=== PATIENT | male | born 1960 | race Caucasian/White ===

== ENCOUNTER 2016-09-29 17:28 | Inpatient (IN) | payer BC ==
[~2016-09-29] VITALS: Ht 180.3 cm; Wt 76.2 kg
[~2016-09-29 17:28] MED LIST: CARD120C4 PO; METO25TA3 PO
[2016-09-29 17:30] VITALS: PULSE 100; RESP 16; TEMP 97.7; O2SAT 100
[2016-09-29 17:45] VITALS: BP 222/115
--- NOTE | 2016-09-29 17:53 | PD ---
HPI Chief Complaint: Pain: Acute or Chronic Time Seen by Provider: 17:43 Travel History International Travel<30 days: No Contact w/Intl Traveler<30days: No Traveled to known affect area: No History of Present Illness HPI 56-year-old male presented to the emergency Department with increasing swelling, pain, and redness to the left distal lateral sole of the foot. Patient states he's had a callus in this area for months, but 2 days ago it became more swollen and tender with what appeared to be a pocket of pus underneath it. Patient denies fever, chills, or drainage from the area. Patient's blood pressure is noted be elevated in triage. He states he took his Cardizem this morning. Patient states the swelling is worse today and is having difficulty ambulating secondary to pain. Pain with walking is 9/10. Pain at rest is 4/10. Patient has a history of MRSA. PFSH Past Medical History Hx Anticoagulant Therapy: No Cardiovascular Problems: Yes (HTN) Diabetes: No Musculoskeletal: No Neurologic: No Respiratory: No Social History Alcohol Use: Yes (BEER - 6 DAILY ) Tobacco Use: No (1 PPD) Substance Use: Yes (pot) Allergies-Medications (Allergen,Severity, Reaction): Coded Allergies: *MDRO Multi-Drug Resistant Organism (Verified Adverse Reaction, Unknown, ) MRSA PCR positive 06/30/2015 Reported Meds & Prescriptions Reported Meds & Active Scripts Active Cardizem CD 24 HR (Diltiazem CD 24 HR) 120 Mg Caper 1 Cap PO DAILY Reported Metoprolol Tartrate 25 Mg Tab 25 Mg PO Q12HR Review of Systems Except as stated in HPI: all other systems reviewed are Neg General / Constitutional: No: Fever, Chills Eyes: No: Visual changes HENT: No: Headaches Cardiovascular: No: Chest Pain or Discomfort Respiratory: No: Shortness of Breath Gastrointestinal: No: Abdominal Pain Genitourinary: No: Dysuria Musculoskeletal: Positive: Pain (see history present illness) Skin: Positive Lesions, No Rash Neurologic: No: Weakness Psychiatric: No: Depression Endocrine: No: Polydipsia Hematologic/Lymphatic: No: Easy Bruising Physical Exam Narrative GENERAL: Patient appears no acute distress. SKIN: Warm and dry. Generally normal color, normal turgor. Patient has a swollen appears to be abscess developed under the long-term callus on the left lateral distal foot over the fifth MIP joint. There is surrounding erythema and induration. The area under the callus is actually fluctuant with visible pus. No active drainage is noted. HEAD: Atraumatic. Normocephalic. EYES: Pupils equal and round. No scleral icterus. No injection or drainage. ENT: No nasal bleeding or discharge. Mucous membranes pink and moist. Pharynx is clear. Airway is patent. NECK: Trachea midline. Supple and nontender. CARDIOVASCULAR: Regular rate and rhythm. RESPIRATORY: No accessory muscle use. Clear to auscultation. Breath sounds equal bilaterally. MUSCULOSKELETAL: Extremities without clubbing, cyanosis, or edema. No obvious deformities. Patient is tenderness over the left fifth MIP joint. NEUROLOGICAL: Awake and alert. No obvious cranial nerve deficits. Motor grossly within normal limits. Five out of 5 muscle strength in the arms and legs. Normal speech. PSYCHIATRIC: Appropriate mood and affect; insight and judgment normal. Data Data Last Documented VS Vital Signs Date Time Temp Pulse Resp B/P Pulse Ox O2 Delivery O2 Flow Rate FiO2 09/29/16 17:45 222/115 09/29/16 17:30 97.7 100 16 100 Orders Complete Blood Count With Diff (09/29/16 17:53) Blood Culture (09/29/16 17:53) Wound Culture And Gram Stain (09/29/16 17:53) Iv Access Insert/Monitor (09/29/16 17:53) Ketorolac Inj (Toradol Inj) (09/29/16 18:00) Cefazolin Inj (Ancef Inj) (09/29/16 18:00) Comprehensive Metabolic Panel (09/29/16 17:53) Foot, Complete (Yiw2oyi) (09/29/16 17:53) Metoprolol Succinate Er (Toprol Xl) (09/29/16 18:15) Clindamycin Inj (Cleocin Inj) (09/29/16 18:15) Lactic Acid Sepsis Protocol (09/29/16 18:31) Sodium Chlor 0.9% 1000 Ml Inj (Ns 1000 M (09/29/16 18:45) Westergren Sedimentation Rate (09/29/16 18:40) Vancomycin Inj (Vancomycin Inj) (09/29/16 18:45) Consult Podiatry (09/29/16 ) (Hub Use Only)Inp Phy Cons/Ref (09/29/16 ) Diltiazem Cd (Cardizem Cd) (09/30/16 09:00) Metoprolol Tartrate (Lopressor) (09/29/16 21:00) Admit Order (Ed Use Only) (09/29/16 19:40) Labs Laboratory Tests Test 09/29/16 09/29/16 18:00 18:40 White Blood Count 15.0 TH/MM3 Red Blood Count 5.05 MIL/MM3 Hemoglobin 15.9 GM/DL Hematocrit 48.0 % Mean Corpuscular Volume 95.1 FL Mean Corpuscular Hemoglobin 31.5 PG Mean Corpuscular Hemoglobin 33.1 % Concent Red Cell Distribution Width 12.9 % Platelet Count 221 TH/MM3 Mean Platelet Volume 7.9 FL Neutrophils (%) (Auto) 68.2 % Lymphocytes (%) (Auto) 16.9 % Monocytes (%) (Auto) 10.3 % Eosinophils (%) (Auto) 0.5 % Basophils (%) (Auto) 4.1 % Neutrophils # (Auto) 10.3 TH/MM3 Lymphocytes # (Auto) 2.5 TH/MM3 Monocytes # (Auto) 1.5 TH/MM3 Eosinophils # (Auto) 0.1 TH/MM3 Basophils # (Auto) 0.6 TH/MM3 CBC Comment DIFF FINAL Differential Comment Erythrocyte Sedimentation Rate 5 mm/hr Sodium Level 132 MEQ/L Potassium Level 4.2 MEQ/L Chloride Level 96 MEQ/L Carbon Dioxide Level 25.2 MEQ/L Anion Gap 11 MEQ/L Blood Urea Nitrogen 12 MG/DL Creatinine 1.00 MG/DL Estimat Glomerular Filtration 77 ML/MIN Rate Random Glucose 89 MG/DL Calcium Level 10.0 MG/DL Total Bilirubin 1.7 MG/DL Aspartate Amino Transf 19 U/L (AST/SGOT) Alanine Aminotransferase 20 U/L (ALT/SGPT) Alkaline Phosphatase 97 U/L Total Protein 9.5 GM/DL Albumin 4.5 GM/DL Lactic Acid Level 1.1 mmol/L [facility] Medical Decision Making Medical Screen Exam Complete: Yes Emergency Medical Condition: Yes Differential Diagnosis Left foot abscess. Left foot cellulitis. Possible osteomyelitis. History of MRSA. Narrative Course Patient is medically stable at time of exam. Patient is discussed with, and seen by . X-ray of the left foot is ordered. Labs ordered including CBC, CMP, blood cultures 2. IV access is obtained and the patient is given 30 mg Toradol IV as well as 1 g Ancef IV, and 900 mg clindamycin IV. I&D is performed of the abscess of the left foot without difficulty, and culture is sent to the lab. CBC shows leukocytosis of 15,000. CMP is unremarkable. Foot x-ray is unremarkable for bony findings, only with localized swelling. Per radiologist. Patient discussed with Dr. Santos, who recommends adding lactic acid and calling Dr. Bartlett, the weather reporter on-call. Patient discussed with Dr. Bartlett, the weather reporter who recommended switching the patient to Zosyn and vancomycin IV, and adding an ESR to his lab work. He recommends admission for the patient and follow-up with him under consult. Call placed to the hospitalist for admission. Clindamycin IV was canceled, and patient given for vancomycin 1000 mg IV. Patient had already received the IV Ancef. Patient was discussed with the hospitalist who agreed to admit the patient. Diagnosis Primary Impression: Cellulitis of left foot Additional Impression: Abscess of left foot excluding toes Admitting Information Admitting Physician Requests: Admit Condition: Stable Drew Garcia September 29, 2016 17:53
[2016-09-29] MEDS ORDERED: KETOROLAC TROMETHAMINE 30 MG/ML (IVP) VIAL IVP ONE (18:00)
[2016-09-29] MEDS ORDERED: METOPROLOL SUCCINATE 25 MG EXTENDED RELEASE TAB PO ONE (18:15)
[2016-09-29] MEDS ORDERED: CLINDAMYCIN INJ 900 MG in SODIUM CHLORIDE 0.9% INJ 100 ML IV ONE (18:15)
[2016-09-29 18:19] LABS: AUTOMATED NEUTROPHIL # 10.3 TH/MM3 (1.8-7.7); BASOPHIL # 0.6 TH/MM3 (0-0.2); BASOPHIL % 4.1 % (0.0-2.0); EOSINOPHIL # 0.1 TH/MM3 (0-0.4); EOSINOPHIL % 0.5 % (0.0-4.0); HEMO FLAGS DIFF FINAL; LYMPH % 16.9 % (9.0-44.0); LYMPHOCYTE # 2.5 TH/MM3 (1.0-4.8); MEAN CELL VOLUME 95.1 FL (80.0-100.0); MEAN CORPUSCULAR HEMOGLOBIN 31.5 PG (27.0-34.0); MEAN CORPUSCULAR HGB CONC 33.1 % (32.0-36.0); MONO % 10.3 % (0.0-8.0); NEUT % 68.2 % (16.0-70.0); PLATELET COUNT 221 TH/MM3 (150-450); RED BLOOD COUNT 5.05 MIL/MM3 (4.50-5.90); RED CELL DISTRIBUTION WIDTH 12.9 % (11.6-17.2)
--- NOTE | 2016-09-29 18:23 | RADHPO ---
EXAM DATE/TIME: 09/29/2016 18:08 [facility] COMPARISON: No previous studies available for comparison. INDICATIONS : Left foot pain, plantar surface. MEDICAL HISTORY : None. SURGICAL HISTORY : None. ENCOUNTER: Initial ACUITY: 3 days PAIN SCORE: 7/10 LOCATION: Left foot, plantar FINDINGS: Three view examination of the left foot demonstrates no destructive change, dislocation, or fracture. The tarsal bones appear intact. The interphalangeal and metatarsophalangeal joints are intact. T he calcaneus is intact. Bony mineralization is normal. There is soft tissue swelling mainly involvin g the plantar aspect of the lateral forefoot. CONCLUSION: No acute bony findings. Cliff Walsh MD on September 29, 2016 at 18:20 Board Certified Radiologist. This report was verified electronically.
[2016-09-29 18:30] LABS: CHLORIDE 96 MEQ/L (98-107); POTASSIUM 4.2 MEQ/L (3.5-5.1); SODIUM (NA) 132 MEQ/L (136-145)
[2016-09-29 18:34] LABS: ANION GAP 11 MEQ/L (5-15); BICARBONATE 25.2 MEQ/L (21.0-32.0); BLOOD UREA NITROGEN 12 MG/DL (7-18)
[2016-09-29 18:37] LABS: ALT (GPT) 20 U/L (12-78); AST (GOT) 19 U/L (15-37); GLOMERULAR FILTRATION RATE 77 ML/MIN (>89)
[2016-09-29 18:38] LABS: TOTAL BILIRUBIN ADULT 1.7 MG/DL (0.2-1.0)
[2016-09-29 18:40] LABS: ALKALINE PHOSPHATASE 97 U/L (45-117)
[2016-09-29] MEDS ORDERED: VANCOMYCIN INJ 1,000 MG in SODIUM CHLOR 0.9% 250 ML INJ 250 ML IV ONE (18:45)
[2016-09-29] MEDS ORDERED: SODIUM CHLOR 0.9% 1000 ML INJ 1,000 ML IV ONE (18:45)
[2016-09-29] MEDS ORDERED: ACETAMINOPHEN 325 MG TAB PO PRN (19:45)
[2016-09-29] MEDS ORDERED: SODIUM CHLORIDE 0.9% FLUSH 10 ML FLUSH IV FLUSH PRN (19:45)
[2016-09-29] MEDS ORDERED: NALOXONE HCL 0.4 MG/ML AMP IV PRN (19:45)
[2016-09-29] MEDS ORDERED: ONDANSETRON HCL 4 MG/2 ML VIAL IVP PRN (19:45)
[2016-09-29 19:51] VITALS: BP 201/95; PULSE 80; RESP 16; TEMP 98.4; O2SAT 98
[2016-09-29 20:00] VITALS: BP 202/114; PULSE 80; RESP 18; TEMP 98.8; O2SAT 99
[2016-09-29] MEDS ORDERED: Vancomycin Consult Pharmacy 1 EA OTHER SCH (20:00)
[2016-09-29] MEDS ORDERED: PIPERACIL-TAZO 3.375 GM PREMIX 50 ML IV SCH (21:00)
[2016-09-29] MEDS: METOPROLOL TARTRATE 25 MG TAB PO SCH (21:00)
[2016-09-29] MEDS: cloNIDine HCL 0.1 MG TAB PO PRN (23:15)
[2016-09-29] MEDS: PIPERACIL-TAZO 3.375 GM PREMIX 50 ML IV SCH (23:16)
[2016-09-29] MEDS: SODIUM CHLORIDE 0.9% FLUSH 10 ML FLUSH IV FLUSH SCH (23:17)
[2016-09-30] VITALS: BP 201/116; PULSE 85; RESP 18; TEMP 97.6; O2SAT 99
[2016-09-30] MEDS ORDERED: TEMAZEPAM 15 MG CAP PO PRN (00:45)
[2016-09-30] MEDS: oxyCODONE/ACETAMINOPHEN 5 MG/325 MG TAB PO PRN ×2 (01:09→05:37)
[2016-09-30 04:00] VITALS: BP 188/101; PULSE 65; RESP 18; TEMP 98.2; O2SAT 98
[2016-09-30] MEDS: PIPERACIL-TAZO 3.375 GM PREMIX 50 ML IV SCH ×4 (05:37→22:27)
[2016-09-30] MEDS: cloNIDine HCL 0.1 MG TAB PO PRN (05:37)
[2016-09-30 06:38] LABS: AUTOMATED NEUTROPHIL # 7.4 TH/MM3 (1.8-7.7); BASOPHIL # 0.2 TH/MM3 (0-0.2); BASOPHIL % 1.9 % (0.0-2.0); EOSINOPHIL # 0.1 TH/MM3 (0-0.4); EOSINOPHIL % 1.1 % (0.0-4.0); HEMATOCRIT 40.3 % (39.0-51.0); HEMO FLAGS DIFF FINAL; LYMPH % 18.8 % (9.0-44.0); MEAN CELL VOLUME 94.7 FL (80.0-100.0); MEAN CORPUSCULAR HGB CONC 33.8 % (32.0-36.0); MONO % 11.1 % (0.0-8.0); NEUT % 67.1 % (16.0-70.0); PLATELET COUNT 202 TH/MM3 (150-450); RED BLOOD COUNT 4.26 MIL/MM3 (4.50-5.90); RED CELL DISTRIBUTION WIDTH 12.5 % (11.6-17.2); WHITE BLOOD COUNT 10.9 TH/MM3 (4.0-11.0)
[2016-09-30 06:58] LABS: POTASSIUM 4.1 MEQ/L (3.5-5.1)
[2016-09-30 07:09] LABS: BICARBONATE 24.8 MEQ/L (21.0-32.0)
[2016-09-30 08:00] VITALS: BP 172/95; PULSE 64; RESP 20; TEMP 97.6; O2SAT 97
[2016-09-30] MEDS ORDERED: VANCOMYCIN INJ 1,000 MG in SODIUM CHLOR 0.9% 250 ML INJ 250 ML IV SCH (09:00)
--- NOTE | 2016-09-30 09:04 | MB ---
cc: VICKY GALINDO DPM DATE OF CONSULTATION 09/30/2016 REASON FOR CONSULTATION Left foot abscess. HISTORY OF PRESENT ILLNESS This is a 56-year-old male who noticed a callus over the last [id number] weeks. It became red hot swollen, and it had increased pain. He denies any puncture wound, incident or injury. The patient received a minimal incision and drainage in the ED prior to admission. The patient does have a history of a molar abscess that led to sepsis in which she was in the ICU. Currently, I am seeing the patient bedside with his . His foot hurts otherwise he is doing fine. PAST MEDICAL HISTORY 1. Hypertension 2. History of sepsis secondary to molar abscess needing IV antibiotics for six to eight weeks. SOCIAL HISTORY He drinks beer daily. He smokes one pack per day and also marijuana. ALLERGIES None listed. However, the patient has a history of MRSA 06/30/2015. OUTPATIENT MEDICATIONS 1. Cardizem 2. Metoprolol INPATIENT MEDICATIONS Reviewed, the patient is receivin. Vancomycin 2. Zosyn PHYSICAL EXAMINATION Temperature is 98.2, pulse rate 65, respiratory rate 18, blood pressure 188/101. He is sating 98% on room air. GENERAL: This is an alert and oriented male seen bedside exhibiting nonlabored respirations. He is verbal and appropriate. EXTREMITIES: The left lower extremity is examined. There is a fluctuant inflamed abscess which appears to be superficial on the distal plantar fifth metatarsal head. Upon incision and drainage, there appears to be mild necrotic tissue. No obvious odor. No probing deep. Pedal pulses are palpable. Sensation appears to be intact. There is no crepitus or instability upon range of motion of the forefoot, hindfoot or ankle. LABORATORY FINDINGS White blood cell trending 15 down to 10.9, hemoglobin/hematocrit 13 and 40, platelet count is 202. Chem-7 sodium 135, potassium 4.1, chloride 101, CO2 24.8, BUN is 10, creatinine 0.76, random glucose is 90. IMAGING FINDINGS Foot x-ray, no obvious signs of foreign body erosive process. There is noted to be increased soft tissue swelling of the plantar aspect of the fifth metatarsal head. Initial cultures ordered and pending from the ED. A repeat deeper culture was taken today after incision and drainage. ASSESSMENT/PLAN Left foot abscess, possible deeper infection due to the level of necrosis seen. After obtaining an informed verbal and written consent, a bedside incision and drainage took place yielding approximately 3 cc of purulent material. A culture was taken. This was a deeper culture. The patient was explained MRI may be beneficial to rule out any deeper process to be certain there is no deep spread. Given the patient's past history of sepsis due to molar abscess, I that think this is appropriate. The patient will continue IV antibiotics. I will advise pending the MRI and all around tomorrow checking for any signs of further worsening or improvement. DEXTER Mariano/ASHA /8:04 AM /8:48 AM
[2016-09-30] MEDS ORDERED: NALOXONE HCL 0.4 MG/ML AMP IV PRN (09:15)
[2016-09-30] MEDS ORDERED: LORazepam 1 MG TAB PO PRN (09:15)
[2016-09-30] MEDS ORDERED: LORazepam 2 MG/ML VIAL IV PUSH PRN ×4 (09:15)
[2016-09-30] MEDS ORDERED: LORazepam 2 MG TAB PO PRN (09:15)
[2016-09-30] MEDS: DOCUSATE SODIUM 100 MG CAP PO SCH ×2 (09:15→21:00)
[2016-09-30] MEDS ORDERED: ENALAPRILAT 1.25 MG/ML VIAL IV PRN (09:15)
[2016-09-30] MEDS ORDERED: ACETAMINOPHEN/HYDROcodone 325 MG/5 MG TAB PO PRN (09:15)
[2016-09-30] MEDS ORDERED: MORPHINE SULFATE 4 MG/ML INJ IV PRN (09:15)
[2016-09-30] MEDS ORDERED: BISACODYL 10 MG SUPP RECTAL PRN (09:15)
[2016-09-30] MEDS ORDERED: HALOPERIDOL LACTATE 5 MG/ML AMP IM PRN (09:15)
[2016-09-30] MEDS: NICOTINE 21 MG/24 HR PATCH T-DERMAL SCH (09:15)
[2016-09-30] MEDS ORDERED: FLUMAZENIL 0.5 MG/5 ML VIAL IV PUSH PRN (09:15)
[2016-09-30] MEDS ORDERED: REMOVE OLD PATCH T-DERMAL SCH (09:15)
[2016-09-30] MEDS: DILTIAZEM-CD 120 MG CAP ER PO SCH (10:12)
[2016-09-30] MEDS: METOPROLOL TARTRATE 25 MG TAB PO SCH ×2 (10:12→21:13)
[2016-09-30] MEDS: SODIUM CHLORIDE 0.9% FLUSH 10 ML FLUSH IV FLUSH SCH ×2 (10:14→21:14)
[2016-09-30] MEDS: ACETAMINOPHEN/HYDROcodone 325 MG/10 MG TAB PO PRN ×3 (11:39→21:29)
[2016-09-30] MEDS: VANCOMYCIN 1,000 MG/NS 250 ML IV SCH ×4 (11:39→21:15)
[2016-09-30 12:00] VITALS: BP 197/100; PULSE 65; RESP 20; TEMP 98.3; O2SAT 99
[2016-09-30] MEDS ORDERED: VANCOMYCIN INJ 1,100 MG in SODIUM CHLOR 0.9% 250 ML INJ 250 ML IV SCH (12:00)
--- NOTE | 2016-09-30 12:41 | HHI.HP ---
[facility] Service [place] [facility] Primary Care Physician Christopher Bell MD Admission Diagnosis Left Foot Abscess Diagnoses: Chief Complaint: Left foot pain and swelling Travel History International Travel<30 Days: No Contact w/Intl Traveler <30 Da: No Traveled to Known Affected Are: No History of Present Illness This is a 56-year-old male who presented to the emergency Department with increasing swelling, pain, and redness to the distal lateral sole of the left foot. Patient states he's had a callus in this area for months, but 2 days ago it became more swollen and tender worse when he is walking scale of 9 out of 10. It is a constant pain scale 4 out of 10. Patient denies fever, chills, or drainage from the area. Underwent incision and drainage in the emergency department by PA and on the floor at bedside by podiatry . Patient's blood pressure is noted be elevated states he does not check at home. He has been compliant with Cardizem and metoprolol. Patient has a history of MRSA pneumonia and sepsis Review of Systems Except as stated in HPI: all other systems reviewed are Neg Past Family Social History Past Medical History Hypertension. 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 Past Surgical History Chest tube drainage Reported Medications As previously mentioned Allergies: Coded Allergies: *MDRO Multi-Drug Resistant Organism (Verified Adverse Reaction, Unknown, ) MRSA PCR positive 06/30/2015 Family History Denies diabetes Social History Smokes a pack per day and drinks 6 beers a day Physical Exam Vital Signs Vital Signs Date Time Temp Pulse Resp B/P Pulse Ox O2 Delivery O2 Flow Rate FiO2 09/30/16 08:00 97.6 64 20 172/95 97 09/30/16 04:00 98.2 65 18 188/101 98 09/30/16 00:00 97.6 85 18 201/116 99 09/30/16 00:00 97.6 85 18 201/116 99 09/29/16 20:38 76 16 99 09/29/16 20:00 98.8 80 18 202/114 99 09/29/16 19:51 98.4 80 16 201/95 98 Room Air 09/29/16 17:45 222/115 09/29/16 17:30 97.7 100 16 100 Physical Exam GENERAL: This is a well-nourished, well-developed patient, in no apparent distress. SKIN: No rashes, ecchymoses or lesions. Cool and dry. HEAD: Atraumatic. Normocephalic. No temporal or scalp tenderness. EYES: Pupils equal round and reactive. Extraocular motions intact. No scleral icterus. No injection or drainage. ENT: Nose without bleeding, purulent drainage or septal hematoma. Throat without erythema, tonsillar hypertrophy or exudate. Uvula midline. Airway patent. NECK: Trachea midline. No JVD or lymphadenopathy. Supple, nontender, no meningeal signs. CARDIOVASCULAR: Regular rate and rhythm without murmurs, gallops, or rubs. RESPIRATORY: Clear to auscultation. Breath sounds equal bilaterally. No wheezes , rales, or rhonchi. GASTROINTESTINAL: Abdomen soft, non-tender, nondistended. No guarding. MUSCULOSKELETAL: Extremities without clubbing, cyanosis, or edema. No joint tenderness, effusion, or edema noted. No calf tenderness. Negative Homans sign bilaterally. Left foot with dry dressing NEUROLOGICAL: Awake and alert. Cranial nerves II through XII intact. Motor and sensory grossly within normal limits. Five out of 5 muscle strength in all muscle groups. Normal speech. Mild tremors noted Laboratory Laboratory Tests Test 09/29/16 09/29/16 09/30/16 18:00 18:40 06:22 White Blood Count 15.0 10.9 Red Blood Count 5.05 4.26 Hemoglobin 15.9 13.6 Hematocrit 48.0 40.3 Mean Corpuscular Volume 95.1 94.7 Mean Corpuscular Hemoglobin 31.5 32.0 Mean Corpuscular Hemoglobin 33.1 33.8 Concent Red Cell Distribution Width 12.9 12.5 Platelet Count 221 202 Mean Platelet Volume 7.9 7.8 Neutrophils (%) (Auto) 68.2 67.1 Lymphocytes (%) (Auto) 16.9 18.8 Monocytes (%) (Auto) 10.3 11.1 Eosinophils (%) (Auto) 0.5 1.1 Basophils (%) (Auto) 4.1 1.9 Neutrophils # (Auto) 10.3 7.4 Lymphocytes # (Auto) 2.5 2.0 Monocytes # (Auto) 1.5 1.2 Eosinophils # (Auto) 0.1 0.1 Basophils # (Auto) 0.6 0.2 CBC Comment DIFF FINAL DIFF FINAL Differential Comment Erythrocyte Sedimentation Rate 5 Sodium Level 132 135 Potassium Level 4.2 4.1 Chloride Level 96 101 Carbon Dioxide Level 25.2 24.8 Anion Gap 11 9 Blood Urea Nitrogen 12 10 Creatinine 1.00 0.76 Estimat Glomerular Filtration 77 106 Rate Random Glucose 89 90 Calcium Level 10.0 8.6 Total Bilirubin 1.7 Aspartate Amino Transf 19 (AST/SGOT) Alanine Aminotransferase 20 (ALT/SGPT) Alkaline Phosphatase 97 Total Protein 9.5 Albumin 4.5 Lactic Acid Level 1.1 Date/Time Procedure Status Source Growth 09/30/16 07:45 Gram Stain Received Abscess Foot Pending 09/30/16 07:45 Wound Culture Received Abscess Foot Pending 09/29/16 18:05 Aerobic Blood Culture - Preliminary Resulted Blood Peripheral NO GROWTH IN 1 DAY 09/29/16 18:05 Anaerobic Blood Culture - Preliminary Resulted Blood Peripheral NO GROWTH IN 1 DAY 09/29/16 18:00 Gram Stain - Final Resulted Wound Foot 09/29/16 18:00 Wound Culture - Preliminary Resulted S. Aureus Mrsa Result Diagram: [id number]/30/1662109/[id number] Imaging X-ray image interpreted by me with no signs of osteomyelitis Last Impressions Foot X-Ray 09/29/16 940 Signed Impressions: Service Date/Time: Thursday, September 29, 2016 18:08 - CONCLUSION: No acute bony findings. Cliff Walsh MD Assessment and Plan Problem List: (1) Abscess of left foot excluding toes ICD Code: L02.612 Status: Acute (2) Cellulitis of left foot ICD Code: L03.116 Status: Acute Assessment and Plan This is a 56-year-old male who presented to the emergency Department with increasing swelling, pain, and redness to the distal lateral sole of the left foot. X-ray negative for osteomyelitis. Underwent incision and drainage x 2 Left foot abscess. Patient history of MRSA. Continue IV vancomycin and Zosyn. Monitor cultures. Pain management with Lortab and IV morphine. Counseled regarding narcotics. Follow-up MRI Uncontrolled hypertension. Could be secondary to pain and early alcohol withdrawal. Continue home medications with as needed clonidine and IV Vasotec P Leukocytosis secondary to above Hyponatremia which is mild likely secondary to alcohol. Monitor repeat BMP and magnesium in the morning Tobacco and alcohol abuse. Counseled. Tobacco cessation. CIWA protocol. DVT prophylaxis with SCD and early ambulation Discussed Condition With Patient and nursing staff Physician Certification 2 Midnight Certification Type: Admission for Inpatient Services Order for Inpatient Services The services are ordered in accordance with Medicare regulations or non- Medicare payer requirements, as applicable. In the case of services not specified as inpatient-only, they are appropriately provided as inpatient services in accordance with the 2-midnight benchmark. Estimated LOS (days): 2 days is the estimated time the patient will need to remain in the hospital, assuming treatment plan goals are met and no additional complications. Post-Hospital Plan: Home Abando,Marshall Momin MD September 30, 2016 12:41
[2016-09-30] MEDS ORDERED: GADODIAMIDE PF 287 MG/ML 5 ML VIAL (for RAD MRI) IV ONE (14:41)
--- NOTE | 2016-09-30 15:44 | RADHPO ---
EXAM DATE/TIME: 09/30/2016 13:43 [facility] COMPARISON: No previous studies available for comparison. INDICATIONS : Osteomyelitis. Wound on lateral aspect of left foot. CONTRAST: 12 cc Omniscan (gadodiamide) IV MEDICAL HISTORY : Hypertension. SURGICAL HISTORY : Chest tube. ENCOUNTER: Subsequent ACUITY: 3 day PAIN SCORE: 2/10 LOCATION: Left foot. TECHNIQUE: Multiplanar, multisequence MRI examination was performed without contrast and after the intravenous a dministration of gadolinium. FINDINGS: BONE/CARTILAGE: Bone marrow signal is homogeneous. Articular cartilage signal is within normal limits. TENDONS: All of the visualized tendons are intact. MISCELLANEOUS: Cutaneous ulceration is seen the lateral plantar aspect of the foot with sinus tract extending into t he plantar soft tissues adjacent to the fifth metatarsal head. There is associated ill-defined soft t issue edema indicating cellulitis and or clinical setting. No organized rounded fluid collection iden tified in the soft tissues. There is an area of relative non-enhancement of the plantar soft tissues at the level of the metatarsal head and proximal phalanx measuring 3.1 x 1.7 cm indicating possible b ilaterally soft tissue. CONCLUSION: Plantar ulceration with adjacent edema indicating cellulitis in the proper clinical setting. Nonenhan cing soft tissue at the level of the fifth metatarsophalangeal joint suggesting devitalized tissue. N o evidence of abscess. No evidence of osteomyelitis. Luis Mcgrath MD on September 30, 2016 at 15:30 Board Certified Radiologist. This report was verified electronically.
[2016-09-30 16:00] VITALS: BP 142/82; PULSE 71; RESP 20; TEMP 98; O2SAT 100
[2016-09-30 20:00] VITALS: BP 120/94; PULSE 70; RESP 18; TEMP 98.9; O2SAT 92
[2016-09-30] MEDS: REMOVE OLD PATCH T-DERMAL SCH (21:00)
[2016-09-30] MEDS ORDERED: oxyCODONE/ACETAMINOPHEN 5 MG/325 MG TAB PO ONE (23:30)
[2016-10-01] VITALS: BP 161/92; PULSE 65; RESP 18; TEMP 96.5; O2SAT 96
[2016-10-01 00:36] VITALS: PULSE 64
[2016-10-01 04:00] VITALS: BP 159/92; PULSE 66; RESP 16; TEMP 98.2; O2SAT 97
[2016-10-01] MEDS: PIPERACIL-TAZO 3.375 GM PREMIX 50 ML IV SCH ×2 (05:07→10:28)
--- NOTE | 2016-10-01 08:53 | PD.POD ---
Subjective Pain score: 3 Remarks foot pain comes and goes but there is improvement Past Med/Surg/Social History Past Medical History Endocrine: DENIES HX OF: Diabetes mellitus Respiratory: DENIES HX OF: Asthma, COPD Cardiovascular: REPORTS HX OF: Atrial fibrillation, Hypertension, DENIES HX OF : Coronary artery disease, Myocardial infarction Gastrointestinal: DENIES HX OF: GERD, Liver disease, Peptic ulcer disease Past Surgical History Respiratory: REPORTS HX OF: Other chest surgery (chest tube placement) Social History Smoking Status: Current Every Day Smoker Objective Vital Signs Vital Signs Date Time Temp Pulse Resp B/P Pulse Ox O2 Delivery O2 Flow Rate FiO2 10/01/16 04:00 98.2 66 16 159/92 97 10/01/16 00:36 64 10/01/16 00:00 96.5 65 18 161/92 96 09/30/16 20:00 98.9 70 18 120/94 92 09/30/16 18:23 18 09/30/16 16:00 98.0 71 20 142/82 100 09/30/16 12:00 98.3 65 20 197/100 99 Coded Allergies: *MDRO Multi-Drug Resistant Organism (Verified Adverse Reaction, Unknown, ) MRSA PCR positive 06/30/2015 Medications and IVs Administered Medications Medications (Trade) Dose Ordered Sig/Thea Route PRN Reason Start Time Stop Time Status Last Admin Dose Admin Diltiazem HCl (Cardizem Cd) 120 mg DAILY PO 09/30/16 09:00 09/30/16 10:12 Metoprolol Tartrate (Lopressor) 25 mg Q12HR PO 09/29/16 21:00 09/30/16 21:13 Sodium Chloride (NS Flush) 2 ml BID IV FLUSH 09/29/16 21:00 09/30/16 21:14 Clonidine 0.1 mg 0.1 mg Q6H PRN PO SBP> OR = 180, DBP> OR = 100 09/29/16 20:00 09/30/16 05:37 Piperacillin Sod/ Tazobactam Sod (Zosyn 3.375 Gm Premix) 50 ml @ 100 mls/hr Q6H IV 09/29/16 23:00 10/01/16 05:07 Enalaprilat (Vasotec Inj) 1.25 mg Q6H PRN IV SBP> OR = 180, DBP> OR = 100 09/30/16 09:15 09/30/16 11:48 Acetaminophen/ Hydrocodone Bitart 1 tab 1 tab Q4H PRN PO PAIN SCALE 6 TO 10 09/30/16 09:15 09/30/16 21:29 Vancomycin HCl/ Sodium Chloride (Vancomycin Inj/ NS 250 ml Inj) 250 ml @ 250 mls/hr Q12H IV 09/30/16 10:00 09/30/16 21:15 Other Results Last 72 hours Impressions Foot MRI 09/30/16 0000 Signed Impressions: Service Date/Time: Friday, September 30, 2016 13:43 - CONCLUSION: Plantar ulceration with adjacent edema indicating cellulitis in the proper clinical setting. Nonenhancing soft tissue at the level of the fifth metatarsophalangeal joint suggesting devitalized tissue. No evidence of abscess. No evidence of osteomyelitis. Luis Mcgrath MD Foot X-Ray 09/29/16 1753 Signed Impressions: Service Date/Time: Thursday, September 29, 2016 18:08 - CONCLUSION: No acute bony findings. Cliff Walsh MD Laboratory Tests Test 09/29/16 09/30/16 18:00 06:22 White Blood Count 15.0 TH/MM3 10.9 TH/MM3 Red Blood Count 5.05 MIL/MM3 4.26 MIL/MM3 Hemoglobin 15.9 GM/DL 13.6 GM/DL Hematocrit 48.0 % 40.3 % Mean Corpuscular Volume 95.1 FL 94.7 FL Mean Corpuscular Hemoglobin 31.5 PG 32.0 PG Mean Corpuscular Hemoglobin 33.1 % 33.8 % Concent Red Cell Distribution Width 12.9 % 12.5 % Platelet Count 221 TH/MM3 202 TH/MM3 Mean Platelet Volume 7.9 FL 7.8 FL Neutrophils (%) (Auto) 68.2 % 67.1 % Lymphocytes (%) (Auto) 16.9 % 18.8 % Monocytes (%) (Auto) 10.3 % 11.1 % Eosinophils (%) (Auto) 0.5 % 1.1 % Basophils (%) (Auto) 4.1 % 1.9 % Neutrophils # (Auto) 10.3 TH/MM3 7.4 TH/MM3 Lymphocytes # (Auto) 2.5 TH/MM3 2.0 TH/MM3 Monocytes # (Auto) 1.5 TH/MM3 1.2 TH/MM3 Eosinophils # (Auto) 0.1 TH/MM3 0.1 TH/MM3 Basophils # (Auto) 0.6 TH/MM3 0.2 TH/MM3 CBC Comment DIFF FINAL DIFF FINAL Differential Comment Erythrocyte Sedimentation Rate 5 mm/hr Laboratory Tests Test 09/29/16 09/29/16 09/30/16 18:00 18:40 06:22 Sodium Level 132 MEQ/L 135 MEQ/L Potassium Level 4.2 MEQ/L 4.1 MEQ/L Chloride Level 96 MEQ/L 101 MEQ/L Carbon Dioxide Level 25.2 MEQ/L 24.8 MEQ/L Anion Gap 11 MEQ/L 9 MEQ/L Blood Urea Nitrogen 12 MG/DL 10 MG/DL Creatinine 1.00 MG/DL 0.76 MG/DL Estimat Glomerular Filtration 77 ML/MIN 106 ML/MIN Rate Random Glucose 89 MG/DL 90 MG/DL Calcium Level 10.0 MG/DL 8.6 MG/DL Total Bilirubin 1.7 MG/DL Aspartate Amino Transf 19 U/L (AST/SGOT) Alanine Aminotransferase 20 U/L (ALT/SGPT) Alkaline Phosphatase 97 U/L Total Protein 9.5 GM/DL Albumin 4.5 GM/DL Lactic Acid Level 1.1 mmol/L Microbiology Date/Time Procedure Status Source Growth 09/29/16 18:00 Aerobic Blood Culture - Preliminary Resulted Blood Peripheral NO GROWTH IN 1 DAY 09/29/16 18:00 Anaerobic Blood Culture - Preliminary Resulted Blood Peripheral NO GROWTH IN 1 DAY 09/29/16 18:00 Gram Stain - Final Resulted Wound Foot 09/29/16 18:00 Wound Culture - Preliminary Resulted S. Aureus Mrsa 09/29/16 18:05 Aerobic Blood Culture - Preliminary Resulted Blood Peripheral NO GROWTH IN 1 DAY 09/29/16 18:05 Anaerobic Blood Culture - Preliminary Resulted Blood Peripheral NO GROWTH IN 1 DAY 09/30/16 07:45 Cancelled Abscess Foot Physical Exam Remarks EXTREMITIES: The left lower extremity is examined. post I and D ulcer is present down to fascia and dermis with no bone exposed decreased redness decreased drainage. Pedal pulses are palpable. Sensation appears to be intact. There is no crepitus or instability upon range of motion of the forefoot, hindfoot or ankle. Assessment & Plan A/P Left foot abscess. SP I and D 08/31 MRI shoes no OM, +MRSA, recommend bactroban woundcare post op shoe heel WB and FU outpt no further surgery indicated. Hx of sepsis in the past, Pt would benefit from IV ABX however I will leave thi sup to medicine, ok to DC once ABX arrange, I will sign off at this point Fu 1 week in office. Willy Bartlett DPM October 01, 2016 08:53
[2016-10-01] MEDS ORDERED: MUPIROCIN 2% OINT 22 GM TUBE TOPICAL SCH (09:00)
[2016-10-01] MEDS ORDERED: THIAMINE HCL 100 MG TAB PO SCH (09:00)
[2016-10-01] MEDS: NICOTINE 21 MG/24 HR PATCH T-DERMAL SCH (09:00)
[2016-10-01] MEDS ORDERED: FOLIC ACID 1 MG TAB PO SCH (09:00)
[2016-10-01] MEDS ORDERED: MULTIVITAMINS/MINERALS THERAPEUTIC TAB PO SCH (09:00)
[2016-10-01 09:01] VITALS: BP 170/88; PULSE 69; RESP 16; TEMP 98; O2SAT 97
[2016-10-01] MEDS ORDERED: PHARMACY ORDERED LAB ONE (09:45)
[2016-10-01] MEDS ORDERED: oxyCODONE/ACETAMINOPHEN 5 MG/325 MG TAB PO PRN (10:15)
[2016-10-01] MEDS: SODIUM CHLORIDE 0.9% FLUSH 10 ML FLUSH IV FLUSH SCH (10:28)
[2016-10-01] MEDS: VANCOMYCIN 1,000 MG/NS 250 ML IV SCH ×2 (10:28)
[2016-10-01] MEDS: REMOVE OLD PATCH T-DERMAL SCH (10:29)
[2016-10-01] MEDS: DILTIAZEM-CD 120 MG CAP ER PO SCH (10:30)
[2016-10-01] MEDS: DOCUSATE SODIUM 100 MG CAP PO SCH (10:30)
[2016-10-01] MEDS: METOPROLOL TARTRATE 25 MG TAB PO SCH (10:30)
--- NOTE | 2016-10-01 11:09 | HHI.PR ---
Subjective Remarks Resting comfortably no fever or chills Left leg in gauze, discussed with podiatry Dr. Bartlett Objective Vitals Vital Signs Date Time Temp Pulse Resp B/P Pulse Ox O2 Delivery O2 Flow Rate FiO2 10/01/16 09:01 98.0 69 16 170/88 97 10/01/16 04:00 98.2 66 16 159/92 97 10/01/16 00:36 64 10/01/16 00:00 96.5 65 18 161/92 96 09/30/16 20:00 98.9 70 18 120/94 92 09/30/16 18:23 18 09/30/16 16:00 98.0 71 20 142/82 100 09/30/16 12:00 98.3 65 20 197/100 99 I/O 09/30/16 09/30/16 09/30/16 10/01/16 10/01/16 10/01/16 07:00 15:00 23:00 07:00 15:00 23:00 Intake Total 380 ml 980 ml 400 ml 450 ml Balance 380 ml 980 ml 400 ml 450 ml Intake Oral 380 ml 980 ml 400 ml IV Total 450 ml # Voids 2 8 2 # Bowel Movements 0 1 0 Result Diagram: 09/30/16 0622 09/30/16 0622 Imaging Last Impressions Foot MRI 09/30/16 0000 Signed Impressions: Service Date/Time: Friday, September 30, 2016 13:43 - CONCLUSION: Plantar ulceration with adjacent edema indicating cellulitis in the proper clinical setting. Nonenhancing soft tissue at the level of the fifth metatarsophalangeal joint suggesting devitalized tissue. No evidence of abscess. No evidence of osteomyelitis. Luis Mcgrath MD Foot X-Ray 09/29/16 1753 Signed Impressions: Service Date/Time: Thursday, September 29, 2016 18:08 - CONCLUSION: No acute bony findings. Cliff Walsh MD Objective Remarks GENERAL: This is a well-nourished, well-developed patient, in no apparent distress. SKIN: No rashes, warm and dry HEAD: Atraumatic. Normocephalic. EYES: Pupils equal round and reactive. Extraocular motions intact. No scleral icterus. ENT: Nose without bleeding, or drainage, Airway patent. NECK: Trachea midline. Supple CARDIOVASCULAR: Regular rate and rhythm without murmurs, gallops, or rubs. RESPIRATORY: Fair air entry bilaterally. No wheezes, rales, or rhonchi. GASTROINTESTINAL: Abdomen soft, non-tender, nondistended. Positive bowel sounds MUSCULOSKELETAL: Extremities without clubbing, cyanosis, or edema. Pedal pulses appreciated, left foot in gauze able to wiggle his toes NEUROLOGICAL: Awake and alert. Moves all extremity. Normal speech.no focal neurological deficit A/P Problem List: (1) Abscess of left foot excluding toes ICD Code: L02.612 Status: Acute (2) Cellulitis of left foot ICD Code: L03.116 Status: Acute Assessment and Plan This is a 56-year-old male who presented to the emergency Department with increasing swelling, pain, and redness to the distal lateral sole of the left foot. X-ray negative for osteomyelitis. Underwent incision and drainage x 2 Left foot abscess. Patient history of MRSA. Continue IV vancomycin and Zosyn. Monitor cultures. Pain management with Lortab and IV morphine. Counseled regarding narcotics. MRI of the foot did not confirm OM but cellulitis, discussed with Dr. Houston room the podiatry he recommended usp of antibiotic considering his history of relapsing MRSA OM, ID consulted Uncontrolled hypertension. Could be secondary to pain and early alcohol withdrawal. Continue home medications with as needed clonidine and IV Vasotec P , I will add low dose lisinopril and monitor Leukocytosis secondary to above Hyponatremia which is mild likely secondary to alcohol. Monitor repeat BMP and magnesium in the morning Tobacco and alcohol abuse. Counseled. Tobacco cessation. [facility] protocol. DVT prophylaxis with SCD and early ambulation Raghu Valdovinos MD October 01, 2016 11:08
[2016-10-01 12:07] VITALS: BP 182/84; PULSE 70; RESP 16; TEMP 99.7; O2SAT 96
[2016-10-01] MEDS ORDERED: CLIN1CAP6 PO (12:29)
[2016-10-01] MEDS ORDERED: FOLI1TAB4 PO (12:32)
[2016-10-01] MEDS ORDERED: VITA100T2 PO (12:32)
[2016-10-01 12:39] VITALS: RESP 18
--- NOTE | 2016-10-01 13:10 | MB ---
cc: KORIN MAURICE MD DATE OF CONSULTATION: 10/01/[address] Valdovinos. REASON FOR CONSULTATION Diabetic foot OM. HISTORY OF PRESENT ILLNESS This is a 56-year-old white male who came to the emergency department on 09/29 with complaint of pain at the lateral right foot at the base of the fifth toe. The patient noted swelling and redness as well. He has had a callus in that location for a month. He reportedly noted that there was some pus underneath the area of redness. The patient was evaluated in the emergency department. His white blood cell count was 15.0. He was felt to have an abscess of the left foot extending to the toes. The patient underwent I&D and approximately 3 ccs of purulent material was obtained and the culture came back with MRSA. The wound was debrided leaving a superficial ulcerated area at the lateral aspect of the foot at the base of the fifth toe. The patient has no complaints currently. He is afebrile. White blood cell count has come down to 10.9. Sedimentation rate is 5. The MRI obtained on 09/30 revealed no evidence of abscess and no evidence of osteomyelitis. There was nonenhancing soft tissue at the level of the fifth metatarsal joint and ulceration with adjacent edema indicating cellulitis. PAST MEDICAL HISTORY 1. Hypertension. 2. History of MRSA. 3. Pulmonary infection treated with chest tube drainage. 4. Bilateral cataract surgery. ALLERGIES NO KNOWN DRUG ALLERGIES. MEDICATIONS 1. Lisinopril. 2. Folate. 3. Thiamine. 4. Theragran. 5. Vancomycin. 6. Piperacillin/Tazobactam. 7. Colace. 8. Cardizem. 9. Restoril. 10. Lopressor. SOCIAL HISTORY The patient is . The patient smokes a pack of cigarettes a day. He uses alcohol in the form of beer daily. No illicit drugs. FAMILY HISTORY Hypertension and diabetes in the patient's father. SOCIAL HISTORY Negative on 10-point review except for mild pain in the left foot. PHYSICAL EXAMINATION GENERAL: This is a slender male who is in no acute distress. He is well-nourished. VITAL SIGNS: Include temperature 99.7, BP 182/84, respirations 16, heart rate 70. HEENT: Head is atraumatic. Extraocular movements grossly intact, pupils are reactive to light without icterus. Oropharynx no visible lesions. NECK: Supple without adenopathy. LUNGS: Clear to auscultation. HEART: Regular rate and rhythm without murmurs or rubs or gallops. ABDOMEN: Bowel sounds present, soft, no tenderness appreciated. RECTAL: Not performed. EXTREMITIES: No clubbing or cyanosis. The left foot has an ulceration at the base of the fifth toe at the lateral aspect of the foot. There is mild erythema surrounding the ulceration and slight serous drainage on the dressing. SKIN: No diffuse rash. NEURO: Nonfocal. PSYCHIATRIC: The patient is calm and cooperative. LABORATORY DATA WBC 10.9, platelet count 202, 67% neutrophils, 18% lymphocytes, hemoglobin 13.6, creatinine 0.76, BUN 10, sodium 135. IMPRESSION 1. Cellulitis of the left foot due to MRSA. 2. Left foot abscess due to MRSA. 3. Status post I&D. RECOMMENDATIONS 1. Discontinue vancomycin. 2. Discontinue piperacillin/Tazobactam. 3. Treat the patient with p.o. clindamycin p.o. for 2 weeks, 500 mg t.i.d. since the MRSA is sensitive to clindamycin and currently there is no osteomyelitis involved. The patient has follow-up appointment with podiatry upon discharge. Thank you for this consultation. Korin Maurice MD FD/KELLIE /12:19 PM /12:40 PM
[2016-10-01] MEDS ORDERED: OXYC1TAB63 PO (14:19)
[2016-10-02] MEDS ORDERED: LISINOPRIL 5 MG TAB PO SCH (09:00)
[2016-10-02] MEDS ORDERED: VANCOMYCIN TROUGH ONE (17:45)
[2016-11-04] MEDS ORDERED: LISI-515 PO (16:23)
[2016-11-04] MEDS ORDERED: AMLO5TAB2 PO (16:23)
[2016-11-24] MEDS ORDERED: METO25TA3 PO (11:51)
== END 2016-10-01 15:23 | disposition home or self-care (01) | DRG 603 ==
LOC: PHEFT 17:28 → PHEDA 19:42 → PH3A 20:40
PROVIDERS: ADMIT Hospitalist; ATTEND Hospitalist
PROC: 0H9NXZZ Drainage of Left Foot Skin, External Approach (ICD-10-PCS; principal; 2016-09-30)
DX: L03.116 Cellulitis of left lower limb (principal); E87.1 Hypo-osmolality and hyponatremia; I10 Essential (primary) hypertension; L02.612 Cutaneous abscess of left foot; I48.91 Unspecified atrial fibrillation; B95.62 Methicillin resistant Staphylococcus aureus infection as the cause of diseases classified elsewhere; F10.239 Alcohol dependence with withdrawal, unspecified; F12.90 Cannabis use, unspecified, uncomplicated; F17.210 Nicotine dependence, cigarettes, uncomplicated; Y90.9 Presence of alcohol in blood, level not specified; Z71.6 Tobacco abuse counseling; Z86.14 Personal history of Methicillin resistant Staphylococcus aureus infection
CPT/HCPCS: 73630; 73720; 80048; 80053; 83605; 85025; 85652; 86403; 87040; 87070; 87147; 87186; 87205; 96365; 96367; 96375; A9579; J0690; J1885; J2543; J3370; J7030; J7050; L3260

== ENCOUNTER 2017-06-10 21:02 | Inpatient (IN) | payer BC ==
[~2017-06-10] VITALS: Ht 180.3 cm; Wt 61.9 kg
[~2017-06-10 21:02] MED LIST changes: +AMLO5TAB2 PO; -CARD120C4 PO; -METO25TA3 PO; +METO50TA PO
[2017-06-10 21:13] VITALS: BP 160/85; PULSE 79; RESP 18; O2SAT 95
--- NOTE | 2017-06-10 22:14 | PD ---
HPI Chief Complaint: Fall Time Seen by Provider: 21:20 Travel History International Travel<30 days: No Contact w/Intl Traveler<30days: No Traveled to known affect area: No History of Present Illness HPI Patient is a 57-year-old male who is coming in tonight walking his to the door to go to work she syncopized he was standing by the table and the next he knew he was on the floor says she heard a thump turnaround found him lying on the floor helped him stand up and he started to syncopized a second time. She helped lay him down on the couch and then called 911. Patient has no past medical history of significance he does not have a cardiac history he does not have a stroke history. Patient was here 2 years ago with a pleural effusion that was apparently an ammonia the seated from an abscess in his tooth. And he also had MRSA infected foot which led him to be hospitalized about 6 months ago at [facility] patient at this time has no septic signs he is mildly hypertensive he denies chest pain he only pain he reports is his hand has an abrasion to it on the left hand. He denied any shortness of breath chest pain during the incident. Patient had been lying down but stood up walked all the way from the bedroom to the hallway down into the kitchen without any problem before he syncopized denies any injury PFSH Past Medical History Hx Anticoagulant Therapy: No Arthritis: No Asthma: No Autoimmune Disease: No Anxiety: No Depression: No Heart Rhythm Problems: No Cancer: No Cardiovascular Problems: Yes (HTN) High Cholesterol: No Chemotherapy: No Chest Pain: No Congestive Heart Failure: No COPD: No Cerebrovascular Accident: No Diabetes: No Diminished Hearing: No Endocrine: No GERD: No Genitourinary: No Hiatal Hernia: No Hypertension: Yes Immune Disorder: No Kidney Stones: No Musculoskeletal: No Neurologic: No Psychiatric: No Reproductive: No Respiratory: No Immunizations Current: Yes Migraines: No Radiation Therapy: No Renal Failure: No Seizures: No Sickle Cell Disease: No Sleep Apnea: No Thyroid Disease: No Ulcer: No Tetanus Vaccination: < 5 Years Influenza Vaccination: No Past Surgical History AICD: No Arteriovenous Shunt: No Eye Surgery: Yes (bilateral cataract surgeries) Insulin Pump: No Joint Replacement: No Pacemaker: No Thoracic Surgery: Yes (chest tube surgery at [facility]) Other Surgery: Yes (COLLAPSED LUNG R/T SEPTIC FROM DENTAL INFECTION) Social History Alcohol Use: Yes (BEER - 6 DAILY ) Tobacco Use: No (1 PPD) Substance Use: No Allergies-Medications (Allergen,Severity, Reaction): Coded Allergies: *MDRO Multi-Drug Resistant Organism (Verified Adverse Reaction, Unknown, ) MRSA PCR positive 06/30/2015 MRSA (foot)-09/29/16 Reported Meds & Prescriptions Reported Meds & Active Scripts Active Metoprolol Tartrate 50 Mg Tab 50 Mg PO BID Amlodipine (Amlodipine Besylate) 5 Mg Tab 5 Mg PO DAILY Review of Systems Except as stated in HPI: all other systems reviewed are Neg Physical Exam Narrative GENERAL: Patient is awake alert no signs of head injury he is not confused SKIN: Warm and dry. Mild abrasion over the base on the dorsum of the index finger HEAD: Atraumatic. Normocephalic. There is no hematoma or injury seen to the scalp of the head EYES: Pupils equal and round. No scleral icterus. No injection or drainage. ENT: No nasal bleeding or discharge. Mucous membranes pink and moist. NECK: Trachea midline. No JVD. No tenderness to spinous processes of the neck CARDIOVASCULAR: Regular rate and rhythm. RESPIRATORY: No accessory muscle use. Clear to auscultation. Breath sounds equal bilaterally. GASTROINTESTINAL: Abdomen soft, non-tender, nondistended. Hepatic and splenic margins not palpable. Back exam there is no tenderness to any of the spinous processes of the lumbar or thoracic MUSCULOSKELETAL: Extremities left Hand has abrasion to base of index finger without clubbing, cyanosis, or edema. No obvious deformities. NEUROLOGICAL: Awake and alert. No obvious cranial nerve deficits. Motor grossly within normal limits. Five out of 5 muscle strength in the arms and legs. Normal speech. PSYCHIATRIC: Appropriate mood and affect; insight and judgment normal. Data Data Last Documented VS Vital Signs Date Time Temp Pulse Resp B/P (MAP) Pulse Ox O2 Delivery O2 Flow Rate FiO2 06/10/17 21:18 82 18 95 Room Air 06/10/17 21:13 160/85 (110) Orders Orders Complete Blood Count With Diff (06/10/17 21:46) Comprehensive Metabolic Panel (06/10/17 21:46) Ckmb (Isoenzyme) Profile (06/10/17 21:46) Troponin I (06/10/17 21:46) Lipase (06/10/17 21:46) Magnesium (Mg) (06/10/17 21:46) Phosphorus (Po4) (06/10/17 21:46) Chest, Pa & Lat (06/10/17 21:46) Influenzae A/B Antigen (06/10/17 21:46) Group A Rapid Strep Screen (06/10/17 21:46) Electrocardiogram (06/10/17 21:17) Strep Culture (Group A) (06/10/17 21:55) CKMB (06/10/17 21:55) CKMB% (06/10/17 21:55) Calcium Gluconate Inj (Calcium Gluconate (06/10/17 23:30) D5-Ns + Kcl 40 Meq Inj (D5-Ns + Kcl 40 M (06/10/17 23:30) Potassium Chloride (Kcl) (06/10/17 23:30) Admit Order (Ed Use Only) (06/11/17 00:40) Labs Laboratory Tests Test 06/10/17 21:55 White Blood Count 6.0 TH/MM3 Red Blood Count 4.02 MIL/MM3 Hemoglobin 13.9 GM/DL Hematocrit 40.1 % Mean Corpuscular Volume 99.8 FL Mean Corpuscular Hemoglobin 34.5 PG Mean Corpuscular Hemoglobin Concent 34.6 % Red Cell Distribution Width 12.2 % Platelet Count 123 TH/MM3 Mean Platelet Volume 8.3 FL Neutrophils (%) (Auto) 73.2 % Lymphocytes (%) (Auto) 11.7 % Monocytes (%) (Auto) 14.5 % Eosinophils (%) (Auto) 0.1 % Basophils (%) (Auto) 0.5 % Neutrophils # (Auto) 4.4 TH/MM3 Lymphocytes # (Auto) 0.7 TH/MM3 Monocytes # (Auto) 0.9 TH/MM3 Eosinophils # (Auto) 0.0 TH/MM3 Basophils # (Auto) 0.0 TH/MM3 CBC Comment DIFF FINAL Differential Comment Blood Urea Nitrogen 12 MG/DL Creatinine 0.68 MG/DL Random Glucose 67 MG/DL Total Protein 4.4 GM/DL Albumin 2.2 GM/DL Calcium Level LESS THAN 5.0 MG/DL Phosphorus Level 1.4 MG/DL Magnesium Level 1.0 MG/DL Alkaline Phosphatase 31 U/L Aspartate Amino Transf (AST/SGOT) 24 U/L Alanine Aminotransferase (ALT/SGPT) 18 U/L Total Bilirubin 0.4 MG/DL Sodium Level 141 MEQ/L Potassium Level 2.3 MEQ/L Chloride Level 114 MEQ/L Carbon Dioxide Level 19.4 MEQ/L Anion Gap 8 MEQ/L Estimat Glomerular Filtration Rate 120 ML/MIN Protein Corrected Calcium 6.1 MG/DL Total Creatine Kinase 361 U/L Creatine Kinase MB 1.6 NG/ML Creatine Kinase MB % 0.4 % Troponin I 0.02 NG/ML Lipase 58 U/L [facility] Medical Decision Making Medical Screen Exam Complete: Yes Emergency Medical Condition: Yes Differential Diagnosis Differential diagnosis includes vasovagal syncope versus neurogenic syncope versus cardiac cause of syncope versus hypoglycemia versus volume depletion due to diarrhea Narrative Course cxr and labs NS fluid and pt has electrolyte abnormality Calcium 6.1 corrected and K is 2.3 . Pt has calcium and K replaced in ER IVPB and PO and admit to tele for syncope and Electrolyte abnormality Jona Hunt MD Jun 10, 2017 22:14
[2017-06-10 22:36] LABS: AUTOMATED NEUTROPHIL # 4.4 TH/MM3 (1.8-7.7); BASOPHIL % 0.5 % (0.0-2.0); EOSINOPHIL % 0.1 % (0.0-4.0); HEMATOCRIT 40.1 % (39.0-51.0); HEMOGLOBIN 13.9 GM/DL (13.0-17.0); LYMPH % 11.7 % (9.0-44.0); LYMPHOCYTE # 0.7 TH/MM3 (1.0-4.8); MEAN CELL VOLUME 99.8 FL (80.0-100.0); MEAN CORPUSCULAR HEMOGLOBIN 34.5 PG (27.0-34.0); MEAN CORPUSCULAR HGB CONC 34.6 % (32.0-36.0); MEAN PLATELET VOLUME 8.3 FL (7.0-11.0); MONO % 14.5 % (0.0-8.0); MONOCYTE # 0.9 TH/MM3 (0-0.9); NEUT % 73.2 % (16.0-70.0); PLATELET COUNT 123 TH/MM3 (150-450); RED BLOOD COUNT 4.02 MIL/MM3 (4.50-5.90); RED CELL DISTRIBUTION WIDTH 12.2 % (11.6-17.2)
--- NOTE | 2017-06-10 22:36 | RADRPT ---
EXAM DATE/TIME: 06/10/2017 22:20 [place] COMPARISON: CHEST SINGLE AP, July 11, 2015, 9:12. INDICATIONS : Syncopal episode today MEDICAL HISTORY : None. SURGICAL HISTORY : None. ENCOUNTER: Initial ACUITY: 1 day PAIN SCORE: 0/10 LOCATION: Bilateral chest FINDINGS: PA and lateral views of the chest reveal a 3.5 cm cavitary lesion involving the left apex. This is a new finding from the prior study. Remainin lungs are clear. No effusions. Heart is normal in size. A degenerative thoracic spine. CONCLUSION: 3.5 cm cavitary lesion involving the left lung apex. Differential diagnostic considerations include i nfectious etiologiy particularly with atypical organisms versus a necrotic malignancy. Alcides Olmstead Jr., MD on June 10, 2017 at 22:32 Board Certified Radiologist. This report was verified electronically.
[2017-06-10 23:07] LABS: ALBUMIN 2.2 GM/DL (3.4-5.0); ALKALINE PHOSPHATASE 31 U/L (45-117); ALT (GPT) 18 U/L (12-78); AST (GOT) 24 U/L (15-37); BICARBONATE 19.4 MEQ/L (21.0-32.0); BLOOD UREA NITROGEN 12 MG/DL (7-18); CHLORIDE 114 MEQ/L (98-107); CREATININE 0.68 MG/DL (0.60-1.30); GLOMERULAR FILTRATION RATE 120 ML/MIN (>89); GLUCOSE,RANDOM 67 MG/DL (74-106); LIPASE 58 U/L (73-393); PHOSPHORUS 1.4 MG/DL (2.5-4.9); SODIUM (NA) 141 MEQ/L (136-145); TOTAL BILIRUBIN ADULT 0.4 MG/DL (0.2-1.0); TOTAL PROTEIN 4.4 GM/DL (6.4-8.2); TROPONIN I 0.02 NG/ML (0.02-0.05)
[2017-06-10 23:08] LABS: CALCIUM-PROTEIN CORRECTED 6.1 MG/DL (8.5-10.1)
[2017-06-10 23:09] LABS: CALCIUM LESS THAN 5.0 MG/DL (8.5-10.1)
[2017-06-10] MEDS ORDERED: CALCIUM GLUCONATE INJ 1 GM in DEXTROSE 5% IN WATER 100ML INJ 100 ML IV ONE ×2 (23:30)
[2017-06-10] MEDS ORDERED: POTASSIUM CHLORIDE 20 MEQ CONTROLLED RELEASE TAB PO SCH (23:30)
[2017-06-10] MEDS: D5-NS + KCL 40 MEQ INJ 1,000 ML IV SCH (23:46)
[2017-06-11] VITALS (10 sets, daily range): BP systolic 119–175; BP diastolic 65–95; PULSE 77–93; RESP 18–22; TEMP 98.5–100.6; O2SAT 89–100
--- NOTE | 2017-06-11 00:59 | HHI.HP ---
[facility] Service Family Medicine Primary Care Physician Christopher Bell MD Admission Diagnosis hypokaLEMIA Diagnoses: International Travel<30 Days: No Contact w/Intl Traveler<30days: No Known Affected Area: No History of Present Illness Patient is a 57-year-old male with a past medical history of hypertension that presents to the [place] ED with a chief complaint of 2 episodes of syncope that happened around 8 PM on Thursday06/10/17. Patient states that on Thursday night, he develops symptoms of the flu such as muscle aches, tiredness, fatigue headache, cough, and diarrhea such that he went to bed that night and did not get up until 4 PM the next day. He only ate a small amount of chicken notable soup and threw up once nonbloody phlegm-like material. The cough has been nonproductive and was constant all day Thursday. He states that his was also ill on Thursday morning, one day before he came and his youngest daughter experienced vomiting on Thursday nights but is doing well now. The patient's works at the [place] [employer] and every night he walks had to her car before she heads out. Last night, as he was walking from the living room to the kitchen to see his off, he blacked out and fell to his knees and then to the floor. The episode lasted only a few seconds. His heard him fall and flushed to helping stand up. At this time she notices that his eyes rolled back in his head and he almost fell a second time but she was able to steady him and redirect him to the couch. He did not eat his head on the ground during this 2 episodes. (Nydia Rivera MD R2) Review of Systems Constitutional: COMPLAINS OF: Fatigue, Fever, Chills, Night Sweats (Thursday night), DENIES: Weight loss, Change in appetite (decreased in the last 2 days) Eyes: DENIES: Blurred vision, Eye pain, Vision loss Ears, nose, mouth, throat: DENIES: Nasal discharge (not int he last couple of days, but runs at work), Sinus Pain Respiratory: COMPLAINS OF: Cough (dry cough), DENIES: Sputum production, Shortness of breath Cardiovascular: COMPLAINS OF: Syncope, DENIES: Chest pain, Dyspnea on Exertion Gastrointestinal: COMPLAINS OF: Diarrhea (once, watery, no blood/mucus), Nausea , Vomiting (once - phlegm), DENIES: Abdominal pain, Black stools Genitourinary: DENIES: Urinary frequency, Dysuria Musculoskeletal: COMPLAINS OF: Muscle aches (ribs hurt from coughing) Integumentary: DENIES: Pruritus, Rash Neurologic: DENIES: Headache, Localized weakness, Poor Balance Psychiatric: DENIES: Confusion, Depression (Nydia Rivera MD R2) Past Family Social History Past Medical History Hypertension Past Surgical History Chest tube placement for pleural effusion Reported Medications Reported Meds & Active Scripts Active Metoprolol Tartrate 50 Mg Tab 50 Mg PO BID Amlodipine (Amlodipine Besylate) 5 Mg Tab 5 Mg PO DAILY (Nydia Rivera MD R2) Allergies: Coded Allergies: *MDRO Multi-Drug Resistant Organism (Verified Adverse Reaction, Unknown, ) MRSA PCR positive 06/30/2015 MRSA (foot)-09/29/16 Family History Dad and sister - HTN No DM No cancer Maternal grandfather had an RI probably in his 70-80's Social History Lives with in [place] at [employer] Smoking - 1/2 -1ppd for 40 years Alcohol - 4-6 beers per day, never had alcohol withdrawal Drugs - denies (Nydia Rivera MD R2) Physical Exam Vital Signs Vital Signs Date Time Temp Pulse Resp B/P (MAP) Pulse Ox O2 Delivery O2 Flow Rate FiO2 06/10/17 21:18 82 18 95 Room Air 06/10/17 21:13 79 18 160/85 (110) 95 Physical Exam GENERAL: This is a well-nourished, well-developed patient, in no apparent distress. Patient expressed lightheadedness in the sitting position but not supine SKIN: No rashes or ecchymoses. Dry, nodular skin of bilateral lower extremities. No sacral ulcers. 3 cm skin tear below knee, 1 cm abrasion on left knee, small 0.3 cm abrasion on his left hand HEAD: Atraumatic. Normocephalic. No temporal or scalp tenderness. EYES: Pupils equal round and reactive. Extraocular motions intact. No scleral icterus. No injection or drainage. ENT: Nose without bleeding, purulent drainage or septal hematoma. Nontender sinuses. Dry mucous membranes. Throat without erythema, tonsillar hypertrophy or exudate. Uvula midline. Airway patent. NECK: Trachea midline. No JVD. 3 cm mobile lymph node versus cyst located in the middle of the posterior neck. Supple, nontender, no meningeal signs. CARDIOVASCULAR: Regular rate and rhythm without murmurs, gallops, or rubs. RESPIRATORY: Clear to auscultation but dull in the left upper lobe. No wheezes, rales, or rhonchi. GASTROINTESTINAL: Abdomen soft, mildly tender to palpation in the right upper quadrant, nondistended. No guarding. MUSCULOSKELETAL: Extremities without clubbing, cyanosis, or edema. No joint tenderness, effusion, or edema noted. No calf tenderness. Negative Homans sign bilaterally. NEUROLOGICAL: Awake and alert. Cranial nerves II through XII intact. Motor and sensory grossly within normal limits. Five out of 5 muscle strength in all muscle groups. Normal speech. Laboratory Laboratory Tests Test 06/10/17 21:55 White Blood Count 6.0 Red Blood Count 4.02 Hemoglobin 13.9 Hematocrit 40.1 Mean Corpuscular Volume 99.8 Mean Corpuscular Hemoglobin 34.5 Mean Corpuscular Hemoglobin Concent 34.6 Red Cell Distribution Width 12.2 Platelet Count 123 Mean Platelet Volume 8.3 Neutrophils (%) (Auto) 73.2 Lymphocytes (%) (Auto) 11.7 Monocytes (%) (Auto) 14.5 Eosinophils (%) (Auto) 0.1 Basophils (%) (Auto) 0.5 Neutrophils # (Auto) 4.4 Lymphocytes # (Auto) 0.7 Monocytes # (Auto) 0.9 Eosinophils # (Auto) 0.0 Basophils # (Auto) 0.0 CBC Comment DIFF FINAL Differential Comment Blood Urea Nitrogen 12 Creatinine 0.68 Random Glucose 67 Total Protein 4.4 Albumin 2.2 Calcium Level LESS THAN 5.0 Phosphorus Level 1.4 Magnesium Level 1.0 Alkaline Phosphatase 31 Aspartate Amino Transf (AST/SGOT) 24 Alanine Aminotransferase (ALT/SGPT) 18 Total Bilirubin 0.4 Sodium Level 141 Potassium Level 2.3 Chloride Level 114 Carbon Dioxide Level 19.4 Anion Gap 8 Estimat Glomerular Filtration Rate 120 Protein Corrected Calcium 6.1 Total Creatine Kinase 361 Creatine Kinase MB 1.6 Creatine Kinase MB % 0.4 Troponin I 0.02 Lipase 58 Date/Time Source Procedure Growth Status 06/10/17 21:55 Throat Group A Streptococcus Screen Pending Received (Nydia Rivera MD R2) Result Diagram: 06/10/17215406/10/172154 Imaging Last Impressions Chest X-Ray 06/10/172145 Signed Impressions: Service Date/Time: Saturday, June 10, 2017 22:20 - CONCLUSION: 3.5 cm cavitary lesion involving the left lung apex. Differential diagnostic considerations include infectious etiologiy particularly with atypical organisms versus a necrotic malignancy. Alcides Olmstead Jr., MD Course In the ED, a chest x-ray was performed that shows a cavitary mass in the left upper lobe that is concerning for either an infectious process particularly with atypical organisms versus neoplasm. He was found to be hypokalemic, hypocalcemic, and hyperchloremic. He received 1 g of calcium gluconate and was started on D5 half-normal saline with potassium. (Nydia Rivera MD R2) Caprini VTE Risk Assessment Caprini VTE Risk Assessment: Mod/High Risk (score >= 2) Caprini Risk Assessment Model Point Value = 1 Point Value = 2 Point Value = 3 Point Value = 5 Age 41-60 Minor surgery BMI > 25 kg/m2 Swollen legs Varicose veins or History of unexplained or recurrent spontaneous Oral contraceptives or hormone replacement Sepsis (< 1 month) Serious lung disease, including pneumonia (< 1 month) Abnormal pulmonary function Acute myocardial infarction Congestive heart failure (< 1 month) History of inflammatory bowel disease Medical patient at bed rest Age 61-74 Arthroscopic surgery Major open surgery (> 45 min) Laparoscopic surgery (> 45 min) Malignancy Confined to bed (> 72 hours) Immobilizing plaster cast Central venous access Age >= 75 History of VTE Family history of VTE Factor V Leiden Prothrombin [id number] Lupus anticoagulant Anticardiolipin antibodies Elevated serum homocysteine Heparin-induced thrombocytopenia Other congenital or acquired thrombophilia Stroke (< 1 month) Elective arthroplasty Hip, pelvis, or leg fracture Acute spinal cord injury (< 1 month) Prophylaxis Regimen Total Risk Factor Score Risk Level Prophylaxis Regimen 0-1 Low Early ambulation 2 Moderate Order ONE of the following: *Sequential Compression Device (SCD) *Heparin 5000 units SQ BID 3-4 Higher Order ONE of the following medications: *Heparin 5000 units SQ TID *Enoxaparin/Lovenox 40 mg SQ daily (WT < 150 kg, CrCl > 30 mL/min) *Enoxaparin/Lovenox 30 mg SQ daily (WT < 150 kg, CrCl > 10-29 mL/min) *Enoxaparin/Lovenox 30 mg SQ BID (WT < 150 kg, CrCl > 30 mL/min) AND/OR *Sequential Compression Device (SCD) 5 or more Highest Order ONE of the following medications: *Heparin 5000 units SQ TID (Preferred with Epidurals) *Enoxaparin/Lovenox 40 mg SQ daily (WT < 150 kg, CrCl > 30 mL/min) *Enoxaparin/Lovenox 30 mg SQ daily (WT < 150 kg, CrCl > 10-29 mL/min) *Enoxaparin/Lovenox 30 mg SQ BID (WT < 150 kg, CrCl > 30 mL/min) AND *Sequential Compression Device (SCD) (Nydia Rivera MD R2) Assessment and Plan Assessment and Plan 57 year old male presents after a syncopal episode and multiple electrolytes derangements that is most likely a result of dehydration from a recent viral illness. Differential diagnoses for syncope includes dehydration, TIA/stroke, arrhythmia, and seizure. In addition, chest x-ray shows a cavitary lung mass that is suspicious for infection versus neoplasm. He will be admitted for investigation of the syncope, management of dehydration/electrolyte deficiencies and further exploration of the lung mass. Code Status Full code. Love is his healthcare surrogate. Discussed Condition With Will discuss with supervising attending (Nydia Rivera MD R2) Attending Attestation Patient seen and examined. Case reviewed and discussed with the resident team. Agree with plan of care as discussed with me and documented in the resident note. he will have a biopsy tomorrow. will make NPO after midnight. will add coags in the am per request of radiology. agree that he had a viral illness as his and daughter had similar sxs. (Antionette Jennings MD) Problem List: (1) Syncope ICD Codes: R55 - Syncope and collapse Plan: -Patient did not meet sirs criteria on admission, afebrile, WBC 6.0 -Sinus rhythm on EKG, moderate ST depression of unknown significance -Troponin 0.02, will trend with EKGs 2 -BNP pending -Syncope workup initiated -2-D echo pending, previous echo in Jun 2015 showed EF of 60-65% -EEG pending -Orthostatic vital signs pending -Carotid ultrasound pending - last carotid us March 2017 showed bilateral atherosclerotic plaquing, mild on the right and moderately severe on the left. Calcification in the mid and distal common carotid artery on the left extending up into the internal -TSH pending (2) Abnormal finding on lung imaging ICD Codes: R91.8 - Other nonspecific abnormal finding of lung field Plan: -3.5 cm cavitary lesion involving the left lung apex. Differential diagnosis includes infectious etiology particular with atypical organisms versus a necrotic malignancy -Will order CT chest with IV contrast to better characterize the lesion -Consider infectious diseases consult versus pulmonary versus oncology -Will check Legionella, pneumococcal, and histoplasma antigen -Sputum Gram stain and culture, sputum AFB gram stain and culture Past P ulmonary History -Notably, the patient was admitted to [facility] in June 2015 for treatment of pneumonia, loculated right hydropneumothorax with empyema and septic shock. The empyema was large enough to require a chest tube placement. During that time, he was noted to have atrial fibrillation with a rapid ventricular rate but he subsequently converted to normal sinus rhythm. He was also noted to be markedly hypertensive while hospitalized. A dental abscess was discovered at the time of this hospitalization which was thought to be the source of his initial infection and ultimate sepsis. An anaerobic culture grew Prevotella and he was also found to be strep pneumo urine antigen positive. Infectious disease recommended outpatient bronchoscopy to rule out endobronchial malignancy. Patient is a chronic smoker of at least 40 pack years. (3) Hypocalcemia ICD Codes: E83.51 - Hypocalcemia Plan: -Protein corrected calcium 6.1 -Suspect secondary to dehydration -Received 1 g calcium carbonate in the ED -Will repeat BMP and replete as needed (4) Hypokalemia ICD Codes: E87.6 - Hypokalemia Plan: -Potassium 2.3 with elevated chloride of 114 -Suspect metabolic derangement secondary to dehydration from vomiting and diarrhea -Administered 80 mEq oral potassium chloride -Currently on D5 half-normal saline with potassium (5) Hypertension ICD Codes: I10 - Essential (primary) hypertension Status: Acute Plan: -Continue amlodipine 5 mg by mouth daily -Continue metoprolol 50 mg by mouth daily -Clonidine 0.1 mg by mouth PRN SBP >/= 170, DBP >/= 100 (6) Skin tear of left lower leg without complication ICD Codes: S81.812A - Laceration without foreign body, left lower leg, initial encounter Plan: -Superficial, nonbleeding -Wound care nurse consult -Dressing changes (7) Chronic alcohol use ICD Codes: Z72.89 - Other problems related to lifestyle Plan: -CIWA protocol (8) Smoking ICD Codes: F17.200 - Nicotine dependence, unspecified, uncomplicated Plan: -Long-term smoker -Holding nicotine patch due to concern for cardiac ischemia -Once clear, can start nicotine 7 mg patch to change daily (9) FEN/DVT PPX/GI PPX/Nursing Orders Plan: Fluids: D51/2NS +20K @ 150 mls/hr IV Electrolytes: Will monitor and replace as needed Nutrition: Heart-healthy diet DVT Prophylaxis: Lovenox 40mg subcutaneous daily re GI Prophylaxis: Famotidine 20 mg by mouth daily Constipation prophylaxis: Pericolace 1 tab PO BID PRN Medications Tylenol 650 mg by mouth every 4 hours when necessary pain 1-10 or temperature greater than 100.4F Zofran 4 mg IV push every 6 hours when necessary nausea vomiting -Vitals Q4h -Monitor I's and O's -Fall precautions -Neurochecks -Seizure precautions -lunchroom monitor with telemetry with continuous vital signs -Activity OOB with assistance -PT to assist with ambulation -Case management consult to assist with discharge disposition Disposition: Pending syncope workup, resolution of symptoms (Nydia Rivera MD R2) Physician Certification 2 Midnight Certification Type: Admission for Inpatient Services Order for Inpatient Services The services are ordered in accordance with Medicare regulations or non- Medicare payer requirements, as applicable. In the case of services not specified as inpatient-only, they are appropriately provided as inpatient services in accordance with the 2-midnight benchmark. Estimated LOS (days): 3 days is the estimated time the patient will need to remain in the hospital, assuming treatment plan goals are met and no additional complications. Post-Hospital Plan: Home (Nydia Rivera MD R2) Nydia Rivera MD R2 Jun 11, 2017 00:59 Antionette Jennings MD Jun 11, 2017 14:48
[2017-06-11] MEDS ORDERED: NALOXONE HCL 0.4 MG/ML AMP IV PUSH PRN (02:00)
[2017-06-11] MEDS ORDERED: ONDANSETRON HCL 4 MG/2 ML VIAL IVP PRN (02:00)
[2017-06-11] MEDS ORDERED: MAGNESIUM HYDROXIDE SUSP 30 ML CUP PO PRN (02:00)
[2017-06-11] MEDS ORDERED: FLUMAZENIL 0.5 MG/5 ML VIAL IV PUSH PRN (02:00)
[2017-06-11] MEDS ORDERED: LORazepam 1 MG TAB PO PRN (02:00)
[2017-06-11] MEDS ORDERED: cloNIDine HCL 0.1 MG TAB PO PRN (02:00)
[2017-06-11] MEDS ORDERED: SODIUM CHLOR 0.9% 1000 ML INJ 1,000 ML IV SCH (02:00)
[2017-06-11] MEDS ORDERED: ACETAMINOPHEN 325 MG TAB PO PRN (02:00)
[2017-06-11] MEDS ORDERED: LACTULOSE SYRUP 20 GM/30 ML CUP PO PRN (02:00)
[2017-06-11] MEDS ORDERED: BISACODYL 10 MG SUPP RECTAL PRN (02:00)
[2017-06-11] MEDS ORDERED: SODIUM CHLORIDE 0.9% FLUSH 10 ML FLUSH IV FLUSH PRN (02:00)
[2017-06-11] MEDS ORDERED: LORazepam 2 MG/ML VIAL IV PUSH PRN ×4 (02:00)
[2017-06-11] MEDS ORDERED: SENNOSIDES 8.6 MG TAB PO PRN (02:00)
[2017-06-11] MEDS ORDERED: LORazepam 2 MG TAB PO PRN (02:00)
[2017-06-11] MEDS ORDERED: POTASSIUM PHOSPHATE MONOBASIC 500 MG TAB PO ONE (02:30)
[2017-06-11] MEDS ORDERED: MAGNESIUM SULFATE 1 GM PREMIX 100 ML IV ONE (02:30)
[2017-06-11] MEDS ORDERED: POTASSIUM CHLORIDE 10 MEQ CONTROLLED RELEASE TAB PO ONE (03:00)
[2017-06-11] MEDS ORDERED: ENOXAPARIN SODIUM 40 MG/0.4 ML SYRINGE SQ SCH (04:00)
[2017-06-11] MEDS ORDERED: IOHEXOL 350 MG/ML 10 ML VIAL (for RAD DIAG) IVCONTRAST ONE (04:04)
--- NOTE | 2017-06-11 04:32 | RADRPT ---
EXAM DATE/TIME: 06/11/2017 03:53 [facility] COMPARISON: CHEST PA & LAT, June 10, 2017, 22:20. CT THORAX W CONTRAST, July 05, 2015, 12:51. INDICATIONS : Shortness of breath. IV CONTRAST: 75 cc Omnipaque 350 (iohexol) IV RADIATION DOSE: 4.56 CTDIvol (mGy) MEDICAL HISTORY : None SURGICAL HISTORY : None. ENCOUNTER: Initial ACUITY: 1 day PAIN SCALE: 0/10 LOCATION: Bilateral chest TECHNIQUE: Volumetric scanning of the chest was performed. Using automated exposure control and adjustment of t he mA and/or kV according to patient size, radiation dose was kept as low as reasonably achievable to obtain optimal diagnostic quality images. DICOM format image data is available electronically for review and comparison. Follow-up recommendations for detected pulmonary nodules are based at a minimum on nodule size and pa tient risk factors according to Fleischner Society Guidelines. FINDINGS: LUNGS: There is irregular 3.5 cm mass at the left upper lung. Immediately posterior and inferior to this, th ere is a 4.2 cm irregular cavitary mass. These 2 processes are contiguous. These are new when compare d to the prior CT examination. The lungs are otherwise clear. PLEURA: There is no pleural thickening or pleural effusion. MEDIASTINUM: There are small lymph nodes in the mediastinum. Clearly enlarged adenopathy is not identified. Rivera ry artery calcifications are present. AXILLAE: Within normal limits. No lymphadenopathy. SKELETAL: Within normal limits for patient age. MISCELLANEOUS: The visualized upper abdominal organs demonstrate no acute abnormality. There is a 5.2 cm cyst at the superior right kidney. CONCLUSION: 3.5 cm soft tissue mass and an adjacent contiguous 4.2 cm irregular cavitary mass. This is thought to one process. This represents inflammatory/infectious change versus neoplasm. This is amenable to per cutaneous biopsy. Cliff Hobbs MD on June 11, 2017 at 4:25 Board Certified Radiologist. This report was verified electronically.
[2017-06-11 04:51] LABS: ALBUMIN 3.7 GM/DL (3.4-5.0); ALKALINE PHOSPHATASE 49 U/L (45-117); ALT (GPT) 34 U/L (12-78); AST (GOT) 37 U/L (15-37); BICARBONATE 25.7 MEQ/L (21.0-32.0); BLOOD UREA NITROGEN 15 MG/DL (7-18); CALCIUM 8.4 MG/DL (8.5-10.1); CHLORIDE 97 MEQ/L (98-107); CREATININE 1.08 MG/DL (0.60-1.30); GLOMERULAR FILTRATION RATE 70 ML/MIN (>89); GLUCOSE,RANDOM 102 MG/DL (74-106); SODIUM (NA) 128 MEQ/L (136-145); TOTAL BILIRUBIN ADULT 0.6 MG/DL (0.2-1.0); TOTAL PROTEIN 7.2 GM/DL (6.4-8.2); TROPONIN I 0.02 NG/ML (0.02-0.05)
[2017-06-11 05:06] LABS: BILIRUBIN, URINE NEG (NEG); BLOOD, URINE NEG (NEG); GLUCOSE,URINE TRACE mg/dL (NEG); KETONE, URINE NEG (NEG); NITRITE,URINE NEG (NEG); URINE COLOR LIGHT-YELLOW (YELLW/STRAW); URINE LEUKOCYTE ESTERASE NEG (NEG)
[2017-06-11 05:10] LABS: HEMATOCRIT 37.7 % (39.0-51.0); HEMOGLOBIN 13.2 GM/DL (13.0-17.0); MEAN CELL VOLUME 99.6 FL (80.0-100.0); MEAN CORPUSCULAR HGB CONC 35.1 % (32.0-36.0); MEAN PLATELET VOLUME 8.4 FL (7.0-11.0); PLATELET COUNT 116 TH/MM3 (150-450); RED BLOOD COUNT 3.79 MIL/MM3 (4.50-5.90); RED CELL DISTRIBUTION WIDTH 12.1 % (11.6-17.2); WHITE BLOOD COUNT 5.7 TH/MM3 (4.0-11.0)
[2017-06-11 06:58] LABS: BANDS 12 % (0-6); LYMPHOCYTES 5 % (9-44); MONOCYTES 7 % (0-8); POLYS (SEG NEUTROPHILS) 76 % (16-70)
[2017-06-11] MEDS ORDERED: ENALAPRILAT 1.25 MG/ML VIAL IV PUSH PRN (07:00)
[2017-06-11] MEDS: D5-NS + KCL 40 MEQ INJ 1,000 ML IV SCH ×2 (07:30→15:33)
[2017-06-11] MEDS: FOLIC ACID 1 MG TAB PO SCH (08:57)
[2017-06-11] MEDS: amLODIPine BESYLATE 5 MG TAB PO SCH (08:57)
[2017-06-11] MEDS: FAMOTIDINE 20 MG TAB PO SCH ×2 (08:57→21:32)
[2017-06-11] MEDS: METOPROLOL TARTRATE 50 MG TAB PO SCH ×2 (08:57→21:32)
[2017-06-11] MEDS: THIAMINE HCL 100 MG TAB PO SCH (08:57)
[2017-06-11] MEDS: MULTIVITAMINS/MINERALS THERAPEUTIC TAB PO SCH (08:58)
[2017-06-11] MEDS: SODIUM CHLORIDE 0.9% FLUSH 10 ML FLUSH IV FLUSH SCH ×2 (09:00→21:00)
[2017-06-11] MEDS: DOCUSATE SODIUM 50 MG/SENNA 8.6 MG TAB PO SCH ×2 (09:00→21:00)
[2017-06-11 11:58] LABS: TROPONIN I 0.03 NG/ML (0.02-0.05)
--- NOTE | 2017-06-11 16:36 | ECHRPT ---
Indication: syncope CONCLUSIONS Normal left ventricular size. Wall thickness is normal. The left ventricular systolic function is normal with an estimated ejection fraction in the range of 60-65%. Atrial septal aneurysm is present (benign finding). BP: 162 / 91 HR: 93 Rhythm: MEASUREMENTS (Male / Female) Normal Values Technical Quality: 2D ECHO LV Diastolic Diameter PLAX 4.2 cm 4.2 - 5.9 / 3.9 - 5.3 cm LV Systolic Diameter PLAX 3.3 cm IVS Diastolic Thickness 1.6 cm 0.6 - 1.0 / 0.6 - 0.9 cm LVPW Diastolic Thickness 0.8 cm 0.6 - 1.0 / 0.6 - 0.9 cm LV Relative Wall Thickness 0.6 DOPPLER Mitral E Point Velocity 63.7 cm/s Mitral A Point Velocity 86.4 cm/s Mitral E to A Ratio 0.7 FINDINGS LEFT VENTRICLE Normal left ventricular size. Wall thickness is normal. The left ventricular systolic function is normal with an estimated ejection fraction in the range of 60-65%. RIGHT VENTRICLE Normal right ventricular size and systolic function. LEFT ATRIUM The left atrial size is normal. RIGHT ATRIUM The right atrial size is normal. ATRIAL SEPTUM Atrial septal aneurysm is present (benign finding). AORTA The aortic root and proximal ascending aorta are normal in size on limited imaging. MITRAL VALVE Structurally normal mitral valve. No mitral valve stenosis or regurgitation. AORTIC VALVE Trileaflet aortic valve. No aortic valve stenosis or regurgitation. TRICUSPID VALVE Structurally normal tricuspid valve. No tricuspid valve stenosis or regurgitation. PULMONARY VALVE The pulmonary valve is not well visualized. VESSELS The inferior vena cava is normal in size. PERICARDIUM No pericardial effusion. Arie Angel MD (Electronically Signed) Final Date:11 June 2017 16:35
--- NOTE | 2017-06-11 17:15 | PD.WCN.NOT ---
Wound Consult Additional Information: Patient not seen, per ANA FLORES, patient has dry skin tears to legs that have dry dressings covering them. Per ANA FLORES wound care consult is not necessary for L arredondo and L knee. Please change dry dressings as needed and Vocera wound care nurse for wound deterioration. Sherrell [facility]elongo [facility] Jun 11, 2017 17:15
[2017-06-11 18:08] LABS: PROTHROMBIN TIME - PATIENT 10.5 SEC (9.8-11.6)
--- NOTE | 2017-06-11 21:29 | EKG ---
Date Performed: 06/11/2017 Time Performed: 10:39:15 PTAGE: 57 years EKG: Sinus rhythm POSSIBLE LEFT ATRIAL ENLARGEMENT MINIMAL ST DEPRESSION BORDERLINE ECG PREVIOUS TRACING : 06/11/2017 03.24 Since previous tracing, no significant change noted DOCTOR: Sid Schmidt Interpretating Date/Time 06/11/2017 21:28:57
[2017-06-11] MEDS: metroNIDAZOLE 500 MG TAB PO SCH (21:32)
--- NOTE | 2017-06-11 22:03 | EKG ---
Date Performed: 06/11/2017 Time Performed: 03:24:04 PTAGE: 57 years EKG: Sinus rhythm MINIMAL ST DEPRESSION BORDERLINE ECG PREVIOUS TRACING : 06/10/2017 21.17 Since previous tracing, no significant change noted DOCTOR: Sid Schmidt Interpretating Date/Time 06/11/2017 22:01:28
--- NOTE | 2017-06-11 22:17 | EKG ---
Date Performed: 06/10/2017 Time Performed: 21:17:27 PTAGE: 57 years EKG: Sinus rhythm MODERATE ST DEPRESSION ABNORMAL ECG PREVIOUS TRACING : 07/03/2015 00.47 Compared to previous tracing afib is no longer present DOCTOR: Sid Schmidt Interpretating Date/Time 06/11/2017 22:16:45
[2017-06-11 22:47] LABS: BICARBONATE 21.5 MEQ/L (21.0-32.0); CALCIUM 8.8 MG/DL (8.5-10.1); CREATININE 0.93 MG/DL (0.60-1.30)
[2017-06-12] VITALS (7 sets, daily range): BP systolic 136–158; BP diastolic 80–93; PULSE 66–84; RESP 16–20; TEMP 98.5–99.2; O2SAT 94–97
[2017-06-12] MEDS: D5-NS + KCL 40 MEQ INJ 1,000 ML IV SCH ×2 (02:13→11:33)
[2017-06-12] MEDS: metroNIDAZOLE 500 MG TAB PO SCH ×3 (05:20→20:58)
[2017-06-12 07:12] LABS: BICARBONATE 20.9 MEQ/L (21.0-32.0); CALCIUM 8.7 MG/DL (8.5-10.1); CREATININE 0.88 MG/DL (0.60-1.30)
[2017-06-12 07:21] LABS: PROTHROMBIN TIME - PATIENT 10.6 SEC (9.8-11.6)
[2017-06-12] MEDS: DOCUSATE SODIUM 50 MG/SENNA 8.6 MG TAB PO SCH ×2 (07:41→20:57)
--- NOTE | 2017-06-12 08:41 | HHI.HP ---
[facility] Service Family Medicine Primary Care Physician Christopher Bell MD Admission Diagnosis hyp[place]LEMIA Diagnoses: (1) Syncope (2) Abnormal finding on lung imaging (3) Hypocalcemia (4) Hypokalemia (5) Hypertension (6) Skin tear of left lower leg without complication (7) Chronic alcohol use (8) Smoking (9) FEN/DVT PPX/GI PPX/Nursing Orders International Travel<30 Days: No Contact w/Intl Traveler<30days: No Known Affected Area: No History of Present Illness Mr Schmidt is a 57-year-old male with a past medical history of hypertension who presented to the [place] ED with a chief complaint of 2 episodes of presyncope that happened around 8 PM on Thursday06/10/17. Patient stated that on Thursday night, he developed symptoms of the flu such as muscle aches, tiredness, fatigue headache, cough, and diarrhea such that he went to bed that night and did not get up until 4 PM the next day. He only ate a small amount of chicken noodle soup and threw up once nonbloody phlegm-like material. The cough has been nonproductive and was constant all day Thursday. He states that his was also ill on Thursday morning, one day before he came and his youngest daughter experienced vomiting on Thursday night but is doing well now. The patient's works at the [employer] and every night he walks her to her car before she heads out. As he was walking from the living room to the kitchen to see his off, he "blacked out" and fell to his knees and then to the floor. The episode lasted only a few seconds. His heard him fall and rushed to help him stand up. At this time she notices that his eyes rolled back in his head and he almost fell a second time but she was able to steady him and redirect him to the couch. He did not hit his head on the ground during this 2 episodes. On further questioning, he did not have true syncope. Here in the hospital he feels much better now that his electrolytes are repleted as well as being hydrated. He still has diarrhea which is C diff. However, he is eating well and his initial orthostasis is gone. He is scheduled for a lung biopsy today of his complex and partially cavitary mass but very much wants to go home after that. Review of Systems Other Constitutional: COMPLAINS OF: Fatigue, Fever, Chills, Night Sweats (Thursday night), DENIES: Weight loss, Change in appetite (decreased in the last 2 days) Eyes: DENIES: Blurred vision, Eye pain, Vision loss Ears, nose, mouth, throat: DENIES: Nasal discharge (not int he last couple of days, but runs at work), Sinus Pain Respiratory: COMPLAINS OF: Cough (dry cough), DENIES: Sputum production, Shortness of breath Cardiovascular: COMPLAINS OF: Syncope, DENIES: Chest pain, Dyspnea on Exertion Gastrointestinal: COMPLAINS OF: Diarrhea (once, watery, no blood/mucus), Nausea , Vomiting (once - phlegm), DENIES: Abdominal pain, Black stools Genitourinary: DENIES: Urinary frequency, Dysuria Musculoskeletal: COMPLAINS OF: Muscle aches (ribs hurt from coughing) Integumentary: DENIES: Pruritus, Rash Neurologic: DENIES: Headache, Localized weakness, Poor Balance Psychiatric: DENIES: Confusion, Depression Past Family Social History Past Medical History Hypertension Past Surgical History Chest tube placement for pleural effusion Allergies: Coded Allergies: *MDRO Multi-Drug Resistant Organism (Verified Adverse Reaction, Unknown, ) MRSA PCR positive 06/30/2015 MRSA (foot)-09/29/16 Family History Dad and sister - HTN No DM No cancer Maternal grandfather had an OR probably in his 70-80's Social History Lives with in [place] Social Works at [employer] Smoking - 1/2 -1ppd for 40 years Alcohol - 4-6 beers per day, never had alcohol withdrawal Drugs - denies Physical Exam Vital Signs Vital Signs Date Time Temp Pulse Resp B/P (MAP) Pulse Ox O2 Delivery O2 Flow Rate FiO2 06/12/17 08:00 98.6 79 18 136/83 (100) 95 06/12/17 04:04 99.2 80 16 146/93 (110) 06/12/17 00:32 98.5 82 16 138/82 (100) 94 06/11/17 21:34 96 21 06/11/17 20:32 99.3 86 20 144/83 (103) 95 06/11/17 18:22 06/11/17 16:04 99.3 77 21 175/94 (121) 97 06/11/17 14:37 06/11/17 12:53 81 20 142/65 (90) 97 06/11/17 12:53 89 20 119/69 (86) 95 06/11/17 12:43 100.6 82 18 175/95 (121) 96 06/11/17 10:31 Physical Exam GENERAL: This is a well-nourished, well-developed patient, in no apparent distress. SKIN: No rashes or ecchymoses. Dry, nodular skin of bilateral lower extremities. No sacral ulcers. 3 cm skin tear below knee, 1 cm abrasion on left knee, small 0.3 cm abrasion on his left hand HEAD: Atraumatic. Normocephalic. EYES: Pupils equal round and reactive. Extraocular motions intact. No scleral icterus. No injection or drainage. ENT: Nose without bleeding, purulent drainage or septal hematoma. Nontender sinuses. Airway patent. NECK: Trachea midline. No JVD. 3 cm mobile lymph node versus cyst located in the middle of the posterior neck. Supple, nontender, no meningeal signs. CARDIOVASCULAR: Regular rate and rhythm without murmurs, gallops, or rubs. RESPIRATORY: Clear to auscultation but dull in the left upper lobe. No wheezes, rales, or rhonchi. GASTROINTESTINAL: Abdomen soft, mildly tender to palpation in the right upper quadrant, nondistended. No guarding. MUSCULOSKELETAL: Extremities without clubbing, cyanosis, or edema. No joint tenderness, effusion, or edema noted. No calf tenderness. Negative Homans sign bilaterally. NEUROLOGICAL: Awake and alert. Cranial nerves II through XII intact. Motor and sensory grossly within normal limits. Five out of 5 muscle strength in all muscle groups. Normal speech. Laboratory Laboratory Tests Test 06/11/17 11:10 06/11/17 14:30 06/11/17 17:32 06/11/17 18:50 Total Creatine Kinase 577 Creatine Kinase MB 1.3 Creatine Kinase MB % 0.2 Troponin I 0.03 Stool C. difficile Toxin (PCR) POSITIVE Stl C. difficile Toxin Epiderm 027 PRESUMPTIVE NEGATIVE Prothrombin Time 10.5 Prothromb Time International Ratio 1.0 Activated Partial Thromboplast Time 32.2 M. tuberculosis Complex DNA (PCR) NOT DETECTED Test 06/11/17 21:45 06/12/17 04:55 06/12/17 07:00 Blood Urea Nitrogen 8 6 Creatinine 0.93 0.88 Random Glucose 101 98 Calcium Level 8.8 8.7 Sodium Level 131 131 Potassium Level 4.1 4.3 Chloride Level 101 102 Carbon Dioxide Level 21.5 20.9 Anion Gap 9 8 Estimat Glomerular Filtration Rate 84 89 Prothrombin Time 10.6 Prothromb Time International Ratio 1.0 Activated Partial Thromboplast Time 32.5 Date/Time Source Procedure Growth Status 06/11/17 03:39 Blood Peripheral Aerobic Blood Culture - Preliminary Gram Positive Cocci Resulted 06/11/17 03:39 Blood Peripheral Anaerobic Blood Culture Pending Resulted 06/11/17 09:00 Sputum Expectorated Sputum Acid Fast Stain Pending Received 06/11/17 09:00 Sputum Expectorated Sputum Mycobacterial Culture Pending Received 06/11/17 04:45 Urine Clean Catch Legionella Antigen - Final PRESUMPTIVE NEGATIVE FOR LEGIONELLA P... Complete 06/11/17 04:45 Urine Clean Catch Streptococcus pneumoniae Antigen (M - Final PRESUMPTIVE NEGATIVE FOR STREPTOCOCCU... Complete Result Diagram: 06/11/17 0415 06/12/17 0455 Imaging Last Impressions Chest X-Ray 06/10/172145 Signed Impressions: Service Date/Time: Saturday, June 10, 2017 22:20 - CONCLUSION: 3.5 cm cavitary lesion involving the left lung apex. Differential diagnostic considerations include infectious etiologiy particularly with atypical organisms versus a necrotic malignancy. MD Anthony Soto Jr. VTE Risk Assessment Caprini VTE Risk Assessment: Mod/High Risk (score >= 2) Caprini Risk Assessment Model Point Value = 1 Point Value = 2 Point Value = 3 Point Value = 5 Age 41-60 Minor surgery BMI > 25 kg/m2 Swollen legs Varicose veins or History of unexplained or recurrent spontaneous Oral contraceptives or hormone replacement Sepsis (< 1 month) Serious lung disease, including pneumonia (< 1 month) Abnormal pulmonary function Acute myocardial infarction Congestive heart failure (< 1 month) History of inflammatory bowel disease Medical patient at bed rest Age 61-74 Arthroscopic surgery Major open surgery (> 45 min) Laparoscopic surgery (> 45 min) Malignancy Confined to bed (> 72 hours) Immobilizing plaster cast Central venous access Age >= 75 History of VTE Family history of VTE Factor V Leiden Prothrombin [id number] Lupus anticoagulant Anticardiolipin antibodies Elevated serum homocysteine Heparin-induced thrombocytopenia Other congenital or acquired thrombophilia Stroke (< 1 month) Elective arthroplasty Hip, pelvis, or leg fracture Acute spinal cord injury (< 1 month) Prophylaxis Regimen Total Risk Factor Score Risk Level Prophylaxis Regimen 0-1 Low Early ambulation 2 Moderate Order ONE of the following: *Sequential Compression Device (SCD) *Heparin 5000 units SQ BID 3-4 Higher Order ONE of the following medications: *Heparin 5000 units SQ TID *Enoxaparin/Lovenox 40 mg SQ daily (WT < 150 kg, CrCl > 30 mL/min) *Enoxaparin/Lovenox 30 mg SQ daily (WT < 150 kg, CrCl > 10-29 mL/min) *Enoxaparin/Lovenox 30 mg SQ BID (WT < 150 kg, CrCl > 30 mL/min) AND/OR *Sequential Compression Device (SCD) 5 or more Highest Order ONE of the following medications: *Heparin 5000 units SQ TID (Preferred with Epidurals) *Enoxaparin/Lovenox 40 mg SQ daily (WT < 150 kg, CrCl > 30 mL/min) *Enoxaparin/Lovenox 30 mg SQ daily (WT < 150 kg, CrCl > 10-29 mL/min) *Enoxaparin/Lovenox 30 mg SQ BID (WT < 150 kg, CrCl > 30 mL/min) AND *Sequential Compression Device (SCD) Assessment and Plan Assessment and Plan 57 year old male presents after a presyncopal episode and multiple electrolytes derangements that is most likely a result of dehydration from a recent viral illness. Differential diagnoses for syncope includes dehydration, TIA/stroke, arrhythmia, and seizure. In addition, chest x-ray shows a cavitary lung mass that is suspicious for infection versus neoplasm. He was admitted for investigation of the syncope, management of dehydration/electrolyte deficiencies and further exploration of the lung mass. Problem List: (1) Syncope ICD Codes: R55 - Syncope and collapse Plan: -Patient did not meet sirs criteria on admission, afebrile, WBC 6.0 -Sinus rhythm on EKG, moderate ST depression of unknown significance -Troponin 0.02, will trend with EKGs 2 -BNP pending -Syncope workup initiated -2-D echo pending, previous echo in Jun 2015 showed EF of 60-65% -EEG pending -Orthostatic vital signs pending -Carotid ultrasound pending - last carotid us March 2017 showed bilateral atherosclerotic plaquing, mild on the right and moderately severe on the left. Calcification in the mid and distal common carotid artery on the left extending up into the internal -TSH pending he was orthostatic and ill from his viral illness which caused his sxs at home. He is back to normal now and feels much better and is able to walk well without any lightheadedness (2) Abnormal finding on lung imaging ICD Codes: R91.8 - Other nonspecific abnormal finding of lung field Plan: -3.5 cm cavitary lesion involving the left lung apex. Differential diagnosis includes infectious etiology particular with atypical organisms versus a necrotic malignancy -Will order CT chest with IV contrast to better characterize the lesion -Consider infectious diseases consult versus pulmonary versus oncology -Will check Legionella, pneumococcal, and histoplasma antigen -Sputum Gram stain and culture, sputum AFB gram stain and culture going for biopsy today. emphasized repeatedly that he needs to follow up with his primary Dr for the biopsy results Past Pulmonary History -Notably, the patient was admitted to [facility] in June 2015 for treatment of pneumonia, loculated right hydropneumothorax with empyema and septic shock. The empyema was large enough to require a chest tube placement. During that time, he was noted to have atrial fibrillation with a rapid ventricular rate but he subsequently converted to normal sinus rhythm. He was also noted to be markedly hypertensive while hospitalized. A dental abscess was discovered at the time of this hospitalization which was thought to be the source of his initial infection and ultimate sepsis. An anaerobic culture grew Prevotella and he was also found to be strep pneumo urine antigen positive. Infectious disease recommended outpatient bronchoscopy to rule out endobronchial malignancy. Patient is a chronic smoker of at least 40 pack years. (3) Hypocalcemia ICD Codes: E83.51 - Hypocalcemia Plan: -Protein corrected calcium 6.1 -Suspect secondary to dehydration -Received 1 g calcium carbonate in the ED -Will repeat BMP and replete as needed (4) Hypokalemia ICD Codes: E87.6 - Hypokalemia Plan: -Potassium 2.3 with elevated chloride of 114 -Suspect metabolic derangement secondary to dehydration from vomiting and diarrhea -Administered 80 mEq oral potassium chloride -Currently on D5 half-normal saline with potassium (5) Hypertension ICD Codes: I10 - Essential (primary) hypertension Status: Acute Plan: -Continue amlodipine 5 mg by mouth daily -Continue metoprolol 50 mg by mouth daily -Clonidine 0.1 mg by mouth PRN SBP >/= 170, DBP >/= 100 (6) Skin tear of left lower leg without complication ICD Codes: S81.812A - Laceration without foreign body, left lower leg, initial encounter Plan: -Superficial, nonbleeding -Wound care nurse consult -Dressing changes (7) Chronic alcohol use ICD Codes: Z72.89 - Other problems related to lifestyle Status: Acute Plan: -CIWA protocol (8) C. difficile diarrhea ICD Codes: A04.72 - Enterocolitis due to Clostridium difficile, not specified as recurrent Status: Acute Plan: unfortunately, he is positive for C diff. he is on flagyl. spoke to him about C diff and answered his questions. he is agreeable to take the flagyl at home to finish out his course (9) FEN/DVT PPX/GI PPX/Nursing Orders Plan: Fluids: D51/2NS +20K @ 150 mls/hr IV Electrolytes: Will monitor and replace as needed Nutrition: Heart-healthy diet DVT Prophylaxis: Lovenox 40mg subcutaneous daily re GI Prophylaxis: Famotidine 20 mg by mouth daily Constipation prophylaxis: Pericolace 1 tab PO BID PRN Medications Tylenol 650 mg by mouth every 4 hours when necessary pain 1-10 or temperature greater than 100.4F Zofran 4 mg IV push every 6 hours when necessary nausea vomiting -Vitals Q4h -Monitor I's and O's -Fall precautions -Neurochecks -Seizure precautions -property assessment monitor with telemetry with continuous vital signs -Activity OOB with assistance -PT to assist with ambulation -Case management consult to assist with discharge disposition Disposition: Pending syncope workup, resolution of symptoms Problem Qualifiers (1) Hypertension: Qualified Codes: I10 - Essential (primary) hypertension Antionette Jennings MD Jun 12, 2017 08:40
[2017-06-12] MEDS: SODIUM CHLORIDE 0.9% FLUSH 10 ML FLUSH IV FLUSH SCH ×2 (09:00→20:59)
[2017-06-12] MEDS: FAMOTIDINE 20 MG TAB PO SCH ×2 (09:30→20:59)
[2017-06-12] MEDS: FOLIC ACID 1 MG TAB PO SCH (09:30)
[2017-06-12] MEDS: METOPROLOL TARTRATE 50 MG TAB PO SCH ×2 (09:30→20:58)
[2017-06-12] MEDS: THIAMINE HCL 100 MG TAB PO SCH (09:30)
[2017-06-12] MEDS: MULTIVITAMINS/MINERALS THERAPEUTIC TAB PO SCH (09:30)
[2017-06-12] MEDS: amLODIPine BESYLATE 5 MG TAB PO SCH (09:30)
[2017-06-12] MEDS: LACTOBACILLUS ACIDOPHILUS TAB PO SCH ×2 (09:30→20:58)
[2017-06-12] MEDS ORDERED: METR-1 PO (11:57)
--- NOTE | 2017-06-12 11:59 | HHI.DCPOC ---
Discharge Care Plan Diagnosis: (1) Lung mass (2) C. difficile diarrhea (3) Chronic alcohol use Goals to Promote Your Health * To prevent worsening of your condition and complications * To maintain your health at the optimal level Directions to Meet Your Goals Take your medications as prescribed Follow your dietary instruction Follow activity as directed Keep your appointments as scheduled Take your immunizations and boosters as scheduled If your symptoms worsen call your PCP, if no PCP go to Urgent Care Center or Emergency Room Smoking is Dangerous to Your Health. Avoid second hand smoke Call the 24-hour hour crisis hotline for domestic abuse at Moraima Palencia MD, R3 Jun 12, 2017 11:59
[2017-06-12] MEDS ORDERED: VANCOMYCIN INJ 900 MG in SODIUM CHLOR 0.9% 250 ML INJ 250 ML IV SCH (14:45)
[2017-06-12] MEDS ORDERED: Vancomycin Consult Pharmacy 1 EA OTHER SCH (14:45)
[2017-06-12] MEDS ORDERED: LIDOCAINE HCL 1% 20 ML VIAL ONE (16:46)
[2017-06-12] MEDS ORDERED: MIDAZOLAM HCL 2 MG/2 ML VIAL ONE (16:59)
--- NOTE | 2017-06-12 18:02 | PD.RAD ---
Post CT Procedure Prog Note Pre Procedure Diagnosis: (1) Mass of left lung Post Procedure Diagnosis: (1) Mass of left lung Procedure Date: Jun 12, 2017 Supervising Radiologist: Cliff Ortiz Estimated blood loss: minimal Anesthesia: Conscious Sedation Plan of Activity Patient to Unit: PACU Patient Condition: Good See PACS Report for procedural detail/treatment Biopsy Imaging Guidance: CT Side: Left Biopsy Procedure: Lung Site: left upper lobe apex mass Specimen: Core Biopsy Additional Detail: 7 20G cores taken Plan to PACU for monitoring then return to regular floor bed in 4 hours if chest xrays are negative for pneumothorax and VS stable. Cliff Ortiz MD Jun 12, 2017 18:02
--- NOTE | 2017-06-12 19:18 | RADRPT ---
EXAM DATE/TIME: 06/12/2017 18:56 [facility] COMPARISON: CT THORAX W CONTRAST, June 11, 2017, 3:53. INDICATIONS : Lung biopsy on left lung, post op. MEDICAL HISTORY : None. SURGICAL HISTORY : None. ENCOUNTER: Subsequent ACUITY: 3 days PAIN SCORE: 4/10 LOCATION: Bilateral chest FINDINGS: 2 portable frontal views of the chest showed no pneumothorax following left lung biopsy. The lungs ar e hyper aerated. Cavitary lesion again seen within the left apex. Heart is normal in size. CONCLUSION: No pneumothorax following biopsy. Alcides Olmstead Jr., MD on June 12, 2017 at 19:13 Board Certified Radiologist. This report was verified electronically.
--- NOTE | 2017-06-12 22:01 | RADRPT ---
EXAM DATE/TIME: 06/12/2017 21:15 [facility] COMPARISON: CHEST EXPIRATION ONLY, June 12, 2017, 18:56. INDICATIONS : Evaluate for left pneumothorax. Cough. MEDICAL HISTORY : Hypertension. SURGICAL HISTORY : None. ENCOUNTER: Subsequent ACUITY: 3 days PAIN SCORE: 0/10 LOCATION: Left chest FINDINGS: Again seen is a cavitary lesion involving the left apex. This is unchanged. No pneumothorax following lung biopsy. No effusions. Heart is normal in size. CONCLUSION: No pneumothorax. Alcides Olmstead Jr., MD on June 12, 2017 at 21:58 Board Certified Radiologist. This report was verified electronically.
[2017-06-13] VITALS: BP 132/75; PULSE 65; PULSE 70; RESP 18; TEMP 98.7; O2SAT 95
[2017-06-13 04:00] VITALS: BP 131/87; PULSE 68; PULSE 74; RESP 18; TEMP 98.9; O2SAT 97
[2017-06-13] MEDS: metroNIDAZOLE 500 MG TAB PO SCH ×2 (05:01→13:34)
[2017-06-13 08:00] VITALS: BP 133/79; PULSE 73; RESP 18; TEMP 99; O2SAT 94
[2017-06-13] MEDS: DOCUSATE SODIUM 50 MG/SENNA 8.6 MG TAB PO SCH ×2 (09:00→09:59)
[2017-06-13] MEDS: SODIUM CHLORIDE 0.9% FLUSH 10 ML FLUSH IV FLUSH SCH (09:00)
[2017-06-13] MEDS: FOLIC ACID 1 MG TAB PO SCH (09:58)
[2017-06-13] MEDS: amLODIPine BESYLATE 5 MG TAB PO SCH (09:58)
[2017-06-13] MEDS: LACTOBACILLUS ACIDOPHILUS TAB PO SCH (09:59)
[2017-06-13] MEDS: THIAMINE HCL 100 MG TAB PO SCH (09:59)
[2017-06-13] MEDS: FAMOTIDINE 20 MG TAB PO SCH (09:59)
[2017-06-13] MEDS: MULTIVITAMINS/MINERALS THERAPEUTIC TAB PO SCH (09:59)
[2017-06-13] MEDS: METOPROLOL TARTRATE 50 MG TAB PO SCH (09:59)
[2017-06-13] MEDS ORDERED: SPAC5MIS (10:13)
[2017-06-13] MEDS ORDERED: ALBUAER3 INH (10:13)
--- NOTE | 2017-06-13 10:14 | HHI.FPPN ---
Subjective Remarks Patient seen and examined this morning. No acute events overnight per report. Patient mildly hypertensive yesterday afternoon, but currently all vitals within normal limits. Patient states his biopsy well last night and is ready to be discharged home today. Medical team discussed delayed discharge secondary to positive blood cultures with patient and via cell phone. Patient's blood cultures returned as coagulase-negative staphylococcal species therefore blood cultures are likely contaminant. Patient states that his nonproductive cough has continued, but denies any production, congestion, shortness of breath, chest pain, or new onset fevers. Patient states he continues with his diarrhea, but it has decreased since his admission. He understands that he will continue with Flagyl antibiotics for his C. difficile upon discharge. Otherwise he has no complaints and denies any new fevers, chills, shortness of breath, chest pain , NV, abdominal pain, or calf tenderness. (Srikanth Armas MD R2) Objective Vitals Vital Signs Date Time Temp Pulse Resp B/P (MAP) Pulse Ox O2 Delivery O2 Flow Rate FiO2 06/13/17 08:00 99.0 73 18 133/79 (97) 94 06/13/17 04:00 68 06/13/17 04:00 98.9 74 18 131/87 (102) 97 06/13/17 00:00 98.7 70 18 132/75 (94) 95 06/13/17 00:00 65 06/12/17 20:00 98.7 72 18 158/90 (112) 97 06/12/17 20:00 72 16 146/87 (106) 98 Room Air 06/12/17 20:00 84 06/12/17 19:45 71 16 160/86 (110) 97 Room Air 06/12/17 19:30 70 16 154/82 (106) 96 Room Air 06/12/17 19:15 73 16 169/85 (113) 97 Room Air 06/12/17 19:00 78 16 118/65 (82) 97 Room Air 06/12/17 18:45 82 16 156/80 (105) 98 Room Air 06/12/17 18:30 69 16 148/79 (102) 96 Room Air 06/12/17 18:12 98.2 73 16 179/92 (121) 97 Room Air 06/12/17 16:06 98.6 66 20 144/86 (105) 96 06/12/17 15:18 06/12/17 12:00 98.9 78 20 136/80 (98) 95 06/12/17 10:50 I/O 06/12/17 06/12/17 06/12/17 06/13/17 06/13/17 06/13/17 07:00 15:00 23:00 07:00 15:00 23:00 Intake Total 365 ml 480 ml Output Total 450 ml 275 ml 350 ml 200 ml Balance -450 ml 90 ml -350 ml 280 ml Intake Oral 240 ml 480 ml IV Total 125 ml Output Urine Total 450 ml 275 ml 350 ml 200 ml # Voids 4 1 # Bowel Movements 2 5 1 (Srikanth Armas MD R2) Result Diagram: 06/11/17 0415 06/12/17 0455 Objective Remarks GENERAL: Well-nourished, well-developed male lying in bed in no acute distress. SKIN: Warm and dry. No rash. HEENT: Atraumatic, normocephalic with extraocular motions intact. No rhinorrhea. No visible lymphadenopathy or jugulovenous distension appreciated. CARDIOVASCULAR: Regular rate and rhythm without obvious murmurs, gallops, or rubs. 2+ pulses in all four extremities. RESPIRATORY: Decreased aeration of the left upper lobe, but otherwise is clear to auscultation bilaterally with no crackles, wheezes, or rhonchi. No increased work of breathing. GASTROINTESTINAL: Abdomen soft, non-tender, nondistended with positive bowel sounds. No masses appreciated. MUSCULOSKELETAL: No cyanosis or edema. No calf tenderness. NEURO/PSYCH: Afocal. Awake, alert, and oriented x3. Normal speech and judgement. (Srikanth Armas MD R2) A/P Assessment and Plan 57 year old male presents after a presyncopal episode and multiple electrolytes derangements that is most likely a result of dehydration from a recent viral illness. Differential diagnoses for syncope includes dehydration, TIA/stroke, arrhythmia, and seizure. In addition, chest x-ray shows a cavitary lung mass that is suspicious for infection versus neoplasm. He was admitted for investigation of the syncope, management of dehydration/electrolyte deficiencies and further exploration of the lung mass. Discharge Planning Today. DW: Dr. Jennings (Srikanth Armas MD R2) Attending Attestation Patient seen and examined. Case reviewed and discussed with the resident team. Agree with plan of care as discussed with me and documented in the resident note. he wants to go home [place]. he has had no fevers or signs of infection and his bacteria looks like a contaminant as the more aggressive bacteria have been ruled out (Antionette Jennings MD) Problem List: (1) C. difficile diarrhea ICD Codes: A04.72 - Enterocolitis due to Clostridium difficile, not specified as recurrent Status: Acute Plan: Patient C. difficile positive diarrhea, improved since admission -Patient to complete 14 days of Flagyl 500 mg every 8 hours (2) Abnormal finding on lung imaging ICD Codes: R91.8 - Other nonspecific abnormal finding of lung field Status: Acute Plan: -3.5 cm cavitary lesion involving the left lung apex. Differential diagnosis includes infectious etiology particular with atypical organisms versus a necrotic malignancy -CT chest with IV contrast: 3.5 cm soft tissue mass and adjacent continuous 4.2 cm irregular cavitary mass. Thought to be one process. This represents inflammatory/infectious changes versus neoplasm. This is amenable to percutaneous biopsy. -Legionella, pneumococcal, and histoplasma antigen: Negative -Sputum Gram stain and culture, sputum AFB gram stain and culture: Pending -Blood cultures 06/11: Coagulations-negative staph (likely contaminant) -Repeat blood cultures 06/12: Negative to date -Pulmonary lung biopsy completed without complications -Patient to follow-up with PCP for biopsy and culture results Past Pulmonary History -Notably, the patient was admitted to [facility] in June 2015 for treatment of pneumonia, loculated right hydropneumothorax with empyema and septic shock. The empyema was large enough to require a chest tube placement. During that time, he was noted to have atrial fibrillation with a rapid ventricular rate but he subsequently converted to normal sinus rhythm. He was also noted to be markedly hypertensive while hospitalized. A dental abscess was discovered at the time of this hospitalization which was thought to be the source of his initial infection and ultimate sepsis. An anaerobic culture grew Prevotella and he was also found to be strep pneumo urine antigen positive. Infectious disease recommended outpatient bronchoscopy to rule out endobronchial malignancy. Patient is a chronic smoker of at least 40 pack years. (3) Syncope ICD Codes: R55 - Syncope and collapse Status: Resolved Plan: -Patient did not meet sirs criteria on admission, afebrile, WBC 6.0 -Sinus rhythm on EKG, moderate ST depression of unknown significance -Troponin negative 3 -BNP: 53 -2-D echo: Normal left ventricular size with EF in the range of 60-65%. Normal wall thickness. Atrial septal aneurysm, benign finding. -Orthostatic vital signs: Positive on admission, resolved with resuscitation -TSH: 1.47 (4) Hypocalcemia ICD Codes: E83.51 - Hypocalcemia Status: Resolved Plan: -Protein corrected calcium 6.1 -Suspect secondary to dehydration -Received 1 g calcium carbonate in the ED -Resolved 06/12 (5) Hypokalemia ICD Codes: E87.6 - Hypokalemia Status: Resolved Plan: -Potassium 2.3 with elevated chloride of 114 -Suspect metabolic derangement secondary to dehydration from vomiting and diarrhea -Administered 80 mEq oral potassium chloride -Resolved 06/11 (6) Hypertension ICD Codes: I10 - Essential (primary) hypertension Status: Chronic Plan: -Continue amlodipine 5 mg by mouth daily -Continue metoprolol 50 mg by mouth daily -Clonidine 0.1 mg by mouth PRN SBP >/= 170, DBP >/= 100 (7) Skin tear of left lower leg without complication ICD Codes: S81.812A - Laceration without foreign body, left lower leg, initial encounter Status: Acute Plan: -Superficial, nonbleeding -Wound care nurse consult -Dressing changes (8) Chronic alcohol use ICD Codes: Z72.89 - Other problems related to lifestyle Status: Acute Plan: -CIWA protocol (9) FEN/DVT PPX/GI PPX/Nursing Orders Plan: Fluids: Tolerating oral fluids Electrolytes: Will monitor and replace as needed Nutrition: Heart-healthy diet DVT Prophylaxis: Lovenox 40mg subcutaneous daily re GI Prophylaxis: Famotidine 20 mg by mouth daily Constipation prophylaxis: Pericolace 1 tab PO BID PRN Medications Tylenol 650 mg by mouth every 4 hours when necessary pain 1-10 or temperature greater than 100.4F Zofran 4 mg IV push every 6 hours when necessary nausea vomiting -Vitals Q4h -Monitor I's and O's -Fall precautions -Neurochecks -Seizure precautions -manager support with telemetry with continuous vital signs -Activity OOB with assistance -PT: Home with no PT recommended -Case management consult to assist with discharge disposition (Srikanth Armas MD R2) Problem Qualifiers (1) Hypertension: Qualified Codes: I10 - Essential (primary) hypertension Srikanth Armas MD R2 Jun 13, 2017 10:14 Antionette Jennings MD Jun 15, 2017 09:26
--- NOTE | 2017-06-13 11:31 | RADRPT ---
EXAM DATE/TIME: 06/12/2017 17:29 [facility] COMPARISON: CHEST EXPIRATION ONLY, June 12, 2017, 21:15. INDICATIONS : Left lung mass. SEDATION TIME: 15 minutes BIOPSY SITE: Left lung MEDICATION(S): 1.) 1.5 mg midazolam (Versed) IV 2.) 75 mcg fentanyl (Sublimaze) IV DEVICE(S): 1.) 18 gauge Berg blunt needle 15cm 2.) 20 gauge Temno core biopsy needle 20cm MEDICAL HISTORY : None. SURGICAL HISTORY : None. ENCOUNTER: Initial ACUITY: 1 day PAIN SCORE: 0/10 LOCATION: Left chest A total of seven core specimen(s) were obtained and sent to the laboratory for pathologic evaluation. PROCEDURE: 1. CT guided lung biopsy. 2. Conscious sedation with continuous EKG and oximetry monitoring. Prior to the procedure informed consent was obtained. The patient's prior chest CTs were reviewed. Us ing automated exposure control and adjustment of the mA and/or kV according to patient size, radiatio n dose was kept as low as reasonably achievable to obtain optimal diagnostic quality images. DICOM f ormat image data is available electronically for review and comparison. The site was prepped in a sterile fashion. Full sterile technique was used, including cap, mask, yarelis rile gloves and gown and a large sterile sheet. Hand hygiene and 2% chlorhexidine and/or betadine/al cohol prep was utilized per protocol for cutaneous antisepsis. The skin and subcutaneous tissues wer e infiltrated with local anesthetic solution. With CT guidance the left upper lobe apex mass was localized. Biopsy was performed using the prescrib ed needle as above. Adequate hemostasis was obtained with compression at the puncture site. Follow-up CT scan reveals no pneumothorax or acute findings. Conscious sedation was performed with the prescribed dosages and duration as above in the presence of an independent trained radiology nurse to assist in the monitoring of the patient. EKG and oximetry remained stable throughout the procedure. The patient tolerated the procedure well and there were no complications. The patient was sent to Radiology Outpatient Unit in stable condition. CONCLUSION: Uncomplicated CT guided biopsy of the left upper lobe apex mass. Cliff Ortiz MD on June 13, 2017 at 11:29 Board Certified Radiologist. This report was verified electronically.
--- NOTE | 2017-06-15 07:08 | HHI.DS ---
Discharge Summary Admission Date Jun 11, 2017 at 00:42 Discharge Date: Jun 13, 2017 Admitting Diagnosis hypokaLEMIA (1) C. difficile diarrhea Plan: Patient C. difficile positive diarrhea, improved since admission -Patient to complete 14 days of Flagyl 500 mg every 8 hours ICD Codes: A04.72 - Enterocolitis due to Clostridium difficile, not specified as recurrent Status: Acute (2) Abnormal finding on lung imaging Plan: -3.5 cm cavitary lesion involving the left lung apex. Differential diagnosis includes infectious etiology particular with atypical organisms versus a necrotic malignancy -CT chest with IV contrast: 3.5 cm soft tissue mass and adjacent continuous 4.2 cm irregular cavitary mass. Thought to be one process. This represents inflammatory/infectious changes versus neoplasm. This is amenable to percutaneous biopsy. -Legionella, pneumococcal, and histoplasma antigen: Negative -Sputum Gram stain and culture, sputum AFB gram stain and culture: Pending -Blood cultures 06/11: Coagulations-negative staph (likely contaminant) -Repeat blood cultures 06/12: Negative to date -Pulmonary lung biopsy completed without complications -Patient to follow-up with PCP for biopsy and culture results Past Pulmonary History -Notably, the patient was admitted to [facility] in June 2015 for treatment of pneumonia, loculated right hydropneumothorax with empyema and septic shock. The empyema was large enough to require a chest tube placement. During that time, he was noted to have atrial fibrillation with a rapid ventricular rate but he subsequently converted to normal sinus rhythm. He was also noted to be markedly hypertensive while hospitalized. A dental abscess was discovered at the time of this hospitalization which was thought to be the source of his initial infection and ultimate sepsis. An anaerobic culture grew Prevotella and he was also found to be strep pneumo urine antigen positive. Infectious disease recommended outpatient bronchoscopy to rule out endobronchial malignancy. Patient is a chronic smoker of at least 40 pack years. ICD Codes: R91.8 - Other nonspecific abnormal finding of lung field Status: Acute (3) Syncope Plan: -Patient did not meet sirs criteria on admission, afebrile, WBC 6.0 -Sinus rhythm on EKG, moderate ST depression of unknown significance -Troponin negative 3 -BNP: 53 -2-D echo: Normal left ventricular size with EF in the range of 60-65%. Normal wall thickness. Atrial septal aneurysm, benign finding. -Orthostatic vital signs: Positive on admission, resolved with resuscitation -TSH: 1.47 ICD Codes: R55 - Syncope and collapse Status: Resolved (4) Hypocalcemia Plan: -Protein corrected calcium 6.1 -Suspect secondary to dehydration -Received 1 g calcium carbonate in the ED -Resolved 06/12 ICD Codes: E83.51 - Hypocalcemia Status: Resolved (5) Hypokalemia Plan: -Potassium 2.3 with elevated chloride of 114 -Suspect metabolic derangement secondary to dehydration from vomiting and diarrhea -Administered 80 mEq oral potassium chloride -Resolved 06/11 ICD Codes: E87.6 - Hypokalemia Status: Resolved (6) Hypertension Plan: -Continue amlodipine 5 mg by mouth daily -Continue metoprolol 50 mg by mouth daily -Clonidine 0.1 mg by mouth PRN SBP >/= 170, DBP >/= 100 ICD Codes: I10 - Essential (primary) hypertension Status: Chronic (7) Skin tear of left lower leg without complication Plan: -Superficial, nonbleeding -Wound care nurse consult -Dressing changes ICD Codes: S81.812A - Laceration without foreign body, left lower leg, initial encounter Status: Acute (8) Chronic alcohol use Plan: -CIWA protocol ICD Codes: Z72.89 - Other problems related to lifestyle Status: Acute (9) FEN/DVT PPX/GI PPX/Nursing Orders Plan: Fluids: Tolerating oral fluids Electrolytes: Will monitor and replace as needed Nutrition: Heart-healthy diet DVT Prophylaxis: Lovenox 40mg subcutaneous daily re GI Prophylaxis: Famotidine 20 mg by mouth daily Constipation prophylaxis: Pericolace 1 tab PO BID PRN Medications Tylenol 650 mg by mouth every 4 hours when necessary pain 1-10 or temperature greater than 100.4F Zofran 4 mg IV push every 6 hours when necessary nausea vomiting -Vitals Q4h -Monitor I's and O's -Fall precautions -Neurochecks -Seizure precautions -geochemical laboratory technician with telemetry with continuous vital signs -Activity OOB with assistance -PT: Home with no PT recommended -Case management consult to assist with discharge disposition Procedures Long biopsy via CT Brief History Mr Schmidt is a 57-year-old male with a past medical history of hypertension who presented to the [facility] ED with a chief complaint of 2 episodes of presyncope that happened around 8 PM on Thursday06/10/17. Patient stated that on Thursday night, he developed symptoms of the flu such as muscle aches, tiredness, fatigue headache, cough, and diarrhea such that he went to bed that night and did not get up until 4 PM the next day. He only ate a small amount of chicken noodle soup and threw up once nonbloody phlegm-like material. The cough has been nonproductive and was constant all day Thursday. He states that his was also ill on Thursday morning, one day before he came and his youngest daughter experienced vomiting on Thursday night but is doing well now. The patient's works at the [employer] and every night he walks her to her car before she heads out. As he was walking from the living room to the kitchen to see his off, he "blacked out" and fell to his knees and then to the floor. The episode lasted only a few seconds. His heard him fall and rushed to help him stand up. At this time she notices that his eyes rolled back in his head and he almost fell a second time but she was able to steady him and redirect him to the couch. He did not hit his head on the ground during this 2 episodes. On further questioning, he did not have true syncope. Here in the hospital he feels much better now that his electrolytes are repleted as well as being hydrated. He still has diarrhea which is C diff. However, he is eating well and his initial orthostasis is gone. He is scheduled for a lung biopsy today of his complex and partially cavitary mass but very much wants to go home after that. CBC/BMP: 06/11/17 0415 06/12/17 0455 Imaging Last Impressions Chest X-Ray 06/12/17 2100 Signed Impressions: Service Date/Time: Monday, June 12, 2017 21:15 - CONCLUSION: No pneumothorax. Alcides Olmstead Jr., MD Lung Biopsy CT 06/12/17 0000 Signed Impressions: Service Date/Time: Monday, June 12, 2017 17:29 - CONCLUSION: Uncomplicated CT guided biopsy of the left upper lobe apex mass. Cliff Ortiz MD Chest CT 06/11/17 0000 Signed Impressions: Service Date/Time: May 03:53 - CONCLUSION: 3.5 cm soft tissue mass and an adjacent contiguous 4.2 cm irregular cavitary mass. This is thought to one process. This represents inflammatory/infectious change versus neoplasm. This is amenable to percutaneous biopsy. Cliff Hobbs MD PE at Discharge GENERAL: Well-nourished, well-developed male lying in bed in no acute distress. SKIN: Warm and dry. No rash. HEENT: Atraumatic, normocephalic with extraocular motions intact. No rhinorrhea. No visible lymphadenopathy or jugulovenous distension appreciated. CARDIOVASCULAR: Regular rate and rhythm without obvious murmurs, gallops, or rubs. 2+ pulses in all four extremities. RESPIRATORY: Decreased aeration of the left upper lobe, but otherwise is clear to auscultation bilaterally with no crackles, wheezes, or rhonchi. No increased work of breathing. GASTROINTESTINAL: Abdomen soft, non-tender, nondistended with positive bowel sounds. No masses appreciated. MUSCULOSKELETAL: No cyanosis or edema. No calf tenderness. NEURO/PSYCH: Afocal. Awake, alert, and oriented x3. Normal speech and judgement. Hospital Course Patient is a 37-year-old female who presented due to presyncopal episode and was found to have multiple electrolyte disturbances of likely due to dehydration from diarrheal illness. Patient was found to have C. difficile and treated with metronidazole. Hypokalemia and calcium were replaced with appropriate response. Chest CT was performed which showed 3.5 cm soft tissue mass in an adjacent continuous 4.2 cm irregular cavitary lesion which was biopsied by interventional radiology. Patient tolerated the procedure well. Discharge was initially delayed due to possibly positive blood cultures but was found to be contaminant and repeat blood cultures were negative. Patient was then discharged in stable condition and understood that he must follow up with his PCP for results of his biopsy. Pt Condition on Discharge: Stable Discharge Disposition: Discharge Home Discharge Instructions DIET: Follow Instructions for: As Tolerated, No Restrictions Activities you can perform: Regular-No Restrictions Follow up Referrals: PCP Follow-up - 1 Week with Vick Ortega MD New Medications: Albuterol 8.5 GM Inh (Proair Hfa 8.5 GM Inh) 90 Mcg/Act Aer 2 PUFF INH Q4-6H PRN for SHORTNESS OF BREATH, #1 INHALER 1 Refill 108 mcg/actuation Flexichamber Spacer/Aerosol-Holding Chamber (Flexichamber Spacer/Aerosol- Holding Chamber) 1 Mis Mis EA .ROUTE DIRECTED for Breathing Treatment, #1 0 Refills Provide an insurance covered spacer to be used with Proair inhaler. Metronidazole (Flagyl) 500 Mg Tab 500 MG PO Q8HR, #36 TAB Take for 12 days Continued Medications: Amlodipine (Amlodipine) 5 Mg Tab 5 MG PO DAILY for Blood Pressure Management, #90 TAB 3 Refills Metoprolol Tartrate (Metoprolol Tartrate) 50 Mg Tab 50 MG PO BID, #180 TAB 3 Refills Moraima Palencia MD, R3 Jun 15, 2017 07:08
== END 2017-06-13 13:25 | disposition home or self-care (01) | DRG 372 ==
LOC: NEPC 21:02 → NEDA 06-11 00:42 → N03B 06-11 04:06
PROVIDERS: ADMIT Family Medicine; ATTEND Family Medicine
PROC: 0BBG3ZX Excision of Left Upper Lung Lobe, Percutaneous Approach, Diagnostic (ICD-10-PCS; principal; 2017-06-12)
DX: A04.72 Enterocolitis due to Clostridium difficile, not specified as recurrent (principal); I25.3 Aneurysm of heart; E83.51 Hypocalcemia; I48.91 Unspecified atrial fibrillation; E87.8 Other disorders of electrolyte and fluid balance, not elsewhere classified; S81.812A Laceration without foreign body, left lower leg, initial encounter; R55 Syncope and collapse; I10 Essential (primary) hypertension; E86.0 Dehydration; E87.6 Hypokalemia; F17.210 Nicotine dependence, cigarettes, uncomplicated; R91.8 Other nonspecific abnormal finding of lung field; W18.39XA Other fall on same level, initial encounter; Z86.14 Personal history of Methicillin resistant Staphylococcus aureus infection
CPT/HCPCS: 32405; 71045; 71046; 71260; 77012; 80048; 80053; 80307; 81001; 82550; 82552; 83690; 83735; 83880; 84100; 84443; 84484; 85007; 85025; 85027; 85610; 85730; 86403; 87015; 87040; 87070; 87077; 87081; 87102; 87116; 87176; 87186; 87205; 87206; 87449; 87493; 87556; 87798; 87804; 87880; 88305; 93005; 93306; 94667; 94668; 96365; J0610; J1650; J2250; J3010; J3475; J3480; Q9967

== ENCOUNTER 2017-06-27 18:22 | Inpatient (IN) | payer BC ==
[~2017-06-27] VITALS: Ht 180.3 cm; Wt 61.1 kg
[~2017-06-27 18:22] MED LIST changes: +ALBUAER3 INH; +LIDOCAINE HCL 1% PF 5 ML SYRINGE OTHER ONE; +METR-1 PO; +PHENYLEPH/NS 1000 MCG/10 ML SYR IV ONE; +PROPOFOL 200 MG/20 ML AMP IV ONE; +ROCURONIUM INJ 50 MG/5 ML SYRINGE IV PUSH ONE; +SPAC5MIS; +SUCCINYLCHOLINE CHLORIDE 200 MG/10 ML VIAL IV ONE
[2017-06-27 18:23] VITALS: O2SAT 98
[2017-06-27] MEDS ORDERED: SODIUM CHLOR 0.9% 1000 ML INJ 1,000 ML IV ONE (18:26)
[2017-06-27 18:36] VITALS: BP 158/84; PULSE 80; RESP 18; O2SAT 98
[2017-06-27 18:38] LABS: AUTOMATED NEUTROPHIL # 5.1 TH/MM3 (1.8-7.7); BASOPHIL # 0.3 TH/MM3 (0-0.2); BASOPHIL % 2.8 % (0.0-2.0); EOSINOPHIL # 0.2 TH/MM3 (0-0.4); EOSINOPHIL % 1.9 % (0.0-4.0); HEMATOCRIT 37.6 % (39.0-51.0); HEMOGLOBIN 12.6 GM/DL (13.0-17.0); LYMPH % 24.4 % (9.0-44.0); LYMPHOCYTE # 2.2 TH/MM3 (1.0-4.8); MEAN CELL VOLUME 97.7 FL (80.0-100.0); MEAN CORPUSCULAR HEMOGLOBIN 32.7 PG (27.0-34.0); MEAN CORPUSCULAR HGB CONC 33.5 % (32.0-36.0); MEAN PLATELET VOLUME 7.6 FL (7.0-11.0); MONOCYTE # 1.3 TH/MM3 (0-0.9); NEUT % 56.9 % (16.0-70.0); PLATELET COUNT 303 TH/MM3 (150-450); RED BLOOD COUNT 3.85 MIL/MM3 (4.50-5.90); RED CELL DISTRIBUTION WIDTH 11.7 % (11.6-17.2); WHITE BLOOD COUNT 9.1 TH/MM3 (4.0-11.0)
[2017-06-27 18:45] VITALS: BP 158/84; PULSE 84; RESP 18; O2SAT 98
[2017-06-27] MEDS ORDERED: SODIUM CHLORIDE 0.9% 50 ML BAG IVF ONE (18:45)
[2017-06-27] MEDS ORDERED: ALTEPLASE BOLUS 9 MG/9 ML SYR IV ONE (18:45)
[2017-06-27] MEDS ORDERED: ALTEPLASE DRIP IV ONE (18:45)
[2017-06-27] MEDS ORDERED: MISCELLANEOUS NURSING INFORMATION XX PRN (18:45)
[2017-06-27 18:46] LABS: CHLORIDE 101 MEQ/L (98-107); SODIUM (NA) 131 MEQ/L (136-145)
--- NOTE | 2017-06-27 18:46 | RADRPT ---
EXAM DATE/TIME: 06/27/2017 18:30 [facility] COMPARISON: No previous studies available for comparison. INDICATIONS : Stroke alert. Left side weakness. RADIATION DOSE: 62.32 CTDIvol (mGy) This report was called by myself to Dr. Roy at 18: 44 hours. MEDICAL HISTORY : Non-responsive. SURGICAL HISTORY : Non-responsive. ENCOUNTER: Initial ACUITY: 1 day PAIN SCALE: Non-responsive LOCATION: cranial TECHNIQUE: Multiple contiguous axial images were obtained of the head. Using automated exposure control and adj ustment of the mA and/or kV according to patient size, radiation dose was kept as low as reasonably a chievable to obtain optimal diagnostic quality images. DICOM format image data is available electro nically for review and comparison. FINDINGS: There is no evidence for intracranial hemorrhage, mass effect, mass lesions, edema, or extra-axial fl uid collections. The visualized bony structures appear intact. The ventricles are normal size for t he patient's age. There are no signs of acute infarction for technique, however there is no dense MC A which extends from M1 to M2 branch. CONCLUSION: Dense MCA on the right side characteristic of acute thrombus. Yesi Velarde MD on June 27, 2017 at 18:42 Board Certified Radiologist. This report was verified electronically.
[2017-06-27 18:48] LABS: CALCIUM 8.6 MG/DL (8.5-10.1)
[2017-06-27 18:49] LABS: BICARBONATE 24.2 MEQ/L (21.0-32.0); BLOOD UREA NITROGEN 12 MG/DL (7-18); GLUCOSE,RANDOM 89 MG/DL (74-106)
[2017-06-27 18:52] LABS: CREATININE 0.93 MG/DL (0.60-1.30); GLOMERULAR FILTRATION RATE 84 ML/MIN (>89)
[2017-06-27] MEDS ORDERED: IOHEXOL 350 MG/ML 10 ML VIAL (for RAD DIAG) IVCONTRAST ONE (18:52)
[2017-06-27 18:56] VITALS: BP 171/89; PULSE 77; RESP 18; O2SAT 100
--- NOTE | 2017-06-27 18:56 | RADRPT ---
EXAM DATE/TIME: 06/27/2017 18:30 [facility] COMPARISON: CT BRAIN W/O CONTRAST, June 27, 2017, 18:30. INDICATIONS : Stroke alert, left side weakness. IV CONTRAST: 80 cc Omnipaque 350 (iohexol) IV ; Cumulative dose for multiple exams. RADIATION DOSE: 57.81 CTDIvol (mGy) MEDICAL HISTORY : Non-responsive. SURGICAL HISTORY : Non-responsive. ENCOUNTER: Initial ACUITY: 1 day PAIN SCALE: Non-responsive LOCATION: cranial TECHNIQUE: Volumetric scanning was performed using a multi-row detector CT scanner. The data was post processed with a variety of visualization algorithms including full volume maximum intensity projection, multi -planar sliding thin slab reformation, curved planar reformation, and surface rendering techniques. Using automated exposure control and adjustment of the mA and/or kV according to patient size, radiat ion dose was kept as low as reasonably achievable to obtain optimal diagnostic quality images. DICO M format image data is available electronically for review and comparison. FINDINGS: The left vertebral artery does not have any flow within it either hypoplastic or completely occluded. There is also high-grade stenosis at the origin of the right vertebral artery with extensive atheros clerotic calcifications. There appears to be very little flow proximally approximately 2 cm past the takeoff of the vertebral artery demonstrates flow in the mid portion and supplies the basilar artery. The posterior circulation appears intact. There is extensive thrombus in the right ICA which extends from bifurcation all the way up into the c arotid siphon on with minimal flow at the level of the carotid siphon on surrounding thrombus. The th rombus extends into right middle cerebral artery and involves theM1 and into branches. There is ather osclerotic disease involving the left carotid siphon, however the left MCA and bilateral GINNA appear i ntact and posterior circulation is intact. CONCLUSION: 1. Extensive thrombus extending from the right ICA bifurcation all the way up into the carotid siphon on with significant thrombus within right middle cerebral artery branches. 2. Left vertebral artery is occluded. 3. High-grade stenosis involving the right vertebral artery past the takeoff may have thrombus within it at the site, however there is flow within it in midportion which carries into basilar artery and supplies the posterior circulation. Yesi Velarde MD on June 27, 2017 at 18:49 Board Certified Radiologist. This report was verified electronically.
[2017-06-27 18:57] LABS: TROPONIN I LESS THAN 0.02 NG/ML (0.02-0.05)
--- NOTE | 2017-06-27 18:57 | PD ---
HPI Chief Complaint: Stroke Alert Time Seen by Provider: 18:26 Travel History International Travel<30 days: No Contact w/Intl Traveler<30days: No Traveled to known affect area: No History of Present Illness HPI The patient is a 57-year-old male who presents to the emergency department via EMS as a stroke alert. According to EMS the patient was last seen normal at 5:00, his when out when she returned home she noticed that the patient was unable to use the left side of his body. The patient was last seen normal at 5 PM per EMS report. Upon arrival the patient has obvious left- sided neglect, right sided gaze, but denies any headache. He denies taking any anticoagulants or oral anticoagulant medications including Pradaxa, Eliquis, Xarelto, and Coumadin. The patient denies any symptoms upon arrival, however, has obvious right sided gaze and left-sided neglect. PFSH Past Medical History Hx Anticoagulant Therapy: No Arthritis: No Asthma: No Autoimmune Disease: No Anxiety: No Depression: No Heart Rhythm Problems: No Cancer: No Cardiovascular Problems: Yes (HTN) High Cholesterol: No Chemotherapy: No Chest Pain: No Congestive Heart Failure: No COPD: No Cerebrovascular Accident: No Diabetes: No Diminished Hearing: No Endocrine: No GERD: No Genitourinary: No Hiatal Hernia: No Hypertension: Yes Immune Disorder: No Kidney Stones: No Musculoskeletal: No Neurologic: No Psychiatric: No Reproductive: No Respiratory: No Immunizations Current: Yes Migraines: No Radiation Therapy: No Renal Failure: No Seizures: No Sickle Cell Disease: No Sleep Apnea: No Thyroid Disease: No Ulcer: No Past Surgical History AICD: No Arteriovenous Shunt: No Eye Surgery: Yes (bilateral cataract surgeries) Insulin Pump: No Joint Replacement: No Pacemaker: No Thoracic Surgery: Yes (chest tube surgery at [facility]) Other Surgery: Yes (COLLAPSED LUNG R/T SEPTIC FROM DENTAL INFECTION) Social History Alcohol Use: Yes (BEER - 6 DAILY ) Tobacco Use: No (1 PPD) Substance Use: No Allergies-Medications (Allergen,Severity, Reaction): Coded Allergies: *MDRO Multi-Drug Resistant Organism (Verified Adverse Reaction, Unknown, ) MRSA PCR positive 06/30/2015 MRSA (foot)-09/29/16 Reported Meds & Prescriptions Reported Meds & Active Scripts Active Flexichamber Spacer/Aerosol-Holding Chamber 1 Mis Mis Ea .ROUTE DIRECTED Provide an insurance covered spacer to be used with Proair inhaler. Proair Hfa 8.5 GM Inh (Albuterol Sulfate) 90 Mcg/Act Aer 2 Puff INH Q4-6H PRN 108 mcg/actuation Flagyl (Metronidazole) 500 Mg Tab 500 Mg PO Q8HR Take for 12 days Metoprolol Tartrate 50 Mg Tab 50 Mg PO BID Amlodipine (Amlodipine Besylate) 5 Mg Tab 5 Mg PO DAILY Review of Systems Except as stated in HPI: all other systems reviewed are Neg Neurologic: Positive: Focal Abnormalities, Paresthesia, Sensory Disturbance, No : Headache, Change in Mentation, Slurred Speech Physical Exam Narrative GENERAL: Awake, alert, pleasant 77-year-old male appears his stated age and is in no acute respiratory distress. Obvious left sided neglect and right gaze. SKIN: Focused skin assessment warm/dry. HEAD: Atraumatic. Normocephalic. EYES: Pupils equal and round. Pupils are 3 mm bilateral and reactive. Does not appear to be of the CT of the left visual yeh. Neglect on the left. ENT: No nasal bleeding or discharge. Mucous membranes pink and moist. NECK: Trachea midline. No JVD. CARDIOVASCULAR: Regular rate and rhythm. No murmur appreciated. RESPIRATORY: No accessory muscle use. Clear to auscultation. Breath sounds equal bilaterally. GASTROINTESTINAL: Abdomen soft, non-tender, nondistended. Hepatic and splenic margins not palpable. MUSCULOSKELETAL: No obvious deformities. No clubbing. No cyanosis. No edema. NEUROLOGICAL: Awake and alert. Left facial droop. Tongue deviates to the left. Pupils equal round and reactive to light, but he has a right sided gaze and left visual field defects. Unable to move left arm, no resistance against gravity. Does not withdraw the left arm the pain. Unable to lift the left leg , does withdraw the left leg to pinching. Decreased sensation to soft touch in the left leg, left arm, and left face. Left-sided neglect. Unable to do finger to nose or heel to arredondo on the left. Oriented to person, place, and year. PSYCHIATRIC: Appropriate mood and affect; insight and judgment normal. Data Data Orders Orders Cath For Specimen (06/27/17 18:26) Neuro Checks Q2HX12,Q4H (06/27/17 18:26) Nursing Bedside Swallow Assess .ONCE (06/27/17 18:26) Activity Bed Rest (06/27/17 18:26) Diet Npo (06/27/17 Dinner) Prothrombin Time / Inr (Pt) (06/27/17 18:) Act Partial Throm Time (Ptt) (06/27/17 18:26) Complete Blood Count With Diff (06/27/17 18:26) Basic Metabolic Panel (Bmp) (06/27/17 18:26) Fibrinogen (06/27/17 18:) Creatine Kinase (Cpk) (06/27/17 18:26) Troponin I (06/27/17 18:26) Ua Includes Microscopic (06/27/17 18:) Drug Screen, Random Urine (06/27/17 18:) Type And Screen (06/27/17 18:) Ct Brain W/O Iv Contrast(Rout) (06/27/17 ) Cta Brain W Iv Contrast W 3d (06/27/17 18:26) Cta Neck W Iv Contrast W 3d (06/27/17 18:26) Electrocardiogram (06/27/17 ) Consult Neurology (06/27/17 18:26) Sodium Chlor 0.9% 1000 Ml Inj (Ns 1000 M (06/27/17 18:26) Blood Glucose (06/27/17 18:) Ecg Monitoring (06/27/17 18:) Iv Access Insert/Monitor (06/27/17 18:26) NPO (06/27/17 18:26) Oximetry (06/27/17 18:26) Resp Oxygen Nc Stroke (06/27/17 ) Nih Stroke Scale - Nihss .ONCE (06/27/17 18:37) Urinary Catheter Insert/Apply (06/27/17 18:37) Anticoagulant Alert (06/27/17 18:37) ^ Post Infusion Restrictions (06/27/17 18:37) ^ Medication Alert (06/27/17 18:37) Vital Signs (Adult) .As directed (06/27/17 18:37) Notify Dr: Blood Pressure (06/27/17 18:37) ^ Medication Alert (06/27/17 18:37) Alteplase Bolus (Activase Bolus) (06/27/17 18:45) Alteplase Drip (Activase Drip) (06/27/17 18:45) Sodium Chloride 0.9% Inj (Ns Inj) (06/27/17 18:45) Misc Nursing Information (06/27/17 18:45) Resp Oxygen Nc Stroke (06/27/17 ) Ct Brain W/O Iv Contrast(Rout) (06/28/17 ) ^ Call Pharmacy (06/27/17 18:37) (Hub Use Only)Inp Phy Cons/Ref (06/27/17 ) Iohexol 350 Inj (Omnipaque 350 Inj) (06/27/17 18:52) Admit Order (Ed Use Only) (06/27/17 18:57) Labs Laboratory Tests Test 06/27/17 18:20 White Blood Count 9.1 TH/MM3 Red Blood Count 3.85 MIL/MM3 Hemoglobin 12.6 GM/DL Hematocrit 37.6 % Mean Corpuscular Volume 97.7 FL Mean Corpuscular Hemoglobin 32.7 PG Mean Corpuscular Hemoglobin Concent 33.5 % Red Cell Distribution Width 11.7 % Platelet Count 303 TH/MM3 Mean Platelet Volume 7.6 FL Neutrophils (%) (Auto) 56.9 % Lymphocytes (%) (Auto) 24.4 % Monocytes (%) (Auto) 14.0 % Eosinophils (%) (Auto) 1.9 % Basophils (%) (Auto) 2.8 % Neutrophils # (Auto) 5.1 TH/MM3 Lymphocytes # (Auto) 2.2 TH/MM3 Monocytes # (Auto) 1.3 TH/MM3 Eosinophils # (Auto) 0.2 TH/MM3 Basophils # (Auto) 0.3 TH/MM3 CBC Comment DIFF FINAL Differential Comment Prothrombin Time 11.5 SEC Prothromb Time International Ratio 1.1 RATIO Activated Partial Thromboplast Time 22.9 SEC Blood Urea Nitrogen 12 MG/DL Creatinine 0.93 MG/DL Random Glucose 89 MG/DL Calcium Level 8.6 MG/DL Sodium Level 131 MEQ/L Potassium Level 3.5 MEQ/L Chloride Level 101 MEQ/L Carbon Dioxide Level 24.2 MEQ/L Anion Gap 6 MEQ/L Estimat Glomerular Filtration Rate 84 ML/MIN Total Creatine Kinase 201 U/L Troponin I LESS THAN 0.02 NG/ML MDM Medical Screen Exam Complete: Yes Emergency Medical Condition: Yes Medical Record Reviewed: Yes EKG Prior to Arrival: No Differential Diagnosis Differential diagnosis includes CVA, intracranial hemorrhage, complicated migraine, seizure, subdural hemorrhage, subarachnoid hemorrhage, hypertensive urgency, hypertensive emergency. Narrative Course IV was established, labs are drawn and sent, and the patient was placed on cardiac telemetry monitoring and continuous pulse oximetry monitoring. Stroke scale was immediately performed at 6:27 PM, was elevated at 20. The patient was weight on the bed and went straight to CT which reveals no hemorrhage but a large left MCA sign. CTA of the neck and brain was performed. I obtained consent from the patient at bedside with nursing staff, ER criminal records technician, and plumbing technician present. I discussed the risk and benefits of bleeding versus benefit from TPA, patient was agreeable to TPA administration and received the TPA bolus while on the CT table. I immediately placed a call to the interventional radiologist and discussed the patient with the interventional radiologist to states to take the patient straight to the interventional radiology lab at [facility]. The initial EMS crew did stay in the emergency department per my request for possible transfer and were willing to transfer the patient emergently to [facility]. The patient received a TPA bolus at [facility], the TPA drip was started, the patient went emergently to [facility] and will go straight to the interventional radiology suite. A call was placed to the on-call fire fighters dispatcher for admission, Dr. Le. Critical Care Narrative Aggregate critical care time was 45 minutes. Time to perform other separately billable procedures was not included in the critical care time. My time did not include minutes spent treating any other patients simultaneously or on activities that did not directly contribute to the patient's treatment. The services I provided to this patient were to treat and/or prevent clinically significant deterioration that could result in: CVA, intracranial hemorrhage, herniation, chronic focal deficit, paralysis. I provided critical care services requiring my management, as noted below: Chart data review, documentation time, medication orders and management, vital sign assessments/reviewing monitor data, ordering and reviewing lab tests, ordering and interpreting/reviewing x-rays and diagnostic studies, care of the patient and discussion of the patient with the admitting physicians. Stroke Alert NIHSS NIH Stroke Scale Result: 20 NIHSS Time Completed: 18:27 Procedures Interpretation(s) Last Impressions Head CTA 06/27/17 1106 Signed Impressions: Service Date/Time: Tuesday, June 27, 2017 18:30 - CONCLUSION: 1. Extensive thrombus extending from the right ICA bifurcation all the way up into the carotid siphon on with significant thrombus within right middle cerebral artery branches. 2. Left vertebral artery is occluded. 3. High-grade stenosis involving the right vertebral artery past the takeoff may have thrombus within it at the site, however there is flow within it in midportion which carries into basilar artery and supplies the posterior circulation. Yesi Velarde MD Head CT 06/27/17 0000 Signed Impressions: Service Date/Time: Tuesday, June 27, 2017 18:30 - CONCLUSION: Dense MCA on the right side characteristic of acute thrombus. Yesi Velarde MD Laboratory Tests Test 06/27/17 18:20 White Blood Count 9.1 TH/MM3 Red Blood Count 3.85 MIL/MM3 Hemoglobin 12.6 GM/DL Hematocrit 37.6 % Mean Corpuscular Volume 97.7 FL Mean Corpuscular Hemoglobin 32.7 PG Mean Corpuscular Hemoglobin Concent 33.5 % Red Cell Distribution Width 11.7 % Platelet Count 303 TH/MM3 Mean Platelet Volume 7.6 FL Neutrophils (%) (Auto) 56.9 % Lymphocytes (%) (Auto) 24.4 % Monocytes (%) (Auto) 14.0 % Eosinophils (%) (Auto) 1.9 % Basophils (%) (Auto) 2.8 % Neutrophils # (Auto) 5.1 TH/MM3 Lymphocytes # (Auto) 2.2 TH/MM3 Monocytes # (Auto) 1.3 TH/MM3 Eosinophils # (Auto) 0.2 TH/MM3 Basophils # (Auto) 0.3 TH/MM3 CBC Comment DIFF FINAL Differential Comment Prothrombin Time 11.5 SEC Prothromb Time International Ratio 1.1 RATIO Activated Partial Thromboplast Time 22.9 SEC Blood Urea Nitrogen 12 MG/DL Creatinine 0.93 MG/DL Random Glucose 89 MG/DL Calcium Level 8.6 MG/DL Sodium Level 131 MEQ/L Potassium Level 3.5 MEQ/L Chloride Level 101 MEQ/L Carbon Dioxide Level 24.2 MEQ/L Anion Gap 6 MEQ/L Estimat Glomerular Filtration Rate 84 ML/MIN Total Creatine Kinase 201 U/L Troponin I LESS THAN 0.02 NG/ML Physician Communication Physician Communication A call was placed to the on-call fire fighters dispatcher for admission. I discussed the patient with Dr. Le who agrees with admission. Diagnosis Diagnosis: Primary Impression: CVA (cerebral vascular accident) Qualified Codes: I63.511 - Cerebral infarction due to unspecified occlusion or stenosis of right middle cerebral artery Admitting Physician Requests: Admit Condition: Serious Blaze Pendleton MD Jun 27, 2017 18:57
[2017-06-27 19:06] LABS: INTERNATIONAL NORMALIZED RATIO 1.1 RATIO; PROTHROMBIN TIME - PATIENT 11.5 SEC (9.8-11.6)
[2017-06-27 19:09] VITALS: BP 170/84; PULSE 68; RESP 16; O2SAT 98
--- NOTE | 2017-06-27 19:11 | RADRPT ---
EXAM DATE/TIME: 06/27/2017 18:30 [facility] COMPARISON: No previous studies available for comparison. INDICATIONS : Stroke alert, left side weakness. IV CONTRAST: 80 cc Omnipaque 350 (iohexol) IV ; Cumulative dose for multiple exams. RADIATION DOSE: 57.61 CTDIvol (mGy) ; Combined studies MEDICAL HISTORY : Non-responsive. SURGICAL HISTORY : Non-responsive. ENCOUNTER: Initial ACUITY: 1 day PAIN SCALE: Non-responsive LOCATION: neck Elevated flow velocities and ICA/CCA ratios have been found to correlate with increased degrees of vessel stenosis, calculated as percentage of diameter relative to a normal segment of distal ICA/CCA. TECHNIQUE: Volumetric scanning was performed using a multirow detector CT scanner. The data was post processed with a variety of visualization algorithms including full-volume maximum intensity projection, multip lanar sliding thin-slab reformation, curved-planar reformation, and surface-rendering techniques. Us ing automated exposure control and adjustment of the mA and/or kV according to patient size, radiatio n dose was kept as low as reasonably achievable to obtain optimal diagnostic quality images. DICOM f ormat image data is available electronically for review and comparison. FINDINGS: There is atherosclerotic disease at the origin of major vessels from the arch, however no signif icant stenosis is seen. The right ICA is completely occluded with thrombus within it which extends fr om bifurcation all the way up to carotid siphon. There is high-grade stenosis of the origin of the ri ght vertebral artery and there is either thrombus within it are occluded approximately 2-3 cm mass ab ove. There is flow within the right vertebral artery in a portion which carries up to the basilar art deann and supplies this vessel and posterior circulation. The left vertebral artery is completely occlu ded. There is extensive atherosclerotic disease involving the origin of the left ICA approximate 50% stenosis. CONCLUSION: 1. There is thrombus within the right ICA which extends from carotid bifurcation all the way up to ca rotid siphon. 2. Occluded left vertebral artery. 3. High-grade stenosis with possible thrombus within the proximal portion of the right vertebral andrew ry which reconstitutes in the middle portion and carries to basilar artery supplying the posterior ci rculation. 4. Almost 50% stenosis origin left ICA. Yesi Velarde MD on June 27, 2017 at 19:05 Board Certified Radiologist. This report was verified electronically.
--- NOTE | 2017-06-27 19:22 | PD.CONS ---
History of Present Illness Service Neurology Consult Requested By er Reason for Consult stroke alert Primary Care Physician Vick Ortega MD History of Present Illness 57-year-old male brought in as a stroke alert by evac for acute left sided weakness. onset at 5pm. ct brain shows a dense rt mca sign. iv tpa d/w pt by er md and rn and pt agreed to tx. no previous hx of stroke. not on any blood thinner. glucose 89. pt receiving iv tpa when i saw him. no may, no cp. plans underway for emergent transfer to [facility]. [place] [facility] Review of Systems as above Past Family Social History Past Medical History Hypertension Past Surgical History Chest tube placement for pleural effusion Allergies: Coded Allergies: *MDRO Multi-Drug Resistant Organism (Verified Adverse Reaction, Unknown, ) MRSA PCR positive 06/30/2015 MRSA (foot)-09/29/16 Family History Dad and sister - HTN Social History Lives with in [place] quit tob 3 weeks ago Drugs - denies Review of Systems All other ROS: ROS reviewed as documented in chart Past Family Social History Allergies: Coded Allergies: *MDRO Multi-Drug Resistant Organism (Verified Adverse Reaction, Unknown, ) MRSA PCR positive 06/30/2015 MRSA (foot)-09/29/16 Active Ordered Medications Current Medications Medications (Trade) Dose Ordered Sig/Thea Route Start Time Stop Time Status Last Admin Sodium Chloride 1,000 ml @ 70 mls/hr [id number] ONCE IV 06/27/17 18:26 06/28/17 08:43 Alteplase, Recombinant 49 mg/ Syringe / Bag 49 ml @ 49 mls/hr ONCE ONCE IV 06/27/17 18:45 06/27/17 19:44 Miscellaneous Information No Heparin, Warfarin, Aspir... UNSCH PRN XX 06/27/17 18:45 06/28/17 18:44 Exam General: Alert and Oriented, No acute distress Exam Comments alert, ox 3, follows, minimal dysarthria, rt gaze preference, left facial weakness, left hemineglect with left HH, left hemiparesis 0-1/5 with increased tone, left hemisensory, nihss 17 Review/Management Diagnosis/Plan: (1) Acute ischemic right MCA stroke ICD Codes: I63.511 - Cerebral infarction due to unspecified occlusion or stenosis of right middle cerebral artery Status: Acute Plan: large rt mca stroke 2/2 rt ica/mca clot risk factor: tob use, htn recs pt recieving iv [place]pa [place] [facility] [place] [place] currently for possible embolectomy isc admission after post-tpa order set bp <180/100 echo lipid panel scd's no blood thinners (2) HTN (hypertension) ICD Codes: I10 - Essential (primary) hypertension Status: Chronic (3) Tobacco abuse ICD Codes: Z72.0 - Tobacco use Status: Chronic Problem Qualifiers (1) HTN (hypertension): Qualified Codes: I10 - Essential (primary) hypertension Ha Carpenter MD Jun 27, 2017 19:22
[2017-06-27] MEDS ORDERED: VERAPAMIL HCL 5 MG/2 ML VIAL ONE (19:34)
[2017-06-27 20:44] LABS: CHOLESTEROL 104 MG/DL (120-200)
[2017-06-27 21:10] LABS: CHOLESTEROL/ HDL RATIO 2.65 RATIO; HDL CHOLESTEROL 39.2 MG/DL (40.0-60.0); LDL CHOLESTEROL 48 MG/DL (0-99); TRIGLYCERIDES 83 MG/DL (42-150)
[2017-06-27] MEDS ORDERED: oxyCODONE/ACETAMINOPHEN 5 MG/325 MG TAB PO PRN (21:30)
[2017-06-27] MEDS ORDERED: ACETAMINOPHEN 325 MG TAB PO PRN (21:30)
--- NOTE | 2017-06-27 21:31 | PD.RAD ---
Post Procedure Progress Note Pre Procedure Diagnosis: (1) CVA (cerebral vascular accident) Post Procedure Diagnosis: (1) CVA (cerebral vascular accident) Procedure Date: Jun 27, 2017 Supervising Radiologist: Vish Jarrett Proceduralist/Assist: RT Carlita(R) Anesthesia: General Plan of Activity Patient to Unit: Critical Care Patient Condition: Critical See PACS Report for procedural detail/treatment Vascular-Arterial Procedure Procedure 1 Procedure Site: Cerebral Procedure(s): Embolectomy Access Access Site(s): Right Femoral Artery Closure Site(s): Right vascular closure device Findings: occlusion of m1 segment successfully extracted tici 3 flow Vish Jarrett MD Jun 27, 2017 21:31
[2017-06-27] MEDS ORDERED: IODIXANOL 320 MG/ML 50 ML VIAL (for RAD SPEC) I-ARTERIAL ONE (21:40)
[2017-06-27 22:15] VITALS: BP 173/87; PULSE 81; RESP 23; TEMP 96.6; O2SAT 100
--- NOTE | 2017-06-27 22:43 | PD.CONS ---
[facility] Service Critical Care Medicine Consult Requested By Primary Care Physician Vick Ortega MD Past Family Social History Allergies: Coded Allergies: *MDRO Multi-Drug Resistant Organism (Verified Adverse Reaction, Unknown, ) MRSA PCR positive 06/30/2015 MRSA (foot)-09/29/16 Past Medical History HTN C diff +06/11/17. He has been on treatment with Flagyl Past Surgical History CT guided biopsy left upper lobe lung mass 06/12/17 He states he had a chest tube 2 years ago for right pleural effusion Family History He states his father is living at age 86 and has no known medical problems His mother is 86 years old and has Alzheimer's His he has had an uncle that has had a stroke Social History Smoked a pack of cigarettes/day for 40 years, quit 3 weeks ago. Drinks 6 pack of beer daily, quit 3 weeks ago Denies illicit drug use Physical Exam Vital Signs Vital Signs Date Time Temp Pulse Resp B/P (MAP) Pulse Ox O2 Delivery O2 Flow Rate FiO2 06/27/17 19:09 68 16 170/84 (112) 98 06/27/17 18:56 77 18 171/89 (116) 100 06/27/17 18:45 84 18 158/84 (108) 98 06/27/17 18:36 80 18 158/84 (108) 98 06/27/17 18:25 84 18 98 06/27/17 18:23 98 Physical Exam GENERAL: Well-nourished, well-developed patient who is laying flat in ISC bed. SKIN: Warm and dry well perfused HEAD: Atraumatic. Normocephalic. EYES: Pupils equal and round 3 mm and reactive to 2 mm bilaterally. No scleral icterus. No injection or drainage. ENT: No nasal bleeding or discharge. Mucous membranes pink and moist. NECK: Trachea midline. No JVD. CARDIOVASCULAR: Regular rate and rhythm, sinus rhythm on the monitor. No murmurs rubs or gallops appreciated RESPIRATORY: Breathing comfortable and 2 L nasal cannula with no accessory muscle use. He has slight bilateral expiratory wheezes. Breath sounds are equal bilaterally. GASTROINTESTINAL: Abdomen soft, non-tender, nondistended. Bowel sounds are present. MUSCULOSKELETAL: Extremities without clubbing, cyanosis, or edema. No obvious deformities. NEUROLOGICAL: Awake and alert. Oriented to self. Not oriented to location or year. He was able to provide medical history. Right gaze preference, no gaze to left with EOMI. L facial droop. Tongue deviates to left. Strength 5/5 throughout right, following commands. L hemiparesis with 1/5 biceps/triceps. Wiggles left toes to command. Withdraws 2/5 ankle dorsiflexion and knee flexion to deep noxious stimuli. Decreased sensation soft touch L arm and leg. No abnormal Babinski bilaterally. Speech is fluent with very minimal dysarthria. Laboratory Laboratory Tests Test 06/27/17 18:20 White Blood Count 9.1 Red Blood Count 3.85 Hemoglobin 12.6 Hematocrit 37.6 Mean Corpuscular Volume 97.7 Mean Corpuscular Hemoglobin 32.7 Mean Corpuscular Hemoglobin Concent 33.5 Red Cell Distribution Width 11.7 Platelet Count 303 Mean Platelet Volume 7.6 Neutrophils (%) (Auto) 56.9 Lymphocytes (%) (Auto) 24.4 Monocytes (%) (Auto) 14.0 Eosinophils (%) (Auto) 1.9 Basophils (%) (Auto) 2.8 Neutrophils # (Auto) 5.1 Lymphocytes # (Auto) 2.2 Monocytes # (Auto) 1.3 Eosinophils # (Auto) 0.2 Basophils # (Auto) 0.3 CBC Comment DIFF FINAL Differential Comment Erythrocyte Sedimentation Rate 39 Prothrombin Time 11.5 Prothromb Time International Ratio 1.1 Activated Partial Thromboplast Time 22.9 Fibrinogen 367 Blood Urea Nitrogen 12 Creatinine 0.93 Random Glucose 89 Calcium Level 8.6 Sodium Level 131 Potassium Level 3.5 Chloride Level 101 Carbon Dioxide Level 24.2 Anion Gap 6 Estimat Glomerular Filtration Rate 84 Total Creatine Kinase 201 Troponin I LESS THAN 0.02 Triglycerides Level 83 Cholesterol Level 104 LDL Cholesterol 48 HDL Cholesterol 39.2 Cholesterol/HDL Ratio 2.65 Vitamin B12 Level 883 Thyroid Stimulating Hormone 3rd Gen 1.860 Result Diagram: 06/27/170 06/27/171819 Assessment and Plan Assessment and Plan NEURO: RESP: CV: GI: FEN/RENAL: ID: [email or web address]: ENDO: PROPH: ACCESS: Meera Le MD Jun 27, 2017 22:43
[2017-06-27] MEDS ORDERED: LACTULOSE SYRUP 20 GM/30 ML CUP PO PRN (23:00)
[2017-06-27] MEDS ORDERED: SODIUM CHLORIDE 0.9% FLUSH 10 ML FLUSH IV FLUSH PRN (23:00)
[2017-06-27] MEDS ORDERED: MAGNESIUM HYDROXIDE SUSP 30 ML CUP PO PRN (23:00)
[2017-06-27] MEDS ORDERED: ONDANSETRON HCL 4 MG/2 ML VIAL IV PUSH PRN (23:00)
[2017-06-27] MEDS ORDERED: SENNOSIDES 8.6 MG TAB PO PRN (23:00)
[2017-06-27] MEDS ORDERED: LABETALOL HCL 100 MG/20 ML VIAL IV PUSH PRN (23:00)
[2017-06-27] MEDS ORDERED: RESP: ALBUTEROL 2.5 MG/3 ML NEB (PRN) INH (23:00)
[2017-06-27] MEDS ORDERED: MISCELLANEOUS NURSING INFORMATION XX SCH (23:00)
[2017-06-27] MEDS ORDERED: BISACODYL 10 MG SUPP RECTAL PRN (23:00)
[2017-06-27] MEDS ORDERED: CHLORHEXIDINE GLUCONATE 2 % 1 PACK (2 CLOTHS) TOP PRN (23:00)
[2017-06-27] MEDS ORDERED: niCARdipine INJ 25 MG in SODIUM CHLOR 0.9% 250 ML INJ 240 ML IV PRN (23:00)
[2017-06-27] MEDS: SODIUM CHLOR 0.9% 1000 ML INJ 1,000 ML IV SCH (23:58)
[2017-06-28] VITALS (12 sets, daily range): BP systolic 145–164; BP diastolic 72–90; PULSE 70–94; RESP 18–30; TEMP 97.1–100.1; O2SAT 99–100
[2017-06-28] MEDS: metroNIDAZOLE 500 MG INJ 100 ML IV SCH ×4 (00:01→22:10)
[2017-06-28] MEDS: RESP: ALBUTEROL 2.5 MG/IPRATROPIUM 0.5 MG NEB (SCH) INH ×4 (03:23→22:09)
[2017-06-28] MEDS: CHLORHEXIDINE GLUCONATE 2 % 1 PACK (2 CLOTHS) TOP SCH ×2 (04:00→20:25)
[2017-06-28] MEDS: FAMOTIDINE 20 MG TAB PO SCH ×2 (08:08→20:25)
[2017-06-28] MEDS: DOCUSATE SODIUM 50 MG/SENNA 8.6 MG TAB PO SCH ×2 (08:08→20:25)
[2017-06-28] MEDS: SODIUM CHLORIDE 0.9% FLUSH 10 ML FLUSH IV FLUSH SCH ×2 (08:08→21:00)
--- NOTE | 2017-06-28 08:15 | HHI.HP ---
[facility] Service Critical Care Medicine Primary Care Physician Vick Ortega MD Admission Diagnosis stroke alert, large right sided MCA infarct Diagnosis: (1) Acute ischemic stroke (2) C. difficile diarrhea (3) HTN (hypertension) (4) Tobacco abuse Travel History International Travel<30 Days: No Contact w/Intl Traveler <30 Da: No Traveled to Known Affected Are: No History of Present Illness 57-year-old male who presented to [facility] emergency department as a stroke alert. He states that he developed left hemiparesis. He was last seen normal at 5 PM. He had right sided gaze preference. He was not on antiplatelet or anticoagulant therapy. CT brain showed hyperdense right MCA extending to M1 and M2 branch. CT angiogram demonstrated right ICA thrombus extending to the carotid bifurcation. There is high-grade stenosis of the right vertebral. 50% stenosis of left ICA. He was given systemic TPA and was transferred from [facility] to [facility] [place] in [facility] where he was taken to invasive radiology and underwent successful extraction of M1 thrombus by Dr. Jarrett. Review of Systems Eyes: COMPLAINS OF: Vision loss Respiratory: DENIES: Cough Cardiovascular: DENIES: Chest pain, Syncope Gastrointestinal: DENIES: Abdominal pain Neurologic: COMPLAINS OF: Localized weakness, DENIES: Headache Psychiatric: COMPLAINS OF: Confusion Past Family Social History Allergies: Coded Allergies: lisinopril (Verified Adverse Reaction, Severe, cough, 07/03/17) *MDRO Multi-Drug Resistant Organism (Verified Adverse Reaction, Unknown, ) MRSA PCR positive 06/30/2015 MRSA (foot)-09/29/16 Past Medical History HTN C diff +06/11/17. He has been on treatment with Flagyl Past Surgical History CT guided biopsy left upper lobe lung mass 06/12/17 VATS with chest tube [address] Spencer for R empyema Reported Medications Flagyl 500 mg by mouth every 8 hours. He has states he has been taking for 12 days. Albuterol 2 puffs inhaled every 6 hours as needed Metoprolol 50 g by mouth twice a day Norvasc 5 mill grams by mouth daily Family History He states his father is living at age 86 and has no known medical problems His mother is 86 years old and has Alzheimer's His he has had an uncle that has had a stroke Social History Smoked a pack of cigarettes/day for 40 years, quit 3 weeks ago. Drinks 6 pack of beer daily, quit 3 weeks Reportedly no illicit drug use Physical Exam Vital Signs Vital Signs Date Time Temp Pulse Resp B/P (MAP) Pulse Ox O2 Delivery O2 Flow Rate FiO2 06/28/17 04:00 99.2 88 22 145/72 (96) 99 06/28/17 03:23 100 Nasal Cannula 2.00 06/28/17 00:00 97.1 70 18 159/78 (105) 100 06/27/17 22:15 100 Nasal Cannula 2.00 06/27/17 22:15 81 06/27/17 22:15 96.6 81 23 173/87 (115) 100 06/27/17 19:09 68 16 170/84 (112) 98 06/27/17 18:56 77 18 171/89 (116) 100 06/27/17 18:45 84 18 158/84 (108) 98 06/27/17 18:36 80 18 158/84 (108) 98 06/27/17 18:25 84 18 98 06/27/17 18:23 98 Physical Exam GENERAL: Well-nourished, well-developed patient who is laying flat in ISC bed. SKIN: Warm and dry well perfused HEAD: Atraumatic. Normocephalic. EYES: Pupils equal and round 3 mm and reactive to 2 mm bilaterally. No scleral icterus. No injection or drainage. ENT: No nasal bleeding or discharge. Mucous membranes pink and moist. NECK: Trachea midline. No JVD. CARDIOVASCULAR: Regular rate and rhythm, sinus rhythm on the monitor. No murmurs rubs or gallops appreciated RESPIRATORY: Breathing comfortable and 2 L nasal cannula with no accessory muscle use. He has slight bilateral expiratory wheezes. Breath sounds are equal bilaterally. GASTROINTESTINAL: Abdomen soft, non-tender, nondistended. Bowel sounds are present. MUSCULOSKELETAL: Extremities without clubbing, cyanosis, or edema. No obvious deformities. NEUROLOGICAL: Awake and alert. Oriented to self. Not oriented to location or year. He was able to provide medical history. Right gaze preference, no gaze to left with EOMI. L facial droop. Tongue deviates to left. Strength 5/5 throughout right, following commands. L hemiparesis with 1/5 biceps/triceps. Wiggles left toes to command. Withdraws 2/5 ankle dorsiflexion and knee flexion to deep noxious stimuli. Decreased sensation soft touch L arm and leg. No abnormal Babinski bilaterally. Speech is fluent with very minimal dysarthria. Laboratory Laboratory Tests Test 06/27/17 18:20 06/27/17 22:22 White Blood Count 9.1 Red Blood Count 3.85 Hemoglobin 12.6 Hematocrit 37.6 Mean Corpuscular Volume 97.7 Mean Corpuscular Hemoglobin 32.7 Mean Corpuscular Hemoglobin Concent 33.5 Red Cell Distribution Width 11.7 Platelet Count 303 Mean Platelet Volume 7.6 Neutrophils (%) (Auto) 56.9 Lymphocytes (%) (Auto) 24.4 Monocytes (%) (Auto) 14.0 Eosinophils (%) (Auto) 1.9 Basophils (%) (Auto) 2.8 Neutrophils # (Auto) 5.1 Lymphocytes # (Auto) 2.2 Monocytes # (Auto) 1.3 Eosinophils # (Auto) 0.2 Basophils # (Auto) 0.3 CBC Comment DIFF FINAL Differential Comment Erythrocyte Sedimentation Rate 39 Prothrombin Time 11.5 Prothromb Time International Ratio 1.1 Activated Partial Thromboplast Time 22.9 Fibrinogen 367 Blood Urea Nitrogen 12 Creatinine 0.93 Random Glucose 89 Calcium Level 8.6 Sodium Level 131 Potassium Level 3.5 Chloride Level 101 Carbon Dioxide Level 24.2 Anion Gap 6 Estimat Glomerular Filtration Rate 84 Total Creatine Kinase 201 Troponin I LESS THAN 0.02 Triglycerides Level 83 Cholesterol Level 104 LDL Cholesterol 48 HDL Cholesterol 39.2 Cholesterol/HDL Ratio 2.65 Vitamin B12 Level 883 Thyroid Stimulating Hormone 3rd Gen 1.860 Nasal Screen MRSA (PCR) MRSA NOT DETECTED Result Diagram: 06/27/17181906/27/171819 Caprini VTE Risk Assessment Caprini VTE Risk Assessment: Mod/High Risk (score >= 2) VTE Pharm Contraindication: received TPA Caprini Risk Assessment Model Point Value = 1 Point Value = 2 Point Value = 3 Point Value = 5 Age 41-60 Minor surgery BMI > 25 kg/m2 Swollen legs Varicose veins or History of unexplained or recurrent spontaneous Oral contraceptives or hormone replacement Sepsis (< 1 month) Serious lung disease, including pneumonia (< 1 month) Abnormal pulmonary function Acute myocardial infarction Congestive heart failure (< 1 month) History of inflammatory bowel disease Medical patient at bed rest Age 61-74 Arthroscopic surgery Major open surgery (> 45 min) Laparoscopic surgery (> 45 min) Malignancy Confined to bed (> 72 hours) Immobilizing plaster cast Central venous access Age >= 75 History of VTE Family history of VTE Factor V Leiden Prothrombin [id number] Lupus anticoagulant Anticardiolipin antibodies Elevated serum homocysteine Heparin-induced thrombocytopenia Other congenital or acquired thrombophilia Stroke (< 1 month) Elective arthroplasty Hip, pelvis, or leg fracture Acute spinal cord injury (< 1 month) Prophylaxis Regimen Total Risk Factor Score Risk Level Prophylaxis Regimen 0-1 Low Early ambulation 2 Moderate Order ONE of the following: *Sequential Compression Device (SCD) *Heparin 5000 units SQ BID 3-4 Higher Order ONE of the following medications: *Heparin 5000 units SQ TID *Enoxaparin/Lovenox 40 mg SQ daily (WT < 150 kg, CrCl > 30 mL/min) *Enoxaparin/Lovenox 30 mg SQ daily (WT < 150 kg, CrCl > 10-29 mL/min) *Enoxaparin/Lovenox 30 mg SQ BID (WT < 150 kg, CrCl > 30 mL/min) AND/OR *Sequential Compression Device (SCD) 5 or more Highest Order ONE of the following medications: *Heparin 5000 units SQ TID (Preferred with Epidurals) *Enoxaparin/Lovenox 40 mg SQ daily (WT < 150 kg, CrCl > 30 mL/min) *Enoxaparin/Lovenox 30 mg SQ daily (WT < 150 kg, CrCl > 10-29 mL/min) *Enoxaparin/Lovenox 30 mg SQ BID (WT < 150 kg, CrCl > 30 mL/min) AND *Sequential Compression Device (SCD) Assessment and Plan Problem List: (1) Acute ischemic right MCA stroke ICD Code: I63.511 - Cerebral infarction due to unspecified occlusion or stenosis of right middle cerebral artery Status: Acute (2) HTN (hypertension) ICD Code: I10 - Essential (primary) hypertension Status: Chronic (3) C. difficile diarrhea ICD Code: A04.72 - Enterocolitis due to Clostridium difficile, not specified as recurrent Status: Resolved (4) Hypertension ICD Code: I10 - Essential (primary) hypertension Status: Chronic (5) Carotid artery disease ICD Code: I77.9 - Disorder of arteries and arterioles, unspecified Status: Acute (6) Chronic hyponatremia ICD Code: E87.1 - Hypo-osmolality and hyponatremia Status: Chronic (7) Tobacco abuse, in remission ICD Code: F17.201 - Nicotine dependence, unspecified, in remission Status: Chronic (8) Chronic alcohol use ICD Code: Z72.89 - Other problems related to lifestyle Status: Resolved (9) Received intravenous tissue plasminogen activator (t-PA) in emergency department ICD Code: Z92.82 - Status post administration of tPA (rtPA) in a different facility within the last 24 hours prior to admission to current facility Status: Acute (10) Mass of left lung ICD Code: R91.8 - Other nonspecific abnormal finding of lung field Status: Chronic Assessment and Plan NEURO: Acute ischemic stroke, R MCA with extensive R ICA thrombus Prior chronic EtOH abuse s/p systemic TPA s/p successful M1 clot extraction by Dr. Jarrett. Monitor neuro checks every hour in ISC Maintain blood pressure less than 180/100 No antiplatelet or anticoagulant therapy for 24 hours Follow-up 2-D echo, lipids, TSH, urine drug screen Ofirmev as needed for temperature greater than 100.4 PT/ST consults Thiamine 100 mg IV daily x5 days. Neurology following, Dr. 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 Plan for re- biopsy at a later point. Prior history of VATS for right empyema Prior Tobacco abuse Nasal cannula. He is protecting his airway. Discussed with patient and his and will intubate if needed for airway protection. DuoNeb every 6 hours CV: Monitor hemodynamics. Hydralazine/labetalol/nicardipine as needed for blood pressure greater than 180/100 Monitor right groin access site. Distal perfusion is intact. GI: C. difficile diarrhea C. difficile +06/11/17. Patient states diarrhea has improved. He states he has completed 12 days of Flagyl 500 mg by mouth every 8 hours. We'll continue Flagyl 500 mg IV every 8 hours. Stop date 06/29/17. Can solares to by mouth if he is able to swallow Speech therapy to evaluate dysphagia and dysarthria FEN/RENAL: Chronic asymptomatic hyponatremia Condom catheter is in place. Monitor intake and output. Monitor electrolytes. Replace as indicated per ICU replacement protocol. ID: C. difficile treatment as per above. Afebrile, no leukocytosis. HEME: Monitor CBC ENDO: Euglycemic. TSH normal. Follow-up [facility] [place] A1c. PROPH: SCDs for DVT prophylaxis. Famotidine for stress ulcer prophylaxis. ACCESS: Peripheral IV Full code Patient and updated at bedside. Discussed with Dr. Pendleton. Discussed with bedside RN Level III H&P Problem Qualifiers (1) HTN (hypertension): Qualified Codes: I10 - Essential (primary) hypertension (2) Carotid artery disease: Qualified Codes: I77.9 - Disorder of arteries and arterioles, unspecified Meera Le MD Jun 28, 2017 08:15
[2017-06-28] MEDS: THIAMINE INJ 100 MG in SODIUM CHLORIDE 0.9% INJ 100 ML IV SCH (09:26)
[2017-06-28] MEDS: FAMOTIDINE 20 MG/2 ML VIAL IV PUSH SCH ×2 (09:26→21:08)
--- NOTE | 2017-06-28 11:46 | RADRPT ---
EXAM DATE/TIME: 06/28/2017 11:07 [facility] COMPARISON: CT BRAIN W/O CONTRAST, June 27, 2017, 18:30. INDICATIONS : Stroke alert. s/p thrombectomy. MEDICAL HISTORY : Hypertension. SURGICAL HISTORY : None. ENCOUNTER: Initial ACUITY: 1 day PAIN SCORE: 0/10 LOCATION: cranial TECHNIQUE: Multiplanar, multisequence MRI of the brain was performed without contrast. FINDINGS: CEREBRUM: Large area of highest abnormality and associated risk restricted diffusion throughout the right tempo ral, parietal and frontal lobes as well as the right nasal ganglia consistent with large middle cereb ral artery distribution infarct. Mild mass effect without midline shift. The ventricles are normal fo r age. No evidence of midline shift, mass lesion or hemorrhage. No extraaxial fluid collections are seen. The pituitary gland and suprasellar cistern are normal in configuration. WHITE MATTER: No significant signal abnormalities are seen in the white matter. POSTERIOR FOSSA: The cerebellum and brainstem are intact. The 4th ventricle is midline. The cerebellopontine angle is unremarkable. The cerebellar tonsils are normal in position. DIFFUSION IMAGING: Large area of right-sided restricted diffusion seen. Consistent with acute infarction. EXTRACRANIAL: The visualized portions of the orbits and paranasal sinuses are unremarkable. CONCLUSION: 1. Large right middle cerebral artery distribution infarct. Mild mass effect without midline shift. 2. No hemorrhage seen. Davian Alfonso MD on June 28, 2017 at 11:42 Board Certified Radiologist. This report was verified electronically.
--- NOTE | 2017-06-28 11:50 | RADRPT ---
EXAM DATE/TIME: 06/28/2017 11:07 [facility] COMPARISON: No previous studies available for comparison. INDICATIONS : Stroke alert. s/p thrombectomy. MEDICAL HISTORY : Hypertension. SURGICAL HISTORY : None. ENCOUNTER: Initial ACUITY: 1 day PAIN SCORE: 0/10 LOCATION: cranial Please note a normal MRA of the brain does not entirely exclude the possibility of a small aneurysm, nor the possibility of distal intracranial vessel disease. TECHNIQUE: 3D time of flight MRA was performed. Source images, multiplanar STS MIP, and 3D volume MIP reconstru ctions were reviewed. FINDINGS: There is excellent visualization of the major intracranial arteries out to the second-order branch ve ssels. There is no evidence for aneurysm, vessel truncation or stenosis, and no evidence for vascula r malformation. There is complete occlusion of the right internal carotid artery. Dominant right vert ebral artery. Persistent circulation the right posterior cerebral artery. Anterior communicatin g artery not seen. Left sided posterior communicating artery. CONCLUSION: 1. Complete occlusion of the right internal carotid artery. 2. Right middle cerebral artery is patent. Davian Alfonso MD on June 28, 2017 at 11:44 Board Certified Radiologist. This report was verified electronically.
[2017-06-28] MEDS: SODIUM CHLOR 0.9% 1000 ML INJ 1,000 ML IV SCH (12:21)
--- NOTE | 2017-06-28 13:23 | EKG ---
Date Performed: 06/27/2017 Time Performed: 19:28:18 PTAGE: 57 years EKG: Minor nonspecific ST wave change Since previous tracing, no significant change noted NORMAL ECG PREVIOUS TRACING : 06/11/2017 10.39.15 DOCTOR: Parker Taylor Interpretating Date/Time 06/28/2017 13:22:01
--- NOTE | 2017-06-28 14:15 | HHI.PR ---
Review/Management Diagnosis/Plan: (1) Acute ischemic right MCA stroke ICD Codes: I63.511 - Cerebral infarction due to unspecified occlusion or stenosis of right middle cerebral artery Status: Acute Plan: large rt mca stroke 2/2 rt ica/mca clot risk factor: tob use, htn mri brain- large rt mca stroke mra brain- rt ica occluded recs f/u ct brain (2) HTN (hypertension) ICD Codes: I10 - Essential (primary) hypertension Status: Chronic (3) Tobacco abuse ICD Codes: Z72.0 - Tobacco use Status: Chronic Subjective Subjective Comments No acute events reported No headache No chest pain No dyspnea Active Medications Current Medications Medications (Trade) Dose Ordered Sig/Thea Route Start Time Stop Time Status Last Admin Miscellaneous Information No Heparin, Warfarin, Aspir... UNSCH PRN XX 06/27/17 18:45 06/28/17 18:44 (Tylenol) 650 mg Q4H PRN PO 06/27/17 21:30 (Percocet 5-325 Mg) 1 tab Q4H PRN PO 06/27/17 21:30 (Trandate Inj) 10 mg Q4H PRN IV PUSH 06/27/17 23:00 (Apresoline Inj) 10 mg Q4H PRN IV PUSH 06/27/17 23:00 Nicardipine HCl 25 mg/Sodium Chloride 250 ml @ 50 mls/hr TITRATE PRN IV 06/27/17 23:00 Acetaminophen 65 ml @ 400 mls/hr Q6H PRN IV 06/27/17 23:00 Metronidazole 100 ml @ 100 mls/hr Q8H IV 06/27/17 23:00 06/29/17 21:00 06/28/17 14:02 Sodium Chloride 1,000 ml @ 70 mls/hr [id number] IV 06/27/17 22:58 06/27/17 23:58 (NS Flush) 2 ml UNSCH PRN IV FLUSH 06/27/17 23:00 (NS Flush) 2 ml BID IV FLUSH 06/28/17 09:00 (Pepcid Inj) 20 mg Q12HR IV PUSH 06/28/17 09:00 06/28/17 09:26 (Pepcid) 20 mg Q12HR PO 06/28/17 09:00 (Zofran Inj) 4 mg Q6H PRN IV PUSH 06/27/17 23:00 (Duoneb Neb) 1 ampule Q6HR NEB INH 06/28/17 04:00 06/28/17 08:54 (Albuterol Neb) 2.5 mg Q2HR NEB PRN INH 06/27/17 23:00 Miscellaneous Information 1 [id number] XX 06/27/17 23:00 (Chlorhexidine 2% Cloth) 3 pack Taper DAILY@04 TOP 06/28/17 04:00 06/24/18 03:59 (Chlorhexidine 2% Cloth) 3 pack UNSCH PRN TOP 06/27/17 23:00 (Janie-Colace) 1 tab BID PO 06/28/17 09:00 (Milk Of Magnesia Liq) 30 ml Q12H PRN PO 06/27/17 23:00 (Senokot) 17.2 mg Q12H PRN PO 06/27/17 23:00 (Dulcolax Supp) 10 mg DAILY PRN RECTAL 06/27/17 23:00 (Lactulose Liq) 30 ml DAILY PRN PO 06/27/17 23:00 Thiamine HCl 100 mg/Sodium Chloride 101 ml @ 101 mls/hr DAILY IV 06/28/17 09:00 07/02/17 09:59 06/28/17 09:26 Allergies Allergies Coded Allergies *MDRO Multi-Drug Resistant Organism (Verified Adverse Reaction, Unknown, ) Review of Systems All other ROS: ROS reviewed as documented in chart Exam I&O / VS Vital Signs Date Time Temp Pulse Resp B/P (MAP) Pulse Ox O2 Delivery O2 Flow Rate FiO2 06/28/17 12:00 99.3 84 20 164/83 (110) 100 06/28/17 08:55 99 Nasal Cannula 2.00 06/28/17 08:00 99.4 82 22 145/81 (102) 100 06/28/17 07:00 100 Nasal Cannula 2.00 06/28/17 07:00 82 06/28/17 04:00 99.2 88 22 145/72 (96) 99 06/28/17 03:23 100 Nasal Cannula 2.00 06/28/17 00:00 97.1 70 18 159/78 (105) 100 06/27/17 22:15 100 Nasal Cannula 2.00 06/27/17 22:15 81 06/27/17 22:15 96.6 81 23 173/87 (115) 100 06/27/17 19:09 68 16 170/84 (112) 98 06/27/17 18:56 77 18 171/89 (116) 100 06/27/17 18:45 84 18 158/84 (108) 98 06/27/17 18:36 80 18 158/84 (108) 98 06/27/17 18:25 84 18 98 06/27/17 18:23 98 General: Alert and Oriented, No acute distress Exam Comments alert, ox 3, follows, minimal dysarthria, rt gaze preference, left facial weakness, left hemineglect with left HH, left hemiparesis 0-1/5 with increased tone, left hemisensory, nihss 17 Objective Micro and Labs Laboratory Tests Test 06/27/17 18:20 06/27/17 22:22 White Blood Count 9.1 Red Blood Count 3.85 Hemoglobin 12.6 Hematocrit 37.6 Mean Corpuscular Volume 97.7 Mean Corpuscular Hemoglobin 32.7 Mean Corpuscular Hemoglobin Concent 33.5 Red Cell Distribution Width 11.7 Platelet Count 303 Mean Platelet Volume 7.6 Neutrophils (%) (Auto) 56.9 Lymphocytes (%) (Auto) 24.4 Monocytes (%) (Auto) 14.0 Eosinophils (%) (Auto) 1.9 Basophils (%) (Auto) 2.8 Neutrophils # (Auto) 5.1 Lymphocytes # (Auto) 2.2 Monocytes # (Auto) 1.3 Eosinophils # (Auto) 0.2 Basophils # (Auto) 0.3 CBC Comment DIFF FINAL Differential Comment Erythrocyte Sedimentation Rate 39 Prothrombin Time 11.5 Prothromb Time International Ratio 1.1 Activated Partial Thromboplast Time 22.9 Fibrinogen 367 Blood Urea Nitrogen 12 Creatinine 0.93 Random Glucose 89 Calcium Level 8.6 Sodium Level 131 Potassium Level 3.5 Chloride Level 101 Carbon Dioxide Level 24.2 Anion Gap 6 Estimat Glomerular Filtration Rate 84 Total Creatine Kinase 201 Troponin I LESS THAN 0.02 Triglycerides Level 83 Cholesterol Level 104 LDL Cholesterol 48 HDL Cholesterol 39.2 Cholesterol/HDL Ratio 2.65 Vitamin B12 Level 883 Thyroid Stimulating Hormone 3rd Gen 1.860 Nasal Screen MRSA (PCR) MRSA NOT DETECTED Problem Qualifiers (1) HTN (hypertension): Qualified Codes: I10 - Essential (primary) hypertension Ha Carpenter MD Jun 28, 2017 14:15
--- NOTE | 2017-06-28 14:55 | HHI.PR ---
Review/Management Diagnosis/Plan: (1) Acute ischemic right MCA stroke ICD Codes: I63.511 - Cerebral infarction due to unspecified occlusion or stenosis of right middle cerebral artery Status: Acute Plan: s/p iv tpa large rt mca stroke 2/2 rt ica/mca clot risk factor: tob use, htn mri brain- large rt mca stroke mra brain- rt ica occluded recs some improvement in motor exam at high risk for rt hemispheric swelling with size of stroke and young age. observe in icu f/u ct brain today f/u echo scd d/w pt/daughter/ above d/w rn appreciate CCM team (2) HTN (hypertension) ICD Codes: I10 - Essential (primary) hypertension Status: Chronic (3) Tobacco abuse ICD Codes: Z72.0 - Tobacco use Status: Chronic Subjective Subjective Comments No acute events reported No headache No chest pain No dyspnea Active Medications Current Medications Medications (Trade) Dose Ordered Sig/Thea Route Start Time Stop Time Status Last Admin Miscellaneous Information No Heparin, Warfarin, Aspir... UNSCH PRN XX 06/27/17 18:45 06/28/17 18:44 (Tylenol) 650 mg Q4H PRN PO 06/27/17 21:30 (Percocet 5-325 Mg) 1 tab Q4H PRN PO 06/27/17 21:30 (Trandate Inj) 10 mg Q4H PRN IV PUSH 06/27/17 23:00 (Apresoline Inj) 10 mg Q4H PRN IV PUSH 06/27/17 23:00 Nicardipine HCl 25 mg/Sodium Chloride 250 ml @ 50 mls/hr TITRATE PRN IV 06/27/17 23:00 Acetaminophen 65 ml @ 400 mls/hr Q6H PRN IV 06/27/17 23:00 Metronidazole 100 ml @ 100 mls/hr Q8H IV 06/27/17 23:00 06/29/17 21:00 06/28/17 14:02 Sodium Chloride 1,000 ml @ 70 mls/hr [id number] IV 06/27/17 22:58 06/27/17 23:58 (NS Flush) 2 ml UNSCH PRN IV FLUSH 06/27/17 23:00 (NS Flush) 2 ml BID IV FLUSH 06/28/17 09:00 (Pepcid Inj) 20 mg Q12HR IV PUSH 06/28/17 09:00 06/28/17 09:26 (Pepcid) 20 mg Q12HR PO 06/28/17 09:00 (Zofran Inj) 4 mg Q6H PRN IV PUSH 06/27/17 23:00 (Duoneb Neb) 1 ampule Q6HR NEB INH 06/28/17 04:00 06/28/17 08:54 (Albuterol Neb) 2.5 mg Q2HR NEB PRN INH 06/27/17 23:00 Miscellaneous Information 1 Q361D XX 06/27/17 23:00 (Chlorhexidine 2% Cloth) 3 pack Taper DAILY@04 TOP 06/28/17 04:00 06/24/18 03:59 (Chlorhexidine 2% Cloth) 3 pack UNSCH PRN TOP 06/27/17 23:00 (Janie-Colace) 1 tab BID PO 06/28/17 09:00 (Milk Of Magnesia Liq) 30 ml Q12H PRN PO 06/27/17 23:00 (Senokot) 17.2 mg Q12H PRN PO 06/27/17 23:00 (Dulcolax Supp) 10 mg DAILY PRN RECTAL 06/27/17 23:00 (Lactulose Liq) 30 ml DAILY PRN PO 06/27/17 23:00 Thiamine HCl 100 mg/Sodium Chloride 101 ml @ 101 mls/hr DAILY IV 06/28/17 09:00 07/02/17 09:59 06/28/17 09:26 Allergies Allergies Coded Allergies *MDRO Multi-Drug Resistant Organism (Verified Adverse Reaction, Unknown, ) Review of Systems All other ROS: ROS reviewed as documented in chart Exam I&O / VS Vital Signs Date Time Temp Pulse Resp B/P (MAP) Pulse Ox O2 Delivery O2 Flow Rate FiO2 06/28/17 12:00 99.3 84 20 164/83 (110) 100 06/28/17 08:55 99 Nasal Cannula 2.00 06/28/17 08:00 99.4 82 22 145/81 (102) 100 06/28/17 07:00 100 Nasal Cannula 2.00 06/28/17 07:00 82 06/28/17 04:00 99.2 88 22 145/72 (96) 99 06/28/17 03:23 100 Nasal Cannula 2.00 06/28/17 00:00 97.1 70 18 159/78 (105) 100 06/27/17 22:15 100 Nasal Cannula 2.00 06/27/17 22:15 81 06/27/17 22:15 96.6 81 23 173/87 (115) 100 06/27/17 19:09 68 16 170/84 (112) 98 06/27/17 18:56 77 18 171/89 (116) 100 06/27/17 18:45 84 18 158/84 (108) 98 06/27/17 18:36 80 18 158/84 (108) 98 06/27/17 18:25 84 18 98 06/27/17 18:23 98 General: Alert and Oriented, No acute distress Exam Comments alert, ox 3, follows, minimal dysarthria, rt gaze preference, left facial weakness, left hemineglect with left HH, left hemiparesis arm mild distal movement and shoulder shrug, leg 2-3/5, left hemisensory Objective Micro and Labs Laboratory Tests Test 06/27/17 18:20 06/27/17 22:22 White Blood Count 9.1 Red Blood Count 3.85 Hemoglobin 12.6 Hematocrit 37.6 Mean Corpuscular Volume 97.7 Mean Corpuscular Hemoglobin 32.7 Mean Corpuscular Hemoglobin Concent 33.5 Red Cell Distribution Width 11.7 Platelet Count 303 Mean Platelet Volume 7.6 Neutrophils (%) (Auto) 56.9 Lymphocytes (%) (Auto) 24.4 Monocytes (%) (Auto) 14.0 Eosinophils (%) (Auto) 1.9 Basophils (%) (Auto) 2.8 Neutrophils # (Auto) 5.1 Lymphocytes # (Auto) 2.2 Monocytes # (Auto) 1.3 Eosinophils # (Auto) 0.2 Basophils # (Auto) 0.3 CBC Comment DIFF FINAL Differential Comment Erythrocyte Sedimentation Rate 39 Prothrombin Time 11.5 Prothromb Time International Ratio 1.1 Activated Partial Thromboplast Time 22.9 Fibrinogen 367 Blood Urea Nitrogen 12 Creatinine 0.93 Random Glucose 89 Calcium Level 8.6 Sodium Level 131 Potassium Level 3.5 Chloride Level 101 Carbon Dioxide Level 24.2 Anion Gap 6 Estimat Glomerular Filtration Rate 84 Total Creatine Kinase 201 Troponin I LESS THAN 0.02 Triglycerides Level 83 Cholesterol Level 104 LDL Cholesterol 48 HDL Cholesterol 39.2 Cholesterol/HDL Ratio 2.65 Vitamin B12 Level 883 Thyroid Stimulating Hormone 3rd Gen 1.860 Nasal Screen MRSA (PCR) MRSA NOT DETECTED Problem Qualifiers (1) HTN (hypertension): Qualified Codes: I10 - Essential (primary) hypertension Ha Carpenter MD Jun 28, 2017 14:55
--- NOTE | 2017-06-28 20:27 | RADRPT ---
EXAM DATE/TIME: 06/28/2017 20:10 [facility] COMPARISON: CT BRAIN W/O CONTRAST, June 27, 2017, 18:30. MRI BRAIN W/O CONTRAST, June 28, 2017, 11:07. INDICATIONS : Follow up stroke; post thrombectomy. RADIATION DOSE: 69.15 CTDIvol (mGy) MEDICAL HISTORY : Non-responsive. SURGICAL HISTORY : Non-responsive. ENCOUNTER: Subsequent ACUITY: 1 day PAIN SCALE: Non-responsive LOCATION: cranial TECHNIQUE: Multiple contiguous axial images were obtained of the head. Using automated exposure control and adj ustment of the mA and/or kV according to patient size, radiation dose was kept as low as reasonably a chievable to obtain optimal diagnostic quality images. DICOM format image data is available electro nically for review and comparison. FINDINGS: There is evolving acute stroke in right MCA territory with slight area of hemorrhage in right me sial temporal lobe not present on the prior CT examination almost 7 mm in size. There is no mass effe ct. CONCLUSION: Evolving right MCA stroke with slight hemorrhage right mesial temporal lobe not present previously wi thout any significant mass effect. Yesi Velarde MD on June 28, 2017 at 20:22 Board Certified Radiologist. This report was verified electronically.
[2017-06-28] MEDS: ACETAMINOPHEN 1000 MG/100 ML 65 ML IV PRN (22:11)
[2017-06-29] VITALS (11 sets, daily range): BP systolic 135–169; BP diastolic 70–89; PULSE 82–89; RESP 20–24; TEMP 98.3–100.5; O2SAT 97–100
[2017-06-29] MEDS: RESP: ALBUTEROL 2.5 MG/IPRATROPIUM 0.5 MG NEB (SCH) INH ×3 (03:27→21:23)
[2017-06-29] MEDS: SODIUM CHLOR 0.9% 1000 ML INJ 1,000 ML IV SCH ×2 (03:34→16:51)
[2017-06-29] MEDS: metroNIDAZOLE 500 MG INJ 100 ML IV SCH ×2 (06:05→15:00)
[2017-06-29] MEDS: FAMOTIDINE 20 MG TAB PO SCH ×2 (08:24→20:45)
[2017-06-29] MEDS: THIAMINE INJ 100 MG in SODIUM CHLORIDE 0.9% INJ 100 ML IV SCH (08:24)
[2017-06-29] MEDS: SODIUM CHLORIDE 0.9% FLUSH 10 ML FLUSH IV FLUSH SCH ×2 (08:24→20:45)
[2017-06-29] MEDS: DOCUSATE SODIUM 50 MG/SENNA 8.6 MG TAB PO SCH ×2 (08:24→20:45)
[2017-06-29] MEDS: FAMOTIDINE 20 MG/2 ML VIAL IV PUSH SCH (08:24)
--- NOTE | 2017-06-29 08:57 | HHI.PR ---
Review/Management Diagnosis/Plan: (1) Acute ischemic right MCA stroke ICD Codes: I63.511 - Cerebral infarction due to unspecified occlusion or stenosis of right middle cerebral artery Status: Acute Plan: s/p iv tpa large rt mca stroke 2/2 rt ica/mca clot risk factor: tob use, htn mri brain- large rt mca stroke mra brain- rt ica occluded 06/28 ct brain- mild rt temporal/insular ich transformation recs neuro stable no blood thinners keep euvolemic echo -pending bp <160/100 light p.t. therapy continue in isc, at higher risk for swelling with shift; will get nsx on board will have nsx on board appreciate CCM team (2) HTN (hypertension) ICD Codes: I10 - Essential (primary) hypertension Status: Chronic (3) Tobacco abuse ICD Codes: Z72.0 - Tobacco use Status: Chronic Subjective Subjective Comments No acute events reported No headache No chest pain No dyspnea Active Medications Current Medications Medications (Trade) Dose Ordered Sig/Thea Route Start Time Stop Time Status Last Admin (Tylenol) 650 mg Q4H PRN PO 06/27/17 21:30 (Percocet 5-325 Mg) 1 tab Q4H PRN PO 06/27/17 21:30 (Trandate Inj) 10 mg Q4H PRN IV PUSH 06/27/17 23:00 (Apresoline Inj) 10 mg Q4H PRN IV PUSH 06/27/17 23:00 Nicardipine HCl 25 mg/Sodium Chloride 250 ml @ 50 mls/hr TITRATE PRN IV 06/27/17 23:00 Acetaminophen 65 ml @ 400 mls/hr Q6H PRN IV 06/27/17 23:00 06/28/17 22:11 Metronidazole 100 ml @ 100 mls/hr Q8H IV 06/27/17 23:00 06/29/17 21:00 06/29/17 06:05 Sodium Chloride 1,000 ml @ 70 mls/hr [id number] IV 06/27/17 22:58 06/29/17 03:34 (NS Flush) 2 ml UNSCH PRN IV FLUSH 06/27/17 23:00 (NS Flush) 2 ml BID IV FLUSH 06/28/17 09:00 06/29/17 08:24 (Pepcid Inj) 20 mg Q12HR IV PUSH 06/28/17 09:00 06/29/17 08:24 (Pepcid) 20 mg Q12HR PO 06/28/17 09:00 (Zofran Inj) 4 mg Q6H PRN IV PUSH 06/27/17 23:00 (Duoneb Neb) 1 ampule Q6HR NEB INH 06/28/17 04:00 06/29/17 03:27 (Albuterol Neb) 2.5 mg Q2HR NEB PRN INH 06/27/17 23:00 Miscellaneous Information 1 Q361D XX 06/27/17 23:00 (Chlorhexidine 2% Cloth) 3 pack Taper DAILY@04 TOP 06/28/17 04:00 06/24/18 03:59 (Chlorhexidine 2% Cloth) 3 pack UNSCH PRN TOP 06/27/17 23:00 (Janie-Colace) 1 tab BID PO 06/28/17 09:00 (Milk Of Magnesia Liq) 30 ml Q12H PRN PO 06/27/17 23:00 (Senokot) 17.2 mg Q12H PRN PO 06/27/17 23:00 (Dulcolax Supp) 10 mg DAILY PRN RECTAL 06/27/17 23:00 (Lactulose Liq) 30 ml DAILY PRN PO 06/27/17 23:00 Thiamine HCl 100 mg/Sodium Chloride 101 ml @ 101 mls/hr DAILY IV 06/28/17 09:00 07/02/17 09:59 06/29/17 08:24 Allergies Allergies Coded Allergies *MDRO Multi-Drug Resistant Organism (Verified Adverse Reaction, Unknown, ) Review of Systems All other ROS: ROS reviewed as documented in chart Exam I&O / VS Vital Signs Date Time Temp Pulse Resp B/P (MAP) Pulse Ox O2 Delivery O2 Flow Rate FiO2 06/29/17 07:00 89 06/29/17 07:00 100 Room Air 06/29/17 04:00 98.3 86 20 165/86 (112) 100 06/29/17 00:00 99.1 86 23 157/86 (109) 98 06/28/17 23:00 94 06/28/17 22:09 99 21 06/28/17 20:00 100.1 72 30 160/90 (113) 100 06/28/17 19:00 100 Room Air 06/28/17 16:00 99.3 78 23 153/77 (102) 100 06/28/17 15:00 88 06/28/17 12:00 99.3 84 20 164/83 (110) 100 06/28/17 08:55 99 Nasal Cannula 2.00 General: Alert and Oriented, No acute distress Exam Comments alert, ox 3, follows, minimal dysarthria, rt gaze preference, left facial weakness, left hemineglect with left HH, left hemiparesis arm mild distal movement and shoulder shrug, leg 2-3/5, left hemisensory Problem Qualifiers (1) HTN (hypertension): Qualified Codes: I10 - Essential (primary) hypertension Ha Carpenter MD Jun 29, 2017 08:57
--- NOTE | 2017-06-29 09:59 | RADRPT ---
EXAM DATE/TIME: 06/27/2017 19:50 [facility] COMPARISON: CT BRAIN W/O CONTRAST, June 28, 2017, 20:10. 89 INDICATIONS : Patient s arrived as a stroke alert.Left sided weakness. MEDICAL HISTORY : 1. HTN 2. pleural effusion 3. sepsis from dental infection SURGICAL HISTORY : 1. chest tube 2. cataract surgery ENCOUNTER: Initial ACUITY: 1 day PAIN SCORE: 0/10 FLUORO TIME: 16.2 minutes IMAGE SERIES: 16 ACCESS SITE: Right Femoral artery CONTRAST: 75 cc Visipaque (iodixanol) DEVICE(S): 1.) Right common femoral artery 6 fr Angio-Seal 2.) Right midddle cerebral artery 6 -40 SOLITAIRE 3.) Right middle cerebral artery GWEN 68 TIMELINE: Interventional team called: 650 pm Interventional team arrived: 715 pm Interventional team ready: 750 pm Patient arrival: 753 pm Groin puncture: 814 pm Recanalization: 911 pm Anesthesia and pain control was provided by the Anesthesia department. PROCEDURE : 1. Ultrasound-guided puncture of the access site. 2. Angiography of the access site prior to closure device. 3. Conscious sedation with continuous EKG and Oximetry monitoring. 4. Percutaneous closure of the access site. 5. Angiography of the right common carotid artery 6. Angiography of the right internal carotid artery 7. embolectomy of the right middle cerebral artery The risks, benefits and alternatives to the procedure were explained and verbal and written consent w as obtained. The site was prepped in sterile fashion. Full sterile technique was used, including ca p, mask, sterile gloves and gown and a large sterile sheet. Hand hygiene and 2% chlorhexidine and/or betadine/alcohol prep was utilized per protocol for cutaneous antisepsis. Sterile gel and sterile p robe cover were utilized for ultrasound guidance. The skin and subcutaneous tissues were infiltrated with local anesthetic solution. With ultrasound and fluoroscopic guidance the selected artery was punctured and a vascular sheath was placed. Angiography of the common femoral artery was performed for evaluation prior to percutaneous closure device placement. A LENNOX 2 catheter was placed in the right common carotid artery demonstrating greater than 90% stenosis at the origin of the right internal carotid artery. A guide catheter was passed through the area of stenosis into the distal cervical internal carotid artery. Repeat angiography demonstrates occlusion of the M1 segment of the right middle cerebral artery. 3 microcatheter a 4 mm x 6 mm solitaire stent was placed and the after 5 minute appointment the catheter was extracted and the suction. This demons trates partial recanalization of the vessel. Repeat suction embolectomy was performed with a microcat heter. Followup angiography determination of procedure demonstrates complete muslim of flow with TICI 3 flow. Examination the bifurcation demonstrates persistent high grade stenosis greater than 70% . Hemostasis was obtained with the prescribed medicated closure device. Conscious sedation was perform ed with the prescribed dosages and duration as above in the presence of an independent trained radiol ogy nurse to assist in the monitoring of the patient. EKG and oximetry remained stable throughout th e procedure. CONCLUSION: Uncomplicated embolectomy of the right middle cerebral artery. High-grade stenosis of the carotid bif urcation greater than 70%. Vish Jarrett MD on June 29, 2017 at 9:28 Board Certified Radiologist. This report was verified electronically.
--- NOTE | 2017-06-29 10:25 | HHI.CCPN ---
Subjective Remarks/Hospital Course 57-year-old male who presented to [facility] emergency department as a stroke alert. He states that he developed left hemiparesis. He was last seen normal at 5 PM. He had right sided gaze preference. He was not on antiplatelet or anticoagulant therapy. CT brain showed hyperdense right MCA extending to M1 and M2 branch. CT angiogram demonstrated right ICA thrombus extending to the carotid bifurcation. There is high-grade stenosis of the right vertebral. 50% stenosis of left ICA. He was given systemic TPA and was transferred from [facility] to [facility] in [facility] where he was taken to invasive radiology and underwent successful extraction of M1 thrombus by Dr. Jarrett. 06/29: Persistent L hemiparesis. 06/28 ct brain showed mild right temporal ICH. Neurosurgery consulted. Follow-up CT of the head in a.m, Check stat PT/INR, fibrinogen. Target BP <160/100 Objective Vital Signs Date Time Temp Pulse Resp B/P (MAP) Pulse Ox O2 Delivery O2 Flow Rate FiO2 06/29/17 09:31 100 21 06/29/17 08:00 98.6 82 21 169/84 (112) 06/29/17 07:00 Room Air 06/28/17 08:55 2.00 Intake and Output 06/29/17 06/29/17 06/30/17 08:00 16:00 00:00 Output Total 650 ml Balance -650 ml Result Diagram: 06/27/170 06/27/17 182 Objective Remarks GENERAL: Well-nourished, well-developed patient who is laying flat in ISC bed. SKIN: Warm and dry well perfused HEAD: Atraumatic. Normocephalic. EYES: Pupils equal and round 3 mm and reactive to 2 mm bilaterally. No scleral icterus. ENT: No nasal bleeding or discharge. Mucous membranes pink and moist. NECK: Trachea midline. No JVD. CARDIOVASCULAR: Regular rate and rhythm, sinus rhythm on the monitor. No murmurs rubs or gallops appreciated RESPIRATORY: Breathing comfortable and 2 L nasal cannula with no accessory muscle use. Breath sounds are equal bilaterally. GASTROINTESTINAL: Abdomen soft, non-tender, nondistended. Bowel sounds are present. MUSCULOSKELETAL: Extremities without clubbing, cyanosis, or edema. No obvious deformities. NEUROLOGICAL: Awake and alert. L facial droop. Tongue deviates to left. Strength 5/5 throughout right, following commands. L hemiparesis with 1/5 biceps /triceps. Wiggles left toes to command. Withdraws 2/5 ankle dorsiflexion and knee flexion to deep noxious stimuli. Decreased sensation soft touch L arm and leg. No abnormal Babinski bilaterally. Speech is fluent with very minimal dysarthria. A/P Problem List: (1) Acute ischemic right MCA stroke ICD Code: I63.511 - Cerebral infarction due to unspecified occlusion or stenosis of right middle cerebral artery Status: Acute (2) HTN (hypertension) ICD Code: I10 - Essential (primary) hypertension Status: Chronic (3) Tobacco abuse ICD Code: Z72.0 - Tobacco use Status: Chronic (4) C. difficile diarrhea ICD Code: A04.72 - Enterocolitis due to Clostridium difficile, not specified as recurrent Status: Acute (5) Hypertension ICD Code: I10 - Essential (primary) hypertension Status: Chronic (6) Carotid artery disease ICD Code: I77.9 - Disorder of arteries and arterioles, unspecified (7) Chronic hyponatremia ICD Code: E87.1 - Hypo-osmolality and hyponatremia Assessment and Plan NEURO: Acute ischemic stroke, R MCA with extensive R ICA thrombus Mild hemorrhagic conversion of right temporal lobe Prior chronic EtOH abuse s/p systemic TPA s/p successful M1 clot extraction by Dr. Jarrett. MRA neck shows complete right internal carotid occlusion Neurosurgery consulted for hemorrhagic conversion of right temporal lobe Monitor neuro checks every hour in ISC Maintain blood pressure less than 160/100 No antiplatelet or anticoagulant therapy due mild ICH Follow-up 2-D echo, lipids, TSH, urine drug screen Ofirmev as needed for temperature greater than 100.4 PT/OT/ST consults Thiamine 100 mg IV daily x5 days. Neurology following, Dr. 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 Plan for re- biopsy at a later point. Prior history of VATS for right empyema Prior Tobacco abuse Nasal cannula. He is protecting his airway. Discussed with patient and his and will intubate if needed for airway protection. DuoNeb every 6 hours CV: Monitor hemodynamics. Hydralazine/labetalol/nicardipine as needed for blood pressure greater than 160/100 Monitor right groin access site. Distal perfusion is intact. GI: C. difficile diarrhea C. difficile +06/11/17. Patient states diarrhea has improved. He states he has completed 12 days of Flagyl 500 mg by mouth every 8 hours. We'll continue Flagyl 500 mg IV every 8 hours. Stop date 06/29/17. Can change to by mouth if he is able to swallow Speech therapy to evaluate dysphagia and dysarthria FEN/RENAL: Chronic asymptomatic hyponatremia Condom catheter is in place. Monitor intake and output. Monitor electrolytes. Replace as indicated per ICU replacement protocol. Start 2% saline to correct hyponatremia ID: C. difficile treatment as per above. Afebrile, no leukocytosis. HEME: Monitor CBC ENDO: Euglycemic. TSH normal. Hb A1c pending PROPH: SCDs for DVT prophylaxis. Famotidine for stress ulcer prophylaxis. ACCESS: Peripheral IV Full code Patient and updated at bedside. Discussed with Dr. Carpenter. Discussed with bedside RN CCT 32. Change in condition with new right temporal intraparenchymal hemorrhage. Even though small is at risk of expansion of hemorrhage and swelling. Check coags and fibrinogen level stat check CBC stat. Started on 2% saline to target sodium close to 145. Repeat CT head in a.m. await neurosurgery recommendations Problem Qualifiers (1) HTN (hypertension): Qualified Codes: I10 - Essential (primary) hypertension Portia Coronado MD Jun 29, 2017 10:25
[2017-06-29] MEDS ORDERED: niCARdipine INJ 25 MG in SODIUM CHLOR 0.9% 250 ML INJ 240 ML IV PRN (11:00)
[2017-06-29 11:14] LABS: AUTOMATED NEUTROPHIL # 5.4 TH/MM3 (1.8-7.7); BASOPHIL # 0.1 TH/MM3 (0-0.2); BASOPHIL % 0.8 % (0.0-2.0); EOSINOPHIL # 0.1 TH/MM3 (0-0.4); EOSINOPHIL % 0.9 % (0.0-4.0); HEMATOCRIT 34.8 % (39.0-51.0); HEMOGLOBIN 12.2 GM/DL (13.0-17.0); LYMPH % 16.5 % (9.0-44.0); LYMPHOCYTE # 1.3 TH/MM3 (1.0-4.8); MEAN CORPUSCULAR HEMOGLOBIN 34.1 PG (27.0-34.0); MEAN CORPUSCULAR HGB CONC 35.2 % (32.0-36.0); MEAN PLATELET VOLUME 7.4 FL (7.0-11.0); MONOCYTE # 1.1 TH/MM3 (0-0.9); NEUT % 67.8 % (16.0-70.0); PLATELET COUNT 263 TH/MM3 (150-450); RED BLOOD COUNT 3.59 MIL/MM3 (4.50-5.90); RED CELL DISTRIBUTION WIDTH 12.3 % (11.6-17.2)
[2017-06-29 11:25] LABS: ALBUMIN 3.2 GM/DL (3.4-5.0); AST (GOT) 21 U/L (15-37); BICARBONATE 25.2 MEQ/L (21.0-32.0); BLOOD UREA NITROGEN 6 MG/DL (7-18); CALCIUM 8.3 MG/DL (8.5-10.1); CHLORIDE 102 MEQ/L (98-107); CREATININE 0.71 MG/DL (0.60-1.30); GLOMERULAR FILTRATION RATE 114 ML/MIN (>89); GLUCOSE,RANDOM 101 MG/DL (74-106); SODIUM (NA) 135 MEQ/L (136-145)
[2017-06-29 11:26] LABS: INTERNATIONAL NORMALIZED RATIO 1.1 RATIO; PROTHROMBIN TIME - PATIENT 11.2 SEC (9.8-11.6)
[2017-06-29 11:28] LABS: ALKALINE PHOSPHATASE 41 U/L (45-117); ALT (GPT) 23 U/L (12-78); TOTAL BILIRUBIN ADULT 0.9 MG/DL (0.2-1.0); TOTAL PROTEIN 7.2 GM/DL (6.4-8.2)
[2017-06-29] MEDS: SODIUM CHLORIDE 23.4% INJ 188 MEQ in SODIUM CHLOR 0.9% 1000 ML INJ 1,000 ML IV SCH (12:00)
--- NOTE | 2017-06-29 17:07 | ECHRPT ---
Indication: CVA/TIA CONCLUSIONS Normal left ventricular size. Wall thickness is normal. The left ventricular systolic function is grossly normal on limited imaging. The left atrial size is lafy-to-tovvnroueo dilated. No atrial level shunt is demonstrated by color flow Doppler interrogation. Trace mitral valve regurgitation. Aortic valve sclerosis is present. No aortic valve regurgitation. BP: 165 / 86 HR: 86 Rhythm: Sinus MEASUREMENTS (Male / Female) Normal Values Technical Quality:Fair 2D ECHO LV Diastolic Diameter PLAX 3.6 cm 4.2 - 5.9 / 3.9 - 5.3 cm LV Systolic Diameter PLAX 2.7 cm IVS Diastolic Thickness 0.9 cm 0.6 - 1.0 / 0.6 - 0.9 cm LVPW Diastolic Thickness 0.9 cm 0.6 - 1.0 / 0.6 - 0.9 cm LV Relative Wall Thickness 0.5 LVOT Diameter 2.1 cm Aortic Root Diameter 2.7 cm M-MODE AV Cusp Separation MM 1.7 cm DOPPLER AV Peak Velocity 136.0 cm/s AV Peak Gradient 7.4 mmHg AV Mean Gradient 3.0 mmHg AV Velocity Time Integral 21.8 cm LVOT Peak Velocity 98.5 cm/s LVOT Peak Gradient 3.9 mmHg LVOT Velocity Time Integral 20.5 cm AV Area Cont Eq vti 3.3 cm AV Area Cont Eq pk 2.5 cm Mitral E Point Velocity 81.4 cm/s Mitral A Point Velocity 99.7 cm/s Mitral E to A Ratio 0.8 LV E' Lateral Velocity 9.5 cm/s Mitral E to LV E' Lateral Ratio 8.6 LV E' Septal Velocity 9.4 cm/s Mitral E to LV E' Septal Ratio 8.7 FINDINGS LEFT VENTRICLE Normal left ventricular size. Wall thickness is normal. The left ventricular systolic function is grossly normal on limited imaging. RIGHT VENTRICLE Normal right ventricular size and systolic function. LEFT ATRIUM The left atrial size is cuaa-xw-qkcenyiebt dilated. RIGHT ATRIUM The right atrial size is normal. ATRIAL SEPTUM No atrial level shunt is demonstrated by color flow Doppler interrogation. AORTA The aortic root and proximal ascending aorta are normal in size on limited imaging. MITRAL VALVE Trace mitral valve regurgitation. AORTIC VALVE Aortic valve sclerosis is present. No aortic valve regurgitation. TRICUSPID VALVE Structurally normal tricuspid valve. No tricuspid valve stenosis or regurgitation. PULMONARY VALVE No pulmonary valve regurgitation or stenosis. VESSELS The inferior vena cava is normal in size. PERICARDIUM No pericardial effusion. David Minor MD, FACC (Electronically Signed) Final Date:29 June 2017 17:07
--- NOTE | 2017-06-29 18:12 | PD.CONS ---
History of Present Illness Service Neurosurgery Consult Requested By Neurology Reason for Consult Right MCA CVA with hemorrhagic component Primary Care Physician Vick Ortega MD Diagnoses: History of Present Illness This 57-year-old male presented to the emergency room on 06/27/17 as a stroke alert with acute left hemiparesis. TPA administered. Admitted to the intensive surgical care unit. Has history of hypertension. Review of Systems Constitutional: DENIES: Fatigue, Fever Eyes: DENIES: Blurred vision, Diplopia Respiratory: DENIES: Shortness of breath Cardiovascular: DENIES: Chest pain, Palpitations Gastrointestinal: DENIES: Abdominal pain, Nausea, Vomiting Genitourinary: DENIES: Urinary incontinence Musculoskeletal: DENIES: Joint Swelling, Back pain, Neck pain Neurologic: COMPLAINS OF: Localized weakness, DENIES: Headache Psychiatric: DENIES: Confusion Past Family Social History Allergies: Coded Allergies: *MDRO Multi-Drug Resistant Organism (Verified Adverse Reaction, Unknown, ) MRSA PCR positive 06/30/2015 MRSA (foot)-09/29/16 Past Medical History Hypertension C. difficile Past Surgical History Left upper lobe mass CT-guided biopsy May 2017 Reported Medications Reported Meds & Active Scripts Active Flexichamber Spacer/Aerosol-Holding Chamber 1 Mis Mis Ea .ROUTE DIRECTED Provide an insurance covered spacer to be used with Proair inhaler. Proair Hfa 8.5 GM Inh (Albuterol Sulfate) 90 Mcg/Act Aer 2 Puff INH Q4-6H PRN 108 mcg/actuation Flagyl (Metronidazole) 500 Mg Tab 500 Mg PO Q8HR Take for 12 days Metoprolol Tartrate 50 Mg Tab 50 Mg PO BID Amlodipine (Amlodipine Besylate) 5 Mg Tab 5 Mg PO DAILY Family History CVA in his father Alzheimer's in his mother. Social History Drinks a 6 pack beer daily Has smoked cigarettes for 40 years. Physical Exam Vital Signs Vital Signs Date Time Temp Pulse Resp B/P (MAP) Pulse Ox O2 Delivery O2 Flow Rate FiO2 06/29/17 15:00 83 06/29/17 14:00 84 06/29/17 12:00 99.4 88 22 150/70 (96) 100 06/29/17 09:31 100 21 06/29/17 08:00 98.6 82 21 169/84 (112) 100 06/29/17 07:00 89 06/29/17 07:00 100 Room Air 06/29/17 04:00 98.3 86 20 165/86 (112) 100 06/29/17 00:00 99.1 86 23 157/86 (109) 98 06/28/17 23:00 94 06/28/17 22:09 99 21 06/28/17 20:00 100.1 72 30 160/90 (113) 100 06/28/17 19:00 100 Room Air Physical Exam GENERAL: This is a well-nourished, well-developed patient, no apparent distress. SKIN: No abrasions, contusion, rash noted. Skin warm and dry. HEAD: Atraumatic. Normocephalic. No temporal or scalp tenderness. EYES: Sclerae are clear and nonicteric ENT: No facial edema or ecchymosis. No periorbital edema. No CSF otorrhea or rhinorrhea. No palpable facial fracture or deformity. NECK: Trachea midline. No cervical spine tenderness. CARDIOVASCULAR: Regular rate and rhythm RESPIRATORY: Clear and regular, nonlabored GASTROINTESTINAL: Abdomen soft, non-tender, nondistended. No hepato-splenomegaly , or palpable masses. No guarding. MUSCULOSKELETAL: Extremities without cyanosis, or edema. No joint tenderness, or edema noted. No calf tenderness. Dorsalis pedis pulses 2+ bilateral NEUROLOGICAL: Awake and alert Oriented X 3 Mild dysarthria Response with a few words to questions. Follow simple commands well Answers questions appropriately Judgment and insight somewhat difficult to assess due to relatively short responses to questions and limited conversation. Recent and remote memory are intact No evidence of anxiety or depression Pupils are equal and reactive to accommodation. Visual yeh to confrontation , palate, sternocleidomastoid testing, hearing to finger rub testing, and bilateral shoulder shrug are all intact. May have a very mild right gaze preference. Left facial paresis. Tongue protrudes moderately to the left. Sensation is intact to light touch in all extremities Strength is diminished to mostly to-3/5 major flexion and extension groups left upper and lower extremity Tri's absent bilaterally No ankle clonus Plantar responses absent bilateral Fine motor movements intact upper extremities Laboratory Laboratory Tests Test 06/29/17 10:50 06/29/17 16:50 White Blood Count 8.0 Red Blood Count 3.59 Hemoglobin 12.2 Hematocrit 34.8 Mean Corpuscular Volume 97.0 Mean Corpuscular Hemoglobin 34.1 Mean Corpuscular Hemoglobin Concent 35.2 Red Cell Distribution Width 12.3 Platelet Count 263 Mean Platelet Volume 7.4 Neutrophils (%) (Auto) 67.8 Lymphocytes (%) (Auto) 16.5 Monocytes (%) (Auto) 14.0 Eosinophils (%) (Auto) 0.9 Basophils (%) (Auto) 0.8 Neutrophils # (Auto) 5.4 Lymphocytes # (Auto) 1.3 Monocytes # (Auto) 1.1 Eosinophils # (Auto) 0.1 Basophils # (Auto) 0.1 CBC Comment DIFF FINAL Differential Comment Prothrombin Time 11.2 Prothromb Time International Ratio 1.1 Fibrinogen 361 Blood Urea Nitrogen 6 Creatinine 0.71 Random Glucose 101 Total Protein 7.2 Albumin 3.2 Calcium Level 8.3 Alkaline Phosphatase 41 Aspartate Amino Transf (AST/SGOT) 21 Alanine Aminotransferase (ALT/SGPT) 23 Total Bilirubin 0.9 Sodium Level 135 Potassium Level 3.2 Chloride Level 102 Carbon Dioxide Level 25.2 Anion Gap 8 Estimat Glomerular Filtration Rate 114 Result Diagram: 06/29/17 1050 06/29/17 1050 Imaging 07/08/17 CT scan had an MRI brain images are reviewed by the undersigned. This study reveals a moderate to large right MCA distribution acute infarct with small amount of hemorrhage at the right temporal lobe with mild midline shift. The cisterns are not effaced. Head Magnetic Resonance Angiography 06/28/17 0000 Signed Impressions: Service Date/Time: Wednesday, June 28, 2017 11:07 - CONCLUSION: 1. Complete occlusion of the right internal carotid artery. 2. Right middle cerebral artery is patent. Davian Alfonso MD Head CT 06/28/17 0000 Signed Impressions: Service Date/Time: Wednesday, June 28, 2017 20:10 - CONCLUSION: Evolving right MCA stroke with slight hemorrhage right mesial temporal lobe not present previously without any significant mass effect. Yesi Velarde MD Brain MRI 06/28/17 0000 Signed Impressions: Service Date/Time: Wednesday, June 28, 2017 11:07 - CONCLUSION: 1. Large right middle cerebral artery distribution infarct. Mild mass effect without midline shift. 2. No hemorrhage seen. Davian Alfonso MD Cerebral Arteriogram 06/27/17 [id number] Signed Impressions: Service Date/Time: Tuesday, June 27, 2017 19:50 - CONCLUSION: Uncomplicated embolectomy of the right middle cerebral artery. High-grade stenosis of the carotid bifurcation greater than 70%%. Vish Jarrett MD Neck CTA [id number] Signed Impressions: Service Date/Time: Tuesday, June 27, 2017 18:30 - CONCLUSION: 1. There is thrombus within the right ICA which extends from carotid bifurcation all the way up to carotid siphon. 2. Occluded left vertebral artery. 3. High-grade stenosis with possible thrombus within the proximal portion of the right vertebral artery which reconstitutes in the middle portion and carries to basilar artery supplying the posterior circulation. 4. Almost 50%% stenosis origin left ICA. Yesi Velarde MD Head CTA [id number] Signed Impressions: Service Date/Time: Tuesday, June 27, 2017 18:30 - CONCLUSION: 1. Extensive thrombus extending from the right ICA bifurcation all the way up into the carotid siphon on with significant thrombus within right middle cerebral artery branches. 2. Left vertebral artery is occluded. 3. High-grade stenosis involving the right vertebral artery past the takeoff may have thrombus within it at the site, however there is flow within it in midportion which carries into basilar artery and supplies the posterior circulation. Yesi Velarde MD Assessment and Plan Assessment and Plan Impression: 1. Right MCA distribution CVA with relatively mild right temporal lobe hemorrhagic component without significant mass effect. Status post TPA and M1 clot extraction. 2. Hypertension 3. 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 Recent history of lung lesion-status post biopsy-nondiagnostic Recommendations: Findings were discussed with the patient's family at bedside and also over the telephone. All questions answered. Left hemiparesis seems to be improving this evening compared to previously documented neurologic exam. Continue close intensive surgical care neurologic checks and observation. Hold antiplatelet and anticoagulation at this time. Non-chemical DVT prophylaxis May mobilize out of bed as tolerated with physical therapy. Follow-up CT scan head, monitor intracranial hemorrhage Maintain blood pressure 120-160 range. Maintain sodium 145-155 range. On 2% hypertonic saline IV. Tino De La Torre MD Jun 29, 2017 18:12
[2017-06-29] MEDS: ACETAMINOPHEN 1000 MG/100 ML 65 ML IV PRN (20:45)
[2017-06-29 22:32] LABS: HEMOGLOBIN A1C 5.7 % (4.3-6.0)
[2017-06-30] VITALS (11 sets, daily range): BP systolic 133–161; BP diastolic 64–89; PULSE 72–89; RESP 14–25; TEMP 98.1–99.3; O2SAT 98–100
[2017-06-30] MEDS: CHLORHEXIDINE GLUCONATE 2 % 1 PACK (2 CLOTHS) TOP SCH (04:00)
[2017-06-30] MEDS: RESP: ALBUTEROL 2.5 MG/IPRATROPIUM 0.5 MG NEB (SCH) INH ×4 (04:00→21:55)
--- NOTE | 2017-06-30 04:38 | RADRPT ---
EXAM DATE/TIME: 06/30/2017 04:21 [facility] COMPARISON: MRI BRAIN W/O CONTRAST, June 28, 2017, 11:07. CT BRAIN W/O CONTRAST, June 28, 2017, 20:10. INDICATIONS : Follow up hemorrhage. RADIATION DOSE: 35.71 CTDIvol (mGy) MEDICAL HISTORY : Cardiovascular disease. Hypertension. SURGICAL HISTORY : None. ENCOUNTER: Subsequent ACUITY: 2 days PAIN SCALE: 0/10 LOCATION: cranial TECHNIQUE: Multiple contiguous axial images were obtained of the head. Using automated exposure control and adj ustment of the mA and/or kV according to patient size, radiation dose was kept as low as reasonably a chievable to obtain optimal diagnostic quality images. DICOM format image data is available electro nically for review and comparison. FINDINGS: There is heterogeneous low density in the right frontal lobe and right basal ganglia representing a c ytotoxic edema from the recent ischemic event. There is mild local mass effect but there is no signif icant midline shift or downward herniation. No acute blood products are present. Ventricles are chance l in size. No mass is seen. CONCLUSION: Cytotoxic edema in the right frontal lobe and right basal ganglia related to the recent ischemic even t. There is mild local mass effect but no herniation is present. No acute blood products are visualiz ed. Cliff Ortiz MD on June 30, 2017 at 4:34 Board Certified Radiologist. This report was verified electronically.
[2017-06-30 05:33] LABS: AUTOMATED NEUTROPHIL # 4.5 TH/MM3 (1.8-7.7); BASOPHIL # 0.1 TH/MM3 (0-0.2); BASOPHIL % 0.9 % (0.0-2.0); EOSINOPHIL # 0.1 TH/MM3 (0-0.4); EOSINOPHIL % 1.4 % (0.0-4.0); HEMOGLOBIN 11.3 GM/DL (13.0-17.0); LYMPH % 18.7 % (9.0-44.0); LYMPHOCYTE # 1.3 TH/MM3 (1.0-4.8); MEAN CELL VOLUME 97.6 FL (80.0-100.0); MEAN CORPUSCULAR HEMOGLOBIN 34.5 PG (27.0-34.0); MEAN CORPUSCULAR HGB CONC 35.4 % (32.0-36.0); MEAN PLATELET VOLUME 7.5 FL (7.0-11.0); MONO % 16.7 % (0.0-8.0); MONOCYTE # 1.2 TH/MM3 (0-0.9); NEUT % 62.3 % (16.0-70.0); PLATELET COUNT 230 TH/MM3 (150-450); RED BLOOD COUNT 3.28 MIL/MM3 (4.50-5.90); RED CELL DISTRIBUTION WIDTH 12.2 % (11.6-17.2); WHITE BLOOD COUNT 7.2 TH/MM3 (4.0-11.0)
[2017-06-30] MEDS: SODIUM CHLOR 0.9% 1000 ML INJ 1,000 ML IV SCH (07:57)
--- NOTE | 2017-06-30 08:07 | HHI.PR ---
Review/Management Diagnosis/Plan: (1) Acute ischemic right MCA stroke ICD Codes: I63.511 - Cerebral infarction due to unspecified occlusion or stenosis of right middle cerebral artery Status: Acute Plan: s/p iv tpa, IR rt mca embolectomy large rt mca stroke 2/2 rt ica/mca clot risk factor: tob use, htn mri brain- large rt mca stroke mra brain- rt ica occluded; rt mca recanalized 2/4 ct brain- mild rt temporal/insular ich transformation recs neuro stable continue in isc, at higher risk for swelling with shift appreciate nsx appreciate CCM team (2) HTN (hypertension) ICD Codes: I10 - Essential (primary) hypertension Status: Chronic (3) Tobacco abuse ICD Codes: Z72.0 - Tobacco use Status: Chronic Subjective Subjective Comments No acute events reported No headache No chest pain No dyspnea Active Medications Current Medications Medications (Trade) Dose Ordered Sig/Thea Route Start Time Stop Time Status Last Admin (Tylenol) 650 mg Q4H PRN PO 06/27/17 21:30 (Percocet 5-325 Mg) 1 tab Q4H PRN PO 06/27/17 21:30 (Apresoline Inj) 10 mg Q4H PRN IV PUSH 06/27/17 23:00 Acetaminophen 65 ml @ 400 mls/hr Q6H PRN IV 06/27/17 23:00 06/29/17 20:45 Sodium Chloride 1,000 ml @ 70 mls/hr [id number] IV 06/27/17 22:58 06/29/17 03:34 (NS Flush) 2 ml UNSCH PRN IV FLUSH 06/27/17 23:00 (NS Flush) 2 ml BID IV FLUSH 06/28/17 09:00 06/29/17 20:45 (Pepcid) 20 mg Q12HR PO 06/28/17 09:00 06/29/17 20:45 (Zofran Inj) 4 mg Q6H PRN IV PUSH 06/27/17 23:00 (Duoneb Neb) 1 ampule Q6HR NEB INH 06/28/17 04:00 06/30/17 04:00 (Albuterol Neb) 2.5 mg Q2HR NEB PRN INH 06/27/17 23:00 Miscellaneous Information 1 [id number] XX 06/27/17 23:00 (Chlorhexidine 2% Cloth) 3 pack Taper DAILY@04 TOP 06/28/17 04:00 06/24/18 03:59 (Chlorhexidine 2% Cloth) 3 pack UNSCH PRN TOP 06/27/17 23:00 (Janie-Colace) 1 tab BID PO 06/28/17 09:00 06/29/17 20:45 (Milk Of Magnesia Liq) 30 ml Q12H PRN PO 06/27/17 23:00 (Senokot) 17.2 mg Q12H PRN PO 06/27/17 23:00 (Dulcolax Supp) 10 mg DAILY PRN RECTAL 06/27/17 23:00 (Lactulose Liq) 30 ml DAILY PRN PO 06/27/17 23:00 Thiamine HCl 100 mg/Sodium Chloride 101 ml @ 101 mls/hr DAILY IV 06/28/17 09:00 07/02/17 09:59 06/29/17 08:24 Nicardipine HCl 25 mg/Sodium Chloride 250 ml @ 50 mls/hr TITRATE PRN IV 06/29/17 11:00 (Trandate Inj) 20 mg Q4H PRN IV PUSH 06/29/17 11:00 Sodium Chloride 188 meq/Sodium Chloride 1,047 ml @ 30 mls/hr Q24H IV 06/29/17 12:00 06/29/17 12:00 Allergies Allergies Coded Allergies *MDRO Multi-Drug Resistant Organism (Verified Adverse Reaction, Unknown, ) Review of Systems All other ROS: ROS reviewed as documented in chart Exam I&O / VS Vital Signs Date Time Temp Pulse Resp B/P (MAP) Pulse Ox O2 Delivery O2 Flow Rate FiO2 06/30/17 07:00 79 06/30/17 07:00 Room Air 06/30/17 04:00 98.3 73 25 154/89 (110) 100 06/30/17 00:00 99.3 80 18 133/64 (87) 98 06/29/17 23:00 97 06/29/17 20:00 100.3 87 23 163/82 (109) 98 06/29/17 19:30 Room Air 06/29/17 16:00 100.5 82 24 135/89 (104) 100 06/29/17 15:00 83 06/29/17 14:00 84 06/29/17 12:00 99.4 88 22 150/70 (96) 100 06/29/17 09:31 100 21 General: Alert and Oriented, No acute distress Exam Comments alert, ox 3, follows, minimal dysarthria, rt gaze preference, left facial weakness, left hemineglect with left HH, left hemiparesis arm mild distal movement and shoulder shrug, leg 2-3/5, left hemisensory Objective Micro and Labs Laboratory Tests Test 06/29/17 10:50 06/29/17 16:50 06/30/17 00:50 06/30/17 03:47 White Blood Count 8.0 7.2 Red Blood Count 3.59 3.28 Hemoglobin 12.2 11.3 Hematocrit 34.8 32.0 Mean Corpuscular Volume 97.0 97.6 Mean Corpuscular Hemoglobin 34.1 34.5 Mean Corpuscular Hemoglobin Concent 35.2 35.4 Red Cell Distribution Width 12.3 12.2 Platelet Count 263 230 Mean Platelet Volume 7.4 7.5 Neutrophils (%) (Auto) 67.8 62.3 Lymphocytes (%) (Auto) 16.5 18.7 Monocytes (%) (Auto) 14.0 16.7 Eosinophils (%) (Auto) 0.9 1.4 Basophils (%) (Auto) 0.8 0.9 Neutrophils # (Auto) 5.4 4.5 Lymphocytes # (Auto) 1.3 1.3 Monocytes # (Auto) 1.1 1.2 Eosinophils # (Auto) 0.1 0.1 Basophils # (Auto) 0.1 0.1 CBC Comment DIFF FINAL DIFF FINAL Differential Comment Prothrombin Time 11.2 Prothromb Time International Ratio 1.1 Fibrinogen 361 Blood Urea Nitrogen 6 Creatinine 0.71 Random Glucose 101 Total Protein 7.2 Albumin 3.2 Calcium Level 8.3 Alkaline Phosphatase 41 Aspartate Amino Transf (AST/SGOT) 21 Alanine Aminotransferase (ALT/SGPT) 23 Total Bilirubin 0.9 Sodium Level 135 133 135 Potassium Level 3.2 Chloride Level 102 Carbon Dioxide Level 25.2 Anion Gap 8 Estimat Glomerular Filtration Rate 114 Problem Qualifiers (1) HTN (hypertension): Qualified Codes: I10 - Essential (primary) hypertension Ha Carpenter MD Jun 30, 2017 08:07
[2017-06-30] MEDS: SODIUM CHLORIDE 0.9% FLUSH 10 ML FLUSH IV FLUSH SCH ×2 (08:35→21:13)
[2017-06-30] MEDS: FAMOTIDINE 20 MG TAB PO SCH ×2 (08:35→21:13)
[2017-06-30] MEDS: DOCUSATE SODIUM 50 MG/SENNA 8.6 MG TAB PO SCH ×2 (08:35→21:13)
[2017-06-30] MEDS: THIAMINE INJ 100 MG in SODIUM CHLORIDE 0.9% INJ 100 ML IV SCH (08:35)
--- NOTE | 2017-06-30 09:01 | HHI.NSPN ---
(Simon Baird) History Chief Complaint: Left-side weakness (Simon Baird) Interval History 06/29: This 57-year-old male presented to the emergency room on 06/27/17 as a stroke alert with acute left hemiparesis. TPA administered. Admitted to the intensive surgical care unit. Has history of hypertension. 06/30: When seen this morning the patient is awake and alert. His is visiting with him. He states he still continues to have the weakness to the left side. He denies any headache, dizziness, confusion, difficulty with finding or understanding words. He had a repeat CT brain this morning which demonstrated resolution of the right temporal lobe haemorrhage. The patient's physical exam is weaker on the left than when seen last night. (Simon Baird) Exam Results 06/28/17 06/28/17 06/29/17 06/29/17 06/30/17 06/30/17 06:00 18:00 06:00 18:00 06:00 18:00 Intake Total 2898 ml 800 ml 400 ml Output Total 525 ml 1800 ml 650 ml 1000 ml 800 ml Balance -525 ml 1098 ml -650 ml -200 ml -400 ml Intake Oral 800 ml 400 ml IV Total 2898 ml Output Urine Total 525 ml 1800 ml 650 ml 1000 ml 800 ml # Voids 1 # Bowel Movements 0 0 0 0 0 Vital Signs Date Time Temp Pulse Resp B/P (MAP) Pulse Ox O2 Delivery O2 Flow Rate FiO2 06/30/17 07:00 79 06/30/17 07:00 Room Air 06/30/17 04:00 98.3 73 25 154/89 (110) 100 06/30/17 00:00 99.3 80 18 133/64 (87) 98 06/29/17 23:00 97 06/29/17 20:00 100.3 87 23 163/82 (109) 98 06/29/17 19:30 Room Air 06/29/17 16:00 100.5 82 24 135/89 (104) 100 06/29/17 15:00 83 06/29/17 14:00 84 06/29/17 12:00 99.4 88 22 150/70 (96) 100 06/29/17 09:31 100 21 06/29/17 08:00 98.6 82 21 169/84 (112) 100 06/29/17 07:00 89 06/29/17 07:00 100 Room Air 06/29/17 04:00 98.3 86 20 165/86 (112) 100 06/29/17 00:00 99.1 86 23 157/86 (109) 98 06/28/17 23:00 94 06/28/17 22:09 99 21 06/28/17 20:00 100.1 72 30 160/90 (113) 100 06/28/17 19:00 100 Room Air 06/28/17 16:00 99.3 78 23 153/77 (102) 100 06/28/17 15:00 88 06/28/17 12:00 99.3 84 20 164/83 (110) 100 06/28/17 08:55 99 Nasal Cannula 2.00 06/28/17 08:00 99.4 82 22 145/81 (102) 100 06/28/17 07:00 100 Nasal Cannula 2.00 06/28/17 07:00 82 06/28/17 04:00 99.2 88 22 145/72 (96) 99 06/28/17 03:23 100 Nasal Cannula 2.00 06/28/17 00:00 97.1 70 18 159/78 (105) 100 06/27/17 22:15 100 Nasal Cannula 2.00 06/27/17 22:15 81 06/27/17 22:15 96.6 81 23 173/87 (115) 100 06/27/17 19:09 68 16 170/84 (112) 98 06/27/17 18:56 77 18 171/89 (116) 100 06/27/17 18:45 84 18 158/84 (108) 98 06/27/17 18:36 80 18 158/84 (108) 98 06/27/17 18:25 84 18 98 06/27/17 18:23 98 (Simon Baird) Physical Examination GENERAL: Awake & alert in bed visiting with , affect flat, no apparent distress. HEENT: Normocephalic, atraumatic. Left side facial numbness & droop. Pupils appear equal & reactive but patient keeps closing as examined. MMM & pink, tongue w/deviation to left side. MUSCULOSKELETAL: Extremities NTTP. No evident deformity or clubbing. NEUROLOGICAL: AAOx3. Speech clear & appropriate, mild dysarthria, responds w/2 or 3 words to questions. Follows commands w/o difficulty. Spontaneous eye opening. Pupils appear equal & reactive but patient keeps closing as examined. Left-side facial paresis. Tongue protrudes to the left. Sensation decreased to left side extremities but is intact to light touch to the right side extremities. Strength to the major flexion & extension muscle groups is 3 to 4/5 to RUE; 4 to 4+/5 to RLE; 0 to 1/5 to LUE; and 3/5 to LLE. (Simon Baird) Lab, Micro, Other Results Recent Impressions Head CT 06/30/17 0600 Signed Impressions: Service Date/Time: Friday, June 30, 2017 04:21 - CONCLUSION: Cytotoxic edema in the right frontal lobe and right basal ganglia related to the recent ischemic event. There is mild local mass effect but no herniation is present. No acute blood products are visualized. Cliff Ortiz MD Head Magnetic Resonance Angiography 06/28/17 0000 Signed Impressions: Service Date/Time: Wednesday, June 28, 2017 11:07 - CONCLUSION: 1. Complete occlusion of the right internal carotid artery. 2. Right middle cerebral artery is patent. Davian Alfonso MD Head CT 06/28/17 0000 Signed Impressions: Service Date/Time: Wednesday, June 28, 2017 20:10 - CONCLUSION: Evolving right MCA stroke with slight hemorrhage right mesial temporal lobe not present previously without any significant mass effect. Yesi Velarde MD Brain MRI 06/28/17 0000 Signed Impressions: Service Date/Time: Wednesday, June 28, 2017 11:07 - CONCLUSION: 1. Large right middle cerebral artery distribution infarct. Mild mass effect without midline shift. 2. No hemorrhage seen. Davian Alfonso MD Cerebral Arteriogram [id number] Signed Impressions: Service Date/Time: Tuesday, June 27, 2017 19:50 - CONCLUSION: Uncomplicated embolectomy of the right middle cerebral artery. High-grade stenosis of the carotid bifurcation greater than 70%%. Vish Jarrett MD Neck CTA [id number] Signed Impressions: Service Date/Time: Tuesday, June 27, 2017 18:30 - CONCLUSION: 1. There is thrombus within the right ICA which extends from carotid bifurcation all the way up to carotid siphon. 2. Occluded left vertebral artery. 3. High-grade stenosis with possible thrombus within the proximal portion of the right vertebral artery which reconstitutes in the middle portion and carries to basilar artery supplying the posterior circulation. 4. Almost 50%% stenosis origin left ICA. Yesi Velarde MD Head CTA [id number] Signed Impressions: Service Date/Time: Tuesday, June 27, 2017 18:30 - CONCLUSION: 1. Extensive thrombus extending from the right ICA bifurcation all the way up into the carotid siphon on with significant thrombus within right middle cerebral artery branches. 2. Left vertebral artery is occluded. 3. High-grade stenosis involving the right vertebral artery past the takeoff may have thrombus within it at the site, however there is flow within it in midportion which carries into basilar artery and supplies the posterior circulation. Yesi Velarde MD Laboratory Tests Test 06/27/17 18:20 06/27/17 22:22 06/29/17 10:50 06/29/17 16:50 White Blood Count 9.1 TH/MM3 8.0 TH/MM3 Red Blood Count 3.85 MIL/MM3 3.59 MIL/MM3 Hemoglobin 12.6 GM/DL 12.2 GM/DL Hematocrit 37.6 % 34.8 % Mean Corpuscular Volume 97.7 FL 97.0 FL Mean Corpuscular Hemoglobin 32.7 PG 34.1 PG Mean Corpuscular Hemoglobin Concent 33.5 % 35.2 % Red Cell Distribution Width 11.7 % 12.3 % Platelet Count 303 TH/MM3 263 TH/MM3 Mean Platelet Volume 7.6 FL 7.4 FL Neutrophils (%) (Auto) 56.9 % 67.8 % Lymphocytes (%) (Auto) 24.4 % 16.5 % Monocytes (%) (Auto) 14.0 % 14.0 % Eosinophils (%) (Auto) 1.9 % 0.9 % Basophils (%) (Auto) 2.8 % 0.8 % Neutrophils # (Auto) 5.1 TH/MM3 5.4 TH/MM3 Lymphocytes # (Auto) 2.2 TH/MM3 1.3 TH/MM3 Monocytes # (Auto) 1.3 TH/MM3 1.1 TH/MM3 Eosinophils # (Auto) 0.2 TH/MM3 0.1 TH/MM3 Basophils # (Auto) 0.3 TH/MM3 0.1 TH/MM3 CBC Comment DIFF FINAL DIFF FINAL Differential Comment Erythrocyte Sedimentation Rate 39 mm/hr Prothrombin Time 11.5 SEC 11.2 SEC Prothromb Time International Ratio 1.1 RATIO 1.1 RATIO Activated Partial Thromboplast Time 22.9 SEC Fibrinogen 367 mg/dL 361 mg/dL Blood Urea Nitrogen 12 MG/DL 6 MG/DL Creatinine 0.93 MG/DL 0.71 MG/DL Random Glucose 89 MG/DL 101 MG/DL Calcium Level 8.6 MG/DL 8.3 MG/DL Sodium Level 131 MEQ/L 135 MEQ/L 133 MEQ/L Potassium Level 3.5 MEQ/L 3.2 MEQ/L Chloride Level 101 MEQ/L 102 MEQ/L Carbon Dioxide Level 24.2 MEQ/L 25.2 MEQ/L Anion Gap 6 MEQ/L 8 MEQ/L Estimat Glomerular Filtration Rate 84 ML/MIN 114 ML/MIN Hemoglobin A1c 5.7 % Total Creatine Kinase 201 U/L Troponin I LESS THAN 0.02 NG/ML Triglycerides Level 83 MG/DL Cholesterol Level 104 MG/DL LDL Cholesterol 48 MG/DL HDL Cholesterol 39.2 MG/DL Cholesterol/HDL Ratio 2.65 RATIO Vitamin B12 Level 883 PG/ML Thyroid Stimulating Hormone 3rd Gen 1.860 uIU/ML Nasal Screen MRSA (PCR) MRSA NOT DETECTED Total Protein 7.2 GM/DL Albumin 3.2 GM/DL Alkaline Phosphatase 41 U/L Aspartate Amino Transf (AST/SGOT) 21 U/L Alanine Aminotransferase (ALT/SGPT) 23 U/L Total Bilirubin 0.9 MG/DL Test 06/30/17 00:50 06/30/17 03:47 Sodium Level 135 MEQ/L White Blood Count 7.2 TH/MM3 Red Blood Count 3.28 MIL/MM3 Hemoglobin 11.3 GM/DL Hematocrit 32.0 % Mean Corpuscular Volume 97.6 FL Mean Corpuscular Hemoglobin 34.5 PG Mean Corpuscular Hemoglobin Concent 35.4 % Red Cell Distribution Width 12.2 % Platelet Count 230 TH/MM3 Mean Platelet Volume 7.5 FL Neutrophils (%) (Auto) 62.3 % Lymphocytes (%) (Auto) 18.7 % Monocytes (%) (Auto) 16.7 % Eosinophils (%) (Auto) 1.4 % Basophils (%) (Auto) 0.9 % Neutrophils # (Auto) 4.5 TH/MM3 Lymphocytes # (Auto) 1.3 TH/MM3 Monocytes # (Auto) 1.2 TH/MM3 Eosinophils # (Auto) 0.1 TH/MM3 Basophils # (Auto) 0.1 TH/MM3 CBC Comment DIFF FINAL Differential Comment (Simon Baird) Medical Decision Making Impression and Plan Impression: 1. Right MCA distribution CVA with relatively mild right temporal lobe hemorrhagic component without significant mass effect. Status post TPA and M1 clot extraction. 2. Hypertension 3. 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 Recent history of lung lesion-status post biopsy-nondiagnostic Left hemiparesis to UE worse than when seen yesterday. CT brain this morning demonstrates resolution of right temporal haemorrhage. Reviewed labs for this morning. Interval drop in haemoglobin. Sodium continues to be 135. Plan: Primary management per [employer]. Neuro check. Stat CT brain for any worsening in neuro status. Neurology following. Maintain SBP w/i 120 to 160 mm Hg. Continue 2% hypertonic saline IVF and maintain sodium w/i 145 to 155. Hold all anticoagulation & antiplatelet medications. Mechanical DVT prophylaxis. Mobilise patient w/assistance. PT eval & tx. (Simon Baird) Attending Statement The exam, history, and the medical decision-making described in the above note were completed with the assistance of the mid-level provider. I reviewed and agree with the findings presented. I attest that I had a [id number] encounter with the patient on the same day, and personally performed and documented my assessment and findings in the medical record. On my examination today the patient remains awake and relatively alert. Mild to moderate dysarthria Says a few words and responds to questions Counts fingers lateral quadrants both eyes. Motor strength mostly 4/5 right upper and lower extremity, 0-1/5 left upper extremity, 2-3/[address] scan head to 618 images reviewed. No evidence of residual right parenchymal hemorrhage. Remains with minimal mass effect. Discussed with patient and his family in the room this morning Continue ISC neurochecks Possible increase in left upper extremity paresis versus last evening. Defer to neurology regarding need for additional vascular imaging at this point. (Tino De La Torre MD) Simon Baird Jun 30, 2017 09:01 Tino De La Torre MD Jun 30, 2017 16:05
--- NOTE | 2017-06-30 10:23 | HHI.CCPN ---
Subjective Remarks/Hospital Course 57-year-old male who presented to [facility] emergency department as a stroke alert. He states that he developed left hemiparesis. He was last seen normal at 5 PM. He had right sided gaze preference. He was not on antiplatelet or anticoagulant therapy. CT brain showed hyperdense right MCA extending to M1 and M2 branch. CT angiogram demonstrated right ICA thrombus extending to the carotid bifurcation. There is high-grade stenosis of the right vertebral. 50% stenosis of left ICA. He was given systemic TPA and was transferred from [facility] to [facility] in [facility] where he was taken to invasive radiology and underwent successful extraction of M1 thrombus by Dr. Jarrett. 06/29: Persistent L hemiparesis. 06/28 ct brain showed mild right temporal ICH. Neurosurgery consulted. Follow-up CT of the head in a.m, Check stat PT/INR, fibrinogen. Target BP <160/100 06/30: CT of the head today shows resolution of the hemorrhage but cytotoxic edema the right frontal lobe with local mass effect. Currently on 2% saline at 30 mL per hour sodium remains at 135, I have increased 2% to 60 mL per hour Objective Vital Signs Date Time Temp Pulse Resp B/P (MAP) Pulse Ox O2 Delivery O2 Flow Rate FiO2 06/30/17 08:00 98.3 72 20 137/70 (92) 100 06/30/17 07:00 Room Air 06/29/17 09:31 21 06/28/17 08:55 2.00 Intake and Output 06/30/17 06/30/17 07/01/17 08:00 16:00 00:00 Intake Total 400 ml Output Total 800 ml Balance -400 ml Result Diagram: 06/30/17 0347 06/30/17 0907 Objective Remarks GENERAL: Well-nourished, well-developed patient who is lying in ISC bed. SKIN: Warm and dry well perfused HEAD: Atraumatic. Normocephalic. EYES: Pupils equal and round 3 mm and reactive to 2 mm bilaterally. No scleral icterus. ENT: No nasal bleeding or discharge. Mucous membranes pink and moist. NECK: Trachea midline. No JVD. CARDIOVASCULAR: Regular rate and rhythm, sinus rhythm on the monitor. No murmurs rubs or gallops appreciated RESPIRATORY: Breathing comfortable and 2 L nasal cannula with no accessory muscle use. Breath sounds are equal bilaterally. GASTROINTESTINAL: Abdomen soft, non-tender, nondistended. Bowel sounds are present. MUSCULOSKELETAL: Extremities without clubbing, cyanosis, or edema. No obvious deformities. NEUROLOGICAL: Awake and alert. L facial droop. Tongue deviates to left. Strength 5/5 throughout right, following commands. L hemiparesis with 1/5 biceps /triceps. Wiggles left toes to command. Withdraws 2/5 ankle dorsiflexion and knee flexion to deep noxious stimuli. Decreased sensation soft touch L arm and leg. No abnormal Babinski bilaterally. Speech is fluent with very minimal dysarthria. A/P Problem List: (1) Acute ischemic right MCA stroke ICD Code: I63.511 - Cerebral infarction due to unspecified occlusion or stenosis of right middle cerebral artery Status: Acute (2) HTN (hypertension) ICD Code: I10 - Essential (primary) hypertension Status: Chronic (3) Tobacco abuse ICD Code: Z72.0 - Tobacco use Status: Chronic (4) C. difficile diarrhea ICD Code: A04.72 - Enterocolitis due to Clostridium difficile, not specified as recurrent Status: Acute (5) Hypertension ICD Code: I10 - Essential (primary) hypertension Status: Chronic (6) Carotid artery disease ICD Code: I77.9 - Disorder of arteries and arterioles, unspecified (7) Chronic hyponatremia ICD Code: E87.1 - Hypo-osmolality and hyponatremia Assessment and Plan NEURO: Acute ischemic stroke, R MCA with extensive R ICA thrombus R frontal BG cytotoxic edema, with mild mass effect Mild hemorrhagic conversion of right temporal lobe Prior chronic EtOH abuse s/p systemic TPA, s/p successful M1 clot extraction by Dr. Jarrett. MRA neck shows complete right internal carotid occlusion Neurosurgery consulted for hemorrhagic conversion of right temporal lobe CT 06/30 showed resolution of hemorrhage, R frontal BG cytotoxic edema, with mild mass effect Monitor neuro checks every hour in [facility] Maintain blood pressure less than 160/100 No antiplatelet or anticoagulant therapy due mild ICH 2-D echo 06/29: Normal left ventricular size. Normal LV systolic function. LA mild -to-moderately dilated. No PFO Normal lipids, TSH Ofirmev as needed for temperature greater than 100.4 PT/OT/ST consults Thiamine 100 mg IV daily x5 days. Neurology following, Dr. 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 Plan for re- biopsy at a later point. Prior history of VATS for right empyema Prior Tobacco abuse Nasal cannula. DuoNeb every 6 hours CVS Monitor hemodynamics. Hydralazine/labetalol/nicardipine as needed for blood pressure greater than 160/100 Monitor right groin access site. Distal perfusion is intact. GI: C. difficile diarrhea C. difficile +06/11/17. Patient states diarrhea has improved. He states he has completed 12 days of Flagyl 500 mg by mouth every 8 hours. Continue Flagyl 500 mg IV every 8 hours. Stop date 06/29/17. Speech therapy to evaluate dysphagia and dysarthria FEN/RENAL: Chronic asymptomatic hyponatremia Condom catheter is in place. Monitor intake and output. Monitor electrolytes. Replace as indicated per ICU replacement protocol. 2% saline to correct hyponatremia, due to frontal lobe edema and ICH ID: C. difficile treatment as per above. Afebrile, no leukocytosis. HEME: Monitor CBC ENDO: Euglycemic. TSH normal. Hb A1c 5.7 PROPH: SCDs for DVT prophylaxis. Famotidine for stress ulcer prophylaxis. No chemical DVT prophylaxis due to ICH ACCESS: Peripheral IV Full code Patient and updated at bedside. Discussed with Dr. Carpenter. Discussed with bedside RN CCT 30. Remains critically, intraparenchymal hemorrhage since resolved but patient has rather significant right frontal and basal ganglia swelling, with local pressure effect. Continue 2% saline to target sodium close to 145, increase rate to 60 ml per hour. Neurosurgery Dr. De La Torre Problem Qualifiers (1) HTN (hypertension): Qualified Codes: I10 - Essential (primary) hypertension Portia Coronado MD Jun 30, 2017 10:23
[2017-06-30] MEDS: SODIUM CHLORIDE 23.4% INJ 188 MEQ in SODIUM CHLOR 0.9% 1000 ML INJ 1,000 ML IV SCH (11:13)
[2017-06-30 16:06] LABS: ALBUMIN 2.7 GM/DL (3.4-5.0); ALT (GPT) 18 U/L (12-78); AST (GOT) 20 U/L (15-37); BICARBONATE 23.3 MEQ/L (21.0-32.0); BLOOD UREA NITROGEN 6 MG/DL (7-18); CALCIUM 8.1 MG/DL (8.5-10.1); CHLORIDE 103 MEQ/L (98-107); CREATININE 0.73 MG/DL (0.60-1.30); GLOMERULAR FILTRATION RATE 111 ML/MIN (>89); GLUCOSE,RANDOM 118 MG/DL (74-106); SODIUM (NA) 135 MEQ/L (136-145)
[2017-06-30 16:08] LABS: ALKALINE PHOSPHATASE 39 U/L (45-117); TOTAL BILIRUBIN ADULT 0.5 MG/DL (0.2-1.0); TOTAL PROTEIN 6.6 GM/DL (6.4-8.2)
[2017-06-30] MEDS: hydrALAZINE HCL 20 MG/ML VIAL IV PUSH PRN (21:13)
[2017-06-30] MEDS: LABETALOL HCL 100 MG/20 ML VIAL IV PUSH PRN (23:05)
[2017-07-01] VITALS (11 sets, daily range): BP systolic 141–172; BP diastolic 58–92; PULSE 72–95; RESP 16–25; TEMP 98.2–99.7; O2SAT 96–100
[2017-07-01] MEDS: CHLORHEXIDINE GLUCONATE 2 % 1 PACK (2 CLOTHS) TOP SCH (04:00)
[2017-07-01] MEDS: RESP: ALBUTEROL 2.5 MG/IPRATROPIUM 0.5 MG NEB (SCH) INH (04:00)
[2017-07-01] MEDS: SODIUM CHLORIDE 23.4% INJ 188 MEQ in SODIUM CHLOR 0.9% 1000 ML INJ 1,000 ML IV SCH ×2 (05:08→17:23)
--- NOTE | 2017-07-01 06:02 | RADRPT ---
EXAM DATE/TIME: 07/01/2017 04:51 [place] COMPARISON: CT THORAX W CONTRAST, June 11, 2017, 3:53. CHEST SINGLE AP, July 11, 2015, 9:12. INDICATIONS : Shortness of breath. MEDICAL HISTORY : Cardiovascular disease. Hypertension SURGICAL HISTORY : None. ENCOUNTER: Subsequent ACUITY: 3 days PAIN SCORE: 0/10 LOCATION: Bilateral chest FINDINGS: Portable AP view of the chest demonstrates a normal-sized cardiac silhouette. Abnormal airspace opaci ty is present at the left lung apex. A subtle opacity is present in the right midlung zone and left l ower lung zone. No pneumothorax or pleural effusion is identified. The bones and soft tissues demonst rate no acute finding. CONCLUSION: Persistent left apical airspace opacity/mass. There is mild airspace opacity in the right midlung zon e and left lower lung zone. Cliff Ortiz MD on July 01, 2017 at 5:57 Board Certified Radiologist. This report was verified electronically.
[2017-07-01 08:04] LABS: BASOPHIL # 0.1 TH/MM3 (0-0.2); BASOPHIL % 0.8 % (0.0-2.0); EOSINOPHIL # 0.1 TH/MM3 (0-0.4); EOSINOPHIL % 1.1 % (0.0-4.0); HEMATOCRIT 32.1 % (39.0-51.0); HEMOGLOBIN 11.3 GM/DL (13.0-17.0); LYMPH % 20.9 % (9.0-44.0); LYMPHOCYTE # 1.4 TH/MM3 (1.0-4.8); MEAN CELL VOLUME 97.3 FL (80.0-100.0); MEAN CORPUSCULAR HEMOGLOBIN 34.4 PG (27.0-34.0); MEAN CORPUSCULAR HGB CONC 35.3 % (32.0-36.0); MEAN PLATELET VOLUME 7.5 FL (7.0-11.0); MONO % 16.9 % (0.0-8.0); MONOCYTE # 1.1 TH/MM3 (0-0.9); NEUT % 60.3 % (16.0-70.0); PLATELET COUNT 211 TH/MM3 (150-450); WHITE BLOOD COUNT 6.6 TH/MM3 (4.0-11.0)
[2017-07-01] MEDS: SODIUM CHLORIDE 0.9% FLUSH 10 ML FLUSH IV FLUSH SCH ×2 (09:00→20:49)
--- NOTE | 2017-07-01 09:02 | HHI.PR ---
Review/Management Diagnosis/Plan: (1) Acute ischemic right MCA stroke ICD Codes: I63.511 - Cerebral infarction due to unspecified occlusion or stenosis of right middle cerebral artery Status: Acute Plan: s/p iv tpa, IR rt mca embolectomy day 4 large rt mca stroke 2/2 rt ica/mca clot risk factor: tob use, htn mri brain- large rt mca stroke mra brain- rt ica occluded; rt mca recanalized / ct brain- mild rt temporal/insular ich transformation /6 ct brain stable recs neuro stable. day 4 ok for therapy d/w spouse continue in isc, at higher risk for swelling with shift appreciate nsx appreciate CCM team (2) HTN (hypertension) ICD Codes: I10 - Essential (primary) hypertension Status: Chronic (3) Tobacco abuse ICD Codes: Z72.0 - Tobacco use Status: Chronic Subjective Subjective Comments No acute events reported noted to be alittle confused last night mild headache No chest pain No dyspnea Active Medications Current Medications Medications (Trade) Dose Ordered Sig/Thea Route Start Time Stop Time Status Last Admin (Tylenol) 650 mg Q4H PRN PO 06/27/17 21:30 (Percocet 5-325 Mg) 1 tab Q4H PRN PO 06/27/17 21:30 (Apresoline Inj) 10 mg Q4H PRN IV PUSH 06/27/17 23:00 06/30/17 21:13 Acetaminophen 65 ml @ 400 mls/hr Q6H PRN IV 06/27/17 23:00 06/29/17 20:45 (NS Flush) 2 ml UNSCH PRN IV FLUSH 06/27/17 23:00 (NS Flush) 2 ml BID IV FLUSH 06/28/17 09:00 06/30/17 21:13 (Pepcid) 20 mg Q12HR PO 06/28/17 09:00 06/30/17 21:13 (Zofran Inj) 4 mg Q6H PRN IV PUSH 06/27/17 23:00 (Albuterol Neb) 2.5 mg Q2HR NEB PRN INH 06/27/17 23:00 Miscellaneous Information 1 [id number] XX 06/27/17 23:00 (Chlorhexidine 2% Cloth) 3 pack Taper DAILY@04 TOP 06/28/17 04:00 06/24/18 03:59 (Chlorhexidine 2% Cloth) 3 pack UNSCH PRN TOP 06/27/17 23:00 (Janie-Colace) 1 tab BID PO 06/28/17 09:00 06/30/17 21:13 (Milk Of Magnesia Liq) 30 ml Q12H PRN PO 06/27/17 23:00 (Senokot) 17.2 mg Q12H PRN PO 06/27/17 23:00 (Dulcolax Supp) 10 mg DAILY PRN RECTAL 06/27/17 23:00 (Lactulose Liq) 30 ml DAILY PRN PO 06/27/17 23:00 Thiamine HCl 100 mg/Sodium Chloride 101 ml @ 101 mls/hr DAILY IV 06/28/17 09:00 07/02/17 09:59 06/30/17 08:35 Nicardipine HCl 25 mg/Sodium Chloride 250 ml @ 50 mls/hr TITRATE PRN IV 06/29/17 11:00 (Trandate Inj) 20 mg Q4H PRN IV PUSH 06/29/17 11:00 06/30/17 23:05 Sodium Chloride 188 meq/Sodium Chloride 1,047 ml @ 60 mls/hr [id number] IV 06/29/17 12:00 07/01/17 05:08 (Duoneb Neb) 1 ampule Q6HR NEB INH 07/01/17 10:00 UNV Allergies Allergies Coded Allergies *MDRO Multi-Drug Resistant Organism (Verified Adverse Reaction, Unknown, ) Review of Systems All other ROS: ROS reviewed as documented in chart Exam I&O / VS Vital Signs Date Time Temp Pulse Resp B/P (MAP) Pulse Ox O2 Delivery O2 Flow Rate FiO2 07/01/17 06:00 79 07/01/17 04:00 79 07/01/17 04:00 98.8 79 21 142/70 (94) 98 07/01/17 02:08 97 07/01/17 02:00 95 07/01/17 00:00 98.2 92 18 141/58 (85) 98 07/01/17 00:00 92 06/30/17 22:00 81 06/30/17 21:55 99 21 06/30/17 20:00 89 06/30/17 20:00 98.1 85 22 148/82 (104) 98 06/30/17 19:00 100 Room Air 06/30/17 16:00 98.2 77 14 161/81 (107) 100 06/30/17 15:00 78 06/30/17 12:00 99.2 83 14 158/77 (104) 100 06/30/17 11:45 99 21 General: Alert and Oriented, No acute distress Exam Comments alert, ox 2-3, follows, recognizes , minimal dysarthria, rt gaze preference , left facial weakness, left hemineglect with left HH, left hemiparesis arm mild distal movement and shoulder shrug 1/5 with increased tone, leg 2-3/5, left hemisensory Objective Micro and Labs Laboratory Tests Test 06/30/17 09:07 06/30/17 14:53 06/30/17 22:52 07/01/17 07:47 Sodium Level 135 135 135 135 Blood Urea Nitrogen 6 Creatinine 0.73 Random Glucose 118 Total Protein 6.6 Albumin 2.7 Calcium Level 8.1 Alkaline Phosphatase 39 Aspartate Amino Transf (AST/SGOT) 20 Alanine Aminotransferase (ALT/SGPT) 18 Total Bilirubin 0.5 Potassium Level 3.2 Chloride Level 103 Carbon Dioxide Level 23.3 Anion Gap 9 Estimat Glomerular Filtration Rate 111 White Blood Count 6.6 Red Blood Count 3.30 Hemoglobin 11.3 Hematocrit 32.1 Mean Corpuscular Volume 97.3 Mean Corpuscular Hemoglobin 34.4 Mean Corpuscular Hemoglobin Concent 35.3 Red Cell Distribution Width 12.0 Platelet Count 211 Mean Platelet Volume 7.5 Neutrophils (%) (Auto) 60.3 Lymphocytes (%) (Auto) 20.9 Monocytes (%) (Auto) 16.9 Eosinophils (%) (Auto) 1.1 Basophils (%) (Auto) 0.8 Neutrophils # (Auto) 4.0 Lymphocytes # (Auto) 1.4 Monocytes # (Auto) 1.1 Eosinophils # (Auto) 0.1 Basophils # (Auto) 0.1 CBC Comment DIFF FINAL Differential Comment Problem Qualifiers (1) HTN (hypertension): Qualified Codes: I10 - Essential (primary) hypertension Ha Carpenter MD Jul 01, 2017 09:02
--- NOTE | 2017-07-01 09:19 | HHI.NSPN ---
(Simon aBird) History Chief Complaint: Left arm weakness and numbness (Simon Baird) Interval History 06/29: This 57-year-old male presented to the emergency room on 06/27/17 as a stroke alert with acute left hemiparesis. TPA administered. Admitted to the intensive surgical care unit. Has history of hypertension. 06/30: When seen this morning the patient is awake and alert. His is visiting with him. He states he still continues to have the weakness to the left side. He denies any headache, dizziness, confusion, difficulty with finding or understanding words. He had a repeat CT brain this morning which demonstrated resolution of the right temporal lobe haemorrhage. The patient's physical exam is weaker on the left than when seen last night. 07/01: The patient was asleep when seen but awoke to voice. He denies any headache at present but his said that he had a "brain freeze" headache last night. He does say that the left upper extremity remains weak and numb. A repeat CT brain demonstrated right frontal and right basal ganglia edema with mild local mass effect. There were no acute blood products noted. The patient's neuro exam was consistent with yesterday's except for decreased verbal responses. His did comment that the patient was more confused yesterday evening and now his gaze is up and to the right. (Simon Baird) Exam Results 06/29/17 06/29/17 06/30/17 06/30/17 07/01/17 07/01/17 06:00 18:00 06:00 18:00 06:00 18:00 Intake Total 800 ml 400 ml 964 ml 1650 ml Output Total 650 ml 1000 ml 800 ml 1550 ml 3000 ml Balance -650 ml -200 ml -400 ml -586 ml -1350 ml Intake Oral 800 ml 400 ml 650 ml IV Total 964 ml 1000 ml Output Urine Total 650 ml 1000 ml 800 ml 1550 ml 3000 ml # Bowel Movements 0 0 0 0 0 Vital Signs Date Time Temp Pulse Resp B/P (MAP) Pulse Ox O2 Delivery O2 Flow Rate FiO2 2/7/18 06:00 79 07/01/17 04:00 79 07/01/17 04:00 98.8 79 21 142/70 (94) 98 07/01/17 02:08 97 07/01/17 02:00 95 07/01/17 00:00 98.2 92 18 141/58 (85) 98 07/01/17 00:00 92 06/30/17 22:00 81 06/30/17 21:55 99 21 06/30/17 20:00 89 06/30/17 20:00 98.1 85 22 148/82 (104) 98 06/30/17 19:00 100 Room Air 06/30/17 16:00 98.2 77 14 161/81 (107) 100 06/30/17 15:00 78 06/30/17 12:00 99.2 83 14 158/77 (104) 100 06/30/17 11:45 99 21 06/30/17 08:00 98.3 72 20 137/70 (92) 100 06/30/17 07:00 79 06/30/17 07:00 Room Air 06/30/17 04:00 98.3 73 25 154/89 (110) 100 06/30/17 00:00 99.3 80 18 133/64 (87) 98 06/29/17 23:00 97 06/29/17 20:00 100.3 87 23 163/82 (109) 98 06/29/17 19:30 Room Air 06/29/17 16:00 100.5 82 24 135/89 (104) 100 06/29/17 15:00 83 06/29/17 14:00 84 06/29/17 12:00 99.4 88 22 150/70 (96) 100 06/29/17 09:31 100 21 06/29/17 08:00 98.6 82 21 169/84 (112) 100 06/29/17 07:00 89 06/29/17 07:00 100 Room Air 06/29/17 04:00 98.3 86 20 165/86 (112) 100 06/29/17 00:00 99.1 86 23 157/86 (109) 98 06/28/17 23:00 94 06/28/17 22:09 99 21 06/28/17 20:00 100.1 72 30 160/90 (113) 100 06/28/17 19:00 100 Room Air 06/28/17 16:00 99.3 78 23 153/77 (102) 100 06/28/17 15:00 88 06/28/17 12:00 99.3 84 20 164/83 (110) 100 06/28/17 08:55 99 Nasal Cannula 2.00 (Simon Baird) Physical Examination GENERAL: Asleep in bed, awakens to voice, affect flat, no apparent distress. HEENT: Normocephalic, atraumatic. Left side facial numbness & droop. PERRL, EOM appear intact. MMM & pink, tongue w/deviation to left side. MUSCULOSKELETAL: Extremities NTTP. No evident deformity or clubbing. NEUROLOGICAL: Asleep but awakens to voice. Speech clear, mild dysarthria, responds w/2 or 3 words but responding less than yesterday. Follows most commands but not correct consistently, requiring redemonstration. Eye opening to voice. PERRL, EOM appear intact. Does have right gaze preference. Left-side facial paresis. Tongue protrudes to the left. Sensation decreased to left side extremities but is intact to light touch to the right side extremities. Strength to the major flexion & extension muscle groups is 3 to 4/5 to RUE; 4 to 4+/5 to RLE; 0 to 1/5 to LUE; and 2 to 3/5 to LLE. (Simon Baird) Lab, Micro, Other Results Recent Impressions Chest X-Ray 07/01/17 0600 Signed Impressions: Service Date/Time: Saturday, July 01, 2017 04:51 - CONCLUSION: Persistent left apical airspace opacity/mass. There is mild airspace opacity in the right midlung zone and left lower lung zone. Cliff Ortiz MD Head CT 06/30/17 0600 Signed Impressions: Service Date/Time: Friday, June 30, 2017 04:21 - CONCLUSION: Cytotoxic edema in the right frontal lobe and right basal ganglia related to the recent ischemic event. There is mild local mass effect but no herniation is present. No acute blood products are visualized. Cliff Otriz MD Laboratory Tests Test 06/29/17 10:50 06/29/17 16:50 06/30/17 00:50 06/30/17 03:47 White Blood Count 8.0 TH/MM3 7.2 TH/MM3 Red Blood Count 3.59 MIL/MM3 3.28 MIL/MM3 Hemoglobin 12.2 GM/DL 11.3 GM/DL Hematocrit 34.8 % 32.0 % Mean Corpuscular Volume 97.0 FL 97.6 FL Mean Corpuscular Hemoglobin 34.1 PG 34.5 PG Mean Corpuscular Hemoglobin Concent 35.2 % 35.4 % Red Cell Distribution Width 12.3 % 12.2 % Platelet Count 263 TH/MM3 230 TH/MM3 Mean Platelet Volume 7.4 FL 7.5 FL Neutrophils (%) (Auto) 67.8 % 62.3 % Lymphocytes (%) (Auto) 16.5 % 18.7 % Monocytes (%) (Auto) 14.0 % 16.7 % Eosinophils (%) (Auto) 0.9 % 1.4 % Basophils (%) (Auto) 0.8 % 0.9 % Neutrophils # (Auto) 5.4 TH/MM3 4.5 TH/MM3 Lymphocytes # (Auto) 1.3 TH/MM3 1.3 TH/MM3 Monocytes # (Auto) 1.1 TH/MM3 1.2 TH/MM3 Eosinophils # (Auto) 0.1 TH/MM3 0.1 TH/MM3 Basophils # (Auto) 0.1 TH/MM3 0.1 TH/MM3 CBC Comment DIFF FINAL DIFF FINAL Differential Comment Prothrombin Time 11.2 SEC Prothromb Time International Ratio 1.1 RATIO Fibrinogen 361 mg/dL Blood Urea Nitrogen 6 MG/DL Creatinine 0.71 MG/DL Random Glucose 101 MG/DL Total Protein 7.2 GM/DL Albumin 3.2 GM/DL Calcium Level 8.3 MG/DL Alkaline Phosphatase 41 U/L Aspartate Amino Transf (AST/SGOT) 21 U/L Alanine Aminotransferase (ALT/SGPT) 23 U/L Total Bilirubin 0.9 MG/DL Sodium Level 135 MEQ/L 133 MEQ/L 135 MEQ/L Potassium Level 3.2 MEQ/L Chloride Level 102 MEQ/L Carbon Dioxide Level 25.2 MEQ/L Anion Gap 8 MEQ/L Estimat Glomerular Filtration Rate 114 ML/MIN Test 06/30/17 09:07 06/30/17 14:53 06/30/17 22:52 07/01/17 07:47 Sodium Level 135 MEQ/L 135 MEQ/L 135 MEQ/L 135 MEQ/L Blood Urea Nitrogen 6 MG/DL Creatinine 0.73 MG/DL Random Glucose 118 MG/DL Total Protein 6.6 GM/DL Albumin 2.7 GM/DL Calcium Level 8.1 MG/DL Alkaline Phosphatase 39 U/L Aspartate Amino Transf (AST/SGOT) 20 U/L Alanine Aminotransferase (ALT/SGPT) 18 U/L Total Bilirubin 0.5 MG/DL Potassium Level 3.2 MEQ/L Chloride Level 103 MEQ/L Carbon Dioxide Level 23.3 MEQ/L Anion Gap 9 MEQ/L Estimat Glomerular Filtration Rate 111 ML/MIN White Blood Count 6.6 TH/MM3 Red Blood Count 3.30 MIL/MM3 Hemoglobin 11.3 GM/DL Hematocrit 32.1 % Mean Corpuscular Volume 97.3 FL Mean Corpuscular Hemoglobin 34.4 PG Mean Corpuscular Hemoglobin Concent 35.3 % Red Cell Distribution Width 12.0 % Platelet Count 211 TH/MM3 Mean Platelet Volume 7.5 FL Neutrophils (%) (Auto) 60.3 % Lymphocytes (%) (Auto) 20.9 % Monocytes (%) (Auto) 16.9 % Eosinophils (%) (Auto) 1.1 % Basophils (%) (Auto) 0.8 % Neutrophils # (Auto) 4.0 TH/MM3 Lymphocytes # (Auto) 1.4 TH/MM3 Monocytes # (Auto) 1.1 TH/MM3 Eosinophils # (Auto) 0.1 TH/MM3 Basophils # (Auto) 0.1 TH/MM3 CBC Comment DIFF FINAL Differential Comment (Simon Baird) Medical Decision Making Impression and Plan Impression: 1. Right MCA distribution CVA with relatively mild right temporal lobe hemorrhagic component without significant mass effect. Status post TPA and M1 clot extraction. 2. Hypertension 3. 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 Recent history of lung lesion-status post biopsy-nondiagnostic Neuro function remains consistent with yesterday's. CT brain demonstrated right frontal and right basal ganglia edema with mild local mass effect. There were no acute blood products noted. Reviewed labs for this morning. Haemoglobin stable. Sodium remains at 135. SBP w/i range except for one occurrence of 161 mm Hg yesterday afternoon. Plan: Primary management per [employer]. Neuro check. Stat CT brain for any worsening in neuro status. Neurology following. Maintain SBP w/i 120 to 160 mm Hg. Continue 2% hypertonic saline IVF and maintain sodium w/i 145 to 155. Hold all anticoagulation & antiplatelet medications. Mechanical DVT prophylaxis. Bedrest. CT & CTA brain now. (Simon Baird) Attending Statement The exam, history, and the medical decision-making described in the above note were completed with the assistance of the mid-level provider. I reviewed and agree with the findings presented. I attest that I had a [id number] encounter with the patient on the same day, and personally performed and documented my assessment and findings in the medical record. On examination of the patient on 07/01/2017 in the morning there seemed to be some persistent decreased strength in the left upper and lower extremity compared to a previous examination on the evening of 06/30/2017. This was discussed with prison guard supervisor. Patient not on any antiplatelet agents after tPA due to possible right frontal hemorrhagic conversion. However follow-up CT did not reveal any definite hemorrhage. Plan made to proceed with a follow-up CT of the head as well as CT angiogram to make certain that there is no hemorrhage prior to starting antiplatelet agents as well as make certain that there is not any recurrent thrombus formation creating progressive left hemiparesis. (Tino De La Torre MD) Simon Baird Jul 01, 2017 09:19 Tino De La Torre MD Jul 02, 2017 13:41
[2017-07-01] MEDS: FAMOTIDINE 20 MG TAB PO SCH ×2 (09:38→20:48)
[2017-07-01] MEDS: DOCUSATE SODIUM 50 MG/SENNA 8.6 MG TAB PO SCH ×2 (09:38→20:48)
[2017-07-01] MEDS: THIAMINE INJ 100 MG in SODIUM CHLORIDE 0.9% INJ 100 ML IV SCH (09:39)
--- NOTE | 2017-07-01 09:57 | HHI.CCPN ---
Subjective Remarks/Hospital Course 57-year-old male who presented to [facility] emergency department as a stroke alert. He states that he developed left hemiparesis. He was last seen normal at 5 PM. He had right sided gaze preference. He was not on antiplatelet or anticoagulant therapy. CT brain showed hyperdense right MCA extending to M1 and M2 branch. CT angiogram demonstrated right ICA thrombus extending to the carotid bifurcation. There is high-grade stenosis of the right vertebral. 50% stenosis of left ICA. He was given systemic TPA and was transferred from [facility] to [facility] in [facility] where he was taken to invasive radiology and underwent successful extraction of M1 thrombus by Dr. Jarrett. 06/29: Persistent L hemiparesis. 06/28 ct brain showed mild right temporal ICH. Neurosurgery consulted. Follow-up CT of the head in a.m, Check stat PT/INR, fibrinogen. Target BP <160/100 06/30: CT of the head today shows resolution of the hemorrhage but cytotoxic edema the right frontal lobe with local mass effect. Currently on 2% saline at 30 mL per hour sodium remains at 135, I have increased 2% to 60 mL per hour 07/01: Neuro exam remains unchanged, CT/CTA ordered by Dr. De La Torre. If no bleed need to start antiplatelet therapy, Na remain at 135, will increase 2% saline to 90 ml per hour, and add NaCL tablos 1GM q8. If not improving will attempt single dose tolvaptan Objective Vital Signs Date Time Temp Pulse Resp B/P (MAP) Pulse Ox O2 Delivery O2 Flow Rate FiO2 07/01/17 06:00 79 07/01/17 04:00 98.8 21 142/70 (94) 98 06/30/17 21:55 21 06/30/17 19:00 Room Air 06/28/17 08:55 2.00 Intake and Output 07/01/17 07/01/17 07/02/17 08:00 16:00 00:00 Intake Total 1650 ml Output Total 3000 ml Balance -1350 ml Result Diagram: 07/01/17 0747 07/01/17 0747 Objective Remarks GENERAL: Well-nourished, well-developed patient who is lying in ISC bed. SKIN: Warm and dry well perfused HEAD: Atraumatic. Normocephalic. EYES: Pupils equal and round 3 mm and reactive to 2 mm bilaterally. No scleral icterus. ENT: No nasal bleeding or discharge. Mucous membranes pink and moist. NECK: Trachea midline. No JVD. CARDIOVASCULAR: Regular rate and rhythm, sinus rhythm on the monitor. No murmurs rubs or gallops appreciated RESPIRATORY: Breathing comfortable and 2 L nasal cannula with no accessory muscle use. Breath sounds are equal bilaterally. GASTROINTESTINAL: Abdomen soft, non-tender, nondistended. Bowel sounds are present. MUSCULOSKELETAL: Extremities without clubbing, cyanosis, or edema. No obvious deformities. NEUROLOGICAL: Awake and alert. L facial droop. Strength 5/5 throughout right, following commands. L hemiparesis with 1/5 biceps/triceps. Wiggles left toes to command. 3/5 ankle dorsiflexion and knee flexion. Speech is fluent with very minimal dysarthria. A/P Problem List: (1) Acute ischemic right MCA stroke ICD Code: I63.511 - Cerebral infarction due to unspecified occlusion or stenosis of right middle cerebral artery Status: Acute (2) HTN (hypertension) ICD Code: I10 - Essential (primary) hypertension Status: Chronic (3) Tobacco abuse ICD Code: Z72.0 - Tobacco use Status: Chronic (4) C. difficile diarrhea ICD Code: A04.72 - Enterocolitis due to Clostridium difficile, not specified as recurrent Status: Acute (5) Hypertension ICD Code: I10 - Essential (primary) hypertension Status: Chronic (6) Carotid artery disease ICD Code: I77.9 - Disorder of arteries and arterioles, unspecified (7) Chronic hyponatremia ICD Code: E87.1 - Hypo-osmolality and hyponatremia Assessment and Plan NEURO: Acute ischemic stroke, R MCA with extensive R ICA thrombus R frontal BG cytotoxic edema, with mild mass effect Mild hemorrhagic conversion of right temporal lobe Alcohol dependence (Quit 1 month prior to admission) s/p systemic TPA, s/p successful M1 clot extraction by Dr. Jarrett. MRA neck shows complete right internal carotid occlusion Neurosurgery consulted for hemorrhagic conversion of right temporal lobe CT 06/30 showed resolution of hemorrhage, R frontal BG cytotoxic edema, with mild mass effect Repeat CT/CTA today per Dr. De La Torre Monitor neuro checks every hour in ISC Maintain blood pressure less than 160/100 On no antiplatelet or anticoagulant therapy due mild ICH, If CT negative for bleed today, start at least baby ASA, will d/w Dr. Carpenter 2-D echo 06/29: Normal left ventricular size. Normal LV systolic function. LA mild -to-moderately dilated. No PFO Normal lipids, TSH Ofirmev as needed for temperature greater than 100.4 PT/OT/ST Thiamine 100 mg IV daily x5 days. 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 Plan for re- biopsy at a later point. Prior history of VATS for right empyema Prior Tobacco abuse Nasal cannula. DuoNeb every 6 hours CVS Monitor hemodynamics. Hydralazine/labetalol/nicardipine as needed for blood pressure greater than 160/100 Monitor right groin access site. Distal perfusion is intact. GI: C. difficile diarrhea C. difficile +06/11/17. Patient states diarrhea has improved. He states he has completed 12 days of Flagyl 500 mg by mouth every 8 hours. Completed Flagyl 06/29/17. Recheck if recurrence of diarrhea Speech therapy to evaluate dysphagia and dysarthria FEN/RENAL: Chronic hyponatremia Condom catheter is in place. Monitor intake and output. Monitor electrolytes. Replace as indicated per ICU replacement protocol. 2% saline to correct hyponatremia, due to frontal lobe edema and ICH Increase to 2% saline to 90 ml per hour Tolvaptan 7.5 mg x1 dose ID: C. difficile treatment as per above. Afebrile, no leukocytosis. HEME: Monitor CBC ENDO: Euglycemic. TSH normal. Hb A1c 5.7 PROPH: SCDs for DVT prophylaxis. Famotidine for stress ulcer prophylaxis. No chemical DVT prophylaxis due to ICH ACCESS: Peripheral IV Full code Patient and updated at bedside. Discussed with Dr. De La Torre. Discussed with bedside RN CCT [id number]. Remains critically, intraparenchymal hemorrhage since resolved but patient has rather significant right frontal and basal ganglia swelling, with local pressure effect. Increase 2% saline to target sodium close to 145, increase rate to 90 ml per hour. Single dose of tolvaptan 7.5 mg 1 Problem Qualifiers (1) HTN (hypertension): Qualified Codes: I10 - Essential (primary) hypertension Portia Coronado MD Jul 01, 2017 09:57
[2017-07-01] MEDS ORDERED: RESP: ALBUTEROL 2.5 MG/IPRATROPIUM 0.5 MG NEB (SCH) INH (10:00)
[2017-07-01] MEDS ORDERED: TOLVAPTAN 15 MG TAB PO ONE (11:15)
--- NOTE | 2017-07-01 12:27 | RADRPT ---
EXAM DATE/TIME: 07/01/2017 12:11 [facility] COMPARISON: CT BRAIN W/O CONTRAST, June 30, 2017, 4:21. INDICATIONS : Intracerebral hemorrhage,change in mental status RADIATION DOSE: 39.83 CTDIvol (mGy) MEDICAL HISTORY : Cardiovascular disease. Hypertension. SURGICAL HISTORY : None. ENCOUNTER: Initial ACUITY: 3 days PAIN SCALE: 0/10 LOCATION: cranial TECHNIQUE: Multiple contiguous axial images were obtained of the head. Using automated exposure control and adj ustment of the mA and/or kV according to patient size, radiation dose was kept as low as reasonably a chievable to obtain optimal diagnostic quality images. DICOM format image data is available electro nically for review and comparison. FINDINGS: Evolving right MCA territory stroke involving head of the caudate and deep thalamus localized edema. There is some effacement of the right lateral ventricle. There is no hemorrhage. Left hemisphere is unremarkable. Posterior fossa appears normal. CONCLUSION: Evolving MCA infarct on the right. Minimal mass effect without hemorrhage or signifi cant progression. Norberto Camarena MD FACR on July 01, 2017 at 12:23 Board Certified Radiologist. This report was verified electronically.
[2017-07-01] MEDS ORDERED: IOHEXOL 350 MG/ML 10 ML VIAL (for RAD DIAG) IVCONTRAST ONE (12:29)
--- NOTE | 2017-07-01 12:57 | RADRPT ---
EXAM DATE/TIME: 07/01/2017 12:14 [facility] COMPARISON: CT BRAIN W/O CONTRAST, July 01, 2017, 12:11. THROMBECTOMY INTRACRANIAL, RIGHT, June 27, 2017 , 19:50. CTA BRAIN W 3D RECON, June 27, 2017, 18:30. INDICATIONS : Intracerebral hemorrhage; evaluate for thrombosis. IV CONTRAST: 72 cc Omnipaque 350 (iohexol) IV ; Cumulative dose for multiple exams. RADIATION DOSE: 27.93 CTDIvol (mGy) ; Combined studies MEDICAL HISTORY : Stroke. Hypertension. Cardiovascular disease SURGICAL HISTORY : None. ENCOUNTER: Initial ACUITY: 1 day PAIN SCALE: 0/10 LOCATION: cranial TECHNIQUE: Volumetric scanning was performed using a multi-row detector CT scanner. The data was post processed with a variety of visualization algorithms including full volume maximum intensity projection, multi -planar sliding thin slab reformation, curved planar reformation, and surface rendering techniques. Using automated exposure control and adjustment of the mA and/or kV according to patient size, radiat ion dose was kept as low as reasonably achievable to obtain optimal diagnostic quality images. DICO M format image data is available electronically for review and comparison. FINDINGS: There is excellent visualization of the major intracranial arteries out to the second-order branch ve ssels\ Following thrombectomy there is excellent flow in the right hemisphere involving posterior division b een an anterior division of the middle cerebral artery. There is no major branch vessel occlusion. There is no vasospasm. The anterior several arteries are patent. CONCLUSION: Congregation of flow on the right. There is better flow in the posterior division and anterior divisi on of the right middle cerebral artery. CT scan showing evolving infarct right middle cervical artery territory, anterior division. Norberto Camarena MD FACR on July 01, 2017 at 12:51 Board Certified Radiologist. This report was verified electronically.
[2017-07-01] MEDS: SODIUM CHLORIDE 1 GRAM TAB PO SCH ×3 (13:23→22:00)
[2017-07-01] MEDS: ASPIRIN 81 MG CHEW TAB CHEW SCH (14:15)
--- NOTE | 2017-07-01 14:41 | RADRPT ---
EXAM DATE/TIME: 07/01/2017 12:14 [facility] COMPARISON: CTA CAROTID ARTERIES W 3D RECON, June 27, 2017, 18:30. INDICATIONS : Intracerebral hemorrhage; evaluate for thrombosis. IV CONTRAST: 72 cc Omnipaque 350 (iohexol) IV ; Cumulative dose for multiple exams. RADIATION DOSE: 27.93 CTDIvol (mGy) ; Combined studies MEDICAL HISTORY : Stroke. Cardiovascular disease Hypertension. SURGICAL HISTORY : None. ENCOUNTER: Initial ACUITY: 1 day PAIN SCALE: 0/10 LOCATION: neck Elevated flow velocities and ICA/CCA ratios have been found to correlate with increased degrees of vessel stenosis, calculated as percentage of diameter relative to a normal segment of distal ICA/CCA. TECHNIQUE: Volumetric scanning was performed using a multirow detector CT scanner. The data was post processed with a variety of visualization algorithms including full-volume maximum intensity projection, multip lanar sliding thin-slab reformation, curved-planar reformation, and surface-rendering techniques. Us ing automated exposure control and adjustment of the mA and/or kV according to patient size, radiatio n dose was kept as low as reasonably achievable to obtain optimal diagnostic quality images. DICOM f ormat image data is available electronically for review and comparison. FINDINGS: No abnormality is identified within the lung apices. There is normal origin of vessels from the arch without evidence of proximal stenosis. There is occlusion of the right vertebral artery at its origin with extensive calcific plaque along the course of this vessel with reconstitution at the C6 level. There is focal high-grade stenosis at the C3 level greater than 70%. Dense calcification is present i nvolving the distal right vertebral artery. A markedly hypoplastic left vertebral artery is occluded at its origin with reconstitution at the C2 level. Examination of the right common carotid artery demonstrates demonstrates occlusion of the internal ca rotid artery directly at its origin. The external carotid artery is patent. There is reconstitution o f the cavernous carotid artery at the level of the anterior genu. Examination of the left common carotid artery demonstrates the vessel to be widely patent. There is 5 0-60% stenosis at the origin of the left internal carotid artery with calcific plaque present. There is also calcific plaque involving the distal cervical internal carotid artery at the level of the sku ll base with 60-70% narrowing. Percent stenosis is calculated using the diameter of the stenotic region over the diameter of the nor mal distal internal carotid artery. CONCLUSION: 1. Complete occlusion of the right internal carotid artery 2. 50-60% stenosis involving the origin of the left internal carotid artery with 60-70% stenosis just below the skull base. 3. Occlusion of both vertebral arteries at its origin with reconstitution of a dominant right verte bral artery as above Vish Jarrett MD on July 01, 2017 at 14:28 Board Certified Radiologist. This report was verified electronically.
[2017-07-01 16:42] LABS: ALBUMIN 2.8 GM/DL (3.4-5.0); AST (GOT) 27 U/L (15-37); BICARBONATE 26.9 MEQ/L (21.0-32.0); BLOOD UREA NITROGEN 6 MG/DL (7-18); CALCIUM 8.6 MG/DL (8.5-10.1); CHLORIDE 106 MEQ/L (98-107); CREATININE 0.73 MG/DL (0.60-1.30); GLOMERULAR FILTRATION RATE 111 ML/MIN (>89); GLUCOSE,RANDOM 99 MG/DL (74-106); SODIUM (NA) 137 MEQ/L (136-145)
[2017-07-01 16:43] LABS: ALT (GPT) 18 U/L (12-78)
[2017-07-01 16:46] LABS: ALKALINE PHOSPHATASE 40 U/L (45-117); TOTAL BILIRUBIN ADULT 0.4 MG/DL (0.2-1.0); TOTAL PROTEIN 6.8 GM/DL (6.4-8.2)
[2017-07-01] MEDS: hydrALAZINE HCL 20 MG/ML VIAL IV PUSH PRN (17:22)
[2017-07-01] MEDS ORDERED: POTASSIUM PHOSPHATE MONOBASIC 500 MG TAB PO PRN (18:15)
[2017-07-01] MEDS ORDERED: POTASSIUM PHOSPHATE INJ 30 MMOL in SODIUM CHLOR 0.9% 250 ML INJ 250 ML IV PRN (18:15)
[2017-07-01] MEDS ORDERED: POTASSIUM CHLORIDE 25 MEQ EFFERVESCENT TAB PO PRN (18:15)
[2017-07-01] MEDS ORDERED: POTASSIUM CHLOR 20 MEQ PREMIX 100 ML IV PRN ×2 (18:15)
[2017-07-01] MEDS ORDERED: MAGNESIUM OXIDE 400 MG TAB PO PRN (18:15)
[2017-07-01] MEDS ORDERED: SODIUM PHOSPHATE INJ 30 MMOL in SODIUM CHLOR 0.9% 250 ML INJ 240 ML IV PRN (18:15)
[2017-07-01] MEDS ORDERED: MAGNESIUM SULFATE INJ 2 GM in SODIUM CHLORIDE 0.9% INJ 96 ML IV PRN (18:15)
[2017-07-01] MEDS ORDERED: POTASSIUM PHOSPHATE MONOBASIC 500 MG TAB PO/TUBE PRN (18:15)
[2017-07-01] MEDS ORDERED: MAGNESIUM SULFATE INJ 4 GM in SODIUM CHLORIDE 0.9% INJ 92 ML IV PRN (18:15)
[2017-07-01] MEDS ORDERED: POTASSIUM CHLOR 40 MEQ PREMIX 100 ML IV PRN ×2 (18:15)
[2017-07-01] MEDS: METOPROLOL TARTRATE 25 MG TAB PO SCH (20:49)
[2017-07-01] MEDS: LABETALOL HCL 100 MG/20 ML VIAL IV PUSH PRN (21:14)
[2017-07-01 23:40] LABS: ALBUMIN 2.8 GM/DL (3.4-5.0); AST (GOT) 25 U/L (15-37); BICARBONATE 24.8 MEQ/L (21.0-32.0); BLOOD UREA NITROGEN 5 MG/DL (7-18); CALCIUM 8.6 MG/DL (8.5-10.1); CHLORIDE 109 MEQ/L (98-107); GLOMERULAR FILTRATION RATE 116 ML/MIN (>89); GLUCOSE,RANDOM 112 MG/DL (74-106); MAGNESIUM 1.9 MG/DL (1.5-2.5); SODIUM (NA) 140 MEQ/L (136-145)
[2017-07-01 23:41] LABS: ALT (GPT) 18 U/L (12-78); PHOSPHORUS 2.4 MG/DL (2.5-4.9)
[2017-07-01 23:43] LABS: ALKALINE PHOSPHATASE 40 U/L (45-117); TOTAL BILIRUBIN ADULT 0.4 MG/DL (0.2-1.0); TOTAL PROTEIN 6.8 GM/DL (6.4-8.2)
[2017-07-02] VITALS (11 sets, daily range): BP systolic 136–175; BP diastolic 74–90; PULSE 68–97; RESP 16–24; TEMP 98.7–101.5; O2SAT 95–100
[2017-07-02] MEDS: CHLORHEXIDINE GLUCONATE 2 % 1 PACK (2 CLOTHS) TOP SCH ×2 (04:00→23:28)
[2017-07-02] MEDS: SODIUM CHLORIDE 1 GRAM TAB PO SCH ×3 (06:00→22:54)
--- NOTE | 2017-07-02 08:13 | HHI.PR ---
Review/Management Diagnosis/Plan: (1) Acute ischemic right MCA stroke ICD Codes: I63.511 - Cerebral infarction due to unspecified occlusion or stenosis of right middle cerebral artery Status: Acute Plan: s/p iv tpa, IR rt mca embolectomy day 5 large rt mca stroke 2/2 rt ica/mca clot risk factor: tob use, htn mri brain- large rt mca stroke mra brain- rt ica occluded; rt mca recanalized 06/28 ct brain- mild rt temporal/insular ich transformation 06/30 ct brain stable 07/01 ct brain stable no ICH recs aspirin started spouse continues to ask about surgery for rt ica that is occluded. we d/w that surgery is not an option with 100% occluded vessel. in addition to new large stroke. will ask vascular surgery to see pt and discuss full therapy d/w spouse continue in isc, at higher risk for swelling with shift appreciate CCM team (2) HTN (hypertension) ICD Codes: I10 - Essential (primary) hypertension Status: Chronic (3) Tobacco abuse ICD Codes: Z72.0 - Tobacco use Status: Chronic Subjective Subjective Comments No acute events reported No headache No chest pain No dyspnea Active Medications Current Medications Medications (Trade) Dose Ordered Sig/Thea Route Start Time Stop Time Status Last Admin (Tylenol) 650 mg Q4H PRN PO 06/27/17 21:30 (Percocet 5-325 Mg) 1 tab Q4H PRN PO 06/27/17 21:30 (Apresoline Inj) 10 mg Q4H PRN IV PUSH 06/27/17 23:00 07/01/17 17:22 Acetaminophen 65 ml @ 400 mls/hr Q6H PRN IV 06/27/17 23:00 06/29/17 20:45 (NS Flush) 2 ml UNSCH PRN IV FLUSH 06/27/17 23:00 (NS Flush) 2 ml BID IV FLUSH 06/28/17 09:00 07/01/17 20:49 (Pepcid) 20 mg Q12HR PO 06/28/17 09:00 07/01/17 20:48 (Zofran Inj) 4 mg Q6H PRN IV PUSH 06/27/17 23:00 (Albuterol Neb) 2.5 mg Q2HR NEB PRN INH 06/27/17 23:00 Miscellaneous Information 1 Q361D XX 06/27/17 23:00 (Chlorhexidine 2% Cloth) 3 pack Taper DAILY@04 TOP 06/28/17 04:00 06/24/18 03:59 (Chlorhexidine 2% Cloth) 3 pack UNSCH PRN TOP 06/27/17 23:00 (Janie-Colace) 1 tab BID PO 06/28/17 09:00 07/01/17 20:48 (Milk Of Magnesia Liq) 30 ml Q12H PRN PO 06/27/17 23:00 (Senokot) 17.2 mg Q12H PRN PO 06/27/17 23:00 (Dulcolax Supp) 10 mg DAILY PRN RECTAL 06/27/17 23:00 (Lactulose Liq) 30 ml DAILY PRN PO 06/27/17 23:00 Thiamine HCl 100 mg/Sodium Chloride 101 ml @ 101 mls/hr DAILY IV 06/28/17 09:00 07/02/17 09:59 07/01/17 09:39 Nicardipine HCl 25 mg/Sodium Chloride 250 ml @ 50 mls/hr TITRATE PRN IV 06/29/17 11:00 (Trandate Inj) 20 mg Q4H PRN IV PUSH 06/29/17 11:00 07/01/17 21:14 Sodium Chloride 188 meq/Sodium Chloride 1,047 ml @ 90 mls/hr [id number] IV 06/29/17 12:00 07/01/17 17:23 (Sodium Chloride) 1 gm Q8HR PO 07/01/17 11:15 07/02/17 06:00 (Aspirin Chew) 81 mg DAILY CHEW 07/01/17 14:15 07/01/17 14:15 (Lopressor) 25 mg Q12H PO 07/01/17 21:00 07/01/17 20:49 Potassium Chloride 100 ml @ 50 mls/hr Q2H PRN IV 07/01/17 18:15 Potassium Chloride 100 ml @ 50 mls/hr Q2H PRN IV 07/01/17 18:15 (K-Lyte Cl Eff) 50 meq UNSCH PRN PO 07/01/17 18:15 07/01/17 18:14 Potassium Chloride 100 ml @ 25 mls/hr UNSCH PRN IV 07/01/17 18:15 Potassium Chloride 100 ml @ 50 mls/hr Q2H PRN IV 07/01/17 18:15 Magnesium Sulfate 4 gm/Sodium Chloride 100 ml @ 50 mls/hr UNSCH PRN IV 07/01/17 18:15 (Mag-Ox) 800 mg UNSCH PRN PO 07/01/17 18:15 Magnesium Sulfate 2 gm/Sodium Chloride 100 ml @ 50 mls/hr UNSCH PRN IV 07/01/17 18:15 (K-Phos) 2,000 mg Q4H PRN PO 07/01/17 18:15 Sodium Phosphate 30 mmol/Sodium Chloride 250 ml @ 42 mls/hr UNSCH PRN IV 07/01/17 18:15 (K-Phos) 2,000 mg UNSCH PRN PO/TUBE 07/01/17 18:15 Potassium Phosphate 30 mmol/ Sodium Chloride 260 ml @ 42 mls/hr UNSCH PRN IV 07/01/17 18:15 Allergies Allergies Coded Allergies *MDRO Multi-Drug Resistant Organism (Verified Adverse Reaction, Unknown, ) Review of Systems All other ROS: ROS reviewed as documented in chart Exam I&O / VS Vital Signs Date Time Temp Pulse Resp B/P (MAP) Pulse Ox O2 Delivery O2 Flow Rate FiO2 07/02/17 06:00 89 07/02/17 04:00 80 07/02/17 04:00 99.0 79 19 136/77 (96) 99 07/02/17 02:00 71 07/02/17 00:22 95 07/02/17 00:00 76 07/02/17 00:00 98.7 76 20 160/90 (113) 99 07/01/17 22:00 82 07/01/17 20:00 89 07/01/17 20:00 99.1 89 18 172/65 (100) 98 07/01/17 19:00 100 Room Air 07/01/17 16:00 99.7 82 16 150/92 (111) 96 07/01/17 12:00 99.1 85 22 161/88 (112) 98 07/01/17 09:54 100 21 General: Alert and Oriented, No acute distress Exam Comments alert, ox 3, follows, recognizes , minimal dysarthria, less gaze preference , left facial weakness, left HH, left hemiparesis with extensor type posturing ue/le, leg 2-3/5, left hemisensory nihss 15 Objective Micro and Labs Laboratory Tests Test 07/01/17 16:04 07/01/17 22:59 Blood Urea Nitrogen 6 5 Creatinine 0.73 0.70 Random Glucose 99 112 Total Protein 6.8 6.8 Albumin 2.8 2.8 Calcium Level 8.6 8.6 Alkaline Phosphatase 40 40 Aspartate Amino Transf (AST/SGOT) 27 25 Alanine Aminotransferase (ALT/SGPT) 18 18 Total Bilirubin 0.4 0.4 Sodium Level 137 140 Potassium Level 3.3 3.5 Chloride Level 106 109 Carbon Dioxide Level 26.9 24.8 Anion Gap 4 6 Estimat Glomerular Filtration Rate 111 116 Phosphorus Level 2.4 Magnesium Level 1.9 Problem Qualifiers (1) HTN (hypertension): Qualified Codes: I10 - Essential (primary) hypertension Ha Carpenter MD Jul 02, 2017 08:13
[2017-07-02] MEDS: SODIUM CHLORIDE 23.4% INJ 188 MEQ in SODIUM CHLOR 0.9% 1000 ML INJ 1,000 ML IV SCH ×3 (08:38→21:19)
[2017-07-02] MEDS: THIAMINE INJ 100 MG in SODIUM CHLORIDE 0.9% INJ 100 ML IV SCH (08:38)
[2017-07-02] MEDS: ASPIRIN 81 MG CHEW TAB CHEW SCH (08:39)
[2017-07-02] MEDS: FAMOTIDINE 20 MG TAB PO SCH ×2 (08:39→20:31)
[2017-07-02] MEDS: DOCUSATE SODIUM 50 MG/SENNA 8.6 MG TAB PO SCH ×3 (08:39→20:32)
[2017-07-02] MEDS: SODIUM CHLORIDE 0.9% FLUSH 10 ML FLUSH IV FLUSH SCH ×2 (08:39→19:54)
[2017-07-02] MEDS: METOPROLOL TARTRATE 25 MG TAB PO SCH (08:39)
--- NOTE | 2017-07-02 13:55 | HHI.NSPN ---
History Chief Complaint: Left arm weakness and numbness Interval History No complaint of headache, nausea. No diplopia or blurred vision Persistent left hemiparesis. Complaints of left knee pain. Exam Results Vital Signs Date Time Temp Pulse Resp B/P (MAP) Pulse Ox O2 Delivery O2 Flow Rate FiO2 07/02/17 08:15 99 21 07/02/17 08:00 99.7 68 18 156/84 (108) 07/02/17 07:00 Room Air 06/28/17 08:55 2.00 Intake and Output 07/02/17 07/02/17 07/03/17 08:00 16:00 00:00 Intake Total 360 ml Output Total 3100 ml Balance -2740 ml Physical Examination GENERAL: Awake and relatively alert, and bed HEENT: Sclerae are clear and nonicteric. MUSCULOSKELETAL: Extremities NTTP. No evident deformity or clubbing. NEUROLOGICAL: Awake and relatively alert Speech clear, mild dysarthria, speech is somewhat slow Follows most simple commands Eye opening to voice. PERRL, EOM appear intact. Does have right gaze preference. Left-side facial paresis. Tongue protrudes to the left. Sensation decreased to left side extremities but is intact to light touch to the right side extremities. Strength to the major flexion & extension muscle groups is 3 to 4/5 to RUE; 4 to 4+/5 to RLE; 0 to 1/5 to LUE; and 2 to 3/5 to LLE. Lab, Micro, Other Results 07/01/[address] scan of the head images have been reviewed by the undersigned. Agree with findings as noted below: Chest X-Ray 07/01/17 0600 Signed Impressions: Service Date/Time: Saturday, July 01, 2017 04:51 - CONCLUSION: Persistent left apical airspace opacity/mass. There is mild airspace opacity in the right midlung zone and left lower lung zone. Cliff Ortiz MD Neck CTA 07/01/17 0000 Signed Impressions: Service Date/Time: Saturday, July 01, 2017 12:14 - CONCLUSION: 1. Complete occlusion of the right internal carotid artery 2. 50-60%% stenosis involving the origin of the left internal carotid artery with 60-70%% stenosis just below the skull base. 3. Occlusion of both vertebral arteries at its origin with reconstitution of a dominant right vertebral artery as above Vish Jarrett MD Head CTA 07/01/17 0000 Signed Impressions: Service Date/Time: Saturday, July 01, 2017 12:14 - CONCLUSION: Buddhist of flow on the right. There is better flow in the posterior division and anterior division of the right middle cerebral artery. CT scan showing evolving infarct right middle cervical artery territory, anterior division. Norberto Camarena MD FACR Head CT 07/01/17 0000 Signed Impressions: Service Date/Time: Saturday, July 01, 2017 12:11 - CONCLUSION: Evolving MCA infarct on the right. Minimal mass effect without hemorrhage or significant progression. Norberto Camarena MD FACR Medical Decision Making Impression and Plan Impression: 1. Stable neurologic examination versus 07/01/2017. Follow-up CT angiogram 2017 without evidence of recurrent right internal carotid artery thrombus. No evidence of hemorrhagic conversion of the right MCA CVA. Plan: Findings were discussed with the patient and his Discussed with commercial shrimping captain on the afternoon of 07/01/2017 May begin antiplatelet agents. Continue to monitor sodium He may mobilize out of bed Discussed with physical therapist Tino De La Torre MD Jul 02, 2017 13:55
--- NOTE | 2017-07-02 17:08 | PD.CAR.PN ---
CVT Progress Note Subjective/Hospital Course: 07/02/2017 Patient seen and full consult dictated Agree fully with current management and neurologic evaluation and care. Based on the occlusion patient does not have a surgically correctable lesion on the right side and have discussed this with in detail Thanks Kyler Objective: Vital Signs Date Time Temp Pulse Resp B/P (MAP) Pulse Ox O2 Delivery O2 Flow Rate FiO2 07/02/17 12:00 99.7 97 16 138/77 (97) 100 07/02/17 08:15 99 21 07/02/17 08:00 99.7 68 18 156/84 (108) 99 07/02/17 07:00 100 Room Air 07/02/17 06:00 89 07/02/17 04:00 80 07/02/17 04:00 99.0 79 19 136/77 (96) 99 07/02/17 02:00 71 07/02/17 00:22 95 07/02/17 00:00 76 07/02/17 00:00 98.7 76 20 160/90 (113) 99 07/01/17 22:00 82 07/01/17 20:00 89 07/01/17 20:00 99.1 89 18 172/65 (100) 98 07/01/17 19:00 100 Room Air Labs: Laboratory Tests Test 07/02/17 07:51 Sodium Level 138 MEQ/L (136-145) Potassium Level 3.7 MEQ/L (3.5-5.1) Result Diagram: 07/01/17 0747 07/02/17 0751 Ruchi Spencer MD Jul 02, 2017 17:08
--- NOTE | 2017-07-02 17:13 | HHI.CCPN ---
Subjective Remarks/Hospital Course 57-year-old male who presented to [facility] emergency department as a stroke alert. He states that he developed left hemiparesis. He was last seen normal at 5 PM. He had right sided gaze preference. He was not on antiplatelet or anticoagulant therapy. CT brain showed hyperdense right MCA extending to M1 and M2 branch. CT angiogram demonstrated right ICA thrombus extending to the carotid bifurcation. There is high-grade stenosis of the right vertebral. 50% stenosis of left ICA. He was given systemic TPA and was transferred from [facility] to [facility] where he was taken to invasive radiology and underwent successful extraction of M1 thrombus by Dr. Jarrett. 06/29: Persistent L hemiparesis. 06/28 ct brain showed mild right temporal ICH. Neurosurgery consulted. Follow-up CT of the head in a.m, Check stat PT/INR, fibrinogen. Target BP <160/100 06/30: CT of the head today shows resolution of the hemorrhage but cytotoxic edema the right frontal lobe with local mass effect. Currently on 2% saline at 30 mL per hour sodium remains at 135, I have increased 2% to 60 mL per hour 07/01: Neuro exam remains unchanged, CT/CTA ordered by Dr. De La Torre. If no bleed need to start antiplatelet therapy, Na remain at 135, will increase 2% saline to 90 ml per hour, and add NaCL tablos 1GM q8. If not improving will attempt single dose tolvaptan Subjective 07/02: Neurologically stabilized. Continues to have left facial droop, dysarthria , left gaze preference. Left upper and lower extremity weakness/sensory deficit. Currently tolerating diet. Blood pressure needs better control. Objective Vital Signs Date Time Temp Pulse Resp B/P (MAP) Pulse Ox O2 Delivery O2 Flow Rate FiO2 07/02/17 12:00 99.7 97 16 138/77 (97) 100 07/02/17 08:15 21 07/02/17 07:00 Room Air 06/28/17 08:55 2.00 Intake and Output 07/02/17 07/02/17 07/03/17 08:00 16:00 00:00 Intake Total 360 ml Output Total 3100 ml Balance -2740 ml Result Diagram: 07/01/17 5421 07/02/17 0751 Imaging Last Impressions Chest X-Ray 07/01/17 0600 Signed Impressions: Service Date/Time: Saturday, July 01, 2017 04:51 - CONCLUSION: Persistent left apical airspace opacity/mass. There is mild airspace opacity in the right midlung zone and left lower lung zone. Cliff Ortiz MD Neck CTA 07/01/17 0000 Signed Impressions: Service Date/Time: Saturday, July 01, 2017 12:14 - CONCLUSION: 1. Complete occlusion of the right internal carotid artery 2. 50-60%% stenosis involving the origin of the left internal carotid artery with 60-70%% stenosis just below the skull base. 3. Occlusion of both vertebral arteries at its origin with reconstitution of a dominant right vertebral artery as above Vish Jarrett MD Head CTA 07/01/17 0000 Signed Impressions: Service Date/Time: Saturday, July 01, 2017 12:14 - CONCLUSION: Church of flow on the right. There is better flow in the posterior division and anterior division of the right middle cerebral artery. CT scan showing evolving infarct right middle cervical artery territory, anterior division. Norberto Camarena MD FACR Head CT 07/01/17 0000 Signed Impressions: Service Date/Time: Saturday, July 01, 2017 12:11 - CONCLUSION: Evolving MCA infarct on the right. Minimal mass effect without hemorrhage or significant progression. Norberto Camarena MD FACR Head Magnetic Resonance Angiography 06/28/17 0000 Signed Impressions: Service Date/Time: Wednesday, June 28, 2017 11:07 - CONCLUSION: 1. Complete occlusion of the right internal carotid artery. 2. Right middle cerebral artery is patent. Davian Alfonso MD Brain MRI 06/28/17 0000 Signed Impressions: Service Date/Time: Wednesday, June 28, 2017 11:07 - CONCLUSION: 1. Large right middle cerebral artery distribution infarct. Mild mass effect without midline shift. 2. No hemorrhage seen. Davian Alfonso MD Cerebral Arteriogram 06/27/172138 Signed Impressions: Service Date/Time: Tuesday, June 27, 2017 19:50 - CONCLUSION: Uncomplicated embolectomy of the right middle cerebral artery. High-grade stenosis of the carotid bifurcation greater than 70%%. Vish Jarrett MD Objective Remarks GENERAL: 57-year-old male currently sitting in chair on room air SKIN: Warm and dry well perfused HEAD: Atraumatic. Normocephalic. EYES: Pupils equal and round 3 mm and reactive to 2 mm bilaterally. No scleral icterus. ENT: No nasal bleeding or discharge. Mucous membranes pink and moist. NECK: Trachea midline. No JVD. CARDIOVASCULAR: RRR. S1, S2 no S4. No murmur RESPIRATORY: Clear to auscultation bilaterally without wheezes rales rhonchi GASTROINTESTINAL: Abdomen soft, non-tender, nondistended. Bowel sounds are present. MUSCULOSKELETAL: Extremities without clubbing, cyanosis, or edema. No obvious deformities. NEUROLOGICAL: Awake and alert. L facial droop. Left gaze preference. Strength 5/5 throughout right, following commands. L hemiparesis with 2-3/5 biceps/ triceps. Wiggles left toes to command. 3/5 ankle dorsiflexion and knee flexion. Speech is fluent with very minimal dysarthria. Decreased sensation left upper lower extremity A/P Assessment and Plan NEURO/PSYCH: Acute ischemic stroke, R MCA with extensive R ICA thrombus R frontal BG cytotoxic edema, with mild mass effect Mild hemorrhagic conversion of right temporal lobe Alcohol dependence (Quit 1 month prior to admission) Bilateral carotid artery stenosis right greater than left s/p systemic TPA, s/p successful M1 clot extraction by Dr. Jarrett. On 06/27 MRA neck shows complete right internal carotid occlusion Neurosurgery consulted for hemorrhagic conversion of right temporal lobe CT 06/30 showed resolution of hemorrhage, R frontal BG cytotoxic edema, with mild mass effect Repeat CT/CTA t 07/01 revealed evolving right MCA CVA. Right ICA stenosis. Left ICA 50-70% percent. Monitor neuro checks every hour in [facility] Maintain blood pressure less than 160/100 Aspirin 81 mg p.o. daily okayed with neurology 2-D echo 06/29: Normal left ventricular size. Normal LV systolic function. LA mild -to-moderately dilated. No PFO Normal lipids, TSH Acetaminophen 650 mg's p.o. every 6 hours as needed for temperature greater than 100. Hydrocodone/acetaminophen 5/325 1 tablet every 4 hours as needed pain 1 through 5 Morphine sulfate 2 mg IV every 2 hours as needed pain 6 or 10 PT/OT/ST Thiamine 100 mg IV daily x5 days currently 100 mg p.o. 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 Plan for re- biopsy at a later point. Prior history of VATS for right empyema Prior Tobacco abuse Currently on room air Albuterol/ipratropium aerosols every 6 hours with albuterol aerosols every 2 hours. Dyspnea On pro-air inhaler at home [facility] Hypertension Resume metoprolol 50 mg twice daily and amlodipine 5 mg p.o. daily for hypertension As needed labetalol for systolic blood pressure greater than 160 Started on atorvastatin 10 mg p.o. daily GI: C. difficile diarrhea Chopped meat diet Famotidine 20 mg twice daily for GI prophylaxis docusate senna/1 tablet twice daily for bowel regimen C. difficile +06/11/17. Patient states diarrhea has improved. He states he has completed 12 days of Flagyl 500 mg by mouth every 8 hours. Completed Flagyl 06/29/17. Speech therapy to evaluate dysphagia and dysarthria FEN/RENAL: Chronic hyponatremia Condom catheter is in place. Monitor intake and output. Monitor electrolytes. Replace as indicated per ICU replacement protocol. 2% saline to correct hyponatremia, due to frontal lobe edema and ICH Increase to 2% saline to 90 ml per hour Tolvaptan 15 mg x1 dose ID: C. difficile treatment as per above. Afebrile, no leukocytosis. HEME: Normocytic anemia Monitor CBC ENDO: Euglycemic. TSH normal. Hb A1c 5.7 PROPH: SCDs for DVT prophylaxis. Famotidine for stress ulcer prophylaxis. No chemical DVT prophylaxis due to ICH ACCESS: Peripheral IV Full code Level 2 follow-up Alfredito Caballero MD Jul 02, 2017 17:13
[2017-07-02] MEDS ORDERED: MORPHINE SULFATE 2 MG/ML INJ IV PRN (19:00)
[2017-07-02] MEDS ORDERED: TOLVAPTAN 15 MG TAB PO ONE (20:00)
[2017-07-02] MEDS: ACETAMINOPHEN 325 MG TAB PO PRN (20:01)
[2017-07-02] MEDS: ATORVASTATIN 10 MG TAB PO SCH (20:02)
[2017-07-02] MEDS ORDERED: METOPROLOL TARTRATE 50 MG TAB PO SCH (21:00)
[2017-07-02] MEDS: RESP: ALBUTEROL 2.5 MG/IPRATROPIUM 0.5 MG NEB (SCH) INH (22:00)
[2017-07-02 23:11] LABS: ALBUMIN 2.5 GM/DL (3.4-5.0); ALT (GPT) 18 U/L (12-78); AST (GOT) 26 U/L (15-37); BICARBONATE 24.8 MEQ/L (21.0-32.0); BLOOD UREA NITROGEN 8 MG/DL (7-18); CHLORIDE 109 MEQ/L (98-107); CREATININE 0.66 MG/DL (0.60-1.30); GLOMERULAR FILTRATION RATE 124 ML/MIN (>89); GLUCOSE,RANDOM 102 MG/DL (74-106); MAGNESIUM 1.8 MG/DL (1.5-2.5); PHOSPHORUS 3.4 MG/DL (2.5-4.9); SODIUM (NA) 140 MEQ/L (136-145)
[2017-07-02 23:13] LABS: ALKALINE PHOSPHATASE 41 U/L (45-117); TOTAL BILIRUBIN ADULT 0.3 MG/DL (0.2-1.0); TOTAL PROTEIN 6.5 GM/DL (6.4-8.2)
[2017-07-03] VITALS (14 sets, daily range): BP systolic 134–174; BP diastolic 71–88; PULSE 70–88; RESP 18–24; TEMP 97.9–100.6; O2SAT 93–99
[2017-07-03] MEDS: LABETALOL HCL 100 MG/20 ML VIAL IV PUSH PRN (01:39)
[2017-07-03] MEDS: RESP: ALBUTEROL 2.5 MG/IPRATROPIUM 0.5 MG NEB (SCH) INH ×4 (03:26→19:54)
[2017-07-03 04:51] LABS: AUTOMATED NEUTROPHIL # 3.8 TH/MM3 (1.8-7.7); BASOPHIL # 0.1 TH/MM3 (0-0.2); BASOPHIL % 0.9 % (0.0-2.0); EOSINOPHIL # 0.2 TH/MM3 (0-0.4); EOSINOPHIL % 2.2 % (0.0-4.0); HEMATOCRIT 32.2 % (39.0-51.0); HEMOGLOBIN 11.3 GM/DL (13.0-17.0); LYMPH % 26.5 % (9.0-44.0); LYMPHOCYTE # 1.9 TH/MM3 (1.0-4.8); MEAN CELL VOLUME 97.7 FL (80.0-100.0); MEAN CORPUSCULAR HEMOGLOBIN 34.2 PG (27.0-34.0); MEAN PLATELET VOLUME 7.6 FL (7.0-11.0); MONOCYTE # 1.1 TH/MM3 (0-0.9); NEUT % 54.4 % (16.0-70.0); PLATELET COUNT 223 TH/MM3 (150-450); RED BLOOD COUNT 3.29 MIL/MM3 (4.50-5.90); RED CELL DISTRIBUTION WIDTH 12.3 % (11.6-17.2)
[2017-07-03] MEDS: SODIUM CHLORIDE 1 GRAM TAB PO SCH ×3 (06:32→21:55)
--- NOTE | 2017-07-03 06:36 | HHI.PR ---
Review/Management Diagnosis/Plan: (1) Acute ischemic right MCA stroke ICD Codes: I63.511 - Cerebral infarction due to unspecified occlusion or stenosis of right middle cerebral artery Status: Acute Plan: s/p iv tpa, IR rt mca embolectomy day 7 large rt mca stroke 2/2 rt ica/mca clot risk factor: tob use, htn mri brain- large rt mca stroke mra brain- rt ica occluded; rt mca recanalized 06/28 ct brain- mild rt temporal/insular ich transformation 06/30 ct brain stable 07/01 ct brain stable no ICH recs neuro stable consider transfer to 5th floor tele if cleared by [facility] rehab/[facility]ero placement early next week appreciate CCM team (2) HTN (hypertension) ICD Codes: I10 - Essential (primary) hypertension Status: Chronic (3) Tobacco abuse ICD Codes: Z72.0 - Tobacco use Status: Chronic Subjective Subjective Comments No acute events reported No headache No chest pain No dyspnea Active Medications Current Medications Medications (Trade) Dose Ordered Sig/Thea Route Start Time Stop Time Status Last Admin (NS Flush) 2 ml UNSCH PRN IV FLUSH 06/27/17 23:00 (NS Flush) 2 ml BID IV FLUSH 06/28/17 09:00 07/02/17 08:39 (Pepcid) 20 mg Q12HR PO 06/28/17 09:00 07/02/17 20:31 (Zofran Inj) 4 mg Q6H PRN IV PUSH 06/27/17 23:00 (Albuterol Neb) 2.5 mg Q2HR NEB PRN INH 06/27/17 23:00 Miscellaneous Information 1 Q361D XX 06/27/17 23:00 (Chlorhexidine 2% Cloth) Taper DAILY@04 TOP 06/28/17 04:00 06/24/18 03:59 (Chlorhexidine 2% Cloth) 3 pack UNSCH PRN TOP 06/27/17 23:00 (Janie-Colace) 1 tab BID PO 06/28/17 09:00 07/02/17 20:01 (Milk Of Magnesia Liq) 30 ml Q12H PRN PO 06/27/17 23:00 (Senokot) 17.2 mg Q12H PRN PO 06/27/17 23:00 (Dulcolax Supp) 10 mg DAILY PRN RECTAL 06/27/17 23:00 (Lactulose Liq) 30 ml DAILY PRN PO 06/27/17 23:00 Nicardipine HCl 25 mg/Sodium Chloride 250 ml @ 50 mls/hr TITRATE PRN IV 06/29/17 11:00 (Trandate Inj) 20 mg Q4H PRN IV PUSH 06/29/17 11:00 07/03/17 01:39 Sodium Chloride 188 meq/Sodium Chloride 1,047 ml @ 90 mls/hr [id number] IV 06/29/17 12:00 07/02/17 21:19 (Sodium Chloride) 1 gm Q8HR PO 07/01/17 11:15 07/02/17 22:54 (Aspirin Chew) 81 mg DAILY CHEW 07/01/17 14:15 07/02/17 08:39 Potassium Chloride 100 ml @ 50 mls/hr Q2H PRN IV 07/01/17 18:15 Potassium Chloride 100 ml @ 50 mls/hr Q2H PRN IV 07/01/17 18:15 (K-Lyte Cl Eff) 50 meq UNSCH PRN PO 07/01/17 18:15 07/01/17 18:14 Potassium Chloride 100 ml @ 25 mls/hr UNSCH PRN IV 07/01/17 18:15 Potassium Chloride 100 ml @ 50 mls/hr Q2H PRN IV 07/01/17 18:15 Magnesium Sulfate 4 gm/Sodium Chloride 100 ml @ 50 mls/hr UNSCH PRN IV 07/01/17 18:15 (Mag-Ox) 800 mg UNSCH PRN PO 07/01/17 18:15 Magnesium Sulfate 2 gm/Sodium Chloride 100 ml @ 50 mls/hr UNSCH PRN IV 07/01/17 18:15 (K-Phos) 2,000 mg Q4H PRN PO 07/01/17 18:15 Sodium Phosphate 30 mmol/Sodium Chloride 250 ml @ 42 mls/hr UNSCH PRN IV 07/01/17 18:15 (K-Phos) 2,000 mg UNSCH PRN PO/TUBE 07/01/17 18:15 Potassium Phosphate 30 mmol/ Sodium Chloride 260 ml @ 42 mls/hr UNSCH PRN IV 07/01/17 18:15 (Norvasc) 5 mg DAILY PO 07/03/17 09:00 (Lopressor) 50 mg BID PO 07/02/17 21:00 07/02/17 20:02 (Vitamin B1) 100 mg DAILY PO 07/03/17 09:00 (Tylenol) 650 mg Q6H PRN PO 07/02/17 17:00 07/02/17 20:01 (Tracy 5-325 Mg) 1 tab Q4H PRN PO 07/02/17 17:00 (Morphine Inj) 2 mg Q2H PRN IV 07/02/17 19:00 (Duoneb Neb) 1 ampule Q6HR NEB INH 07/02/17 22:00 (Janie-Colace) 1 tab BID PO 07/02/17 21:00 07/02/17 20:32 (Lipitor) 10 mg HS PO 07/02/17 21:00 07/02/17 20:02 Allergies Allergies Coded Allergies *MDRO Multi-Drug Resistant Organism (Verified Adverse Reaction, Unknown, ) Review of Systems All other ROS: ROS reviewed as documented in chart Exam I&O / VS Vital Signs Date Time Temp Pulse Resp B/P (MAP) Pulse Ox O2 Delivery O2 Flow Rate FiO2 07/03/17 04:00 99.0 72 20 174/86 (115) 99 07/03/17 04:00 82 07/03/17 02:00 70 07/03/17 00:00 70 07/03/17 00:00 97.9 72 20 161/80 (107) 97 07/02/17 20:00 101.5 86 20 175/90 (118) 99 07/02/17 19:53 98 21 07/02/17 19:00 98 Room Air 07/02/17 16:00 100.4 80 24 152/74 (100) 100 07/02/17 12:00 99.7 97 16 138/77 (97) 100 07/02/17 08:15 99 21 07/02/17 08:00 99.7 68 18 156/84 (108) 99 07/02/17 07:00 100 Room Air General: Alert and Oriented, No acute distress Exam Comments alert, ox 3, follows, recognizes , minimal dysarthria, less gaze preference , left facial weakness, left HH, left hemiparesis with spasticity type ue/le, leg 2-3/5, left hemisensory nihss 15 Objective Micro and Labs Laboratory Tests Test 07/02/17 07:51 07/02/17 22:24 07/03/17 04:07 Sodium Level 138 140 Potassium Level 3.7 3.7 Blood Urea Nitrogen 8 Creatinine 0.66 Random Glucose 102 Total Protein 6.5 Albumin 2.5 Calcium Level 8.0 Phosphorus Level 3.4 Magnesium Level 1.8 Alkaline Phosphatase 41 Aspartate Amino Transf (AST/SGOT) 26 Alanine Aminotransferase (ALT/SGPT) 18 Total Bilirubin 0.3 Chloride Level 109 Carbon Dioxide Level 24.8 Anion Gap 6 Estimat Glomerular Filtration Rate 124 White Blood Count 7.0 Red Blood Count 3.29 Hemoglobin 11.3 Hematocrit 32.2 Mean Corpuscular Volume 97.7 Mean Corpuscular Hemoglobin 34.2 Mean Corpuscular Hemoglobin Concent 35.0 Red Cell Distribution Width 12.3 Platelet Count 223 Mean Platelet Volume 7.6 Neutrophils (%) (Auto) 54.4 Lymphocytes (%) (Auto) 26.5 Monocytes (%) (Auto) 16.0 Eosinophils (%) (Auto) 2.2 Basophils (%) (Auto) 0.9 Neutrophils # (Auto) 3.8 Lymphocytes # (Auto) 1.9 Monocytes # (Auto) 1.1 Eosinophils # (Auto) 0.2 Basophils # (Auto) 0.1 CBC Comment DIFF FINAL Differential Comment Problem Qualifiers (1) HTN (hypertension): Qualified Codes: I10 - Essential (primary) hypertension Ha Carpenter MD Jul 03, 2017 06:36
[2017-07-03] MEDS ORDERED: POTASSIUM CHLORIDE 20 MEQ PWD PACKET PO ONE (06:45)
[2017-07-03] MEDS: MAGNESIUM SULFATE 1 GM PREMIX 100 ML IV SCH ×2 (07:36→07:45)
[2017-07-03] MEDS: ASPIRIN 81 MG CHEW TAB CHEW SCH (07:51)
[2017-07-03] MEDS: CARVEDILOL 12.5 MG TAB PO SCH ×2 (07:51→20:44)
[2017-07-03] MEDS: THIAMINE HCL 100 MG TAB PO SCH (07:51)
[2017-07-03] MEDS: DOCUSATE SODIUM 50 MG/SENNA 8.6 MG TAB PO SCH ×2 (07:52→20:44)
[2017-07-03] MEDS: FAMOTIDINE 20 MG TAB PO SCH ×2 (07:52→20:43)
[2017-07-03] MEDS: SODIUM CHLORIDE 0.9% FLUSH 10 ML FLUSH IV FLUSH SCH ×2 (07:52→20:43)
[2017-07-03] MEDS: LISINOPRIL 5 MG TAB PO SCH ×2 (07:52→07:58)
--- NOTE | 2017-07-03 08:18 | MB ---
cc: RUCHI OLIVARES MD DATE OF CONSULTATION 07/02/[address] Olivares, vascular surgery REASON FOR CONSULTATION Right hemispheric stroke, right carotid artery stenosis. HISTORY OF PRESENT DISEASE This 57-year-old man female presents through the emergency room with acute left-sided weakness and the workup reveals right middle cerebral artery perfusion area ischemia. The patient was given TPA and then underwent angiographic removal of a clot from the right common and internal carotid arteries. That was on 27 of June. Postop, the patient was monitored. He remains with ischemic right hemispheric stroke and CTA of the neck yesterday reveals total occlusion of the right internal carotid artery at its origin and the above-noted stroke. Question arises about the surgical possibilities which his would like to explore. PAST MEDICAL HISTORY Hypertension PAST SURGICAL HISTORY Surgical history is that of right empyema of the chest for which the patient required mini thoracotomy and with thoracoscopy, evacuation of empyema about two years ago. At time, he grew MRSA. SOCIAL HISTORY He does not drink. He used to smoke. PHYSICAL EXAM This is a 57-year-old male. HEAD, EYES, EARS, NOSE, AND THROAT: Normocephalic, no trauma to the head. Pupils equally reactive. Extraocular muscles intact. The patient has slight left facial weakness and dense left hemiparesis consistent with a right-sided middle cerebral artery area stroke. The patient is able to speak. Pupils are equally reactive. Extraocular muscles intact. NECK: Actually bilateral carotid pulses and I did note the right carotid artery was occluded, would not tell from the neck exam. CHEST: Bilateral breath sounds. The patient has moderate degree of COPD and he has some atrophy of the chest wall musculature. HEART: Regular rhythm. ABDOMEN: Soft. Active bowel sounds. No rebound or guarding or masses. EXTREMITIES: The patient has good proximal and distal pulses. No signs of acute vascular deficit. BACK: Normal. NEUROLOGIC: Exam again reveals dense left hemiplegia with minimal movement in the left leg and some spasms. IMPRESSION/RECOMMENDATIONS I reviewed laboratory diagnostic procedure, this gentleman had a successful removal of a clot from the right internal carotid artery, however, this has occluded since because it is occluded higher up. There is nothing we can do about an occluded right carotid artery. On the left side, the patient has about 60% narrowing of the internal carotid artery at the origin and then another narrowing at the base of the skull. That one probably in the future might be accessible with a stent, however in the face of right-sided occlusion, I would definitely not go there at this point. Unfortunately, there is nothing surgically we can do about a right carotid artery. I have discussed this with his . Critical care 38 minutes. Ruchi VALLES /4:57 PM /8:03 AM
--- NOTE | 2017-07-03 08:52 | HHI.NSPN ---
(Simon Baird) History Chief Complaint: Left arm weakness (Simon Baird) Interval History 06/29: This 57-year-old male presented to the emergency room on 06/27/17 as a stroke alert with acute left hemiparesis. TPA administered. Admitted to the intensive surgical care unit. Has history of hypertension. 06/30: When seen this morning the patient is awake and alert. His is visiting with him. He states he still continues to have the weakness to the left side. He denies any headache, dizziness, confusion, difficulty with finding or understanding words. He had a repeat CT brain this morning which demonstrated resolution of the right temporal lobe haemorrhage. The patient's physical exam is weaker on the left than when seen last night. 07/01: The patient was asleep when seen but awoke to voice. He denies any headache at present but his said that he had a "brain freeze" headache last night. He does say that the left upper extremity remains weak and numb. A repeat CT brain demonstrated right frontal and right basal ganglia edema with mild local mass effect. There were no acute blood products noted. The patient's neuro exam was consistent with yesterday's except for decreased verbal responses. His did comment that the patient was more confused yesterday evening and now his gaze is up and to the right. 07/02: No complaint of headache, nausea. No diplopia or blurred vision. Persistent left hemiparesis. Complaints of left knee pain. 07/03: This morning the patient is awake and alert sitting up in bed watching TV with his . He says he is doing okay. He does say he hurts all over, that he feels tight. His does say his left knee has been bothering him the past couple days since working with Physical Therapy. He denied any headache, dizziness, or blurry or double vision. He denied any numbness or tingling to the extremities. He continues to have weakness to both upper extremities and the left lower extremity, and to a lesser extent the right lower. His muscle strength is without any significant change. (Simon Baird) Exam Results 07/01/17 07/01/17 07/02/17 07/02/17 07/03/17 07/03/17 06:00 18:00 06:00 18:00 06:00 18:00 Intake Total 1650 ml 1520 ml 360 ml 600 ml 240 ml Output Total 3000 ml 2100 ml 3100 ml 1700 ml Balance -1350 ml -580 ml -2740 ml 600 ml -1460 ml Intake Oral 650 ml 420 ml 360 ml 600 ml 240 ml IV Total 1000 ml 1100 ml Output Urine Total 3000 ml 2100 ml 3100 ml 1700 ml # Bowel Movements 0 1 0 0 Vital Signs Date Time Temp Pulse Resp B/P (MAP) Pulse Ox O2 Delivery O2 Flow Rate FiO2 07/03/17 06:00 75 07/03/17 04:00 99.0 72 20 174/86 (115) 99 07/03/17 04:00 82 07/03/17 02:00 70 07/03/17 00:00 70 07/03/17 00:00 97.9 72 20 161/80 (107) 97 07/02/17 20:00 101.5 86 20 175/90 (118) 99 07/02/17 19:53 98 21 07/02/17 19:00 98 Room Air 07/02/17 16:00 100.4 80 24 152/74 (100) 100 07/02/17 12:00 99.7 97 16 138/77 (97) 100 07/02/17 08:15 99 21 07/02/17 08:00 99.7 68 18 156/84 (108) 99 07/02/17 07:00 100 Room Air 07/02/17 06:00 89 07/02/17 04:00 80 07/02/17 04:00 99.0 79 19 136/77 (96) 99 07/02/17 02:00 71 07/02/17 00:22 95 07/02/17 00:00 76 07/02/17 00:00 98.7 76 20 160/90 (113) 99 07/01/17 22:00 82 07/01/17 20:00 89 07/01/17 20:00 99.1 89 18 172/65 (100) 98 07/01/17 19:00 100 Room Air 07/01/17 16:00 99.7 82 16 150/92 (111) 96 07/01/17 12:00 99.1 85 22 161/88 (112) 98 07/01/17 09:54 100 21 07/01/17 08:00 99.6 72 25 163/80 (107) 98 07/01/17 07:00 98 Room Air 07/01/17 06:00 79 07/01/17 04:00 79 07/01/17 04:00 98.8 79 21 142/70 (94) 98 07/01/17 02:08 97 07/01/17 02:00 95 07/01/17 00:00 98.2 92 18 141/58 (85) 98 07/01/17 00:00 92 06/30/17 22:00 81 06/30/17 21:55 99 21 06/30/17 20:00 89 06/30/17 20:00 98.1 85 22 148/82 (104) 98 06/30/17 19:00 100 Room Air 06/30/17 16:00 98.2 77 14 161/81 (107) 100 06/30/17 15:00 78 06/30/17 12:00 99.2 83 14 158/77 (104) 100 06/30/17 11:45 99 21 (Simon Baird) Physical Examination GENERAL: Awake and alert in bed watching TV. Interacts. Affect flat. No evident distress. HEENT: Normocephalic, atraumatic, left-sided facial droop. PERRLA 3mm brisk, EOMI. MMM & pink, tongue protrudes to slightly to left. MUSCULOSKELETAL: Extremities NTTP. No evident deformity or clubbing. NEUROLOGICAL: Awake and alert. Speech clear and somewhat slow, mild dysarthria. Follows most simple commands. Spontaneous eye opening. PERRLA 3 mm brisk, EOMI. Does have right gaze preference. Left-side facial paresis. Tongue protrudes to the left. Sensation intact to light touch to all extremities per patient. Strength to the major flexion & extension muscle groups is 3 to 4/5 to RUE; 4 to 4+/5 to RLE; 0 to 1/5 to LUE; and 2 to 3/5 to LLE. (Simon Baird) Lab, Micro, Other Results Recent Impressions Chest X-Ray 07/01/17 0600 Signed Impressions: Service Date/Time: Saturday, July 01, 2017 04:51 - CONCLUSION: Persistent left apical airspace opacity/mass. There is mild airspace opacity in the right midlung zone and left lower lung zone. Cliff Ortiz MD Neck CTA 07/01/17 0000 Signed Impressions: Service Date/Time: Saturday, July 01, 2017 12:14 - CONCLUSION: 1. Complete occlusion of the right internal carotid artery 2. 50-60%% stenosis involving the origin of the left internal carotid artery with 60-70%% stenosis just below the skull base. 3. Occlusion of both vertebral arteries at its origin with reconstitution of a dominant right vertebral artery as above Vish Jarrett MD Head CTA 07/01/17 0000 Signed Impressions: Service Date/Time: Saturday, July 01, 2017 12:14 - CONCLUSION: Mormonism of flow on the right. There is better flow in the posterior division and anterior division of the right middle cerebral artery. CT scan showing evolving infarct right middle cervical artery territory, anterior division. Norberto Camarena MD FACR Head CT 07/01/17 0000 Signed Impressions: Service Date/Time: Saturday, July 01, 2017 12:11 - CONCLUSION: Evolving MCA infarct on the right. Minimal mass effect without hemorrhage or significant progression. Norberto Camarena MD FACR Laboratory Tests Test 06/30/17 09:07 06/30/17 14:53 06/30/17 22:52 07/01/17 07:47 Sodium Level 135 MEQ/L 135 MEQ/L 135 MEQ/L 135 MEQ/L Blood Urea Nitrogen 6 MG/DL Creatinine 0.73 MG/DL Random Glucose 118 MG/DL Total Protein 6.6 GM/DL Albumin 2.7 GM/DL Calcium Level 8.1 MG/DL Alkaline Phosphatase 39 U/L Aspartate Amino Transf (AST/SGOT) 20 U/L Alanine Aminotransferase (ALT/SGPT) 18 U/L Total Bilirubin 0.5 MG/DL Potassium Level 3.2 MEQ/L Chloride Level 103 MEQ/L Carbon Dioxide Level 23.3 MEQ/L Anion Gap 9 MEQ/L Estimat Glomerular Filtration Rate 111 ML/MIN White Blood Count 6.6 TH/MM3 Red Blood Count 3.30 MIL/MM3 Hemoglobin 11.3 GM/DL Hematocrit 32.1 % Mean Corpuscular Volume 97.3 FL Mean Corpuscular Hemoglobin 34.4 PG Mean Corpuscular Hemoglobin Concent 35.3 % Red Cell Distribution Width 12.0 % Platelet Count 211 TH/MM3 Mean Platelet Volume 7.5 FL Neutrophils (%) (Auto) 60.3 % Lymphocytes (%) (Auto) 20.9 % Monocytes (%) (Auto) 16.9 % Eosinophils (%) (Auto) 1.1 % Basophils (%) (Auto) 0.8 % Neutrophils # (Auto) 4.0 TH/MM3 Lymphocytes # (Auto) 1.4 TH/MM3 Monocytes # (Auto) 1.1 TH/MM3 Eosinophils # (Auto) 0.1 TH/MM3 Basophils # (Auto) 0.1 TH/MM3 CBC Comment DIFF FINAL Differential Comment Test 07/01/17 16:04 07/01/17 22:59 07/02/17 07:51 07/02/17 22:24 Blood Urea Nitrogen 6 MG/DL 5 MG/DL 8 MG/DL Creatinine 0.73 MG/DL 0.70 MG/DL 0.66 MG/DL Random Glucose 99 MG/DL 112 MG/DL 102 MG/DL Total Protein 6.8 GM/DL 6.8 GM/DL 6.5 GM/DL Albumin 2.8 GM/DL 2.8 GM/DL 2.5 GM/DL Calcium Level 8.6 MG/DL 8.6 MG/DL 8.0 MG/DL Alkaline Phosphatase 40 U/L 40 U/L 41 U/L Aspartate Amino Transf (AST/SGOT) 27 U/L 25 U/L 26 U/L Alanine Aminotransferase (ALT/SGPT) 18 U/L 18 U/L 18 U/L Total Bilirubin 0.4 MG/DL 0.4 MG/DL 0.3 MG/DL Sodium Level 137 MEQ/L 140 MEQ/L 138 MEQ/L 140 MEQ/L Potassium Level 3.3 MEQ/L 3.5 MEQ/L 3.7 MEQ/L 3.7 MEQ/L Chloride Level 106 MEQ/L 109 MEQ/L 109 MEQ/L Carbon Dioxide Level 26.9 MEQ/L 24.8 MEQ/L 24.8 MEQ/L Anion Gap 4 MEQ/L 6 MEQ/L 6 MEQ/L Estimat Glomerular Filtration Rate 111 ML/MIN 116 ML/MIN 124 ML/MIN Phosphorus Level 2.4 MG/DL 3.4 MG/DL Magnesium Level 1.9 MG/DL 1.8 MG/DL Test 07/03/17 04:07 White Blood Count 7.0 TH/MM3 Red Blood Count 3.29 MIL/MM3 Hemoglobin 11.3 GM/DL Hematocrit 32.2 % Mean Corpuscular Volume 97.7 FL Mean Corpuscular Hemoglobin 34.2 PG Mean Corpuscular Hemoglobin Concent 35.0 % Red Cell Distribution Width 12.3 % Platelet Count 223 TH/MM3 Mean Platelet Volume 7.6 FL Neutrophils (%) (Auto) 54.4 % Lymphocytes (%) (Auto) 26.5 % Monocytes (%) (Auto) 16.0 % Eosinophils (%) (Auto) 2.2 % Basophils (%) (Auto) 0.9 % Neutrophils # (Auto) 3.8 TH/MM3 Lymphocytes # (Auto) 1.9 TH/MM3 Monocytes # (Auto) 1.1 TH/MM3 Eosinophils # (Auto) 0.2 TH/MM3 Basophils # (Auto) 0.1 TH/MM3 CBC Comment DIFF FINAL Differential Comment (Simon Baird) Medical Decision Making Impression and Plan Impression: 1. Right MCA distribution CVA with relatively mild right temporal lobe hemorrhagic component without significant mass effect. Status post TPA and M1 clot extraction. 2. Hypertension 3. 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 Recent history of lung lesion-status post biopsy-nondiagnostic Patient w/intermittent hypertension. He remains neurologically stable w/o any significant change in his examination. He does say sensation is normal although that is suspect. CT brain demonstrated evolving right MCA infarct with minimal mass effect w/o haemorrhage or significant progression. CTA brain demonstrated congregational of flow on the right as well as the evolving right MCA infarct. Reviewed labs for this morning. Haemoglobin stable. Physical & Occupational Therapy recommends inpatient rehab for further therapy. Plan: Primary management per District [employer]. Neuro check. Stat CT brain for any worsening in neuro status. Neurology following. Maintain SBP w/i 120 to 160 mm Hg. Continue 2% hypertonic saline IVF and maintain sodium w/i 145 to 155. Okay for antiplatelet agents. Mechanical DVT prophylaxis. Mobilise patient w/assistance. Physical & Occupational Therapy. Patient is able to be transferred to telemetry floor from Neurosurgery's perspective. (Simon Baird) Attending Statement The exam, history, and the medical decision-making described in the above note were completed with the assistance of the mid-level provider. I reviewed and agree with the findings presented. I attest that I had a [id number] encounter with the patient on the same day, and personally performed and documented my assessment and findings in the medical record. On my examination 07/03/2017 the patient remains awake and relatively alert Persistent mild dysarthria Persistent left hemiparesis, not unchanged from examination of 07/01/2017 and 2017. Labs reviewed Maintain sodium within normal limits No neurosurgical intervention anticipated. (Tino De La Torre MD) Simon Baird Jul 03, 2017 08:52 Tino De La Torre MD Jul 03, 2017 18:56
[2017-07-03] MEDS ORDERED: amLODIPine BESYLATE 5 MG TAB PO SCH (09:00)
--- NOTE | 2017-07-03 10:47 | HHI.CCPN ---
Subjective Remarks/Hospital Course 57-year-old male who presented to [facility] emergency department as a stroke alert. He states that he developed left hemiparesis. He was last seen normal at 5 PM. He had right sided gaze preference. He was not on antiplatelet or anticoagulant therapy. CT brain showed hyperdense right MCA extending to M1 and M2 branch. CT angiogram demonstrated right ICA thrombus extending to the carotid bifurcation. There is high-grade stenosis of the right vertebral. 50% stenosis of left ICA. He was given systemic TPA and was transferred from [facility] to [facility] in [facility] where he was taken to invasive radiology and underwent successful extraction of M1 thrombus by Dr. Jarrett. 06/29: Persistent L hemiparesis. 06/28 ct brain showed mild right temporal ICH. Neurosurgery consulted. Follow-up CT of the head in a.m, Check stat PT/INR, fibrinogen. Target BP <160/100 06/30: CT of the head today shows resolution of the hemorrhage but cytotoxic edema the right frontal lobe with local mass effect. Currently on 2% saline at 30 mL per hour sodium remains at 135, I have increased 2% to 60 mL per hour 07/01: Neuro exam remains unchanged, CT/CTA ordered by Dr. De La Torre. If no bleed need to start antiplatelet therapy, Na remain at 135, will increase 2% saline to 90 ml per hour, and add NaCL tablos 1GM q8. If not improving will attempt single dose tolvaptan 07/02: Neurologically stabilized. Continues to have left facial droop, dysarthria , left gaze preference. Left upper and lower extremity weakness/sensory deficit. Currently tolerating diet. Blood pressure needs better control. Subjective 07/03: Blood pressure remains quite labile. Switch metoprolol to carvedilol today. noted GWEN adverse reaction with cough so will discontinue scheduled lisinopril. Remains in ICU due to 2% saline sodium chloride tablets 2 g 3 times a day Objective Vital Signs Date Time Temp Pulse Resp B/P (MAP) Pulse Ox O2 Delivery O2 Flow Rate FiO2 07/03/17 08:52 97 21 07/03/17 06:00 75 07/03/17 04:00 99.0 20 174/86 (115) 07/02/17 19:00 Room Air Intake and Output 2/02/0907/03/17 07/04/17 08:00 16:00 00:00 Intake Total 240 ml Output Total 1700 ml Balance -1460 ml Result Diagram: 07/03/17 0407 07/02/17 2224 Imaging Last Impressions Chest X-Ray 07/01/17 0600 Signed Impressions: Service Date/Time: Saturday, July 01, 2017 04:51 - CONCLUSION: Persistent left apical airspace opacity/mass. There is mild airspace opacity in the right midlung zone and left lower lung zone. Cliff Ortiz MD Neck CTA 07/01/17 0000 Signed Impressions: Service Date/Time: Saturday, July 01, 2017 12:14 - CONCLUSION: 1. Complete occlusion of the right internal carotid artery 2. 50-60%% stenosis involving the origin of the left internal carotid artery with 60-70%% stenosis just below the skull base. 3. Occlusion of both vertebral arteries at its origin with reconstitution of a dominant right vertebral artery as above Vish Jarrett MD Head CTA 07/01/17 0000 Signed Impressions: Service Date/Time: Saturday, July 01, 2017 12:14 - CONCLUSION: Jew of flow on the right. There is better flow in the posterior division and anterior division of the right middle cerebral artery. CT scan showing evolving infarct right middle cervical artery territory, anterior division. Norberto Camarena MD FACR Head CT 07/01/17 0000 Signed Impressions: Service Date/Time: Saturday, July 01, 2017 12:11 - CONCLUSION: Evolving MCA infarct on the right. Minimal mass effect without hemorrhage or significant progression. Norberto Camarena MD FACR Head Magnetic Resonance Angiography 06/28/17 0000 Signed Impressions: Service Date/Time: Wednesday, June 28, 2017 11:07 - CONCLUSION: 1. Complete occlusion of the right internal carotid artery. 2. Right middle cerebral artery is patent. Davian Alfonso MD Brain MRI 06/28/17 0000 Signed Impressions: Service Date/Time: Wednesday, June 28, 2017 11:07 - CONCLUSION: 1. Large right middle cerebral artery distribution infarct. Mild mass effect without midline shift. 2. No hemorrhage seen. Davian Alfonso MD Cerebral Arteriogram 06/27/17 3931 Signed Impressions: Service Date/Time: Tuesday, June 27, 2017 19:50 - CONCLUSION: Uncomplicated embolectomy of the right middle cerebral artery. High-grade stenosis of the carotid bifurcation greater than 70%%. Vish Jarrett MD Objective Remarks GENERAL: 57-year-old male currently sitting in chair on room air SKIN: Warm and dry well perfused HEAD: Atraumatic. Normocephalic. EYES: Pupils equal and round 3 mm and reactive to 2 mm bilaterally. No scleral icterus. ENT: No nasal bleeding or discharge. Mucous membranes pink and moist. NECK: Trachea midline. No JVD. CARDIOVASCULAR: RRR. S1, S2 no S4. No murmur RESPIRATORY: Clear to auscultation bilaterally without wheezes rales rhonchi GASTROINTESTINAL: Abdomen soft, non-tender, nondistended. Bowel sounds are present. MUSCULOSKELETAL: Extremities without clubbing, cyanosis, or edema. No obvious deformities. NEUROLOGICAL: Awake and alert. L facial droop. Left gaze preference. Strength 5/5 throughout right, following commands. L hemiparesis with 2-3/5 biceps/ triceps. Wiggles left toes to command. 3/5 ankle dorsiflexion and knee flexion. Speech is fluent with very minimal dysarthria. Decreased sensation left upper lower extremity A/P Assessment and Plan NEURO/PSYCH: Acute ischemic stroke, R MCA with extensive R ICA thrombus R frontal BG cytotoxic edema, with mild mass effect Mild hemorrhagic conversion of right temporal lobe Alcohol dependence (Quit 1 month prior to admission) Bilateral carotid artery stenosis right greater than left s/p systemic TPA, s/p successful M1 clot extraction by Dr. Jarrett. On 06/27 MRA neck shows complete right internal carotid occlusion Neurosurgery consulted for hemorrhagic conversion of right temporal lobe CT 06/30 showed resolution of hemorrhage, R frontal BG cytotoxic edema, with mild mass effect Repeat CT/CTA t 07/01 revealed evolving right MCA CVA. Right ICA stenosis. Left ICA 50-70% percent. Monitor neuro checks every hour in ISC Maintain blood pressure less than 160/100 Aspirin 81 mg p.o. daily okayed with neurology 2-D echo 06/29: Normal left ventricular size. Normal LV systolic function. LA mild -to-moderately dilated. No PFO Normal lipids, TSH Acetaminophen 650 mg's p.o. every 6 hours as needed for temperature greater than 100. Hydrocodone/acetaminophen 5/325 1 tablet every 4 hours as needed pain 1 through 5 Morphine sulfate 2 mg IV every 2 hours as needed pain 6 or 10 PT/OT/ST Thiamine 100 mg IV daily x5 days currently 100 mg p.o. 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 Plan for re- biopsy at a later point. Prior history of VATS for right empyema Prior Tobacco abuse Currently on room air Albuterol/ipratropium aerosols every 6 hours with albuterol aerosols every 2 hours. Dyspnea On pro-air inhaler at home [facility] Hypertension Resume metoprolol 50 mg twice daily and amlodipine 5 mg p.o. daily for hypertension Switch metoprolol to carvedilol 12.5 twice a day. Increase amlodipine to 10 mg daily. Add a clonidine 0.1 every 6 hours when necessary As needed labetalol for systolic blood pressure greater than 160 Started on atorvastatin 10 mg p.o. daily GI: C. difficile diarrhea Chopped meat diet Famotidine 20 mg twice daily for GI prophylaxis docusate senna/1 tablet twice daily for bowel regimen C. difficile +06/11/17. Patient states diarrhea has improved. He states he has completed 12 days of Flagyl 500 mg by mouth every 8 hours. Completed Flagyl 06/29/17. Speech therapy to evaluate dysphagia and dysarthria FEN/RENAL: Chronic hyponatremia Condom catheter is in place. Monitor intake and output. Monitor electrolytes. Replace as indicated per ICU replacement protocol. 2% saline to correct hyponatremia, due to frontal lobe edema and ICH Increase to 2% saline to 90 ml per hour. Sodium chloride 2 g 3 times a day Tolvaptan 15 mg x1 dose on 07/02. 7.5 mg 04/30 ID: C. difficile treatment as per above. Afebrile, no leukocytosis. HEME: Normocytic anemia Monitor CBC ENDO: Euglycemic. TSH normal. Hb A1c 5.7 PROPH: SCDs for DVT prophylaxis. Famotidine for stress ulcer prophylaxis. No chemical DVT prophylaxis due to ICH ACCESS: Peripheral IV Full code Level 2 follow-up Alfredito Caballero MD Jul 03, 2017 10:47
[2017-07-03] MEDS ORDERED: cloNIDine HCL 0.1 MG TAB PO PRN (11:00)
[2017-07-03] MEDS: ACETAMINOPHEN/HYDROcodone 325 MG/5 MG TAB PO PRN ×2 (16:26→20:44)
[2017-07-03] MEDS: SODIUM CHLORIDE 23.4% INJ 188 MEQ in SODIUM CHLOR 0.9% 1000 ML INJ 1,000 ML IV SCH ×2 (17:51→21:59)
[2017-07-03] MEDS: ATORVASTATIN 10 MG TAB PO SCH (20:44)
[2017-07-04] VITALS (19 sets, daily range): BP systolic 121–162; BP diastolic 60–79; PULSE 58–83; RESP 11–22; TEMP 97.6–98.5; O2SAT 96–100
[2017-07-04] MEDS: LABETALOL HCL 100 MG/20 ML VIAL IV PUSH PRN (00:21)
[2017-07-04] MEDS: RESP: ALBUTEROL 2.5 MG/IPRATROPIUM 0.5 MG NEB (SCH) INH ×2 (03:46→10:50)
[2017-07-04] MEDS: CHLORHEXIDINE GLUCONATE 2 % 1 PACK (2 CLOTHS) TOP SCH (04:00)
[2017-07-04] MEDS: SODIUM CHLORIDE 1 GRAM TAB PO SCH ×3 (05:15→21:39)
[2017-07-04 07:42] LABS: AUTOMATED NEUTROPHIL # 4.8 TH/MM3 (1.8-7.7); BASOPHIL # 0.1 TH/MM3 (0-0.2); BASOPHIL % 0.9 % (0.0-2.0); EOSINOPHIL # 0.2 TH/MM3 (0-0.4); EOSINOPHIL % 2.3 % (0.0-4.0); HEMATOCRIT 36.4 % (39.0-51.0); HEMOGLOBIN 12.7 GM/DL (13.0-17.0); LYMPH % 21.4 % (9.0-44.0); LYMPHOCYTE # 1.7 TH/MM3 (1.0-4.8); MEAN CELL VOLUME 98.1 FL (80.0-100.0); MEAN CORPUSCULAR HEMOGLOBIN 34.3 PG (27.0-34.0); MEAN PLATELET VOLUME 7.3 FL (7.0-11.0); MONOCYTE # 1.2 TH/MM3 (0-0.9); NEUT % 60.4 % (16.0-70.0); PLATELET COUNT 220 TH/MM3 (150-450); RED BLOOD COUNT 3.71 MIL/MM3 (4.50-5.90); RED CELL DISTRIBUTION WIDTH 12.3 % (11.6-17.2); WHITE BLOOD COUNT 7.9 TH/MM3 (4.0-11.0)
[2017-07-04 07:57] LABS: CALCIUM 8.4 MG/DL (8.5-10.1); CREATININE 0.61 MG/DL (0.60-1.30)
[2017-07-04] MEDS: ASPIRIN 81 MG CHEW TAB CHEW SCH (08:04)
[2017-07-04] MEDS: FAMOTIDINE 20 MG TAB PO SCH ×2 (08:05→21:39)
[2017-07-04] MEDS: SODIUM CHLORIDE 0.9% FLUSH 10 ML FLUSH IV FLUSH SCH ×2 (08:05→21:40)
[2017-07-04] MEDS: THIAMINE HCL 100 MG TAB PO SCH (08:05)
[2017-07-04] MEDS: CARVEDILOL 12.5 MG TAB PO SCH ×2 (08:05→21:40)
[2017-07-04] MEDS: DOCUSATE SODIUM 50 MG/SENNA 8.6 MG TAB PO SCH ×2 (08:06→21:39)
--- NOTE | 2017-07-04 08:47 | HHI.NSPN ---
(Simon Baird) History Chief Complaint: Left arm weakness (Simon Baird) Interval History 06/29: This 57-year-old male presented to the emergency room on 06/27/17 as a stroke alert with acute left hemiparesis. TPA administered. Admitted to the intensive surgical care unit. Has history of hypertension. 06/30: When seen this morning the patient is awake and alert. His is visiting with him. He states he still continues to have the weakness to the left side. He denies any headache, dizziness, confusion, difficulty with finding or understanding words. He had a repeat CT brain this morning which demonstrated resolution of the right temporal lobe haemorrhage. The patient's physical exam is weaker on the left than when seen last night. 07/01: The patient was asleep when seen but awoke to voice. He denies any headache at present but his said that he had a "brain freeze" headache last night. He does say that the left upper extremity remains weak and numb. A repeat CT brain demonstrated right frontal and right basal ganglia edema with mild local mass effect. There were no acute blood products noted. The patient's neuro exam was consistent with yesterday's except for decreased verbal responses. His did comment that the patient was more confused yesterday evening and now his gaze is up and to the right. 07/02: No complaint of headache, nausea. No diplopia or blurred vision. Persistent left hemiparesis. Complaints of left knee pain. 07/03: This morning the patient is awake and alert sitting up in bed watching TV with his . He says he is doing okay. He does say he hurts all over, that he feels tight. His does say his left knee has been bothering him the past couple days since working with Physical Therapy. He denied any headache, dizziness, or blurry or double vision. He denied any numbness or tingling to the extremities. He continues to have weakness to both upper extremities and the left lower extremity, and to a lesser extent the right lower. His muscle strength is without any significant change. 07/04: When seen this morning the patient was awake and eating breakfast and feeding himself. He denied any headache, dizziness, or double or blurry vision. He denied any extremity pain other than to the left knee. He endorsed numbness to the left lower extremity and weakness to both the left upper and left lower extremities. His neuro exam is without any significant change. (Simon Baird) Exam Results 07/02/17 07/02/17 07/03/17 07/03/17 07/04/17 07/04/17 06:00 18:00 06:00 18:00 06:00 18:00 Intake Total 360 ml 600 ml 240 ml 1847 ml Output Total 3100 ml 1700 ml 4700 ml Balance -2740 ml 600 ml -1460 ml -2853 ml Intake Oral 360 ml 600 ml 240 ml 700 ml IV Total 1147 ml Output Urine Total 3100 ml 1700 ml 4700 ml # Bowel Movements 0 0 3 Vital Signs Date Time Temp Pulse Resp B/P (MAP) Pulse Ox O2 Delivery O2 Flow Rate FiO2 07/04/17 06:00 58 07/04/17 04:00 98.2 60 18 132/71 (91) 96 07/04/17 04:00 60 07/04/17 02:00 66 07/04/17 00:00 98.5 68 18 162/78 (106) 98 07/04/17 00:00 68 07/03/17 22:00 73 07/03/17 20:00 99.6 70 18 141/71 (94) 98 07/03/17 20:00 70 07/03/17 19:00 97 Room Air 07/03/17 18:00 88 07/03/17 16:00 78 07/03/17 16:00 100.6 86 24 143/88 (106) 93 07/03/17 14:00 82 07/03/17 12:00 98.7 80 21 134/72 (92) 98 07/03/17 12:00 80 07/03/17 10:00 76 07/03/17 08:52 97 21 07/03/17 08:30 98 Room Air 07/03/17 08:00 74 07/03/17 08:00 99.0 74 19 169/83 (111) 98 07/03/17 07:06 87 07/03/17 06:00 75 07/03/17 04:00 99.0 72 20 174/86 (115) 99 07/03/17 04:00 82 07/03/17 02:00 70 07/03/17 00:00 70 07/03/17 00:00 97.9 72 20 161/80 (107) 97 07/02/17 20:00 101.5 86 20 175/90 (118) 99 07/02/17 19:53 98 21 07/02/17 19:00 98 Room Air 07/02/17 16:00 100.4 80 24 152/74 (100) 100 07/02/17 12:00 99.7 97 16 138/77 (97) 100 07/02/17 08:15 99 21 07/02/17 08:00 99.7 68 18 156/84 (108) 99 07/02/17 07:00 100 Room Air 07/02/17 06:00 89 07/02/17 04:00 80 07/02/17 04:00 99.0 79 19 136/77 (96) 99 07/02/17 02:00 71 07/02/17 00:22 95 07/02/17 00:00 76 07/02/17 00:00 98.7 76 20 160/90 (113) 99 07/01/17 22:00 82 07/01/17 20:00 89 07/01/17 20:00 99.1 89 18 172/65 (100) 98 07/01/17 19:00 100 Room Air 07/01/17 16:00 99.7 82 16 150/92 (111) 96 07/01/17 12:00 99.1 85 22 161/88 (112) 98 07/01/17 09:54 100 21 (Simon Baird) Physical Examination GENERAL: Awake and alert in bed eating breakfast and feeding himself. Interacts but readily distracted and requires coaxing. Affect flat. No evident distress. HEENT: Normocephalic, atraumatic, left-sided facial droop. PERRLA 3mm brisk, EOMI. MMM & pink, tongue protrudes to slightly to left. MUSCULOSKELETAL: Left knee TTP o/w extremities NTTP. No evident deformity or clubbing. NEUROLOGICAL: Awake and alert. Oriented to person, place, president & month but not year ( 1984 then 1988). Speech clear and somewhat slow, mild dysarthria. Apparent receptive aphasia. Follows most simple commands. Even though demonstrated still does not do some correctly. Spontaneous eye opening. PERRLA 3 mm brisk, EOMI. Does have right gaze preference. Left-side facial paresis. Tongue protrudes to the left. Weak left shoulder shrug. Sensation decreased to LLE o/w extremities intact to light touch. Strength to the major flexion & extension muscle groups is 4/5 to RUE; 4 to 4+/ 5 to RLE except for quadricep 2/5 today; 0 to 1/5 to LUE; and 2 to 3/5 to LLE. (Simon Baird) Lab, Micro, Other Results Laboratory Tests Test 07/01/17 16:04 07/01/17 22:59 07/02/17 07:51 07/02/17 22:24 Blood Urea Nitrogen 6 MG/DL 5 MG/DL 8 MG/DL Creatinine 0.73 MG/DL 0.70 MG/DL 0.66 MG/DL Random Glucose 99 MG/DL 112 MG/DL 102 MG/DL Total Protein 6.8 GM/DL 6.8 GM/DL 6.5 GM/DL Albumin 2.8 GM/DL 2.8 GM/DL 2.5 GM/DL Calcium Level 8.6 MG/DL 8.6 MG/DL 8.0 MG/DL Alkaline Phosphatase 40 U/L 40 U/L 41 U/L Aspartate Amino Transf (AST/SGOT) 27 U/L 25 U/L 26 U/L Alanine Aminotransferase (ALT/SGPT) 18 U/L 18 U/L 18 U/L Total Bilirubin 0.4 MG/DL 0.4 MG/DL 0.3 MG/DL Sodium Level 137 MEQ/L 140 MEQ/L 138 MEQ/L 140 MEQ/L Potassium Level 3.3 MEQ/L 3.5 MEQ/L 3.7 MEQ/L 3.7 MEQ/L Chloride Level 106 MEQ/L 109 MEQ/L 109 MEQ/L Carbon Dioxide Level 26.9 MEQ/L 24.8 MEQ/L 24.8 MEQ/L Anion Gap 4 MEQ/L 6 MEQ/L 6 MEQ/L Estimat Glomerular Filtration Rate 111 ML/MIN 116 ML/MIN 124 ML/MIN Phosphorus Level 2.4 MG/DL 3.4 MG/DL Magnesium Level 1.9 MG/DL 1.8 MG/DL Test 07/03/17 04:07 07/04/17 07:11 White Blood Count 7.0 TH/MM3 7.9 TH/MM3 Red Blood Count 3.29 MIL/MM3 3.71 MIL/MM3 Hemoglobin 11.3 GM/DL 12.7 GM/DL Hematocrit 32.2 % 36.4 % Mean Corpuscular Volume 97.7 FL 98.1 FL Mean Corpuscular Hemoglobin 34.2 PG 34.3 PG Mean Corpuscular Hemoglobin Concent 35.0 % 35.0 % Red Cell Distribution Width 12.3 % 12.3 % Platelet Count 223 TH/MM3 220 TH/MM3 Mean Platelet Volume 7.6 FL 7.3 FL Neutrophils (%) (Auto) 54.4 % 60.4 % Lymphocytes (%) (Auto) 26.5 % 21.4 % Monocytes (%) (Auto) 16.0 % 15.0 % Eosinophils (%) (Auto) 2.2 % 2.3 % Basophils (%) (Auto) 0.9 % 0.9 % Neutrophils # (Auto) 3.8 TH/MM3 4.8 TH/MM3 Lymphocytes # (Auto) 1.9 TH/MM3 1.7 TH/MM3 Monocytes # (Auto) 1.1 TH/MM3 1.2 TH/MM3 Eosinophils # (Auto) 0.2 TH/MM3 0.2 TH/MM3 Basophils # (Auto) 0.1 TH/MM3 0.1 TH/MM3 CBC Comment DIFF FINAL DIFF FINAL Differential Comment Blood Urea Nitrogen 6 MG/DL Creatinine 0.61 MG/DL Random Glucose 88 MG/DL Calcium Level 8.4 MG/DL Phosphorus Level 3.0 MG/DL Magnesium Level 2.0 MG/DL Sodium Level 136 MEQ/L Potassium Level 3.5 MEQ/L Chloride Level 104 MEQ/L Carbon Dioxide Level 26.0 MEQ/L Anion Gap 6 MEQ/L Estimat Glomerular Filtration Rate 136 ML/MIN (Simon Baird) Medical Decision Making Impression and Plan Impression: 1. Right MCA distribution CVA with relatively mild right temporal lobe hemorrhagic component without significant mass effect. Status post TPA and M1 clot extraction. 2. Hypertension 3. 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 Recent history of lung lesion-status post biopsy-nondiagnostic Patient remains stable neurologically w/o any significant change in his examination. Intermittently hypertensive, T max 100.6 yesterday afternoon. Reviewed labs for today. Interval improvement in haemoglobin. Sodium 136. CT brain demonstrated evolving right MCA infarct with minimal mass effect w/o haemorrhage or significant progression. CTA brain demonstrated rastafarian of flow on the right as well as the evolving right MCA infarct. Physical & Occupational Therapy recommends inpatient rehab for further therapy. Speech Therapy recommends further therapy at discharge. Plan: Primary management per [employer] Laboratory Assistant. Neuro check. Stat CT brain for any worsening in neuro status. Neurology following. Maintain SBP w/i 120 to 160 mm Hg. Continue 2% hypertonic saline IVF and maintain sodium w/i 145 to 155. Okay for antiplatelet agents. Mechanical DVT prophylaxis. Mobilise patient w/assistance. Physical & Occupational Therapy. No indication for neurosurgical intervention. Patient is able to be discharged for transferred to inpatient rehab from Neurosurgery's perspective when medically indicated. (Simon Baird) Attending Statement The exam, history, and the medical decision-making described in the above note were completed with the assistance of the mid-level provider. I reviewed and agree with the findings presented. I attest that I had a [id number] encounter with the patient on the same day, and personally performed and documented my assessment and findings in the medical record. On my examination today the patient's mental status and extremity motor function main stable compared to the past couple of days. He has been a little more lethargic over night and this morning, but did get hydrocodone for pain. He otherwise is responding appropriately to questions and following commands well. His who is at bedside does not notice any significant increased confusion, states that he has more oriented and appropriate today. He still has significant left knee pain. This is likely related to increased spasticity in the left lower extremity with mild left knee flexion contracture. Plan to check a left knee x-ray to make some that there is no significant degenerative disease, began baclofen for increased spasticity. (Tino De La Torre MD) Simon Baird Jul 04, 2017 08:47 Tino De La Torre MD Jul 04, 2017 11:46
[2017-07-04] MEDS ORDERED: POTASSIUM CHLORIDE 20 MEQ PWD PACKET PO ONE (11:15)
--- NOTE | 2017-07-04 11:25 | HHI.CCPN ---
Subjective Remarks/Hospital Course 57-year-old male who presented to [facility] emergency department as a stroke alert. He states that he developed left hemiparesis. He was last seen normal at 5 PM. He had right sided gaze preference. He was not on antiplatelet or anticoagulant therapy. CT brain showed hyperdense right MCA extending to M1 and M2 branch. CT angiogram demonstrated right ICA thrombus extending to the carotid bifurcation. There is high-grade stenosis of the right vertebral. 50% stenosis of left ICA. He was given systemic TPA and was transferred from [facility] [place] [facility] [place] [facility] where he was taken to invasive radiology and underwent successful extraction of M1 thrombus by Dr. Jarrett. 06/29: Persistent L hemiparesis. 06/28 ct brain showed mild right temporal ICH. Neurosurgery consulted. Follow-up CT of the head in a.m, Check stat PT/INR, fibrinogen. Target BP <160/100 06/30: CT of the head today shows resolution of the hemorrhage but cytotoxic edema the right frontal lobe with local mass effect. Currently on 2% saline at 30 mL per hour sodium remains at 135, I have increased 2% to 60 mL per hour 07/01: Neuro exam remains unchanged, CT/CTA ordered by Dr. De La Torre. If no bleed need to start antiplatelet therapy, Na remain at 135, will increase 2% saline to 90 ml per hour, and add NaCL tablos 1GM q8. If not improving will attempt single dose tolvaptan 07/02: Neurologically stabilized. Continues to have left facial droop, dysarthria , left gaze preference. Left upper and lower extremity weakness/sensory deficit. Currently tolerating diet. Blood pressure needs better control. 07/03: Blood pressure remains quite labile. Switch metoprolol to carvedilol today. noted GWEN adverse reaction with cough so will discontinue scheduled lisinopril. Remains in ICU due to 2% saline sodium chloride tablets 2 g 3 times a day Subjective 07/04: Afebrile. On room air. Received labetalol and clonidine overnight for elevated blood pressure. Sodium sodium is 137. Will hold 2% saline today. Hyponatremia workup pending. Serial sodiums Objective Vital Signs Date Time Temp Pulse Resp B/P (MAP) Pulse Ox O2 Delivery O2 Flow Rate FiO2 07/04/17 09:00 80 22 130/63 (85) 99 07/04/17 08:00 Room Air 07/04/17 08:00 97.6 07/03/17 08:52 21 Intake and Output 07/04/17 07/04/17 07/05/17 08:00 16:00 00:00 Intake Total 400 ml Output Total 2100 ml Balance -1700 ml Result Diagram: 07/04/17 0711 07/04/17 0711 Other Results Microbiology Date/Time Source Procedure Growth Status 07/04/17 07:11 Blood Peripheral Aerobic Blood Culture Pending Received 07/04/17 07:11 Blood Peripheral Anaerobic Blood Culture Pending Received Imaging Last Impressions Chest X-Ray 07/01/17 0600 Signed Impressions: Service Date/Time: Saturday, July 01, 2017 04:51 - CONCLUSION: Persistent left apical airspace opacity/mass. There is mild airspace opacity in the right midlung zone and left lower lung zone. Cliff Ortiz MD Neck CTA 07/01/17 0000 Signed Impressions: Service Date/Time: Saturday, July 01, 2017 12:14 - CONCLUSION: 1. Complete occlusion of the right internal carotid artery 2. 50-60%% stenosis involving the origin of the left internal carotid artery with 60-70%% stenosis just below the skull base. 3. Occlusion of both vertebral arteries at its origin with reconstitution of a dominant right vertebral artery as above Vish Jarrett MD Head CTA 07/01/17 0000 Signed Impressions: Service Date/Time: Saturday, July 01, 2017 12:14 - CONCLUSION: Baptist of flow on the right. There is better flow in the posterior division and anterior division of the right middle cerebral artery. CT scan showing evolving infarct right middle cervical artery territory, anterior division. Norberto Camarena MD FACR Head CT 07/01/17 0000 Signed Impressions: Service Date/Time: Saturday, July 01, 2017 12:11 - CONCLUSION: Evolving MCA infarct on the right. Minimal mass effect without hemorrhage or significant progression. Norberto Camarena MD FACR Head Magnetic Resonance Angiography 06/28/17 0000 Signed Impressions: Service Date/Time: Wednesday, June 28, 2017 11:07 - CONCLUSION: 1. Complete occlusion of the right internal carotid artery. 2. Right middle cerebral artery is patent. Davian Alfonso MD Brain MRI 06/28/17 0000 Signed Impressions: Service Date/Time: Wednesday, June 28, 2017 11:07 - CONCLUSION: 1. Large right middle cerebral artery distribution infarct. Mild mass effect without midline shift. 2. No hemorrhage seen. Davian Alfonso MD Cerebral Arteriogram [id number]/[id number] Signed Impressions: Service Date/Time: Tuesday, June 27, 2017 19:50 - CONCLUSION: Uncomplicated embolectomy of the right middle cerebral artery. High-grade stenosis of the carotid bifurcation greater than 70%%. Vish Jarrett MD Objective Remarks GENERAL: 57-year-old male currently resting in bed on room air SKIN: Warm and dry well perfused HEAD: Atraumatic. Normocephalic. EYES: Pupils equal and round 3 mm and reactive to 2 mm bilaterally. No scleral icterus. ENT: No nasal bleeding or discharge. Mucous membranes pink and moist. NECK: Trachea midline. No JVD. CARDIOVASCULAR: RRR. S1, S2 no S4. No murmur RESPIRATORY: Clear to auscultation bilaterally without wheezes rales rhonchi GASTROINTESTINAL: Abdomen soft, non-tender, nondistended. Bowel sounds are present. MUSCULOSKELETAL: Extremities without clubbing, cyanosis, or edema. No obvious deformities. NEUROLOGICAL: Awake and alert. L facial droop. Left gaze preference. Strength 5/5 throughout right, following commands. L hemiparesis with 2-3/5 biceps/ triceps. Wiggles left toes to command. 3/5 ankle dorsiflexion and knee flexion. Speech is fluent with very minimal dysarthria. Decreased sensation left upper lower extremity A/P Assessment and Plan NEURO/PSYCH: Acute ischemic stroke, R MCA with extensive R ICA thrombus R frontal BG cytotoxic edema, with mild mass effect Mild hemorrhagic conversion of right temporal lobe Alcohol dependence (Quit 1 month prior to admission) Bilateral carotid artery stenosis right greater than left s/p systemic TPA, s/p successful M1 clot extraction by Dr. Jarrett. On 06/27 MRA neck shows complete right internal carotid occlusion Neurosurgery consulted for hemorrhagic conversion of right temporal lobe CT 06/30 showed resolution of hemorrhage, R frontal BG cytotoxic edema, with mild mass effect Repeat CT/CTA t 07/01 revealed evolving right MCA CVA. Right ICA stenosis. Left ICA 50-70% percent. Monitor neuro checks every hour in ISC Maintain blood pressure less than 160/100 Aspirin 81 mg p.o. daily okayed with neurology 2-D echo 06/29: Normal left ventricular size. Normal LV systolic function. LA mild -to-moderately dilated. No PFO Normal lipids, TSH Acetaminophen 650 mg's p.o. every 6 hours as needed for temperature greater than 100. Hydrocodone/acetaminophen 5/325 1 tablet every 4 hours as needed pain 1 through 5 Morphine sulfate 2 mg IV every 2 hours as needed pain 6 or 10 PT/OT/ST Thiamine 100 mg IV daily x5 days currently 100 mg p.o. daily 2% saline to correct hyponatremia, previously 90 mL an hour. Will hold today. Tolvaptan 15 mg x1 dose on 07/03. 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 Plan for re- biopsy at a later point. Prior history of VATS for right empyema Prior Tobacco abuse Currently on room air albuterol aerosols every 2 hours. As needed dyspnea On pro-air inhaler at home [facility] Hypertension Resume metoprolol 50 mg twice daily and amlodipine 5 mg p.o. daily for hypertension Switch metoprolol to carvedilol 25 mg twice a day. Increase amlodipine to 10 mg daily. Add a clonidine 0.1 every 6 hours when necessary As needed labetalol for systolic blood pressure greater than 160 Started on atorvastatin 10 mg p.o. daily GI: C. difficile diarrhea Chopped meat diet Famotidine 20 mg twice daily for GI prophylaxis docusate senna/1 tablet twice daily for bowel regimen C. difficile +06/11/17. Patient states diarrhea has improved. He states he has completed 12 days of Flagyl 500 mg by mouth every 8 hours. Completed Flagyl 06/29/17. Speech therapy to evaluate dysphagia and dysarthria FEN/RENAL: Chronic hyponatremia Condom catheter is in place. Monitor intake and output. Monitor electrolytes. Replace as indicated per ICU replacement protocol. Previously on 2% saline to correct hyponatremia, due to frontal lobe edema and ICH Today we will hold 2% saline previously 90 ml per hour. Sodium chloride 2 g 3 times a day Tolvaptan 15 mg x1 dose on 07/02. 7.5 mg 04/30 Check serum/urine osm, urine sodium, uric acid and cortisol. TSH 1.86 . Triglycerides 83. ID: C. difficile treatment as per above. Afebrile, no leukocytosis. HEME: Normocytic anemia Monitor CBC ENDO: Euglycemic. TSH 1.86. Hb A1c 5.7 PROPH: SCDs for DVT prophylaxis. Famotidine for stress ulcer prophylaxis. No chemical DVT prophylaxis due to ICH ACCESS: Peripheral IV Full code Level 2 follow-up Alfredito Caballero MD Jul 04, 2017 11:25
[2017-07-04] MEDS: BACLOFEN 10 MG TAB PO SCH ×2 (13:26→21:39)
[2017-07-04 13:56] LABS: SODIUM,RANDOM URINE 222 MEQ/L
[2017-07-04 14:29] LABS: OSMOLALITY,URINE 516 MOSM/KG (300-1300)
[2017-07-04 15:25] LABS: CORTISOL 14.7 MCG/DL
--- NOTE | 2017-07-04 16:58 | RADRPT ---
EXAM DATE/TIME: 07/04/2017 14:26 [place] COMPARISON: No previous studies available for comparison. INDICATIONS : Left knee pain and contraction post CVA 1 week ago. MEDICAL HISTORY : Stroke. Hypertension. Cardiovascular disease SURGICAL HISTORY : None. ENCOUNTER: Initial ACUITY: 1 week PAIN SCORE: 9/10 LOCATION: Left knee. FINDINGS: Two view examination of the left knee demonstrates no evidence of fracture or dislocation. Bony mine ralization is normal. The suprapatellar soft tissues have a normal configuration. Prominent vascula r calcifications in the posterior thigh and calf. CONCLUSION: No evidence of recent bony injury. Alcides Cardenas MD on July 04, 2017 at 16:55 Board Certified Radiologist. This report was verified electronically.
[2017-07-04] MEDS: ACETAMINOPHEN/HYDROcodone 325 MG/5 MG TAB PO PRN (20:15)
[2017-07-04] MEDS: ATORVASTATIN 10 MG TAB PO SCH (21:40)
[2017-07-04 22:59] LABS: CALCIUM 8.8 MG/DL (8.5-10.1); CREATININE 0.65 MG/DL (0.60-1.30)
[2017-07-04 23:01] LABS: PHOSPHORUS 3.9 MG/DL (2.5-4.9)
[2017-07-05] VITALS (12 sets, daily range): BP systolic 119–151; BP diastolic 56–81; PULSE 58–74; RESP 16–25; TEMP 98.4–99.4; O2SAT 95–100
[2017-07-05] MEDS: CHLORHEXIDINE GLUCONATE 2 % 1 PACK (2 CLOTHS) TOP SCH ×2 (04:00→20:06)
[2017-07-05] MEDS: BACLOFEN 10 MG TAB PO SCH ×3 (05:44→20:25)
[2017-07-05] MEDS: SODIUM CHLORIDE 1 GRAM TAB PO SCH ×3 (05:44→20:25)
[2017-07-05 07:16] LABS: HEMATOCRIT 34.8 % (39.0-51.0); HEMOGLOBIN 12.3 GM/DL (13.0-17.0); MEAN CELL VOLUME 96.8 FL (80.0-100.0); MEAN CORPUSCULAR HEMOGLOBIN 34.2 PG (27.0-34.0); MEAN CORPUSCULAR HGB CONC 35.4 % (32.0-36.0); MEAN PLATELET VOLUME 7.8 FL (7.0-11.0); PLATELET COUNT 258 TH/MM3 (150-450); RED CELL DISTRIBUTION WIDTH 12.2 % (11.6-17.2); WHITE BLOOD COUNT 7.7 TH/MM3 (4.0-11.0)
[2017-07-05] MEDS: ACETAMINOPHEN/HYDROcodone 325 MG/5 MG TAB PO PRN ×2 (07:51→20:17)
[2017-07-05] MEDS: DOCUSATE SODIUM 50 MG/SENNA 8.6 MG TAB PO SCH ×3 (08:13→20:07)
[2017-07-05] MEDS: THIAMINE HCL 100 MG TAB PO SCH (08:13)
[2017-07-05] MEDS: ASPIRIN 81 MG CHEW TAB CHEW SCH (08:13)
[2017-07-05] MEDS: FAMOTIDINE 20 MG TAB PO SCH ×2 (08:13→20:18)
[2017-07-05] MEDS: CARVEDILOL 12.5 MG TAB PO SCH ×2 (08:13→20:17)
[2017-07-05] MEDS: SODIUM CHLORIDE 0.9% FLUSH 10 ML FLUSH IV FLUSH SCH ×2 (08:13→20:18)
--- NOTE | 2017-07-05 09:45 | HHI.NSPN ---
(Simon Baird) History Chief Complaint: Left arm weakness (Simon Baird) Interval History 06/29: This 57-year-old male presented to the emergency room on 06/27/17 as a stroke alert with acute left hemiparesis. TPA administered. Admitted to the intensive surgical care unit. Has history of hypertension. 06/30: When seen this morning the patient is awake and alert. His is visiting with him. He states he still continues to have the weakness to the left side. He denies any headache, dizziness, confusion, difficulty with finding or understanding words. He had a repeat CT brain this morning which demonstrated resolution of the right temporal lobe haemorrhage. The patient's physical exam is weaker on the left than when seen last night. 07/01: The patient was asleep when seen but awoke to voice. He denies any headache at present but his said that he had a "brain freeze" headache last night. He does say that the left upper extremity remains weak and numb. A repeat CT brain demonstrated right frontal and right basal ganglia edema with mild local mass effect. There were no acute blood products noted. The patient's neuro exam was consistent with yesterday's except for decreased verbal responses. His did comment that the patient was more confused yesterday evening and now his gaze is up and to the right. 07/02: No complaint of headache, nausea. No diplopia or blurred vision. Persistent left hemiparesis. Complaints of left knee pain. 07/03: This morning the patient is awake and alert sitting up in bed watching TV with his . He says he is doing okay. He does say he hurts all over, that he feels tight. His does say his left knee has been bothering him the past couple days since working with Physical Therapy. He denied any headache, dizziness, or blurry or double vision. He denied any numbness or tingling to the extremities. He continues to have weakness to both upper extremities and the left lower extremity, and to a lesser extent the right lower. His muscle strength is without any significant change. 07/04: When seen this morning the patient was awake and eating breakfast and feeding himself. He denied any headache, dizziness, or double or blurry vision. He denied any extremity pain other than to the left knee. He endorsed numbness to the left lower extremity and weakness to both the left upper and left lower extremities. His neuro exam is without any significant change. 07/05: The patient is awake and alert in bed this morning. He says he is doing alright. He denied any headache, dizziness, or double or blurry vision. He does say the pain to his left knee is better otherwise he had no pain to the extremities. He denied any numbness or tingling to the extremities. He does say that he is not able to move the left side extremities. His muscle strength is decreased throughout today but it is difficult to ascertain how much is a true decrease versus apathy. (Simon Baird) Exam Results 07/03/17 07/03/17 07/04/17 07/04/17 07/05/17 07/05/17 06:00 18:00 06:00 18:00 06:00 18:00 Intake Total 240 ml 1847 ml 1547 ml Output Total 1700 ml 4700 ml 1445 ml 2200 ml 75 ml Balance -1460 ml -2853 ml 102 ml -2200 ml -75 ml Intake Oral 240 ml 700 ml 600 ml IV Total 1147 ml 947 ml Output Urine Total 1700 ml 4700 ml 1445 ml 2200 ml 75 ml # Bowel Movements 0 3 0 Vital Signs Date Time Temp Pulse Resp B/P (MAP) Pulse Ox O2 Delivery O2 Flow Rate FiO2 07/05/17 09:02 20 07/05/17 08:00 98.7 58 16 119/56 (77) 100 07/05/17 08:00 62 07/05/17 07:30 99 Room Air 07/05/17 06:01 74 07/05/17 04:00 69 07/05/17 04:00 98.5 67 22 151/81 (104) 96 07/05/17 02:08 69 07/05/17 00:10 98.5 69 16 150/70 (96) 95 07/05/17 00:10 69 07/04/17 22:00 76 07/04/17 20:00 76 07/04/17 20:00 99 Room Air 07/04/17 20:00 98.5 76 17 144/68 (93) 98 07/04/17 18:00 83 07/04/17 17:00 64 15 121/62 (81) 98 07/04/17 16:00 76 07/04/17 16:00 98.3 76 17 135/62 (86) 99 07/04/17 15:00 74 20 132/66 (88) 99 07/04/17 14:00 78 19 137/64 (88) 97 07/04/17 14:00 78 07/04/17 13:00 82 22 97 07/04/17 12:00 98.0 64 11 97 07/04/17 12:00 64 07/04/17 11:00 74 16 134/60 (84) 98 07/04/17 10:00 76 07/04/17 10:00 76 22 100 07/04/17 09:00 80 22 130/63 (85) 99 07/04/17 08:00 99 Room Air 07/04/17 08:00 97.6 74 15 156/77 (103) 100 07/04/17 08:00 74 07/04/17 07:05 99 21 07/04/17 07:00 62 17 152/79 (103) 100 07/04/17 06:00 58 07/04/17 04:00 98.2 60 18 132/71 (91) 96 07/04/17 04:00 60 07/04/17 02:00 66 07/04/17 00:00 98.5 68 18 162/78 (106) 98 07/04/17 00:00 68 07/03/17 22:00 73 07/03/17 20:00 99.6 70 18 141/71 (94) 98 07/03/17 20:00 70 07/03/17 19:00 97 Room Air 07/03/17 18:00 88 07/03/17 16:00 78 07/03/17 16:00 100.6 86 24 143/88 (106) 93 07/03/17 14:00 82 07/03/17 12:00 98.7 80 21 134/72 (92) 98 07/03/17 12:00 80 07/03/17 10:00 76 07/03/17 08:52 97 21 07/03/17 08:30 98 Room Air 07/03/17 08:00 74 07/03/17 08:00 99.0 74 19 169/83 (111) 98 07/03/17 07:06 87 07/03/17 06:00 75 07/03/17 04:00 99.0 72 20 174/86 (115) 99 07/03/17 04:00 82 07/03/17 02:00 70 07/03/17 00:00 70 07/03/17 00:00 97.9 72 20 161/80 (107) 97 07/02/17 20:00 101.5 86 20 175/90 (118) 99 07/02/17 19:53 98 21 07/02/17 19:00 98 Room Air 07/02/17 16:00 100.4 80 24 152/74 (100) 100 07/02/17 12:00 99.7 97 16 138/77 (97) 100 (Simon Baird) Physical Examination GENERAL: Awake and alert in bed. Interacts, still distracted but doesn't require as much coaxing. Affect flat. No evident distress. HEENT: Normocephalic, atraumatic, left-sided facial droop. PERRLA 3mm brisk, EOMI. MMM & pink, tongue protrudes to left. MUSCULOSKELETAL: Left knee mildly TTP o/w extremities NTTP, unable to straighten extremity. No evident deformity or clubbing. NEUROLOGICAL: Awake and alert. Oriented to person, place, president & month but not year. Speech clear and somewhat slow, mild dysarthria. Follows most simple commands. Even though demonstrated still does not follow some commands correctly. Spontaneous eye opening. PERRLA 3 mm brisk, EOMI. Does have right gaze preference. Left-side facial paresis. Tongue protrudes to the left. Weak left shoulder shrug. Sensation intact to light touch to all extremities per patient. Muscle strength: LUE: 0/5 to all major flexion & extension muscle groups. RUE: 4 to 4+/5 to deltoid, 3/5 to biceps, 4 to 4+/5 to triceps, 5/5 to wrist flexors & extensors, 3/5 to hand intrinsics & extrinsics. LLE 0/5 to all major flexion & extension muscle groups. RLE: 4 to 4+/5 to iliopsoas, 4/5 to hamstring, 2/5 to quadricep, 4+ to anterior tibialis, 4/5 to gastrocnemius and 3+ to 4/5 to extensor hallucis longus. (Simon Baird) Lab, Micro, Other Results Recent Impressions Knee X-Ray 07/04/17 0000 Signed Impressions: Service Date/Time: Tuesday, July 04, 2017 14:26 - CONCLUSION: No evidence of recent bony injury. Alcides Cardenas MD Laboratory Tests Test 07/02/17 22:24 07/03/17 04:07 07/04/17 07:11 07/04/17 12:55 Blood Urea Nitrogen 8 MG/DL 6 MG/DL Creatinine 0.66 MG/DL 0.61 MG/DL Random Glucose 102 MG/DL 88 MG/DL Total Protein 6.5 GM/DL Albumin 2.5 GM/DL Calcium Level 8.0 MG/DL 8.4 MG/DL Phosphorus Level 3.4 MG/DL 3.0 MG/DL Magnesium Level 1.8 MG/DL 2.0 MG/DL Alkaline Phosphatase 41 U/L Aspartate Amino Transf (AST/SGOT) 26 U/L Alanine Aminotransferase (ALT/SGPT) 18 U/L Total Bilirubin 0.3 MG/DL Sodium Level 140 MEQ/L 136 MEQ/L Potassium Level 3.7 MEQ/L 3.5 MEQ/L Chloride Level 109 MEQ/L 104 MEQ/L Carbon Dioxide Level 24.8 MEQ/L 26.0 MEQ/L Anion Gap 6 MEQ/L 6 MEQ/L Estimat Glomerular Filtration Rate 124 ML/MIN 136 ML/MIN White Blood Count 7.0 TH/MM3 7.9 TH/MM3 Red Blood Count 3.29 MIL/MM3 3.71 MIL/MM3 Hemoglobin 11.3 GM/DL 12.7 GM/DL Hematocrit 32.2 % 36.4 % Mean Corpuscular Volume 97.7 FL 98.1 FL Mean Corpuscular Hemoglobin 34.2 PG 34.3 PG Mean Corpuscular Hemoglobin Concent 35.0 % 35.0 % Red Cell Distribution Width 12.3 % 12.3 % Platelet Count 223 TH/MM3 220 TH/MM3 Mean Platelet Volume 7.6 FL 7.3 FL Neutrophils (%) (Auto) 54.4 % 60.4 % Lymphocytes (%) (Auto) 26.5 % 21.4 % Monocytes (%) (Auto) 16.0 % 15.0 % Eosinophils (%) (Auto) 2.2 % 2.3 % Basophils (%) (Auto) 0.9 % 0.9 % Neutrophils # (Auto) 3.8 TH/MM3 4.8 TH/MM3 Lymphocytes # (Auto) 1.9 TH/MM3 1.7 TH/MM3 Monocytes # (Auto) 1.1 TH/MM3 1.2 TH/MM3 Eosinophils # (Auto) 0.2 TH/MM3 0.2 TH/MM3 Basophils # (Auto) 0.1 TH/MM3 0.1 TH/MM3 CBC Comment DIFF FINAL DIFF FINAL Differential Comment Uric Acid 1.9 MG/DL Urine Osmolality 516 MOSM/KG Urine Random Sodium 222 MEQ/L Test 07/04/17 14:20 07/04/17 20:07 07/05/17 06:03 Sodium Level 136 MEQ/L 134 MEQ/L Serum Osmolality 282 MOSM/KG Random Cortisol 14.7 MCG/DL Blood Urea Nitrogen 10 MG/DL Creatinine 0.65 MG/DL Random Glucose 101 MG/DL Calcium Level 8.8 MG/DL Phosphorus Level 3.9 MG/DL Magnesium Level 2.0 MG/DL Potassium Level 3.8 MEQ/L Chloride Level 99 MEQ/L Carbon Dioxide Level 27.0 MEQ/L Anion Gap 8 MEQ/L Estimat Glomerular Filtration Rate 127 ML/MIN White Blood Count 7.7 TH/MM3 Red Blood Count 3.60 MIL/MM3 Hemoglobin 12.3 GM/DL Hematocrit 34.8 % Mean Corpuscular Volume 96.8 FL Mean Corpuscular Hemoglobin 34.2 PG Mean Corpuscular Hemoglobin Concent 35.4 % Red Cell Distribution Width 12.2 % Platelet Count 258 TH/MM3 Mean Platelet Volume 7.8 FL (Simon Baird) Medical Decision Making Impression and Plan Impression: 1. Right MCA distribution CVA with relatively mild right temporal lobe hemorrhagic component without significant mass effect. Status post TPA and M1 clot extraction. 2. Hypertension 3. 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 Recent history of lung lesion-status post biopsy-nondiagnostic Patient w/decrease in muscle strength but it is difficult to determine if true or more r/t apathy. Afebrile past 24 hrs. Reviewed labs for today. Mild interval drop in haemoglobin. CT brain demonstrated evolving right MCA infarct with minimal mass effect w/o haemorrhage or significant progression. CTA brain demonstrated moravian of flow on the right as well as the evolving right MCA infarct. Physical & Occupational Therapy recommends inpatient rehab for further therapy. Speech Therapy recommends further therapy at discharge. Plan: Primary management per [employer]. Neuro check. Stat CT brain for any worsening in neuro status. Neurology following. Maintain SBP w/i 120 to 160 mm Hg. Continue 2% hypertonic saline IVF and maintain sodium w/i 145 to 155. Okay for antiplatelet agents. Mechanical DVT prophylaxis. Mobilise patient w/assistance. Physical & Occupational Therapy. No indication for neurosurgical intervention. (Simon Baird) Attending Statement The exam, history, and the medical decision-making described in the above note were completed with the assistance of the mid-level provider. I reviewed and agree with the findings presented. I attest that I had a [id number] encounter with the patient on the same day, and personally performed and documented my assessment and findings in the medical record. On my examination this evening the patient is awake and alert. His is in the room with him. He seems to have a mild left visual field deficit but somewhat difficult to accurately determine with visual testing to confrontation. His extraocular movements are conjugate He continues to have left facial paresis with tongue protruding to the left. Sensation is mildly diminished to light touch left hand. He has absent strength in the left distal upper extremity including hand intrinsics. He has mostly/5 strength left lower extremity. Significant contraction of the left hamstrings with left lower extremity movement. This seems to be creating the left knee pain. His left knee x-ray did not report any significant abnormalities. Plan to increase the baclofen to 10 mg 3 times a day. The hydrocodone seems to be making him sleepy and we will decrease the dose to 2.5 mg for mild pain, 5 mg 4 more significant pain. Sodium is 133 this evening with the patient off of the hypertonic saline drip. Continuing sodium 2 g by mouth every 8 hours. He is stable for transfer to floor from neurosurgical standpoint Follow-up sodium level (Tino De La Torre MD) Simon Baird Jul 05, 2017 09:45 Tino De La Torre MD Jul 05, 2017 20:17
[2017-07-05] MEDS: ACETAMINOPHEN 325 MG TAB PO PRN (17:28)
--- NOTE | 2017-07-05 17:54 | HHI.CCPN ---
Subjective Remarks/Hospital Course 57-year-old male who presented to [facility] emergency department as a stroke alert. He states that he developed left hemiparesis. He was last seen normal at 5 PM. He had right sided gaze preference. He was not on antiplatelet or anticoagulant therapy. CT brain showed hyperdense right MCA extending to M1 and M2 branch. CT angiogram demonstrated right ICA thrombus extending to the carotid bifurcation. There is high-grade stenosis of the right vertebral. 50% stenosis of left ICA. He was given systemic TPA and was transferred from [facility] to [facility] in [facility] where he was taken to invasive radiology and underwent successful extraction of M1 thrombus by Dr. Jarrett. 06/29: Persistent L hemiparesis. 06/28 ct brain showed mild right temporal ICH. Neurosurgery consulted. Follow-up CT of the head in a.m, Check stat PT/INR, fibrinogen. Target BP <160/100 06/30: CT of the head today shows resolution of the hemorrhage but cytotoxic edema the right frontal lobe with local mass effect. Currently on 2% saline at 30 mL per hour sodium remains at 135, I have increased 2% to 60 mL per hour 07/01: Neuro exam remains unchanged, CT/CTA ordered by Dr. De La Torre. If no bleed need to start antiplatelet therapy, Na remain at 135, will increase 2% saline to 90 ml per hour, and add NaCL tablos 1GM q8. If not improving will attempt single dose tolvaptan 07/02: Neurologically stabilized. Continues to have left facial droop, dysarthria , left gaze preference. Left upper and lower extremity weakness/sensory deficit. Currently tolerating diet. Blood pressure needs better control. 07/03: Blood pressure remains quite labile. Switch metoprolol to carvedilol today. noted GWEN adverse reaction with cough so will discontinue scheduled lisinopril. Remains in ICU due to 2% saline sodium chloride tablets 2 g 3 times a day Subjective 07/04: Afebrile. On room air. Received labetalol and clonidine overnight for elevated blood pressure. Sodium sodium is 137. Will hold 2% saline today. Hyponatremia workup pending. Serial sodiums 07/05: sodiums stable. neuro exam stable. room air. denies any complaints. stable for transfer to floor. Objective Vital Signs Date Time Temp Pulse Resp B/P (MAP) Pulse Ox O2 Delivery O2 Flow Rate FiO2 07/05/17 16:00 72 07/05/17 16:00 98.4 20 131/67 (88) 99 07/05/17 07:30 Room Air 07/04/17 07:05 21 Intake and Output 07/05/17 07/05/17 07/06/17 08:00 16:00 00:00 Output Total 2275 ml Balance -2275 ml Result Diagram: 07/05/1760207/04/172006 Imaging Last Impressions Chest X-Ray 07/01/17 06 Signed Impressions: Service Date/Time: Saturday, July 01, 2017 04:51 - CONCLUSION: Persistent left apical airspace opacity/mass. There is mild airspace opacity in the right midlung zone and left lower lung zone. Cliff Ortiz MD Neck CTA 07/01/17 0000 Signed Impressions: Service Date/Time: Saturday, July 01, 2017 12:14 - CONCLUSION: 1. Complete occlusion of the right internal carotid artery 2. 50-60%% stenosis involving the origin of the left internal carotid artery with 60-70%% stenosis just below the skull base. 3. Occlusion of both vertebral arteries at its origin with reconstitution of a dominant right vertebral artery as above Vish Jarrett MD Head CTA 07/01/17 0000 Signed Impressions: Service Date/Time: Saturday, July 01, 2017 12:14 - CONCLUSION: Hoahaoism of flow on the right. There is better flow in the posterior division and anterior division of the right middle cerebral artery. CT scan showing evolving infarct right middle cervical artery territory, anterior division. Norberto Camarena MD FACR Head CT 07/01/17 0000 Signed Impressions: Service Date/Time: Saturday, July 01, 2017 12:11 - CONCLUSION: Evolving MCA infarct on the right. Minimal mass effect without hemorrhage or significant progression. Norberto Camarena MD FACR Head Magnetic Resonance Angiography 06/28/17 0000 Signed Impressions: Service Date/Time: Wednesday, June 28, 2017 11:07 - CONCLUSION: 1. Complete occlusion of the right internal carotid artery. 2. Right middle cerebral artery is patent. Davian Alfonso MD Brain MRI 06/28/17 0000 Signed Impressions: Service Date/Time: Wednesday, June 28, 2017 11:07 - CONCLUSION: 1. Large right middle cerebral artery distribution infarct. Mild mass effect without midline shift. 2. No hemorrhage seen. Davian Alfonso MD Cerebral Arteriogram 06/27/[id number] Signed Impressions: Service Date/Time: Tuesday, June 27, 2017 19:50 - CONCLUSION: Uncomplicated embolectomy of the right middle cerebral artery. High-grade stenosis of the carotid bifurcation greater than 70%%. Vish Jarrett MD Objective Remarks GENERAL: 57-year-old male currently resting in bed on room air SKIN: Warm and dry well perfused HEAD: Atraumatic. Normocephalic. EYES: Pupils equal and round 3 mm and reactive to 2 mm bilaterally. No scleral icterus. ENT: No nasal bleeding or discharge. Mucous membranes pink and moist. NECK: Trachea midline. No JVD. CARDIOVASCULAR: RRR. RESPIRATORY: unlabored. equal chest rise. GASTROINTESTINAL: Abdomen soft, non-tender, nondistended. MUSCULOSKELETAL: Extremities without clubbing, cyanosis, or edema. No obvious deformities. NEUROLOGICAL: Awake and alert. L facial droop. Left gaze preference. Strength 5/5 throughout right, following commands. L hemiparesis with 2-3/5 biceps/ triceps. Wiggles left toes to command. 3/5 ankle dorsiflexion and knee flexion. Speech is fluent with very minimal dysarthria. Decreased sensation left upper lower extremity A/P Problem List: (1) Acute ischemic right MCA stroke ICD Code: I63.511 - Cerebral infarction due to unspecified occlusion or stenosis of right middle cerebral artery Status: Acute (2) HTN (hypertension) ICD Code: I10 - Essential (primary) hypertension Status: Chronic (3) Tobacco abuse ICD Code: Z72.0 - Tobacco use Status: Chronic (4) C. difficile diarrhea ICD Code: A04.72 - Enterocolitis due to Clostridium difficile, not specified as recurrent Status: Acute (5) Hypertension ICD Code: I10 - Essential (primary) hypertension Status: Chronic (6) Carotid artery disease ICD Code: I77.9 - Disorder of arteries and arterioles, unspecified (7) Chronic hyponatremia ICD Code: E87.1 - Hypo-osmolality and hyponatremia Assessment and Plan NEURO/PSYCH: Acute ischemic stroke, R MCA with extensive R ICA thrombus R frontal BG cytotoxic edema, with mild mass effect Mild hemorrhagic conversion of right temporal lobe Alcohol dependence (Quit 1 month prior to admission) Bilateral carotid artery stenosis right greater than left s/p systemic TPA, s/p successful M1 clot extraction by Dr. Jarrett. On 06/27 MRA neck shows complete right internal carotid occlusion Neurosurgery consulted for hemorrhagic conversion of right temporal lobe CT 06/30 showed resolution of hemorrhage, R frontal BG cytotoxic edema, with mild mass effect Repeat CT/CTA t 07/01 revealed evolving right MCA CVA. Right ICA stenosis. Left ICA 50-70% percent. Monitor neuro checks every hour in ISC Maintain blood pressure less than 160/100 Aspirin 81 mg p.o. daily okayed with neurology 2-D echo 06/29: Normal left ventricular size. Normal LV systolic function. LA mild -to-moderately dilated. No PFO Normal lipids, TSH Acetaminophen 650 mg's p.o. every 6 hours as needed for temperature greater than 100. Hydrocodone/acetaminophen 5/325 1 tablet every 4 hours as needed pain 1 through 5 Morphine sulfate 2 mg IV every 2 hours as needed pain 6 or 10 PT/OT/ST Thiamine 100 mg IV daily x5 days currently 100 mg p.o. daily s/p 2% saline. sodiums stable. Tolvaptan 15 mg x1 dose on 07/03. 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 Plan for re- biopsy at a later point. Prior history of VATS for right empyema Prior Tobacco abuse Currently on room air albuterol aerosols every 2 hours. As needed dyspnea On pro-air inhaler at home [facility] Hypertension Resume metoprolol 50 mg twice daily and amlodipine 5 mg p.o. daily for hypertension Switch metoprolol to carvedilol 25 mg twice a day. Increase amlodipine to 10 mg daily. Add a clonidine 0.1 every 6 hours when necessary As needed labetalol for systolic blood pressure greater than 160 Started on atorvastatin 10 mg p.o. daily GI: C. difficile diarrhea Chopped meat diet Famotidine 20 mg twice daily for GI prophylaxis docusate senna/1 tablet twice daily for bowel regimen C. difficile +06/11/17. Patient states diarrhea has improved. He states he has completed 12 days of Flagyl 500 mg by mouth every 8 hours. Completed Flagyl 06/29/17. Speech therapy to evaluate dysphagia and dysarthria FEN/RENAL: Chronic hyponatremia Condom catheter is in place. Monitor intake and output. Monitor electrolytes. Replace as indicated per ICU replacement protocol. Previously on 2% saline to correct hyponatremia, due to frontal lobe edema and ICH Today we will hold 2% saline previously 90 ml per hour. Sodium chloride 2 g 3 times a day Tolvaptan 15 mg x1 dose on 07/02. 7.5 mg 04/30 Check serum/urine osm, urine sodium, uric acid and cortisol. TSH 1.86 . Triglycerides 83. ID: C. difficile treatment as per above. Afebrile, no leukocytosis. HEME: Normocytic anemia Monitor CBC ENDO: Euglycemic. TSH 1.86. Hb A1c 5.7 PROPH: SCDs for DVT prophylaxis. Famotidine for stress ulcer prophylaxis. No chemical DVT prophylaxis due to ICH ACCESS: Peripheral IV Full code dispo: consult hostpitalist. stable for transfer to floor. Problem Qualifiers (1) HTN (hypertension): Qualified Codes: I10 - Essential (primary) hypertension Luis F Stein MD Jul 05, 2017 17:54
[2017-07-05] MEDS: ATORVASTATIN 10 MG TAB PO SCH (20:17)
[2017-07-05] MEDS ORDERED: ACETAMINOPHEN/HYDROcodone 325 MG/5 MG TAB PO PRN (20:30)
[2017-07-06] VITALS (10 sets, daily range): BP systolic 127–160; BP diastolic 67–74; PULSE 64–82; RESP 14–25; TEMP 97.1–98.7; O2SAT 96–98
[2017-07-06 05:34] LABS: HEMATOCRIT 32.9 % (39.0-51.0); HEMOGLOBIN 11.5 GM/DL (13.0-17.0); MEAN CELL VOLUME 97.3 FL (80.0-100.0); MEAN CORPUSCULAR HEMOGLOBIN 34.2 PG (27.0-34.0); MEAN CORPUSCULAR HGB CONC 35.1 % (32.0-36.0); MEAN PLATELET VOLUME 7.8 FL (7.0-11.0); PLATELET COUNT 250 TH/MM3 (150-450); RED BLOOD COUNT 3.38 MIL/MM3 (4.50-5.90); RED CELL DISTRIBUTION WIDTH 12.1 % (11.6-17.2); WHITE BLOOD COUNT 7.1 TH/MM3 (4.0-11.0)
[2017-07-06] MEDS: BACLOFEN 10 MG TAB PO SCH ×3 (05:44→21:21)
[2017-07-06] MEDS: SODIUM CHLORIDE 1 GRAM TAB PO SCH ×4 (05:44→21:21)
[2017-07-06 06:01] LABS: BICARBONATE 27.4 MEQ/L (21.0-32.0); CALCIUM 8.7 MG/DL (8.5-10.1); CREATININE 0.76 MG/DL (0.60-1.30)
--- NOTE | 2017-07-06 06:03 | PD.CONS ---
HPI Service Family Medicine Consult Requested By Primary Care Physician Vick Ortega MD History of Present Illness 57-year-old male with past history of hypertension, C. difficile presented [place] with left-sided hemiparesis, was treated with TPA and transferred to [facility] on 06/28/17. He is taken to invasive radiology and had successful extraction of M1 thrombus by Dr. Jarrett. While in hospital patient has had hyponatremia, and stabilization of his neurologic symptoms: Left-sided neuromuscular deficits. He was diagnosed with C. difficile on 06/11/17, played 12 day course of Flagyl on 06/29/17 and states he has not had diarrhea for the past few days however the last time he had diarrhea was described as due to cathartics. Today he states he has no nausea, vomiting, fever, chills, dull pain , chest pain, shortness of breath, headache, changes in vision. He does report some left-sided leg pain which he reports was x-rayed yesterday, knee x-ray, and was told it was negative. Other than left-sided weakness, no other complaints today. Review of Systems Constitutional: DENIES: Fatigue, Fever, Chills Endocrine: DENIES: Polydipsia, Polyuria Eyes: DENIES: Blurred vision, Diplopia, Eye inflammation, Eye pain, Vision loss , Photosensitivity, Double Vision Ears, nose, mouth, throat: DENIES: Tinnitus, Hearing loss, Running Nose, Epistaxis Respiratory: DENIES: Cough, Wheezing, Shortness of breath Cardiovascular: DENIES: Chest pain, Palpitations, Syncope Gastrointestinal: COMPLAINS OF: Diarrhea, DENIES: Abdominal pain, Black stools , Bloody stools, Constipation, Nausea, Vomiting Genitourinary: DENIES: Urgency, Dysuria Musculoskeletal: COMPLAINS OF: Stiffness, DENIES: Joint pain, Muscle aches Integumentary: DENIES: Abnormal pigmentation, Rash Hematologic/lymphatic: DENIES: Bruising, Lymphadenopathy Immunologic/allergic: DENIES: Eczema, Urticaria Neurologic: COMPLAINS OF: Localized weakness (Left sided), Paresthesias (Left sided), DENIES: Abnormal gait, Headache Psychiatric: DENIES: Anxiety, Confusion Past Family Social History Past Medical History PFSH obtained via EMR and verified with patient HTN C diff +06/11/17. He has been on treatment with Flagyl Past Surgical History CT guided biopsy left upper lobe lung mass 06/12/17 VATS with chest tube [address] Spencer for R empyema Allergies: Coded Allergies: lisinopril (Verified Adverse Reaction, Severe, cough, 07/03/17) *MDRO Multi-Drug Resistant Organism (Verified Adverse Reaction, Unknown, ) MRSA PCR positive 06/30/2015 MRSA (foot)-09/29/16 Family History He states his father is living at age 86 and has no known medical problems His mother is 86 years old and has Alzheimer's His he has had an uncle that has had a stroke Social History Smoked a pack of cigarettes/day for 40 years, quit 3 weeks ago. Drinks 6 pack of beer daily, quit 3 weeks Reportedly no illicit drug use Physical Exam Vital Signs Vital Signs Date Time Temp Pulse Resp B/P (MAP) Pulse Ox O2 Delivery O2 Flow Rate FiO2 07/06/17 02:00 64 07/06/17 00:00 98.7 68 20 138/67 (90) 97 07/06/17 00:00 68 07/05/17 22:00 66 07/05/17 21:17 19 07/05/17 20:00 74 07/05/17 20:00 99.4 74 19 119/68 (85) 96 07/05/17 19:00 95 Room Air 07/05/17 18:32 20 07/05/17 18:00 70 07/05/17 16:00 72 07/05/17 16:00 98.4 68 20 131/67 (88) 99 07/05/17 14:00 73 07/05/17 12:00 62 07/05/17 12:00 98.6 62 25 124/75 (91) 98 07/05/17 10:00 72 07/05/17 08:00 98.7 58 16 119/56 (77) 100 07/05/17 08:00 62 07/05/17 07:30 99 Room Air Physical Exam GENERAL: This is a well-nourished, well-developed patient, with right preference. SKIN: No rashes, ecchymoses or lesions. Cool and dry. HEAD: Atraumatic. Normocephalic. No temporal or scalp tenderness. EYES: Pupils equal round and reactive. Extraocular motions intact. No scleral icterus. No injection or drainage. ENT: Nose without bleeding, purulent drainage or septal hematoma. Throat without erythema, tonsillar hypertrophy or exudate. Uvula midline. Airway patent. NECK: Trachea midline. No JVD or lymphadenopathy. Supple, nontender, no meningeal signs. CARDIOVASCULAR: Regular rate and rhythm without murmurs, gallops, or rubs. RESPIRATORY: Clear to auscultation. Breath sounds equal bilaterally. No wheezes , rales, or rhonchi. GASTROINTESTINAL: Abdomen soft, non-tender, nondistended. No hepato-splenomegaly , or palpable masses. No guarding. MUSCULOSKELETAL: Extremities without clubbing, cyanosis, or edema. No joint tenderness, effusion, or edema noted. No calf tenderness. Negative Homans sign bilaterally. NEUROLOGICAL: Awake and alert. Preferential right-sided gaze, left-sided facial droop, able to raise both eyebrows, decreased shoulder shrug on left side. Five out of 5 muscle strength on right side, 0/5 in left leg, 0/5 in left biceps. 1/ 5 in left triceps with muscle flicker. Fluent speech. Laboratory Laboratory Tests Test 07/05/17 18:35 07/06/17 04:20 Sodium Level 133 136 White Blood Count 7.1 Red Blood Count 3.38 Hemoglobin 11.5 Hematocrit 32.9 Mean Corpuscular Volume 97.3 Mean Corpuscular Hemoglobin 34.2 Mean Corpuscular Hemoglobin Concent 35.1 Red Cell Distribution Width 12.1 Platelet Count 250 Mean Platelet Volume 7.8 Blood Urea Nitrogen 12 Creatinine 0.76 Random Glucose 87 Calcium Level 8.7 Potassium Level 3.9 Chloride Level 101 Carbon Dioxide Level 27.4 Anion Gap 8 Estimat Glomerular Filtration Rate 106 Date/Time Source Procedure Growth Status 07/04/17 11:00 Blood Peripheral Aerobic Blood Culture - Preliminary NO GROWTH IN 1 DAY Resulted 07/04/17 11:00 Blood Peripheral Anaerobic Blood Culture - Preliminary NO GROWTH IN 1 DAY Resulted Result Diagram: 07/06/1741907/06/17419 Imaging Last Impressions Knee X-Ray 07/04/17 0000 Signed Impressions: Service Date/Time: Tuesday, July 04, 2017 14:26 - CONCLUSION: No evidence of recent bony injury. Alcides Cardenas MD Chest X-Ray 07/01/17 0600 Signed Impressions: Service Date/Time: Saturday, July 01, 2017 04:51 - CONCLUSION: Persistent left apical airspace opacity/mass. There is mild airspace opacity in the right midlung zone and left lower lung zone. Cliff Ortiz MD Neck CTA 07/01/17 0000 Signed Impressions: Service Date/Time: Saturday, July 01, 2017 12:14 - CONCLUSION: 1. Complete occlusion of the right internal carotid artery 2. 50-60%% stenosis involving the origin of the left internal carotid artery with 60-70%% stenosis just below the skull base. 3. Occlusion of both vertebral arteries at its origin with reconstitution of a dominant right vertebral artery as above Vish Jarrett MD Head CTA 07/01/17 0000 Signed Impressions: Service Date/Time: Saturday, July 01, 2017 12:14 - CONCLUSION: [employer] of flow on the right. There is better flow in the posterior division and anterior division of the right middle cerebral artery. CT scan showing evolving infarct right middle cervical artery territory, anterior division. Norberto Camarena MD FACR Head CT 07/01/17 0000 Signed Impressions: Service Date/Time: Saturday, July 01, 2017 12:11 - CONCLUSION: Evolving MCA infarct on the right. Minimal mass effect without hemorrhage or significant progression. Norberto Camarena MD FACR Head Magnetic Resonance Angiography 06/28/17 0000 Signed Impressions: Service Date/Time: Wednesday, June 28, 2017 11:07 - CONCLUSION: 1. Complete occlusion of the right internal carotid artery. 2. Right middle cerebral artery is patent. Davian Alfonso MD Brain MRI 06/28/17 0000 Signed Impressions: Service Date/Time: Wednesday, June 28, 2017 11:07 - CONCLUSION: 1. Large right middle cerebral artery distribution infarct. Mild mass effect without midline shift. 2. No hemorrhage seen. Davian Alfonso MD Cerebral Arteriogram 06/27/172138 Signed Impressions: Service Date/Time: Tuesday, June 27, 2017 19:50 - CONCLUSION: Uncomplicated embolectomy of the right middle cerebral artery. High-grade stenosis of the carotid bifurcation greater than 70%%. Vish Jarrett MD Assessment and Plan Assessment and Plan 57-year-old male with recent right MCA stroke, S/p M1 thrombus extraction and TPA administration. Currently neurologically stable, recently treated for C. difficile. Problem List: (1) CVA (cerebral vascular accident) ICD Codes: I63.9 - Cerebral infarction, unspecified Status: Acute Plan: 57-year-old male with recent right MCA stroke, S/p M1 thrombus extraction and TPA administration. Currently neurologically stable. Currently as per last critical care note: s/p systemic TPA, s/p successful M1 clot extraction by Dr. Jarrett. On 06/27 MRA neck shows complete right internal carotid occlusion Neurosurgery consulted for hemorrhagic conversion of right temporal lobe CT 06/30 showed resolution of hemorrhage, R frontal BG cytotoxic edema, with mild mass effect Repeat CT/CTA t 07/01 revealed evolving right MCA CVA. Right ICA stenosis. Left ICA 50-70% percent. Monitor neuro checks every hour in ISC Maintain blood pressure less than 160/100 Aspirin 81 mg p.o. daily okayed with neurology 2-D echo 06/29: Normal left ventricular size. Normal LV systolic function. LA mild -to-moderately dilated. No PFO Normal lipids, TSH Acetaminophen 650 mg's p.o. every 6 hours as needed for temperature greater than 100. Hydrocodone/acetaminophen 5/325 1 tablet every 4 hours as needed pain 1 through 5 Morphine sulfate 2 mg IV every 2 hours as needed pain 6 or 10 PT/OT/ST Thiamine 100 mg IV daily x5 days currently 100 mg p.o. daily s/p 2% saline. sodiums stable. Tolvaptan 15 mg x1 dose on 07/03. (2) Left knee pain ICD Codes: M25.562 - Pain in left knee Plan: Complaints of left knee pain for several days, improving. Knee X-Ray negative. -Monitor for change (3) C. difficile diarrhea ICD Codes: A04.72 - Enterocolitis due to Clostridium difficile, not specified as recurrent Status: Acute Plan: Diagnosed with C. difficile on 06/11/17, diarrhea has improved, completed 12th day course of Flagyl 500 mg by mouth every 8 hours 06/29/17. -Monitor for recurrence (4) Chronic hyponatremia ICD Codes: E87.1 - Hypo-osmolality and hyponatremia Plan: Minimum sodium this visit 131 on 06/27/17. Currently 136. Was previously on 2% saline to correct hyponatremia, received 2 g sodium chloride 3 times a day. Told wrapped in 15 mg 1 dose and 2/8 -Monitor and correct as needed (5) HTN (hypertension) ICD Codes: I10 - Essential (primary) hypertension Status: Chronic Plan: History of hypertension. Neurosurgery currently maintaining SBP within 120-160 mmHg. Currently on Coreg 25 mg every 12 hours, amlodipine 10 g daily, clonidine 0.1 every 6 hours as needed. -Will follow neurosurgical recommendations, currently SBP within 120-160 mmHg -Current regimen as noted above (6) FEN/DVT PPX/GI PPX/Nursing Orders Plan: Fluids: -2% saline held 07/04 Electrolytes: - Managing hyponatremia, monitor and replete other electrolytes as needed Nutrition: - Regular diet, Seen by speech path on 07/03/17 PPx: GI:Famotidine DVT: contraindicated 06/26 CVA Problem Qualifiers (1) CVA (cerebral vascular accident): Qualified Codes: I63.511 - Cerebral infarction due to unspecified occlusion or stenosis of right middle cerebral artery (2) HTN (hypertension): Qualified Codes: I10 - Essential (primary) hypertension Anatoliy Porras MD R1 Jul 06, 2017 06:03
--- NOTE | 2017-07-06 08:12 | HHI.PR ---
Review/Management Diagnosis/Plan: (1) Acute ischemic right MCA stroke ICD Codes: I63.511 - Cerebral infarction due to unspecified occlusion or stenosis of right middle cerebral artery Status: Acute Plan: s/p iv tpa, IR rt mca embolectomy day 10 large rt mca stroke 2/2 rt ica/mca clot risk factor: tob use, htn mri brain- large rt mca stroke mra brain- rt ica occluded; rt mca recanalized 06/28 ct brain- mild rt temporal/insular ich transformation 06/30 ct brain stable 07/01 ct brain stable no ICH na nml on baclofen 10mg tid- helping with spasticity recs neuro stable rehab/escudero placement today from neurology appreciate CCM team d/w pt/spouse (2) HTN (hypertension) ICD Codes: I10 - Essential (primary) hypertension Status: Chronic Plan: bp good range post-stroke (3) Tobacco abuse ICD Codes: Z72.0 - Tobacco use Status: Chronic Plan: quit 4 weeks ago Subjective Subjective Comments No acute events reported No headache No chest pain No dyspnea Active Medications Current Medications Medications (Trade) Dose Ordered Sig/Thea Route Start Time Stop Time Status Last Admin (NS Flush) 2 ml UNSCH PRN IV FLUSH 06/27/17 23:00 (NS Flush) 2 ml BID IV FLUSH 06/28/17 09:00 07/05/17 20:18 (Pepcid) 20 mg Q12HR PO 06/28/17 09:00 07/05/17 20:18 (Zofran Inj) 4 mg Q6H PRN IV PUSH 06/27/17 23:00 (Albuterol Neb) 2.5 mg Q2HR NEB PRN INH 06/27/17 23:00 Miscellaneous Information 1 Q361D XX 06/27/17 23:00 (Chlorhexidine 2% Cloth) Taper DAILY@04 TOP 06/28/17 04:00 06/24/18 03:59 (Chlorhexidine 2% Cloth) 3 pack UNSCH PRN TOP 06/27/17 23:00 (Milk Of Magnesia Liq) 30 ml Q12H PRN PO 06/27/17 23:00 (Senokot) 17.2 mg Q12H PRN PO 06/27/17 23:00 (Dulcolax Supp) 10 mg DAILY PRN RECTAL 06/27/17 23:00 (Lactulose Liq) 30 ml DAILY PRN PO 06/27/17 23:00 (Trandate Inj) 20 mg Q4H PRN IV PUSH 06/29/17 11:00 07/04/17 00:21 (Aspirin Chew) 81 mg DAILY CHEW 07/01/17 14:15 07/05/17 08:13 Potassium Chloride 100 ml @ 50 mls/hr Q2H PRN IV 07/01/17 18:15 Potassium Chloride 100 ml @ 50 mls/hr Q2H PRN IV 07/01/17 18:15 (K-Lyte Cl Eff) 50 meq UNSCH PRN PO 07/01/17 18:15 07/01/17 18:14 Potassium Chloride 100 ml @ 25 mls/hr UNSCH PRN IV 07/01/17 18:15 Potassium Chloride 100 ml @ 50 mls/hr Q2H PRN IV 07/01/17 18:15 Magnesium Sulfate 4 gm/Sodium Chloride 100 ml @ 50 mls/hr UNSCH PRN IV 07/01/17 18:15 (Mag-Ox) 800 mg UNSCH PRN PO 07/01/17 18:15 Magnesium Sulfate 2 gm/Sodium Chloride 100 ml @ 50 mls/hr UNSCH PRN IV 07/01/17 18:15 (K-Phos) 2,000 mg Q4H PRN PO 07/01/17 18:15 Sodium Phosphate 30 mmol/Sodium Chloride 250 ml @ 42 mls/hr UNSCH PRN IV 07/01/17 18:15 (K-Phos) 2,000 mg UNSCH PRN PO/TUBE 07/01/17 18:15 Potassium Phosphate 30 mmol/ Sodium Chloride 260 ml @ 42 mls/hr UNSCH PRN IV 07/01/17 18:15 (Vitamin B1) 100 mg DAILY PO 07/03/17 09:00 07/05/17 08:13 (Tylenol) 650 mg Q6H PRN PO 07/02/17 17:00 07/05/17 17:28 ([place] 5-325 Mg) 1 tab Q4H PRN PO 07/02/17 17:00 07/05/17 20:17 (Morphine Inj) 2 mg Q2H PRN IV 07/02/17 19:00 (Janie-Colace) 1 tab BID PO 07/02/17 21:00 07/04/17 21:39 (Lipitor) 10 mg HS PO 07/02/17 21:00 07/05/17 20:17 (Norvasc) 10 mg DAILY PO 07/03/17 09:00 07/05/17 08:13 (Catapres) 0.1 mg Q6H PRN PO 07/03/17 11:00 07/04/17 01:42 (Coreg) 25 mg Q12HR PO 07/04/17 21:00 07/05/17 20:17 (Lioresal) 10 mg Q8HR PO 07/05/17 22:00 07/06/17 05:44 ([place] 5-325 Mg) 0.5 tab Q6H PRN PO 07/05/17 20:30 (Sodium Chloride) 3 gm Q8HR PO 07/06/17 06:00 Allergies Allergies Coded Allergies lisinopril (Verified Adverse Reaction, Severe, cough, 07/03/17) *MDRO Multi-Drug Resistant Organism (Verified Adverse Reaction, Unknown, ) Review of Systems All other ROS: ROS reviewed as documented in chart Exam I&O / VS Vital Signs Date Time Temp Pulse Resp B/P (MAP) Pulse Ox O2 Delivery O2 Flow Rate FiO2 07/06/17 04:00 72 07/06/17 04:00 98.7 72 25 139/74 (95) 97 07/06/17 02:00 64 07/06/17 00:00 98.7 68 20 138/67 (90) 97 07/06/17 00:00 68 07/05/17 22:00 66 07/05/17 21:17 19 07/05/17 20:00 74 07/05/17 20:00 99.4 74 19 119/68 (85) 96 07/05/17 19:00 95 Room Air 07/05/17 18:32 20 07/05/17 18:00 70 07/05/17 16:00 72 07/05/17 16:00 98.4 68 20 131/67 (88) 99 07/05/17 14:00 73 07/05/17 12:00 62 07/05/17 12:00 98.6 62 25 124/75 (91) 98 07/05/17 10:00 72 General: Alert and Oriented, No acute distress Exam Comments alert, ox 3, follows, recognizes , minimal dysarthria, less gaze preference , left facial weakness, left HH, left hemiparesis with spasticity type ue/le, leg 2-3/5, left hemisensory nihss 15 Objective Micro and Labs Laboratory Tests Test 07/05/17 18:35 07/06/17 04:20 Sodium Level 133 136 White Blood Count 7.1 Red Blood Count 3.38 Hemoglobin 11.5 Hematocrit 32.9 Mean Corpuscular Volume 97.3 Mean Corpuscular Hemoglobin 34.2 Mean Corpuscular Hemoglobin Concent 35.1 Red Cell Distribution Width 12.1 Platelet Count 250 Mean Platelet Volume 7.8 Blood Urea Nitrogen 12 Creatinine 0.76 Random Glucose 87 Calcium Level 8.7 Potassium Level 3.9 Chloride Level 101 Carbon Dioxide Level 27.4 Anion Gap 8 Estimat Glomerular Filtration Rate 106 Date/Time Source Procedure Growth Status 07/04/17 11:00 Blood Peripheral Aerobic Blood Culture - Preliminary NO GROWTH IN 1 DAY Resulted 07/04/17 11:00 Blood Peripheral Anaerobic Blood Culture - Preliminary NO GROWTH IN 1 DAY Resulted Problem Qualifiers (1) HTN (hypertension): Qualified Codes: I10 - Essential (primary) hypertension Ha Carpenter MD Jul 06, 2017 08:12
[2017-07-06] MEDS: ASPIRIN 81 MG CHEW TAB CHEW SCH (08:31)
[2017-07-06] MEDS: THIAMINE HCL 100 MG TAB PO SCH (08:31)
[2017-07-06] MEDS: CARVEDILOL 12.5 MG TAB PO SCH ×2 (08:32→21:20)
[2017-07-06] MEDS: SODIUM CHLORIDE 0.9% FLUSH 10 ML FLUSH IV FLUSH SCH ×2 (08:32→21:20)
[2017-07-06] MEDS: FAMOTIDINE 20 MG TAB PO SCH ×2 (08:32→21:20)
[2017-07-06] MEDS: DOCUSATE SODIUM 50 MG/SENNA 8.6 MG TAB PO SCH ×2 (08:32→21:00)
[2017-07-06] MEDS: ACETAMINOPHEN 325 MG TAB PO PRN (08:32)
--- NOTE | 2017-07-06 09:32 | HHI.NSPN ---
History Chief Complaint: Left arm weakness Interval History Interval History 06/29: This 57-year-old male presented to the emergency room on 06/27/17 as a stroke alert with acute left hemiparesis. TPA administered. Admitted to the intensive surgical care unit. Has history of hypertension. 06/30: When seen this morning the patient is awake and alert. His is visiting with him. He states he still continues to have the weakness to the left side. He denies any headache, dizziness, confusion, difficulty with finding or understanding words. He had a repeat CT brain this morning which demonstrated resolution of the right temporal lobe haemorrhage. The patient's physical exam is weaker on the left than when seen last night. 07/01: The patient was asleep when seen but awoke to voice. He denies any headache at present but his said that he had a "brain freeze" headache last night. He does say that the left upper extremity remains weak and numb. A repeat CT brain demonstrated right frontal and right basal ganglia edema with mild local mass effect. There were no acute blood products noted. The patient's neuro exam was consistent with yesterday's except for decreased verbal responses. His did comment that the patient was more confused yesterday evening and now his gaze is up and to the right. 07/02: No complaint of headache, nausea. No diplopia or blurred vision. Persistent left hemiparesis. Complaints of left knee pain. 07/03: This morning the patient is awake and alert sitting up in bed watching TV with his . He says he is doing okay. He does say he hurts all over, that he feels tight. His does say his left knee has been bothering him the past couple days since working with Physical Therapy. He denied any headache, dizziness, or blurry or double vision. He denied any numbness or tingling to the extremities. He continues to have weakness to both upper extremities and the left lower extremity, and to a lesser extent the right lower. His muscle strength is without any significant change. 07/04: When seen this morning the patient was awake and eating breakfast and feeding himself. He denied any headache, dizziness, or double or blurry vision. He denied any extremity pain other than to the left knee. He endorsed numbness to the left lower extremity and weakness to both the left upper and left lower extremities. His neuro exam is without any significant change. 07/05: The patient is awake and alert in bed this morning. He says he is doing alright. He denied any headache, dizziness, or double or blurry vision. He does say the pain to his left knee is better otherwise he had no pain to the extremities. He denied any numbness or tingling to the extremities. He does say that he is not able to move the left side extremities. His muscle strength is decreased throughout today but it is difficult to ascertain how much is a true decrease versus apathy. 07/06: Remains awake and relatively alert. No significant neurologic changes. Sodium 136 today. Persistent left knee pain with contracture. Exam Results Vital Signs Date Time Temp Pulse Resp B/P (MAP) Pulse Ox O2 Delivery O2 Flow Rate FiO2 07/06/17 04:00 72 07/06/17 04:00 98.7 25 139/74 (95) 97 07/05/17 19:00 Room Air 07/04/17 07:05 21 Intake and Output 07/06/17 07/06/17 07/06/17 07:59 15:59 23:59 Intake Total 200 ml Output Total 1200 ml Balance -1000 ml Physical Examination GENERAL: Awake and alert in bed. A little more attentive HEENT: Normocephalic, atraumatic, left-sided facial droop. PERRLA 3mm brisk, EOMI. MMM & pink, tongue protrudes to left. MUSCULOSKELETAL: Left knee mildly TTP o/w extremities NTTP, unable to straighten extremity. No evident deformity or clubbing. NEUROLOGICAL: Awake and alert. Oriented to person, place, month Speech clear and somewhat slow, mild dysarthria. Follows most simple commands, occasional mild difficulty Spontaneous eye opening. PERRLA 3 mm brisk, EOMI. Does have right gaze preference. Left-side facial paresis. Tongue protrudes to the left. Weak left shoulder shrug. Sensation intact to light touch to all extremities per patient. Muscle strength: LUE: 0/5 to all major flexion & extension muscle groups. RUE: 4 to 4+/5 to deltoid, 3/5 to biceps, 4 to 4+/5 to triceps, 5/5 to wrist flexors & extensors, 3/5 to hand intrinsics & extrinsics. LLE 0/5 to all major flexion & extension muscle groups. RLE: 4 to 4+/5 to iliopsoas, 4/5 to hamstring, 2/5 to quadricep, 4+ to anterior tibialis, 4/5 to gastrocnemius and 3+ to 4/5 to extensor hallucis longus. Lab, Micro, Other Results Laboratory Tests Test 07/05/17 18:35 07/06/17 04:20 Sodium Level 133 MEQ/L 136 MEQ/L White Blood Count 7.1 TH/MM3 Red Blood Count 3.38 MIL/MM3 Hemoglobin 11.5 GM/DL Hematocrit 32.9 % Mean Corpuscular Volume 97.3 FL Mean Corpuscular Hemoglobin 34.2 PG Mean Corpuscular Hemoglobin Concent 35.1 % Red Cell Distribution Width 12.1 % Platelet Count 250 TH/MM3 Mean Platelet Volume 7.8 FL Blood Urea Nitrogen 12 MG/DL Creatinine 0.76 MG/DL Random Glucose 87 MG/DL Calcium Level 8.7 MG/DL Potassium Level 3.9 MEQ/L Chloride Level 101 MEQ/L Carbon Dioxide Level 27.4 MEQ/L Anion Gap 8 MEQ/L Estimat Glomerular Filtration Rate 106 ML/MIN Medical Decision Making Impression and Plan Impression: 1. Stable neurologic examination over the past few days. A little more attentive and alert in the past couple days. Follow-up CT angiogram 07/01/2017 without evidence of recurrent right internal carotid artery thrombus. No evidence of hemorrhagic conversion of the right MCA CVA on most recent CT scan of 07/01/2017. Plan: Plan follow-up CT of the brain on 07/07/17. If this is stable and he should be able to be transferred to regular floor. Discussed with rehabilitation nurse this morning He is on aspirin Continue to monitor sodium Continue therapy Tino De La Torre MD Jul 06, 2017 09:32
[2017-07-06] MEDS ORDERED: PERI PO (12:32)
[2017-07-06] MEDS ORDERED: FAMO20TA2 PO (12:32)
[2017-07-06] MEDS ORDERED: CARV12.5 PO (12:32)
[2017-07-06] MEDS ORDERED: AMLO10 PO (12:32)
[2017-07-06] MEDS ORDERED: HYDR-3516 PO (12:32)
[2017-07-06] MEDS ORDERED: SODI1TAB PO (12:32)
[2017-07-06] MEDS ORDERED: BACL10TA PO (12:32)
[2017-07-06] MEDS ORDERED: LIPI10TA PO (12:32)
[2017-07-06] MEDS ORDERED: CLON.1 PO (12:32)
[2017-07-06] MEDS ORDERED: THIA100 PO (12:32)
[2017-07-06] MEDS ORDERED: ASPI81 CHEW (12:32)
--- NOTE | 2017-07-06 12:35 | HHI.DCPOC ---
Discharge Care Plan Diagnosis: (1) Chronic alcohol use (2) HTN (hypertension) (3) CVA (cerebral vascular accident) (4) C. difficile diarrhea (5) Acute ischemic right MCA stroke (6) Left knee pain Goals to Promote Your Health * To prevent worsening of your condition and complications * To maintain your health at the optimal level Directions to Meet Your Goals Take your medications as prescribed Follow your dietary instruction Follow activity as directed Keep your appointments as scheduled Take your immunizations and boosters as scheduled If your symptoms worsen call your PCP, if no PCP go to Urgent Care Center or Emergency Room Smoking is Dangerous to Your Health. Avoid second hand smoke Call the 24-hour hour crisis hotline for domestic abuse at Gian Gamboa MD, R3 Jul 06, 2017 12:35
--- NOTE | 2017-07-06 12:36 | RADRPT ---
EXAM DATE/TIME: 07/06/2017 11:53 [place] COMPARISON: MRI BRAIN W/O CONTRAST, June 28, 2017, 11:07. CT BRAIN W/O CONTRAST, July 01, 2017, 12:11. INDICATIONS : Follow up stroke RADIATION DOSE: 37.99 CTDIvol (mGy) MEDICAL HISTORY : Hypertension. SURGICAL HISTORY : None. ENCOUNTER: Subsequent ACUITY: 2 weeks PAIN SCALE: 4/10 LOCATION: cranial TECHNIQUE: Multiple contiguous axial images were obtained of the head. Using automated exposure control and adj ustment of the mA and/or kV according to patient size, radiation dose was kept as low as reasonably a chievable to obtain optimal diagnostic quality images. DICOM format image data is available electro nically for review and comparison. FINDINGS: CEREBRUM: The ventricles are normal for age. Scattered low density areas in the right MCA territory characteris tic of stroke. Distribution is similar to the prior MRI. Regional soft tissue edema no significant mi dline shift. No extra-axial fluid collections are seen. POSTERIOR FOSSA: The cerebellum and brainstem are intact. The 4th ventricle is midline. The cerebellopontine angle i s unremarkable. EXTRACRANIAL: The visualized portion of the orbits is intact. SKULL: The calvaria is intact. No evidence of skull fracture. CONCLUSION: Right MCA stroke with regional soft tissue edema no midline shift or bleed. Thien Garza MD on July 06, 2017 at 12:31 Board Certified Radiologist. This report was verified electronically.
--- NOTE | 2017-07-06 12:37 | HHI.FPPN ---
Subjective Remarks No new concerns. Still with pain in left knee and lower back. No CP, SOB, headaches. Had BM yesterday. No abdominal pain. (Gian Gamboa MD, R3) Remarks Clarified with that left knee was held in flexion for the last few days. Today is in extended position. With simple placement of pillow under pt knee, patient indicates this resolves pain. The low back pain is chronic, patient has seen chiropractor in past (Yvrose Navarro MD) Objective Vitals Vital Signs Date Time Temp Pulse Resp B/P (MAP) Pulse Ox O2 Delivery O2 Flow Rate FiO2 07/06/17 09:47 20 07/06/17 04:00 72 07/06/17 04:00 98.7 72 25 139/74 (95) 97 07/06/17 02:00 64 07/06/17 00:00 98.7 68 20 138/67 (90) 97 07/06/17 00:00 68 07/05/17 22:00 66 07/05/17 21:17 19 07/05/17 20:00 74 07/05/17 20:00 99.4 74 19 119/68 (85) 96 07/05/17 19:00 95 Room Air 07/05/17 18:00 70 07/05/17 16:00 72 07/05/17 16:00 98.4 68 20 131/67 (88) 99 07/05/17 14:00 73 I/O 07/05/17 07/05/17 07/05/17 07/06/17 07/06/17 07/06/17 07:00 15:00 23:00 07:00 15:00 23:00 Intake Total 480 ml 200 ml Output Total 2275 ml 450 ml 1200 ml Balance -2275 ml 30 ml -1000 ml Intake Oral 480 ml 200 ml Output Urine Total 2275 ml 450 ml 1200 ml # Bowel Movements 0 (Gian Gamboa MD, R3) Result Diagram: 07/06/17 0420 07/06/17 0420 Imaging Last 72 hours Impressions Knee X-Ray 07/04/17 0000 Signed Impressions: Service Date/Time: Tuesday, July 04, 2017 14:26 - CONCLUSION: No evidence of recent bony injury. Alcides Cardenas MD Objective Remarks GENERAL: This is a well-nourished, well-developed patient, with right preference. SKIN: No rashes, ecchymoses or lesions. Cool and dry. HEAD: Atraumatic. Normocephalic. No temporal or scalp tenderness. EYES: Pupils equal round and reactive. Extraocular motions intact. No scleral icterus. No injection or drainage. ENT: Nose without bleeding, purulent drainage or septal hematoma. Throat without erythema, tonsillar hypertrophy or exudate. Uvula midline. Airway patent. NECK: Trachea midline. No JVD or lymphadenopathy. Supple, nontender, no meningeal signs. CARDIOVASCULAR: Regular rate and rhythm without murmurs, gallops, or rubs. RESPIRATORY: Clear to auscultation. Breath sounds equal bilaterally. No wheezes , rales, or rhonchi. GASTROINTESTINAL: Abdomen soft, non-tender, nondistended. No hepato-splenomegaly , or palpable masses. No guarding. MUSCULOSKELETAL: Extremities without clubbing, cyanosis, or edema. No joint tenderness, effusion, or edema noted. No calf tenderness. Negative Homans sign bilaterally. NEUROLOGICAL: Awake and alert. Preferential right-sided gaze, left-sided facial droop, able to raise both eyebrows, decreased shoulder shrug on left side. Five out of 5 muscle strength on right side, 0/5 in left leg, 0/5 in left biceps. 1/ 5 in left triceps with muscle flicker. Fluent speech. (Gian Gamboa MD, R3) Objective Remarks Left knee without effusion or tenderness to palpation. Well-healed scab inferior to patella. No surrounding erythema no drainage or discharge. Repositioning pillow under leg/knee resolved pain per patient (Yvrose Navarro MD) A/P Assessment and Plan 57-year-old male with recent right MCA stroke, S/p M1 thrombus extraction and TPA administration. Currently neurologically stable, recently treated for C. difficile. Discharge Planning To in-pt rehab today 07/06/2017. (Gian Gamboa MD, R3) Attending Attestation Patient seen and examined with Dr. Gamboa. Neurosurgery reviewed today's CT head. No reported change. Okay for d/c to inpt rehab, CM assisting. Agree with plan of care as discussed with me and documented in the resident note. (Yvrose Navarro MD) Problem List: (1) CVA (cerebral vascular accident) ICD Codes: I63.9 - Cerebral infarction, unspecified Status: Acute Plan: 57-year-old male with recent right MCA stroke, S/p M1 thrombus extraction and TPA administration. Currently neurologically stable. Currently as per last critical care note: s/p systemic TPA, s/p successful M1 clot extraction by Dr. Jarrett. On 06/27 MRA neck shows complete right internal carotid occlusion Neurosurgery consulted for hemorrhagic conversion of right temporal lobe CT 06/30 showed resolution of hemorrhage, R frontal BG cytotoxic edema, with mild mass effect Repeat CT/CTA t 07/01 revealed evolving right MCA CVA. Right ICA stenosis. Left ICA 50-70% percent. Monitor neuro checks every hour in [facility] Maintain blood pressure less than 160/100 Aspirin 81 mg p.o. daily okayed with neurology 2-D echo 06/29: Normal left ventricular size. Normal LV systolic function. LA mild -to-moderately dilated. No PFO Normal lipids, TSH Acetaminophen 650 mg's p.o. every 6 hours as needed for temperature greater than 100. Hydrocodone/acetaminophen 5/325 1 tablet every 4 hours as needed pain 1 through 5 Morphine sulfate 2 mg IV every 2 hours as needed pain 6 or 10 PT/OT/ST Thiamine 100 mg IV daily x5 days currently 100 mg p.o. daily s/p 2% saline. sodiums stable. Tolvaptan 15 mg x1 dose on 07/03. (2) Left knee pain ICD Codes: M25.562 - Pain in left knee Plan: Complaints of left knee pain for several days, improving. Knee X-Ray negative. -Monitor for change (3) C. difficile diarrhea ICD Codes: A04.72 - Enterocolitis due to Clostridium difficile, not specified as recurrent Status: Resolved Plan: Diagnosed with C. difficile on 06/11/17, diarrhea has improved, completed 12th day course of Flagyl 500 mg by mouth every 8 hours 06/29/17. -Monitor for recurrence (4) Chronic hyponatremia ICD Codes: E87.1 - Hypo-osmolality and hyponatremia Plan: Minimum sodium this visit 131 on 06/27/17. Currently 136. Was previously on 2% saline to correct hyponatremia, received 2 g sodium chloride 3 times a day. -Monitor and correct as needed (5) HTN (hypertension) ICD Codes: I10 - Essential (primary) hypertension Status: Chronic Plan: History of hypertension. Neurosurgery currently maintaining SBP within 120-160 mmHg. Currently on Coreg 25 mg every 12 hours, amlodipine 10 g daily, clonidine 0.1 every 6 hours as needed. -Will follow neurosurgical recommendations, currently SBP within 120-160 mmHg -Current regimen as noted above (6) FEN/DVT PPX/GI PPX/Nursing Orders Plan: Fluids: -2% saline held 07/04 Electrolytes: - Managing hyponatremia, monitor and replete other electrolytes as needed Nutrition: - Regular diet, Seen by speech path on 07/03/17 PPx: GI:Famotidine DVT: contraindicated 06/26 CVA. Dispo: Can be transferred to Inpatient rehab, as agreed upon by neurology, critical care and family medicine services. SDW Dr. Yvrose Navarro. ([place] Grove[place] drum[place] MD, R3) Problem List: (1) CVA (cerebral vascular accident) ICD Codes: I63.9 - Cerebral infarction, unspecified Status: Acute Plan: 57-year-old male with recent right MCA stroke, S/p M1 thrombus extraction and TPA administration. Currently neurologically stable. Currently as per last critical care note: s/p systemic TPA, s/p successful M1 clot extraction by Dr. Jarrett. On 06/27 MRA neck shows complete right internal carotid occlusion Neurosurgery consulted for hemorrhagic conversion of right temporal lobe CT 06/30 showed resolution of hemorrhage, R frontal BG cytotoxic edema, with mild mass effect Repeat CT/CTA t 07/01 revealed evolving right MCA CVA. Right ICA stenosis. Left ICA 50-70% percent. Monitor neuro checks every hour in [facility] [place] Maintain blood pressure less than 160/100 Aspirin 81 mg p.o. daily okayed with neurology 2-D echo 06/29: Normal left ventricular size. Normal LV systolic function. LA mild -to-moderately dilated. No PFO Normal lipids, TSH Acetaminophen 650 mg's p.o. every 6 hours as needed for temperature greater than 100. Hydrocodone/acetaminophen 5/325 1 tablet every 4 hours as needed pain 1 through 5 Morphine sulfate 2 mg IV every 2 hours as needed pain 6 or 10 PT/OT/ST Thiamine 100 mg IV daily x5 days currently 100 mg p.o. daily s/p 2% saline. sodiums stable. Tolvaptan 15 mg x1 dose on 07/03. (2) Left knee pain ICD Codes: M25.562 - Pain in left knee Plan: Complaints of left knee pain for several days, exam unrevealing with exception of inferior knee scab, healing well. Knee X-Ray negative. Improved with repositioning. -Monitor for change (3) C. difficile diarrhea ICD Codes: A04.72 - Enterocolitis due to Clostridium difficile, not specified as recurrent Status: Resolved Plan: Diagnosed with C. difficile on 06/11/17, diarrhea has improved, completed 12th day course of Flagyl 500 mg by mouth every 8 hours 06/29/17. -Monitor for recurrence (4) Chronic hyponatremia ICD Codes: E87.1 - Hypo-osmolality and hyponatremia Plan: SIADH, post stroke patient . Minimum sodium this visit 131 on 06/27/17. Currently 136. Was previously on 2% saline to correct hyponatremia, received 2 g sodium chloride 3 times a day. -Monitor and correct as needed (5) HTN (hypertension) ICD Codes: I10 - Essential (primary) hypertension Status: Chronic Plan: History of hypertension. Neurosurgery currently maintaining SBP within 120-160 mmHg. Currently on Coreg 25 mg every 12 hours, amlodipine 10 g daily, clonidine 0.1 every 6 hours as needed. -Will follow neurosurgical recommendations, currently SBP within 120-160 mmHg -Current regimen as noted above (6) FEN/DVT PPX/GI PPX/Nursing Orders Plan: Fluids: -2% saline held 07/04 Electrolytes: - Managing hyponatremia, monitor and replete other electrolytes as needed Nutrition: - Regular diet, Seen by speech path on 07/03/17 PPx: GI:Famotidine DVT: contraindicated 06/26 CVA. Dispo: Can be transferred to Inpatient rehab, as agreed upon by neurology, critical care and family medicine services. SDW Dr. Yvrose Navarro. (Yvrose Navarro MD) Problem Qualifiers (1) CVA (cerebral vascular accident): Qualified Codes: I63.511 - Cerebral infarction due to unspecified occlusion or stenosis of right middle cerebral artery (2) HTN (hypertension): Qualified Codes: I10 - Essential (primary) hypertension Gian Gamboa MD, R3 Jul 06, 2017 12:37 Yvrose Navarro MD Jul 06, 2017 18:41
--- NOTE | 2017-07-06 13:00 | HHI.DS ---
Discharge Summary Admission Date Jun 27, 2017 at 18:59 Admitting Diagnosis stroke alert, large right sided MCA infarct (1) CVA (cerebral vascular accident) Plan: 57-year-old male with recent right MCA stroke, S/p M1 thrombus extraction and TPA administration. Currently neurologically stable. Currently as per last critical care note: s/p systemic TPA, s/p successful M1 clot extraction by Dr. Jarrett. On 06/27 MRA neck shows complete right internal carotid occlusion Neurosurgery consulted for hemorrhagic conversion of right temporal lobe CT 06/30 showed resolution of hemorrhage, R frontal BG cytotoxic edema, with mild mass effect Repeat CT/CTA t 07/01 revealed evolving right MCA CVA. Right ICA stenosis. Left ICA 50-70% percent. Monitor neuro checks every hour in [facility] Maintain blood pressure less than 160/100 Aspirin 81 mg p.o. daily okayed with neurology 2-D echo 06/29: Normal left ventricular size. Normal LV systolic function. LA mild -to-moderately dilated. No PFO Normal lipids, TSH Acetaminophen 650 mg's p.o. every 6 hours as needed for temperature greater than 100. Hydrocodone/acetaminophen 5/325 1 tablet every 4 hours as needed pain 1 through 5 Morphine sulfate 2 mg IV every 2 hours as needed pain 6 or 10 PT/OT/ST Thiamine 100 mg IV daily x5 days currently 100 mg p.o. daily s/p 2% saline. sodiums stable. Tolvaptan 15 mg x1 dose on 07/03. ICD Codes: I63.9 - Cerebral infarction, unspecified Status: Acute (2) Left knee pain Plan: Complaints of left knee pain for several days, improving. Knee X-Ray negative. -Monitor for change ICD Codes: M25.562 - Pain in left knee (3) C. difficile diarrhea Plan: Diagnosed with C. difficile on 06/11/17, diarrhea has improved, completed 12th day course of Flagyl 500 mg by mouth every 8 hours 06/29/17. -Monitor for recurrence ICD Codes: A04.72 - Enterocolitis due to Clostridium difficile, not specified as recurrent Status: Acute (4) Chronic hyponatremia Plan: Minimum sodium this visit 131 on 06/27/17. Currently 136. Was previously on 2% saline to correct hyponatremia, received 2 g sodium chloride 3 times a day. -Monitor and correct as needed ICD Codes: E87.1 - Hypo-osmolality and hyponatremia (5) HTN (hypertension) Plan: History of hypertension. Neurosurgery currently maintaining SBP within 120-160 mmHg. Currently on Coreg 25 mg every 12 hours, amlodipine 10 g daily, clonidine 0.1 every 6 hours as needed. -Will follow neurosurgical recommendations, currently SBP within 120-160 mmHg -Current regimen as noted above ICD Codes: I10 - Essential (primary) hypertension Status: Chronic (6) FEN/DVT PPX/GI PPX/Nursing Orders Plan: Fluids: -2% saline held 07/04 Electrolytes: - Managing hyponatremia, monitor and replete other electrolytes as needed Nutrition: - Regular diet, Seen by speech path on 07/03/17 PPx: GI:Famotidine DVT: contraindicated 06/26 CVA. Dispo: Can be transferred to Inpatient rehab, as agreed upon by neurology, critical care and family medicine services. SDW Dr. Yvrose Navarro. Brief History 57-year-old male with past history of hypertension, C. difficile presented [place] with left-sided hemiparesis, was treated with TPA and transferred to [facility] on 06/28/17. He is taken to invasive radiology and had successful extraction of M1 thrombus by Dr. Jarrett. While in hospital patient has had hyponatremia, and stabilization of his neurologic symptoms: Left-sided neuromuscular deficits. He was diagnosed with C. difficile on 06/11/17, played 12 day course of Flagyl on 06/29/17 and states he has not had diarrhea for the past few days however the last time he had diarrhea was described as due to cathartics. Today he states he has no nausea, vomiting, fever, chills, dull pain , chest pain, shortness of breath, headache, changes in vision. He does report some left-sided leg pain which he reports was x-rayed yesterday, knee x-ray, and was told it was negative. Other than left-sided weakness, no other complaints today. CBC/BMP: 07/06/17 0420 07/06/17 0420 Significant Findings Laboratory Tests Test 07/04/17 07:11 07/04/17 12:55 07/04/17 14:20 07/04/17 20:07 Red Blood Count 3.71 MIL/MM3 (4.50-5.90) Hemoglobin 12.7 GM/DL (13.0-17.0) Hematocrit 36.4 % (39.0-51.0) Mean Corpuscular Hemoglobin 34.3 PG (27.0-34.0) Monocytes (%) (Auto) 15.0 % (0.0-8.0) Monocytes # (Auto) 1.2 TH/MM3 (0-0.9) Blood Urea Nitrogen 6 MG/DL (7-18) Calcium Level 8.4 MG/DL (8.5-10.1) Uric Acid 1.9 MG/DL (2.6-7.2) Sodium Level 134 MEQ/L (136-145) Test 07/05/17 06:03 07/05/17 18:35 07/06/17 04:20 Red Blood Count 3.60 MIL/MM3 (4.50-5.90) 3.38 MIL/MM3 (4.50-5.90) Hemoglobin 12.3 GM/DL (13.0-17.0) 11.5 GM/DL (13.0-17.0) Hematocrit 34.8 % (39.0-51.0) 32.9 % (39.0-51.0) Mean Corpuscular Hemoglobin 34.2 PG (27.0-34.0) 34.2 PG (27.0-34.0) Sodium Level 133 MEQ/L (136-145) PE at Discharge GENERAL: This is a well-nourished, well-developed patient, with right preference. SKIN: No rashes, ecchymoses or lesions. Cool and dry. HEAD: Atraumatic. Normocephalic. No temporal or scalp tenderness. EYES: Pupils equal round and reactive. Extraocular motions intact. No scleral icterus. No injection or drainage. ENT: Nose without bleeding, purulent drainage or septal hematoma. Throat without erythema, tonsillar hypertrophy or exudate. Uvula midline. Airway patent. NECK: Trachea midline. No JVD or lymphadenopathy. Supple, nontender, no meningeal signs. CARDIOVASCULAR: Regular rate and rhythm without murmurs, gallops, or rubs. RESPIRATORY: Clear to auscultation. Breath sounds equal bilaterally. No wheezes , rales, or rhonchi. GASTROINTESTINAL: Abdomen soft, non-tender, nondistended. No hepato-splenomegaly , or palpable masses. No guarding. MUSCULOSKELETAL: Extremities without clubbing, cyanosis, or edema. No joint tenderness, effusion, or edema noted. No calf tenderness. Negative Homans sign bilaterally. NEUROLOGICAL: Awake and alert. Preferential right-sided gaze, left-sided facial droop, able to raise both eyebrows, decreased shoulder shrug on left side. Five out of 5 muscle strength on right side, 0/5 in left leg, 0/5 in left biceps. 1/ 5 in left triceps with muscle flicker. Fluent speech. Pt Condition on Discharge: Stable Discharge Disposition: Rehab Inpatient Discharge Instructions DIET: Follow Instructions for: Soft Diet Speech Therapy-Diet Recommends: Mechanical Soft, Chopped Meat w/Gravy Activities you can perform: See Additionl Instruction Other Activity Instructions: As determined by PT and Ot. Gian Gamboa MD, R3 Jul 06, 2017 13:00
[2017-07-06] MEDS: CHLORHEXIDINE GLUCONATE 2 % 1 PACK (2 CLOTHS) TOP SCH (19:30)
[2017-07-06] MEDS: ACETAMINOPHEN/HYDROcodone 325 MG/5 MG TAB PO PRN (19:42)
[2017-07-06] MEDS: ATORVASTATIN 10 MG TAB PO SCH (21:21)
[2017-07-07] VITALS (11 sets, daily range): BP systolic 111–144; BP diastolic 65–79; PULSE 62–78; RESP 14–18; TEMP 98–98.4; O2SAT 95–98
[2017-07-07 05:21] LABS: AUTOMATED NEUTROPHIL # 3.3 TH/MM3 (1.8-7.7); BASOPHIL # 0.1 TH/MM3 (0-0.2); BASOPHIL % 0.9 % (0.0-2.0); EOSINOPHIL # 0.2 TH/MM3 (0-0.4); EOSINOPHIL % 3.2 % (0.0-4.0); HEMATOCRIT 31.8 % (39.0-51.0); HEMOGLOBIN 11.2 GM/DL (13.0-17.0); LYMPH % 31.1 % (9.0-44.0); LYMPHOCYTE # 2.1 TH/MM3 (1.0-4.8); MEAN CELL VOLUME 97.5 FL (80.0-100.0); MEAN CORPUSCULAR HEMOGLOBIN 34.5 PG (27.0-34.0); MEAN CORPUSCULAR HGB CONC 35.4 % (32.0-36.0); MEAN PLATELET VOLUME 7.6 FL (7.0-11.0); MONO % 16.3 % (0.0-8.0); MONOCYTE # 1.1 TH/MM3 (0-0.9); NEUT % 48.5 % (16.0-70.0); PLATELET COUNT 249 TH/MM3 (150-450); RED BLOOD COUNT 3.26 MIL/MM3 (4.50-5.90); RED CELL DISTRIBUTION WIDTH 12.3 % (11.6-17.2); WHITE BLOOD COUNT 6.7 TH/MM3 (4.0-11.0)
[2017-07-07 05:40] LABS: BICARBONATE 27.4 MEQ/L (21.0-32.0); CALCIUM 8.7 MG/DL (8.5-10.1); CREATININE 0.7 MG/DL (0.60-1.30)
[2017-07-07] MEDS: BACLOFEN 10 MG TAB PO SCH ×3 (05:59→21:14)
[2017-07-07] MEDS: SODIUM CHLORIDE 1 GRAM TAB PO SCH ×3 (05:59→21:14)
--- NOTE | 2017-07-07 08:02 | HHI.FPPN ---
Subjective Remarks More confused per . Seeing two puppies in the room during our exam. Telling the that he needs to go out to the garage to go to work. Otherwise no concerns per at the bedside. Working with PT. Still no improvement in motion of left side. Eating PB sandwich today without difficulty. Breathing comfortably. (Gian Gamboa MD, R3) Objective Vitals Vital Signs Date Time Temp Pulse Resp B/P (MAP) Pulse Ox O2 Delivery O2 Flow Rate FiO2 07/07/17 07:55 98 21 07/07/17 07:00 100 Room Air 07/07/17 06:00 76 07/07/17 04:00 78 07/07/17 04:00 98.1 78 14 144/79 (100) 98 07/07/17 02:00 64 07/07/17 00:00 62 07/07/17 00:00 98.4 62 14 123/65 (84) 95 07/06/17 22:00 68 07/06/17 20:42 15 07/06/17 20:00 72 07/06/17 20:00 98.3 72 14 135/74 (94) 98 07/06/17 19:00 98 Room Air 07/06/17 18:00 77 07/06/17 16:00 98.2 74 15 137/70 (92) 98 07/06/17 16:00 74 07/06/17 14:00 82 07/06/17 12:00 98.2 74 21 127/73 (91) 98 07/06/17 12:00 74 07/06/17 09:47 20 I/O 07/06/17 07/06/17 07/06/17 07/07/17 07/07/17 07/07/17 07:00 15:00 23:00 07:00 15:00 23:00 Intake Total 200 ml 480 ml 240 ml Output Total 1200 ml 975 ml 700 ml Balance -1000 ml -495 ml -460 ml Intake Oral 200 ml 480 ml 240 ml Output Urine Total 1200 ml 975 ml 700 ml # Bowel Movements 0 0 (Gian Gamboa MD, R3) Result Diagram: 07/07/1731607/07/17 0317 Imaging Last [address] 07/06/17 0000 Signed Impressions: Service Date/Time: Thursday, July 06, 2017 11:53 - CONCLUSION: Right MCA stroke with regional soft tissue edema no midline shift or bleed. Thien Garza MD Objective Remarks GENERAL: This is a well-nourished, well-developed patient, with right preference. SKIN: No rashes, ecchymoses or lesions. Cool and dry. HEAD: Atraumatic. Normocephalic. No temporal or scalp tenderness. EYES: Pupils equal round and reactive. Extraocular motions intact. No scleral icterus. No injection or drainage. ENT: Nose without bleeding, purulent drainage or septal hematoma. Throat without erythema, tonsillar hypertrophy or exudate. Uvula midline. Airway patent. NECK: Trachea midline. No JVD or lymphadenopathy. Supple, nontender, no meningeal signs. CARDIOVASCULAR: Regular rate and rhythm without murmurs, gallops, or rubs. RESPIRATORY: Clear to auscultation. Breath sounds equal bilaterally. No wheezes , rales, or rhonchi. GASTROINTESTINAL: Abdomen soft, non-tender, nondistended. No hepato-splenomegaly , or palpable masses. No guarding. MUSCULOSKELETAL: Extremities without clubbing, cyanosis, or edema. No joint tenderness, effusion, or edema noted. No calf tenderness. Negative Homans sign bilaterally. Left knee with small scab on anterior knee well healing. No effusion or redness of this extremity. NEUROLOGICAL: Awake and alert. Preferential right-sided gaze, left-sided facial droop, able to raise both eyebrows, decreased shoulder shrug on left side. Five out of 5 muscle strength on right side, 0/5 in left leg, 0/5 in left biceps. 1/ 5 in left triceps with muscle flicker. Fluent speech. Left knee without effusion or tenderness to palpation. Well-healed scab inferior to patella. No surrounding erythema no drainage or discharge. Repositioning pillow under leg/knee resolved pain per patient (Gian Gamboa MD, R3) A/P Assessment and Plan 57-year-old male with recent right MCA stroke, S/p M1 thrombus extraction and TPA administration. Currently neurologically stable, recently treated for C. difficile. Discharge Planning To in-pt rehab today 07/06/2017. (Gian Gamboa MD, R3) Attending Attestation Patient seen and examined with Dr Gamboa this am. Agree with plan of care as discussed with me and documented in the resident note. (Yvrose Navarro MD) Problem List: (1) CVA (cerebral vascular accident) ICD Codes: I63.9 - Cerebral infarction, unspecified Status: Acute Plan: 57-year-old male with recent right MCA stroke, S/p M1 thrombus extraction and TPA administration. Currently neurologically stable. Currently as per last critical care note: s/p systemic TPA, s/p successful M1 clot extraction by Dr. Jrarett. On 06/27 MRA neck shows complete right internal carotid occlusion Neurosurgery consulted for hemorrhagic conversion of right temporal lobe CT 06/30 showed resolution of hemorrhage, R frontal BG cytotoxic edema, with mild mass effect Repeat CT/CTA t 07/01 revealed evolving right MCA CVA. Right ICA stenosis. Left ICA 50-70% percent. Monitor neuro checks every hour in ISC Maintain blood pressure less than 160/100 Aspirin 81 mg p.o. daily okayed with neurology 2-D echo 06/29: Normal left ventricular size. Normal LV systolic function. LA mild -to-moderately dilated. No PFO Normal lipids, TSH Acetaminophen 650 mg's p.o. every 6 hours as needed for temperature greater than 100. Hydrocodone/acetaminophen 5/325 1 tablet every 4 hours as needed pain 1 through 5 Morphine sulfate 2 mg IV every 2 hours as needed pain 6 or 10 PT/OT/ST Thiamine 100 mg IV daily x5 days currently 100 mg p.o. daily s/p 2% saline. sodiums stable. Tolvaptan 15 mg x1 dose on 07/03. (2) Left knee pain ICD Codes: M25.562 - Pain in left knee Plan: Complaints of left knee pain for several days, exam unrevealing with exception of inferior knee scab, healing well. Knee X-Ray negative. Improved with repositioning. -Monitor for change (3) C. difficile diarrhea ICD Codes: A04.72 - Enterocolitis due to Clostridium difficile, not specified as recurrent Status: Resolved Plan: Diagnosed with C. difficile on 06/11/17, diarrhea has improved, completed 12th day course of Flagyl 500 mg by mouth every 8 hours 06/29/17. -Monitor for recurrence (4) Chronic hyponatremia ICD Codes: E87.1 - Hypo-osmolality and hyponatremia Plan: SIADH, post stroke patient . Minimum sodium this visit 131 on 06/27/17. Currently 136. Was previously on 2% saline to correct hyponatremia, received 2 g sodium chloride 3 times a day. -Monitor and correct as needed (5) HTN (hypertension) ICD Codes: I10 - Essential (primary) hypertension Status: Chronic Plan: History of hypertension. Neurosurgery currently maintaining SBP within 120-160 mmHg. Currently on Coreg 25 mg every 12 hours, amlodipine 10 g daily, clonidine 0.1 every 6 hours as needed. -Will follow neurosurgical recommendations, currently SBP within 120-160 mmHg -Current regimen as noted above (6) FEN/DVT PPX/GI PPX/Nursing Orders Plan: Fluids: -2% saline held 07/04. Electrolytes: - Managing hyponatremia, monitor and replete other electrolytes as needed Nutrition: - Regular diet, Seen by speech path on 07/03/17 PPx: GI:Famotidine DVT: contraindicated 06/26 CVA. Dispo: Can be transferred to Inpatient rehab, as agreed upon by neurology, critical care and family medicine services. SDW Dr. Yvrose Navarro. (Gian Gamboa MD, R3) Problem Qualifiers (1) CVA (cerebral vascular accident): Qualified Codes: I63.511 - Cerebral infarction due to unspecified occlusion or stenosis of right middle cerebral artery (2) HTN (hypertension): Qualified Codes: I10 - Essential (primary) hypertension Gian Gamboa MD, R3 Jul 07, 2017 08:02 Yvrose Navarro MD Jul 07, 2017 13:16
[2017-07-07] MEDS: CARVEDILOL 12.5 MG TAB PO SCH ×2 (08:39→21:14)
[2017-07-07] MEDS: THIAMINE HCL 100 MG TAB PO SCH (08:39)
[2017-07-07] MEDS: FAMOTIDINE 20 MG TAB PO SCH ×2 (08:40→21:14)
[2017-07-07] MEDS: DOCUSATE SODIUM 50 MG/SENNA 8.6 MG TAB PO SCH ×2 (08:40→21:00)
[2017-07-07] MEDS: SODIUM CHLORIDE 0.9% FLUSH 10 ML FLUSH IV FLUSH SCH ×2 (08:40→21:15)
[2017-07-07] MEDS: ASPIRIN 81 MG CHEW TAB CHEW SCH (08:40)
--- NOTE | 2017-07-07 12:35 | HHI.PR ---
Review/Management Diagnosis/Plan: (1) Acute ischemic right MCA stroke ICD Codes: I63.511 - Cerebral infarction due to unspecified occlusion or stenosis of right middle cerebral artery Status: Acute Plan: s/p iv tpa, IR rt mca embolectomy day 10 large rt mca stroke 2/2 rt ica/mca clot risk factor: tob use, htn mri brain- large rt mca stroke mra brain- rt ica occluded; rt mca recanalized 06/28 ct brain- mild rt temporal/insular ich transformation 06/30 ct brain stable 07/01 ct brain stable no ICH na nml on baclofen 10mg tid- helping with spasticity recs neuro stable rehab/escudero placement today from neurology perspective (2) HTN (hypertension) ICD Codes: I10 - Essential (primary) hypertension Status: Chronic Plan: bp good range post-stroke (3) Tobacco abuse ICD Codes: Z72.0 - Tobacco use Status: Chronic Plan: quit 4 weeks ago Subjective Subjective Comments No acute events reported No headache No chest pain No dyspnea Active Medications Current Medications Medications (Trade) Dose Ordered Sig/Thea Route Start Time Stop Time Status Last Admin (NS Flush) 2 ml UNSCH PRN IV FLUSH 06/27/17 23:00 (NS Flush) 2 ml BID IV FLUSH 06/28/17 09:00 07/07/17 08:40 (Pepcid) 20 mg Q12HR PO 06/28/17 09:00 07/07/17 08:40 (Zofran Inj) 4 mg Q6H PRN IV PUSH 06/27/17 23:00 (Albuterol Neb) 2.5 mg Q2HR NEB PRN INH 06/27/17 23:00 Miscellaneous Information 1 Q361D XX 06/27/17 23:00 (Chlorhexidine 2% Cloth) Taper DAILY@04 TOP 06/28/17 04:00 06/24/18 03:59 (Chlorhexidine 2% Cloth) 3 pack UNSCH PRN TOP 06/27/17 23:00 (Milk Of Magnesia Liq) 30 ml Q12H PRN PO 06/27/17 23:00 (Senokot) 17.2 mg Q12H PRN PO 06/27/17 23:00 (Dulcolax Supp) 10 mg DAILY PRN RECTAL 06/27/17 23:00 (Lactulose Liq) 30 ml DAILY PRN PO 06/27/17 23:00 (Trandate Inj) 20 mg Q4H PRN IV PUSH 06/29/17 11:00 07/04/17 00:21 Potassium Chloride 100 ml @ 50 mls/hr Q2H PRN IV 07/01/17 18:15 Potassium Chloride 100 ml @ 50 mls/hr Q2H PRN IV 07/01/17 18:15 (K-Lyte Cl Eff) 50 meq UNSCH PRN PO 07/01/17 18:15 07/01/17 18:14 Potassium Chloride 100 ml @ 25 mls/hr UNSCH PRN IV 07/01/17 18:15 Potassium Chloride 100 ml @ 50 mls/hr Q2H PRN IV 07/01/17 18:15 Magnesium Sulfate 4 gm/Sodium Chloride 100 ml @ 50 mls/hr UNSCH PRN IV 07/01/17 18:15 (Mag-Ox) 800 mg UNSCH PRN PO 07/01/17 18:15 Magnesium Sulfate 2 gm/Sodium Chloride 100 ml @ 50 mls/hr UNSCH PRN IV 07/01/17 18:15 (K-Phos) 2,000 mg Q4H PRN PO 07/01/17 18:15 Sodium Phosphate 30 mmol/Sodium Chloride 250 ml @ 42 mls/hr UNSCH PRN IV 07/01/17 18:15 (K-Phos) 2,000 mg UNSCH PRN PO/TUBE 07/01/17 18:15 Potassium Phosphate 30 mmol/ Sodium Chloride 260 ml @ 42 mls/hr UNSCH PRN IV 07/01/17 18:15 (Vitamin B1) 100 mg DAILY PO 07/03/17 09:00 07/07/17 08:39 (Tylenol) 650 mg Q6H PRN PO 07/02/17 17:00 07/06/17 08:32 ([place] 5-325 Mg) 1 tab Q4H PRN PO 07/02/17 17:00 07/06/17 19:42 (Morphine Inj) 2 mg Q2H PRN IV 07/02/17 19:00 (Janie-Colace) 1 tab BID PO 07/02/17 21:00 07/04/17 21:39 (Lipitor) 10 mg HS PO 07/02/17 21:00 07/06/17 21:21 (Norvasc) 10 mg DAILY PO 07/03/17 09:00 07/07/17 08:39 (Catapres) 0.1 mg Q6H PRN PO 07/03/17 11:00 07/04/17 01:42 (Coreg) 25 mg Q12HR PO 07/04/17 21:00 07/07/17 08:39 (Lioresal) 10 mg Q8HR PO 07/05/17 22:00 07/07/17 05:59 ([place] 5-325 Mg) 0.5 tab Q6H PRN PO 07/05/17 20:30 (Sodium Chloride) 3 gm Q8HR PO 07/06/17 06:00 07/07/17 05:59 (Aspirin Chew) 162 mg DAILY CHEW 07/06/17 09:00 07/07/17 08:40 Allergies Allergies Coded Allergies lisinopril (Verified Adverse Reaction, Severe, cough, 07/03/17) *MDRO Multi-Drug Resistant Organism (Verified Adverse Reaction, Unknown, ) Review of Systems All other ROS: ROS reviewed as documented in chart Exam I&O / VS Vital Signs Date Time Temp Pulse Resp B/P (MAP) Pulse Ox O2 Delivery O2 Flow Rate FiO2 07/07/17 10:00 74 07/07/17 08:00 72 07/07/17 08:00 98.0 72 111/70 (84) 07/07/17 07:55 98 21 07/07/17 07:00 100 Room Air 07/07/17 06:00 76 07/07/17 04:00 78 07/07/17 04:00 98.1 78 14 144/79 (100) 98 07/07/17 02:00 64 07/07/17 00:00 62 07/07/17 00:00 98.4 62 14 123/65 (84) 95 07/06/17 22:00 68 07/06/17 20:42 15 07/06/17 20:00 72 07/06/17 20:00 98.3 72 14 135/74 (94) 98 07/06/17 19:00 98 Room Air 07/06/17 18:00 77 07/06/17 16:00 98.2 74 15 137/70 (92) 98 07/06/17 16:00 74 07/06/17 14:00 82 General: Alert and Oriented, No acute distress Exam Comments alert, ox 3, follows, minimal dysarthria but carries on conversation, less gaze preference, left facial weakness, left HH, left hemiparesis with spasticity type ue/le, leg 2-3/5, left hemisensory Objective Micro and Labs Laboratory Tests Test 07/07/17 03:17 White Blood Count 6.7 Red Blood Count 3.26 Hemoglobin 11.2 Hematocrit 31.8 Mean Corpuscular Volume 97.5 Mean Corpuscular Hemoglobin 34.5 Mean Corpuscular Hemoglobin Concent 35.4 Red Cell Distribution Width 12.3 Platelet Count 249 Mean Platelet Volume 7.6 Neutrophils (%) (Auto) 48.5 Lymphocytes (%) (Auto) 31.1 Monocytes (%) (Auto) 16.3 Eosinophils (%) (Auto) 3.2 Basophils (%) (Auto) 0.9 Neutrophils # (Auto) 3.3 Lymphocytes # (Auto) 2.1 Monocytes # (Auto) 1.1 Eosinophils # (Auto) 0.2 Basophils # (Auto) 0.1 CBC Comment DIFF FINAL Differential Comment Blood Urea Nitrogen 12 Creatinine 0.70 Random Glucose 82 Calcium Level 8.7 Sodium Level 137 Potassium Level 4.0 Chloride Level 103 Carbon Dioxide Level 27.4 Anion Gap 7 Estimat Glomerular Filtration Rate 116 Date/Time Source Procedure Growth Status 07/04/17 11:00 Blood Peripheral Aerobic Blood Culture - Preliminary NO GROWTH IN 3 DAYS Resulted 07/04/17 11:00 Blood Peripheral Anaerobic Blood Culture - Preliminary NO GROWTH IN 3 DAYS Resulted Problem Qualifiers (1) HTN (hypertension): Qualified Codes: I10 - Essential (primary) hypertension Luis Atkins Jul 07, 2017 12:35
[2017-07-07] MEDS: ACETAMINOPHEN 325 MG TAB PO PRN (14:48)
[2017-07-07] MEDS: ACETAMINOPHEN/HYDROcodone 325 MG/5 MG TAB PO PRN (14:48)
[2017-07-07] MEDS: ATORVASTATIN 10 MG TAB PO SCH (21:15)
[2017-07-08] VITALS: BP 131/75; PULSE 71; RESP 18; TEMP 98; O2SAT 99
[2017-07-08] MEDS: CHLORHEXIDINE GLUCONATE 2 % 1 PACK (2 CLOTHS) TOP SCH (03:06)
[2017-07-08 04:00] VITALS: BP 147/78; PULSE 70; RESP 18; TEMP 98.5; O2SAT 96
[2017-07-08] MEDS: BACLOFEN 10 MG TAB PO SCH (05:10)
[2017-07-08] MEDS: SODIUM CHLORIDE 1 GRAM TAB PO SCH (05:10)
[2017-07-08 07:00] LABS: HEMATOCRIT 32.8 % (39.0-51.0); HEMOGLOBIN 11.5 GM/DL (13.0-17.0); MEAN CELL VOLUME 96.3 FL (80.0-100.0); MEAN CORPUSCULAR HEMOGLOBIN 33.8 PG (27.0-34.0); MEAN CORPUSCULAR HGB CONC 35.1 % (32.0-36.0); MEAN PLATELET VOLUME 7.5 FL (7.0-11.0); PLATELET COUNT 275 TH/MM3 (150-450); WHITE BLOOD COUNT 7.4 TH/MM3 (4.0-11.0)
[2017-07-08 07:15] LABS: BICARBONATE 28.6 MEQ/L (21.0-32.0); CALCIUM 9.3 MG/DL (8.5-10.1); CREATININE 0.83 MG/DL (0.60-1.30)
[2017-07-08 08:08] VITALS: BP 132/78; PULSE 72; RESP 22; TEMP 98; O2SAT 97
[2017-07-08] MEDS: DOCUSATE SODIUM 50 MG/SENNA 8.6 MG TAB PO SCH (09:00)
[2017-07-08] MEDS: SODIUM CHLORIDE 0.9% FLUSH 10 ML FLUSH IV FLUSH SCH (09:11)
[2017-07-08] MEDS: THIAMINE HCL 100 MG TAB PO SCH (09:11)
[2017-07-08] MEDS: ASPIRIN 81 MG CHEW TAB CHEW SCH (09:11)
[2017-07-08] MEDS: FAMOTIDINE 20 MG TAB PO SCH (09:12)
[2017-07-08] MEDS: CARVEDILOL 12.5 MG TAB PO SCH (09:12)
--- NOTE | 2017-07-08 09:16 | HHI.FPPN ---
Subjective Remarks Doing well. No longer having hallucinations. No headaches, no chest pain. Ready to transfer to [facility] Inpatient rehabilitation. (Gian Gamboa MD, R3) Objective Vitals Vital Signs Date Time Temp Pulse Resp B/P (MAP) Pulse Ox O2 Delivery O2 Flow Rate FiO2 07/08/17 08:08 98.0 72 22 132/78 (96) 97 07/08/17 04:00 98.5 70 18 147/78 (101) 96 07/08/17 00:00 98.0 71 18 131/75 (93) 99 07/07/17 21:20 Room Air 07/07/17 20:00 72 07/07/17 20:00 98.1 76 18 140/79 (99) 98 07/07/17 16:02 98.2 71 14 120/72 (88) 96 07/07/17 14:00 74 07/07/17 12:00 98.0 68 141/75 (97) 07/07/17 12:00 72 07/07/17 10:00 74 I/O 07/07/17 07/07/17 07/07/17 07/08/17 07/08/17 07/08/17 07:00 15:00 23:00 07:00 15:00 23:00 Intake Total 240 ml 800 ml Output Total 700 ml 2800 ml Balance -460 ml -2000 ml Intake Oral 240 ml 800 ml Output Urine Total 700 ml 2800 ml # Bowel Movements 0 0 (Gian Gamboa MD, R3) Result Diagram: 07/08/17 0601 07/08/17 0601 Imaging Last [address] 07/06/17 0000 Signed Impressions: Service Date/Time: Thursday, July 06, 2017 11:53 - CONCLUSION: Right MCA stroke with regional soft tissue edema no midline shift or bleed. Thien Garza MD Objective Remarks GENERAL: This is a well-nourished, well-developed patient, with right preference. SKIN: No rashes, ecchymoses or lesions. Cool and dry. HEAD: Atraumatic. Normocephalic. No temporal or scalp tenderness. EYES: Pupils equal round and reactive. Extraocular motions intact. No scleral icterus. No injection or drainage. ENT: Nose without bleeding, purulent drainage or septal hematoma. Throat without erythema, tonsillar hypertrophy or exudate. Uvula midline. Airway patent. NECK: Trachea midline. No JVD or lymphadenopathy. Supple, nontender, no meningeal signs. CARDIOVASCULAR: Regular rate and rhythm without murmurs, gallops, or rubs. RESPIRATORY: Clear to auscultation. Breath sounds equal bilaterally. No wheezes , rales, or rhonchi. GASTROINTESTINAL: Abdomen soft, non-tender, nondistended. No hepato-splenomegaly , or palpable masses. No guarding. MUSCULOSKELETAL: Extremities without clubbing, cyanosis, or edema. No joint tenderness, effusion, or edema noted. No calf tenderness. Negative Homans sign bilaterally. Left knee with small scab on anterior knee well healing. No effusion or redness of this extremity. NEUROLOGICAL: Awake and alert. Preferential right-sided gaze, left-sided facial droop, able to raise both eyebrows, decreased shoulder shrug on left side. Five out of 5 muscle strength on right side, 0/5 in left leg, 0/5 in left biceps. 1/ 5 in left triceps with muscle flicker. Fluent speech. Left knee without effusion or tenderness to palpation. Well-healed scab inferior to patella. No surrounding erythema no drainage or discharge. Repositioning pillow under leg/knee resolved pain per patient (Gian Gamboa MD, R3) A/P Assessment and Plan 57-year-old male with recent right MCA stroke, S/p M1 thrombus extraction and TPA administration. Currently neurologically stable, recently treated for C. difficile. Discharge Planning To in-pt rehab today 07/06/2017. (Gina Gamboa MD, R3) Attending Attestation Patient seen and examined with Dr. Gamboa this morning. Agree with plan of care as discussed with me and documented in the resident note. (Yvrose Navarro MD) Problem List: (1) CVA (cerebral vascular accident) ICD Codes: I63.9 - Cerebral infarction, unspecified Status: Acute Plan: 57-year-old male with recent right MCA stroke, S/p M1 thrombus extraction and TPA administration. Currently neurologically stable. Currently as per last critical care note: s/p systemic TPA, s/p successful M1 clot extraction by Dr. Jarrett. On 06/27 MRA neck shows complete right internal carotid occlusion Neurosurgery consulted for hemorrhagic conversion of right temporal lobe CT 06/30 showed resolution of hemorrhage, R frontal BG cytotoxic edema, with mild mass effect Repeat CT/CTA t 07/01 revealed evolving right MCA CVA. Right ICA stenosis. Left ICA 50-70% percent. Monitor neuro checks every hour in ISC Maintain blood pressure less than 160/100 Aspirin 81 mg p.o. daily okayed with neurology 2-D echo 06/29: Normal left ventricular size. Normal LV systolic function. LA mild -to-moderately dilated. No PFO Normal lipids, TSH Acetaminophen 650 mg's p.o. every 6 hours as needed for temperature greater than 100. Hydrocodone/acetaminophen 5/325 1 tablet every 4 hours as needed pain 1 through 5 Morphine sulfate 2 mg IV every 2 hours as needed pain 6 or 10 PT/OT/ST Thiamine 100 mg IV daily x5 days currently 100 mg p.o. daily s/p 2% saline. sodiums stable. Tolvaptan 15 mg x1 dose on 07/03. (2) Left knee pain ICD Codes: M25.562 - Pain in left knee Plan: Complaints of left knee pain for several days, exam unrevealing with exception of inferior knee scab, healing well. Knee X-Ray negative. Improved with repositioning. -Monitor for change (3) C. difficile diarrhea ICD Codes: A04.72 - Enterocolitis due to Clostridium difficile, not specified as recurrent Status: Resolved Plan: Diagnosed with C. difficile on 06/11/17, diarrhea has improved, completed 12th day course of Flagyl 500 mg by mouth every 8 hours 06/29/17. -Monitor for recurrence (4) Chronic hyponatremia ICD Codes: E87.1 - Hypo-osmolality and hyponatremia Plan: SIADH, post stroke patient . Minimum sodium this visit 131 on 06/27/17. Currently 136. Was previously on 2% saline to correct hyponatremia, received 2 g sodium chloride 3 times a day. -Monitor and correct as needed (5) HTN (hypertension) ICD Codes: I10 - Essential (primary) hypertension Status: Chronic Plan: History of hypertension. Neurosurgery currently maintaining SBP within 120-160 mmHg. Currently on Coreg 25 mg every 12 hours, amlodipine 10 g daily, clonidine 0.1 every 6 hours as needed. -Will follow neurosurgical recommendations, currently SBP within 120-160 mmHg -Current regimen as noted above (6) FEN/DVT PPX/GI PPX/Nursing Orders Plan: Fluids: -2% saline held 07/04. Electrolytes: - Managing hyponatremia, monitor and replete other electrolytes as needed Nutrition: - Regular diet, Seen by speech path on 07/03/17 PPx: GI:Famotidine DVT: contraindicated 06/26 CVA. Dispo: Can be transferred to Inpatient rehab, as agreed upon by neurology, critical care and family medicine services. SDW Dr. Yvrose Navarro. (Gian Gamboa MD, R3) Problem Qualifiers (1) CVA (cerebral vascular accident): Qualified Codes: I63.511 - Cerebral infarction due to unspecified occlusion or stenosis of right middle cerebral artery (2) HTN (hypertension): Qualified Codes: I10 - Essential (primary) hypertension Gian Gamboa MD, R3 Jul 08, 2017 09:16 Yvrose Navarro MD Jul 08, 2017 13:51
[2017-07-08] MEDS: ACETAMINOPHEN 325 MG TAB PO PRN (09:30)
== END 2017-07-08 12:29 | DRG 23 ==
LOC: PHED 18:22 → PHEDA 18:59 → N03A 21:38 → N03B 07-07 15:52
PROVIDERS: ADMIT Emergency Medicine; ATTEND Emergency Medicine
PROC: 03CG3ZZ Extirpation of Matter from Intracranial Artery, Percutaneous Approach (ICD-10-PCS; principal; 2017-06-27)
PROC: 3E03317 Introduction of Other Thrombolytic into Peripheral Vein, Percutaneous Approach (ICD-10-PCS; 2017-06-27)
PROC: 3E0F7GC Introduction of Other Therapeutic Substance into Respiratory Tract, Via Natural or Artificial Opening (ICD-10-PCS; 2017-06-27)
DX: I63.311 Cerebral infarction due to thrombosis of right middle cerebral artery (principal); I61.9 Nontraumatic intracerebral hemorrhage, unspecified; G93.6 Cerebral edema; A04.72 Enterocolitis due to Clostridium difficile, not specified as recurrent; E22.2 Syndrome of inappropriate secretion of antidiuretic hormone; G81.94 Hemiplegia, unspecified affecting left nondominant side; R29.810 Facial weakness; I10 Essential (primary) hypertension; I65.23 Occlusion and stenosis of bilateral carotid arteries; Z82.3 Family history of stroke; R91.8 Other nonspecific abnormal finding of lung field; J44.9 Chronic obstructive pulmonary disease, unspecified; Z87.891 Personal history of nicotine dependence; M25.562 Pain in left knee; D64.9 Anemia, unspecified
CPT/HCPCS: 61645; 70450; 70496; 70498; 70544; 70551; 71045; 73560; 76937; 80048; 80053; 80061; 82533; 82550; 82607; 83036; 83735; 83930; 83935; 84100; 84132; 84295; 84300; 84443; 84484; 84550; 85025; 85027; 85384; 85610; 85652; 85730; 86850; 86900; 86901; 87040; 87641; 93005; 93306; 94640; 94664; 96374; 96375; C1757; C1760; C1769; C1887; C1894; J0131; J0330; J0360; J2370; J2997; J3411; J3475; J7030; Q9967

== ENCOUNTER 2017-09-04 05:37 | Day surgery (SDC) | payer BC ==
[~2017-09-04] VITALS: Ht 179.1 cm; Wt 62.0 kg
[~2017-09-04 05:37] MED LIST changes: +ACET325T15 PO; -ALBUAER3 INH; +AMLO10 PO; -AMLO5TAB2 PO; +ASPI81 CHEW; +BACL20TA PO; +CARV25TA PO; +COMMODE 3-IN-11 MIS; +FAMO20TA2 PO; -LIDOCAINE HCL 1% PF 5 ML SYRINGE OTHER ONE; +LIPI10TA PO; +MELA5 PO; -METO50TA PO; -METR-1 PO; -PHENYLEPH/NS 1000 MCG/10 ML SYR IV ONE; -PROPOFOL 200 MG/20 ML AMP IV ONE; -ROCURONIUM INJ 50 MG/5 ML SYRINGE IV PUSH ONE; +SERT25TA83 PO; -SPAC5MIS; -SUCCINYLCHOLINE CHLORIDE 200 MG/10 ML VIAL IV ONE; +THIA100 PO
[2017-09-04] MEDS ORDERED: LIDOCAINE HCL 2% PF 2 ML VIAL OTHER ONE (05:38)
[2017-09-04] MEDS ORDERED: SODIUM CHLOR 0.45% 1000 ML INJ 1,000 ML IV SCH (07:00)
[2017-09-04] MEDS ORDERED: CHLORHEXIDINE GLUCONATE 2 % 1 PACK (2 CLOTHS) TOPICAL PRN (07:15)
[2017-09-04] MEDS ORDERED: METOPROLOL TARTRATE 25 MG TAB PO PRN (07:15)
[2017-09-04] MEDS ORDERED: POVIDONE IODINE 5% (ANTISEPSIS KIT) 4 APPLICATIONS EACH NARE PRN (07:15)
[2017-09-04] MEDS ORDERED: SODIUM CHLORID 0.9% 500 ML IV PRN (07:15)
[2017-09-04] MEDS ORDERED: LACTATED RINGER'S 1000 ML IV PRN (07:15)
[2017-09-04 07:38] VITALS: BP 148/86; PULSE 89; RESP 16; TEMP 97.9; O2SAT 100
[2017-09-04 07:41] LABS: AUTOMATED NEUTROPHIL # 5.1 TH/MM3 (1.8-7.7); BASOPHIL % 0.6 % (0.0-2.0); EOSINOPHIL # 0.2 TH/MM3 (0-0.4); EOSINOPHIL % 2.9 % (0.0-4.0); HEMATOCRIT 34.4 % (39.0-51.0); HEMOGLOBIN 11.8 GM/DL (13.0-17.0); LYMPH % 23.1 % (9.0-44.0); LYMPHOCYTE # 1.9 TH/MM3 (1.0-4.8); MEAN CELL VOLUME 93.5 FL (80.0-100.0); MEAN CORPUSCULAR HEMOGLOBIN 32.2 PG (27.0-34.0); MEAN CORPUSCULAR HGB CONC 34.4 % (32.0-36.0); MEAN PLATELET VOLUME 8.1 FL (7.0-11.0); MONO % 11.4 % (0.0-8.0); MONOCYTE # 0.9 TH/MM3 (0-0.9); PLATELET COUNT 283 TH/MM3 (150-450); RED BLOOD COUNT 3.68 MIL/MM3 (4.50-5.90); WHITE BLOOD COUNT 8.2 TH/MM3 (4.0-11.0)
[2017-09-04 07:55] LABS: INTERNATIONAL NORMALIZED RATIO 1.1 RATIO; PROTHROMBIN TIME - PATIENT 10.8 SEC (9.8-11.6)
--- NOTE | 2017-09-04 08:37 | MR ---
cc: Kimberlee Mohan MD DATE: 09/04/2017 PROCEDURE: Fiberoptic bronchoscopy, flexible. REASON FOR BRONCHOSCOPY: Cavitary mass left upper lung, rule out underlying malignancy, rule out chronic inflammatory process. PROCEDURE NOTE: Fiberoptic bronchoscopy performed via LMA. Vocal cords intact. Trachea mildly hyperemic. Cristy sharp. Right mainstem bronchus, right upper, middle, and lower lobes, left main bronchus, left upper and lower lobes inspected. No obstructive pathology or mass lesions seen. Washings obtained from both sides of the tracheobronchial tree for routine TB, fungal cultures, as well as cytological exam. Cytologic brush biopsies left upper lobe were obtained, as well as microbiology capped brush. Procedure well tolerated. The patient was transferred to the recovery room in stable condition. IMPRESSION: 1. Mild moderate tracheobronchitis. 2. No obstruction, no mass lesion. 3. Samples obtained as above. 4. Procedure well tolerated. 5. The patient transferred to recovery in stable condition. Kimberlee Mohan MD WWW/DL , 08:23 AM , 08:36 AM
[2017-09-04] MEDS ORDERED: DO NOT ADM ANY ANTICOAGULANT DRUGS PRN (08:47)
[2017-09-04 09:35] VITALS: BP 120/72; PULSE 72; TEMP 97.6; O2SAT 95
[2017-09-04 09:50] VITALS: BP 120/72; PULSE 80; RESP 16; TEMP 97.7
[2017-09-04 10:05] VITALS: BP 118/70; PULSE 80; RESP 16
[2017-09-04 10:30] VITALS: BP 115/72; PULSE 78; RESP 16
== END 2017-09-04 11:00 | disposition home or self-care (01) ==
LOC: HRIP 05:37 → HROP 05:37
PROVIDERS: ATTEND Internal Medicine Sleep Medicine
DX: R91.8 Other nonspecific abnormal finding of lung field (principal); J40 Bronchitis, not specified as acute or chronic; R05 Cough; G45.9 Transient cerebral ischemic attack, unspecified; I10 Essential (primary) hypertension; E78.5 Hyperlipidemia, unspecified; Z86.14 Personal history of Methicillin resistant Staphylococcus aureus infection; Z87.891 Personal history of nicotine dependence; Z01.818 Encounter for other preprocedural examination
CPT/HCPCS: 00520; 31623; 85025; 85610; 85730; 87015; 87070; 87071; 87102; 87116; 87205; 87206; J3010

== ENCOUNTER 2018-03-11 19:40 | Inpatient (IN) ==
[2018-03-11] MEDS: Sod Chloride 0.9% Inj 1,000 ML IV.CONT SCH (20:09)
--- NOTE | 2018-03-11 20:26 | ED ---
HPI General Chief complaint: GI Bleed Stated complaint: Bleeding Complaint Time Seen by Provider: 03/11/18 20:08 Source: patient, family and EMS Mode of arrival: EMS Limitations: no limitations History of Present Illness HPI Narrative: 58-year-old male presents to the emergency department by EMS transportation from home if witnessed patient have rectal bleeding and near syncopal episode. 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 Patient does drink a beer daily. Patient takes 162 mg of aspirin daily. Patient takes no other blood thinning agents. No known history of peptic ulcer disease gastritis or esophageal varices. Patient was noted to have small amount of streaks of blood in his stool approximately 2 days ago and then this evening when patient was being assisted to the bathroom by his as he is wheelchair dependent it was noted that he had red blood per rectum and in the toilet bowl without clots patient was cleaned up and was noted to have blood with wiping with toilet paper and then had another episode where he was passing what appeared to be clots and dark stool. MD complaint: Reports blood on toilet paper and gross hematochezia Onset (ago): minute(s) Pain Consistency: other (no report of abdominal pain) Severity: moderate Exacerbating factors: none Context: Reports anticoagulant use (aspirin 162 mg daily); Denies history of GI bleed, liver disease, hemorrhoids, swallowed FB, rectal trauma, alcohol abuse, known esophageal varices, medication/supplement use, foreign travel and unusual food Associated symptoms: Reports malaise and weakness (near syncope); Denies abdominal pain, nausea, vomiting, epistaxis, fever, chills, headaches and loss of appetite Treatments Prior to Arrival: Reports none (called EMS) Related Data Home Medications Medication Instructions Recorded Confirmed amlodipine [Norvasc] 5 mg PO DAILY 03/11/18 03/11/18 aspirin [Aspir-81] 81 mg PO DAILY 03/11/18 03/11/18 carvedilol 3.125 mg PO BID 03/11/18 03/11/18 melatonin 5 mg PO HS 03/11/18 03/11/18 oxybutynin chloride 5 mg PO BID 03/11/18 03/11/18 sertraline [Zoloft] 25 mg PO DAILY 03/11/18 03/11/18 thiamine HCl (vitamin B1) [Vitamin 50 mg PO DAILY 03/11/18 03/11/18 B-1] Previous Rx's Medication Instructions Recorded ciprofloxacin HCl [Cipro] 500 mg PO BID 5 Days #10 tab 03/14/18 metronidazole [Flagyl] 500 mg PO TID 5 Days #15 tab 03/14/18 pantoprazole [Protonix] 40 mg PO DAILY 30 Days #30 tab 03/14/18 Allergies Allergy/AdvReac Type Severity Reaction Status Date / Time lisinopril AdvReac Severe cough Verified 07/03/17 10:52 Review of Systems ROS: all other systems reviewed are negative FOR[facility]LY [facility] Medical History Medical History Hyperlipidemia (Acute) Hypertension (Acute) Stroke (Acute) Surgical History Surgical History No history of previous surgery (Acute) Family History Family History Other Diabetes mellitus Social History Social History Substance History: No History of Abuse Second Hand Smoke Exposure: No Smoking Status: Former smoker How Often Do You Have a Drink Containing Alcohol: Never Recent Travel in [facility] within the Last 8 Weeks: No Recent Out of Country Travel within the Last 8 Weeks: No Immunization History Tetanus Immunization: <5 Years Exam Narrative Exam Narrative: GENERAL: Well-nourished, well-developed patient. SKIN: Focused skin assessment warm/dry. HEAD: Normocephalic. EYES: No scleral icterus. No injection or drainage. NECK: Supple, trachea midline. No JVD or lymphadenopathy. CARDIOVASCULAR: Regular rate and rhythm without murmurs, gallops, or rubs. RESPIRATORY: Breath sounds equal bilaterally. No accessory muscle use. GASTROINTESTINAL: Abdomen soft, non-tender, nondistended. Rectal exam: Normal sphincter tone mucus is Hemoccult positive. No fissure no prolapsed hemorrhoid. MUSCULOSKELETAL: No cyanosis, or edema. Left-sided weakness status post prior CVA. BACK: Nontender without obvious deformity. No CVA tenderness. Course Initial Documented Vital Signs Temperature 98.2 F 03/11/18 19:50 Pulse Rate 95 H 03/11/18 19:50 Respiratory Rate 20 03/11/18 19:50 Blood Pressure 132/96 H 03/11/18 19:50 Pulse Oximetry 98 03/11/18 19:50 Last Documented Vital Signs Temperature 98.0 F 03/14/18 12:00 Pulse Rate 75 03/14/18 12:00 Respiratory Rate 19 03/14/18 12:00 Blood Pressure 121/73 03/14/18 12:00 Pulse Oximetry 95 03/14/18 12:00 Medical Decision Making MDM Narrative Medical Screen Exam Complete: Yes Emergency Medical Condition: Yes Differential Diagnosis Differential Diagnosis: Colitis, GI bleed, coagulopathy, diverticulitis Medical Records Medical records reviewed: Yes I reviewed the patient's medical records. Lab Data Lab results reviewed: Yes I reviewed the patient's lab results. Result diagrams: 03/13/18 06:25 03/13/18 06:25 Lab Results 03/11/18 03/11/18 03/11/18 Range/Units 20:25 20:25 20:25 WBC 16.0 H (4.0-11.0) th/mm3 RBC 4.55 (4.50-5.90) mil/mm3 Hgb 14.8 (13.0-17.0) gm/dL Hct 43.0 (39.0-51.0) % MCV 94.5 (80.0-100.0) fL MCH 32.4 (27.0-34.0) pg MCHC 34.3 (32.0-36.0) % RDW 12.6 (11.6-17.2) % Plt Count 318 (150-450) th/mm3 MPV 7.6 (7.0-11.0) fL Neut % (Auto) 84.7 H (16.0-70.0) % Lymph % (Auto) 9.4 (9.0-44.0) % Wetzel % (Auto) 5.2 (0.0-8.0) % Eos % (Auto) 0.4 (0.0-4.0) % Baso % (Auto) 0.3 (0.0-2.0) % Neut # (Auto) 13.6 H (1.8-7.7) th/mm3 Lymph # (Auto) 1.5 (1.0-4.8) th/mm3 Wetzel # (Auto) 0.8 (0.0-0.9) th/mm3 Eos # (Auto) 0.1 (0.0-0.4) th/mm3 Baso # (Auto) 0.0 (0.0-0.2) th/mm3 WBC Differential . Differential Comment Auto diff final PT 11.3 (9.8-11.6) sec INR 1.1 Ratio APTT 24.6 (24.3-30.1) sec Sodium 137 (136-145) meq/L Potassium 3.8 (3.5-5.1) meq/L Chloride 101 (98-107) meq/L Carbon Dioxide 27.6 (21.0-32.0) meq/L Anion Gap 8 (5-15) meq/L BUN 20 H (7-18) mg/dL Creatinine 1.10 (0.60-1.30) mg/dL Estimated GFR 69 L (>89) mL/min POC Glucose (68-110) mg/dl Random Glucose 106 (74-106) mg/dL Calcium 9.9 (8.5-10.1) mg/dL Magnesium 2.1 (1.5-2.5) mg/dL Total Bilirubin 1.0 (0.2-1.0) mg/dL AST 25 (15-37) U/L ALT 38 (12-78) U/L Alkaline Phosphatase 68 (45-117) U/L Ammonia (11-32) mcmol/L Troponin I Less than 0.02 L (0.02-0.05) ng/mL Total Protein 9.2 H (6.4-8.2) g/dL Albumin 3.8 (3.4-5.0) g/dL Lipase 102 (73-393) U/L Urine Color (Yellw/Straw) Urine Clarity (Clear) Urine pH (5.0-8.5) Ur Specific [place] (1.002-1.035) Urine Protein (Neg-Trace) mg/dL Urine Glucose (UA) (Negative) mg/dL Urine Ketones (Negative) mg/dL Urine Occult Blood (Negative) Urine Nitrate (Negative) Urine Bilirubin (Negative) Urine Urobilinogen (Less than 2) mg/dL Ur Leukocyte Esterase (Negative) Urine RBC (0-3) /hpf Urine WBC (0-5) /hpf Ur Squamous Epith Cells (0-5) /hpf Hyaline Casts (0-3) /lpf Urine Mucus (Occasional) /lpf Micro UA Comment Ur Microscopic Review Urine Culture Comments Stl C.difficile DNA Amp (Negative) St C. diff Tox Epid 027 (Negative) Serum Alcohol Less than 3 (0-5) mg/dL Blood Type Antibody Screen 03/11/18 03/11/18 03/11/18 Range/Units 20:25 20:30 22:25 WBC (4.0-11.0) th/mm3 RBC (4.50-5.90) mil/mm3 Hgb (13.0-17.0) gm/dL Hct (39.0-51.0) % MCV (80.0-100.0) fL MCH (27.0-34.0) pg MCHC (32.0-36.0) % RDW (11.6-17.2) % Plt Count (150-450) th/mm3 MPV (7.0-11.0) fL Neut % (Auto) (16.0-70.0) % Lymph % (Auto) (9.0-44.0) % Wetzel % (Auto) (0.0-8.0) % Eos % (Auto) (0.0-4.0) % Baso % (Auto) (0.0-2.0) % Neut # (Auto) (1.8-7.7) th/mm3 Lymph # (Auto) (1.0-4.8) th/mm3 Wetzel # (Auto) (0.0-0.9) th/mm3 Eos # (Auto) (0.0-0.4) th/mm3 Baso # (Auto) (0.0-0.2) th/mm3 WBC Differential Differential Comment PT (9.8-11.6) sec INR Ratio APTT (24.3-30.1) sec Sodium (136-145) meq/L Potassium (3.5-5.1) meq/L Chloride (98-107) meq/L Carbon Dioxide (21.0-32.0) meq/L Anion Gap (5-15) meq/L BUN (7-18) mg/dL Creatinine (0.60-1.30) mg/dL Estimated GFR (>89) mL/min POC Glucose (68-110) mg/dl Random Glucose (74-106) mg/dL Calcium (8.5-10.1) mg/dL Magnesium (1.5-2.5) mg/dL Total Bilirubin (0.2-1.0) mg/dL AST (15-37) U/L ALT (12-78) U/L Alkaline Phosphatase (45-117) U/L Ammonia 15 (11-32) mcmol/L Troponin I (0.02-0.05) ng/mL Total Protein (6.4-8.2) g/dL Albumin (3.4-5.0) g/dL Lipase (73-393) U/L Urine Color Yellow (Yellw/Straw) Urine Clarity Hazy H (Clear) Urine pH 6.0 (5.0-8.5) Ur Specific [place] 1.015 (1.002-1.035) Urine Protein 30 H (Neg-Trace) mg/dL Urine Glucose (UA) Negative (Negative) mg/dL Urine Ketones 20 (Negative) mg/dL Urine Occult Blood Small H (Negative) Urine Nitrate Negative (Negative) Urine Bilirubin Negative (Negative) Urine Urobilinogen Less than 2 (Less than 2) mg/dL Ur Leukocyte Esterase Trace H (Negative) Urine RBC 2 (0-3) /hpf Urine WBC 75 H (0-5) /hpf Ur Squamous Epith Cells <1 (0-5) /hpf Hyaline Casts 1 (0-3) /lpf Urine Mucus Many H (Occasional) /lpf Micro UA Comment Culture indicated Ur Microscopic Review Not Reportable Urine Culture Comments Culture indicated Stl C.difficile DNA Amp (Negative) St C. diff Tox Epid 027 (Negative) Serum Alcohol (0-5) mg/dL Blood Type O Positive Antibody Screen Negative 03/12/18 03/12/18 03/12/18 Range/Units 03:51 08:52 14:19 WBC (4.0-11.0) th/mm3 RBC (4.50-5.90) mil/mm3 Hgb 11.7 L D 11.9 L 11.7 L (13.0-17.0) gm/dL Hct 34.5 L 36.1 L 35.4 L (39.0-51.0) % MCV (80.0-100.0) fL MCH (27.0-34.0) pg MCHC (32.0-36.0) % RDW (11.6-17.2) % Plt Count (150-450) th/mm3 MPV (7.0-11.0) fL Neut % (Auto) (16.0-70.0) % Lymph % (Auto) (9.0-44.0) % Wetzel % (Auto) (0.0-8.0) % Eos % (Auto) (0.0-4.0) % Baso % (Auto) (0.0-2.0) % Neut # (Auto) (1.8-7.7) th/mm3 Lymph # (Auto) (1.0-4.8) th/mm3 Wetzel # (Auto) (0.0-0.9) th/mm3 Eos # (Auto) (0.0-0.4) th/mm3 Baso # (Auto) (0.0-0.2) th/mm3 WBC Differential Differential Comment PT (9.8-11.6) sec INR Ratio APTT (24.3-30.1) sec Sodium (136-145) meq/L Potassium (3.5-5.1) meq/L Chloride (98-107) meq/L Carbon Dioxide (21.0-32.0) meq/L Anion Gap (5-15) meq/L BUN (7-18) mg/dL Creatinine (0.60-1.30) mg/dL Estimated GFR (>89) mL/min POC Glucose (68-110) mg/dl Random Glucose (74-106) mg/dL Calcium (8.5-10.1) mg/dL Magnesium (1.5-2.5) mg/dL Total Bilirubin (0.2-1.0) mg/dL AST (15-37) U/L ALT (12-78) U/L Alkaline Phosphatase (45-117) U/L Ammonia (11-32) mcmol/L Troponin I (0.02-0.05) ng/mL Total Protein (6.4-8.2) g/dL Albumin (3.4-5.0) g/dL Lipase (73-393) U/L Urine Color (Yellw/Straw) Urine Clarity (Clear) Urine pH (5.0-8.5) Ur Specific [place] (1.002-1.035) Urine Protein (Neg-Trace) mg/dL Urine Glucose (UA) (Negative) mg/dL Urine Ketones (Negative) mg/dL Urine Occult Blood (Negative) Urine Nitrate (Negative) Urine Bilirubin (Negative) Urine Urobilinogen (Less than 2) mg/dL Ur Leukocyte Esterase (Negative) Urine RBC (0-3) /hpf Urine WBC (0-5) /hpf Ur Squamous Epith Cells (0-5) /hpf Hyaline Casts (0-3) /lpf Urine Mucus (Occasional) /lpf Micro UA Comment Ur Microscopic Review Urine Culture Comments Stl C.difficile DNA Amp (Negative) St C. diff Tox Epid 027 (Negative) Serum Alcohol (0-5) mg/dL Blood Type Antibody Screen 03/12/18 03/13/18 03/13/18 Range/Units 20:50 06:25 06:25 WBC 10.1 (4.0-11.0) th/mm3 RBC 3.67 L (4.50-5.90) mil/mm3 Hgb 11.9 L 12.0 L (13.0-17.0) gm/dL Hct 34.8 L 34.6 L (39.0-51.0) % MCV 94.4 (80.0-100.0) fL MCH 32.7 (27.0-34.0) pg MCHC 34.6 (32.0-36.0) % RDW 12.7 (11.6-17.2) % Plt Count 241 (150-450) th/mm3 MPV 7.4 (7.0-11.0) fL Neut % (Auto) 78.6 H (16.0-70.0) % Lymph % (Auto) 14.0 (9.0-44.0) % Wetzel % (Auto) 6.4 (0.0-8.0) % Eos % (Auto) 0.7 (0.0-4.0) % Baso % (Auto) 0.3 (0.0-2.0) % Neut # (Auto) 8.0 H (1.8-7.7) th/mm3 Lymph # (Auto) 1.4 (1.0-4.8) th/mm3 Wetzel # (Auto) 0.6 (0.0-0.9) th/mm3 Eos # (Auto) 0.1 (0.0-0.4) th/mm3 Baso # (Auto) 0.0 (0.0-0.2) th/mm3 WBC Differential . Differential Comment Auto diff final PT (9.8-11.6) sec INR Ratio APTT (24.3-30.1) sec Sodium 138 (136-145) meq/L Potassium 3.3 L (3.5-5.1) meq/L Chloride 104 (98-107) meq/L Carbon Dioxide 24.5 (21.0-32.0) meq/L Anion Gap 10 (5-15) meq/L BUN 7 (7-18) mg/dL Creatinine 0.72 (0.60-1.30) mg/dL Estimated GFR Greater than 89 (>89) mL/min POC Glucose (68-110) mg/dl Random Glucose 84 (74-106) mg/dL Calcium 8.3 L D (8.5-10.1) mg/dL Magnesium (1.5-2.5) mg/dL Total Bilirubin (0.2-1.0) mg/dL AST (15-37) U/L ALT (12-78) U/L Alkaline Phosphatase (45-117) U/L Ammonia (11-32) mcmol/L Troponin I (0.02-0.05) ng/mL Total Protein (6.4-8.2) g/dL Albumin (3.4-5.0) g/dL Lipase (73-393) U/L Urine Color (Yellw/Straw) Urine Clarity (Clear) Urine pH (5.0-8.5) Ur Specific [place] (1.002-1.035) Urine Protein (Neg-Trace) mg/dL Urine Glucose (UA) (Negative) mg/dL Urine Ketones (Negative) mg/dL Urine Occult Blood (Negative) Urine Nitrate (Negative) Urine Bilirubin (Negative) Urine Urobilinogen (Less than 2) mg/dL Ur Leukocyte Esterase (Negative) Urine RBC (0-3) /hpf Urine WBC (0-5) /hpf Ur Squamous Epith Cells (0-5) /hpf Hyaline Casts (0-3) /lpf Urine Mucus (Occasional) /lpf Micro UA Comment Ur Microscopic Review Urine Culture Comments Stl C.difficile DNA Amp (Negative) St C. diff Tox Epid 027 (Negative) Serum Alcohol (0-5) mg/dL Blood Type Antibody Screen 03/13/18 03/13/18 Range/Units 09:56 12:30 WBC (4.0-11.0) th/mm3 RBC (4.50-5.90) mil/mm3 Hgb (13.0-17.0) gm/dL Hct (39.0-51.0) % MCV (80.0-100.0) fL MCH (27.0-34.0) pg MCHC (32.0-36.0) % RDW (11.6-17.2) % Plt Count (150-450) th/mm3 MPV (7.0-11.0) fL Neut % (Auto) (16.0-70.0) % Lymph % (Auto) (9.0-44.0) % Wetzel % (Auto) (0.0-8.0) % Eos % (Auto) (0.0-4.0) % Baso % (Auto) (0.0-2.0) % Neut # (Auto) (1.8-7.7) th/mm3 Lymph # (Auto) (1.0-4.8) th/mm3 Wetzel # (Auto) (0.0-0.9) th/mm3 Eos # (Auto) (0.0-0.4) th/mm3 Baso # (Auto) (0.0-0.2) th/mm3 WBC Differential Differential Comment PT (9.8-11.6) sec INR Ratio APTT (24.3-30.1) sec Sodium (136-145) meq/L Potassium (3.5-5.1) meq/L Chloride (98-107) meq/L Carbon Dioxide (21.0-32.0) meq/L Anion Gap (5-15) meq/L BUN (7-18) mg/dL Creatinine (0.60-1.30) mg/dL Estimated GFR (>89) mL/min POC Glucose 103 (68-110) mg/dl Random Glucose (74-106) mg/dL Calcium (8.5-10.1) mg/dL Magnesium (1.5-2.5) mg/dL Total Bilirubin (0.2-1.0) mg/dL AST (15-37) U/L ALT (12-78) U/L Alkaline Phosphatase (45-117) U/L Ammonia (11-32) mcmol/L Troponin I (0.02-0.05) ng/mL Total Protein (6.4-8.2) g/dL Albumin (3.4-5.0) g/dL Lipase (73-393) U/L Urine Color (Yellw/Straw) Urine Clarity (Clear) Urine pH (5.0-8.5) Ur Specific [place] (1.002-1.035) Urine Protein (Neg-Trace) mg/dL Urine Glucose (UA) (Negative) mg/dL Urine Ketones (Negative) mg/dL Urine Occult Blood (Negative) Urine Nitrate (Negative) Urine Bilirubin (Negative) Urine Urobilinogen (Less than 2) mg/dL Ur Leukocyte Esterase (Negative) Urine RBC (0-3) /hpf Urine WBC (0-5) /hpf Ur Squamous Epith Cells (0-5) /hpf Hyaline Casts (0-3) /lpf Urine Mucus (Occasional) /lpf Micro UA Comment Ur Microscopic Review Urine Culture Comments Stl C.difficile DNA Amp Negative (Negative) St C. diff Tox Epid 027 Negative (Negative) Serum Alcohol (0-5) mg/dL Blood Type Antibody Screen Imaging Data Radiologist's impression: Chest X-Ray 03/11/18 20:09 CONCLUSION: Left upper lobe masses are without definite change from the prior CT. Otherwise negative one view chest x-ray. Abdomen/Pelvis CT 03/11/18 20:48 CONCLUSION: 1. Mild mural thickening of the colon, especially on the left side most characteristic of a mild colitis. 2. Mild prostatic enlargement. Right renal cysts. 3 mm nonobstructing left renal calculus. Mild fatty liver. Moderate coronary calcifications. Chest CT 03/11/18 22:18 CONCLUSION: 1. Relatively stable left apical lung mass with near complete resolution of previous cavitary lesion in left upper lobe compared with May. No new lung masses. No new effusion or adenopathy. Moderate to severe coronary calcification. Discharge Plan Discharge Disposition Patient Disposition: Discharge Home Discharge Condition Condition: Stable Discharge Order Discharge Orders: Discharge Order (Routine); Ordered 03/14/18 Ordered By: Marva Humphrey Discharge Details Anticipated Discharge Date: 03/14/18 Diagnosis: Colitis, History of CVA (cerebrovascular accident) Physicians Team ED Provider: Jannette Blue Primary Care Provider: Vick Ortega Attending Provider: Allan White Other Providers: Carolina Hannon Discharge Interventions Interventions: ED Discharge Assessment Last Done: 03/12/18 01:23 Vital Signs Last Done: 03/11/18 19:53 Status ED Status: Left Department Discharge Information Discharge Date/Time: 03/12/18 01:44
[2018-03-11] MEDS ORDERED: Pantoprazole Inj 80 MG in Sodium Chlor 0.9% Inj 50 ML IV.SIG ONE (20:29)
--- NOTE | 2018-03-11 20:37 | XR ---
EXAM DATE: 03/11/2018 8:09 PM EDT AGE/SEX: 58 years / Male INDICATIONS: Infiltrate. CLINICAL DATA: This is the patient's initial encounter. Patient reports that signs and symptoms have been present for 1 day and indicates a pain score of 0/10. MEDICAL/SURGICAL HISTORY: Hypertension. Stroke. C-diff. MRSA. None. COMPARISON: [facility] [place], CT THORAX W CONTRAST, 06/11/2017. . FINDINGS: Nodular opacities are seen at the left lung apex, shown on prior CT to be cavitary masses. There does not appear to be a significant change in the interim. The rest of the lungs are clear. No pleural ef fusions are demonstrated. No pneumothorax. Cardiomediastinal silhouette within normal limits. CONCLUSION: Left upper lobe masses are without definite change from the prior CT. Otherwise negative [facility] x-ray. Electronically signed by: Cliff Mathew MD 03/11/2018 8:35 PM EDT
[2018-03-11 20:41] LABS: Baso % (Auto) 0.3 % (0.0-2.0); Eos # (Auto) 0.1 th/mm3 (0.0-0.4); Eos % (Auto) 0.4 % (0.0-4.0); Hemoglobin 14.8 gm/dL (13.0-17.0); Lymph # (Auto) 1.5 th/mm3 (1.0-4.8); Lymph % (Auto) 9.4 % (9.0-44.0); Mean Corpuscular HGB Conc 34.3 % (32.0-36.0); Mean Corpuscular Hemoglobin 32.4 pg (27.0-34.0); Mean Corpuscular Volume 94.5 fL (80.0-100.0); Mean Platelet Volume 7.6 fL (7.0-11.0); Mono # (Auto) 0.8 th/mm3 (0.0-0.9); Mono % (Auto) 5.2 % (0.0-8.0); Neut # (Auto) 13.6 th/mm3 (1.8-7.7); Neut % (Auto) 84.7 % (16.0-70.0); Platelet Count 318 th/mm3 (150-450); Red Blood Count 4.55 mil/mm3 (4.50-5.90); Red Cell Distribution Width 12.6 % (11.6-17.2)
[2018-03-11 20:56] LABS: Activated Partial Thrombo Time 24.6 sec (24.3-30.1); INR 1.1 Ratio; Prothrombin Time 11.3 sec (9.8-11.6)
[2018-03-11] MEDS ORDERED: Pantoprazole Inj 80 MG in Sodium Chlor 0.9% Inj 100 ML IV.CONT SCH (21:00)
[2018-03-11 21:07] LABS: Alanine Aminotransferase 38 U/L (12-78); Albumin 3.8 g/dL (3.4-5.0); Anion Gap 8 meq/L (5-15); Aspartate Aminotransferase 25 U/L (15-37); Blood Urea Nitrogen 20 mg/dL (7-18); Calcium 9.9 mg/dL (8.5-10.1); Carbon Dioxide 27.6 meq/L (21.0-32.0); Chloride 101 meq/L (98-107); Glomerular Filtration Rate 69 mL/min (>89); Glucose,Random 106 mg/dL (74-106); Lipase 102 U/L (73-393); Magnesium 2.1 mg/dL (1.5-2.5); Potassium 3.8 meq/L (3.5-5.1); Sodium 137 meq/L (136-145)
[2018-03-11 21:12] LABS: Alkaline Phosphatase 68 U/L (45-117); Total Protein 9.2 g/dL (6.4-8.2)
[2018-03-11 22:46] LABS: Bilirubin,Urine Negative (Negative); Clarity,Urine Hazy (Clear); Color,Urine Yellow (Yellw/Straw); Glucose,Urine (UA) Negative (Negative); Hyaline Casts,Urine 1 /lpf (0-3); Leukocyte Esterase,Urine Trace (Negative); Mucus,Urine Many /lpf (Occasional); Nitrite,Urine Negative (Negative); Specific Gravity,Urine 1.015 (1.002-1.035); Squamous Epithelial Cell,Urine <1 /hpf (0-5)
--- NOTE | 2018-03-11 22:55 | CT ---
EXAM DATE: 03/11/2018 9:05 PM EDT AGE/SEX: 58 years / Male INDICATIONS: Abdominal pain. Blood in stool. CLINICAL DATA: This is the patient's initial encounter. Patient reports that signs and symptoms have been present for 1 day and indicates a pain score of 4/10. MEDICAL/SURGICAL HISTORY: Hypertension. Stroke. None. ORAL CONTRAST: No oral contrast ingested. RADIATION DOSE: 13.69 CTDI (mGy) ; Combined studies COMPARISON: No prior exams available for comparison. TECHNIQUE: Multiple contiguous axial images were obtained through the abdomen and pelvis following b olus infusion of 95 ml Omnipaque 350 (iohexol) nonionic water-soluble contrast as a cumulative dose for multiple exams. No oral contrast ingested. Using automated exposure control and adjustment of t he mA and/or kV according to patient size, radiation dose was kept as low as reasonably achievable to obtain optimal diagnostic quality images. DICOM format image data is available electronically for r eview and comparison. FINDINGS: Lung bases demonstrate minimal atelectasis. Calcified granuloma right lower lobe. Moderate coronary c alcifications. Mild fatty liver. Spleen, adrenals and pancreas unremarkable. Right renal cysts. Nonobstructing upper pole left renal calculus. No pelvic mass identified. Prostate mildly enlarged. No free fluid. No free air. CONCLUSION: 1. Mild mural thickening of the colon, especially on the left side most characteristic of a mild col itis. 2. Mild prostatic enlargement. Right renal cysts. 3 mm nonobstructing left renal calculus. Mild fatt y liver. Moderate coronary calcifications. Electronically signed by: Sourav Pryor MD 03/11/2018 10:53 PM EDT
--- NOTE | 2018-03-11 23:05 | CT ---
EXAM DATE: 03/11/2018 10:20 PM EDT AGE/SEX: 58 years / Male INDICATIONS: Mass. CLINICAL DATA: This is the patient's initial encounter. Patient reports that signs and symptoms have been present for 1 day and indicates a pain score of 0/10. MEDICAL/SURGICAL HISTORY: Hypertension. Stroke. None. RADIATION DOSE: 13.69 CTDI (mGy) ; Combined studies COMPARISON: [facility] [place], CT THORAX W CONTRAST, 06/11/2017. . TECHNIQUE: Multiple contiguous axial images were obtained through the chest during bolus infusion of 95 ml Omnipaque 350 (iohexol) nonionic water-soluble contrast as a cumulative dose for multiple exa ms. Images were obtained in suspended respiration using multiple row detector helical technique. U sing automated exposure control and adjustment of the mA and/or kV according to patient size, radiati on dose was kept as low as reasonably achievable to obtain optimal diagnostic quality images. DICOM format image data is available electronically for review and comparison. FINDINGS: Comparison is May 2017. Again seen is a 3 cm mass at the left lung apex which is stable to slight ly decreased in size from May. Previous cavitary mass has nearly completely resolved with some mi nimal residual soft tissue noted. No new lung mass is identified. There is peribronchial thickening especially at the lung bases. No pleural or pericardial effusion. M oderate coronary calcifications. CONCLUSION: 1. Relatively stable left apical lung mass with near complete resolution of previous cavitary lesion in left upper lobe compared with May. No new lung masses. No new effusion or adenopathy. Moderat e to severe coronary calcification. Electronically signed by: Sourav Pryor MD 03/11/2018 11:04 PM EDT
[2018-03-12] MEDS ORDERED: Bisacodyl 10 MG Supp RECTAL PRN (00:23)
[2018-03-12] MEDS ORDERED: Ciprofloxacin 400 MG/200 ML 400 MG/200 ML PIGGYBACK IV.SIG ONE (00:25)
--- NOTE | 2018-03-12 01:52 | P.HP ---
History of Present Illness Service: [facility] Primary Care Physician: Vick Ortega MD History of Present Illness: 58-year-old male with a past medical history significant for history of CVA in June of this year, hypertension and hyperlipidemia presents to the emergency department for evaluation of bright red blood per rectum. Earlier yesterday, the patient was found to have bright red blood with clots in his stool. Following the episode the patient was pale and weak. He endorses abdominal discomfort over the past week with associated anorexia. Denies fever/ chills. No chest pain or shortness of breath. No nausea/vomiting. Left-sided weakness at baseline. Review of Systems All other systems reviewed negative except as stated in HPI [facility] - History History Provided By: Patient - Medical History Medical History: Medical History (Last Updated 03/12/18 @ 01:40 by Ana Yates MD) Hyperlipidemia Hypertension Stroke - Surgical History Surgical History: Surgical History (Last Updated 03/12/18 @ 01:40 by Ana Yates MD) No history of previous surgery - Family History Family History: Family History (Last Updated 03/12/18 @ 01:40 by Ana Yates MD) Other Diabetes mellitus - Tobacco History Second Hand Smoke Exposure: Yes Smoking Status: Never smoker - Alcohol History How Often Do You Have a Drink Containing Alcohol: 2 to 4 times a month - Substance Use History Substance History: No History of Abuse - Travel History Recent Travel in the [place] Within the Last 8 Weeks: No Recent Travel Out of the Country Within the Last 8 Weeks: No - Immunization History Tetanus Immunization: <5 Years Medications and Allergies Active Medications: Active Medications Bisacodyl (Dulcolax Supp) 10 mg RECTAL DAILY PRN PRN Reason: SEVERE CONSITIPATION Pantoprazole Sodium 80 mg/ (Sodium Chloride) 100 mls @ 10 mls/hr IV.CONT CONT ALEXANDRA Last Admin: 03/11/18 22:51 Dose: 10 mls/hr Sodium Chloride (Ns Inj) 1,000 mls @ 125 mls/hr IV.CONT .Q8H ALEXANDRA Last Admin: 03/11/18 20:09 Dose: 125 mls/hr Ceftriaxone Sodium 1,000 mg/ (Sodium Chloride) 100 mls @ 200 mls/hr IV.SIG Q24H ALEXANDRA Ondansetron HCl (Zofran Inj) 4 mg IV.PUSH Q6H PRN PRN Reason: NAUSEA OR VOMITING Sennosides (Senokot) 17.2 mg PO Q12H PRN PRN Reason: Moderate Constipation Sodium Chloride (Ns Flush) 2 ml IV.FLUSH PRN PRN PRN Reason: FLUSH AFTER USING IV ACCESS Allergies Allergy/AdvReac Type Severity Reaction Status Date / Time lisinopril AdvReac Severe cough Verified 07/03/17 10:52 Home Medications Medication Instructions Recorded Confirmed Type amlodipine [Norvasc] 5 mg PO DAILY 03/11/18 03/11/18 History aspirin [Aspir-81] 81 mg PO DAILY 03/11/18 03/11/18 History carvedilol 3.125 mg PO BID 03/11/18 03/11/18 History melatonin 5 mg PO HS 03/11/18 03/11/18 History oxybutynin chloride 5 mg PO BID 03/11/18 03/11/18 History sertraline [Zoloft] 25 mg PO DAILY 03/11/18 03/11/18 History thiamine HCl (vitamin B1) [Vitamin 50 mg PO DAILY 03/11/18 03/11/18 History B-1] Exam Vital signs: Vital Signs 03/11/18 19:50 03/11/18 19:53 Temperature 98.2 F Pulse Rate 95 H 98 H Respiratory Rate 20 20 Blood Pressure 132/96 H 139/95 H Pulse Oximetry 98 98 Intake & Output 03/11/18 03/11/18 03/12/18 06:59 18:59 06:59 Intake Total 50 / 50 Balance 50 / 50 Weight 74.843 kg Intake: IV 50 / 50 Protonix Inj 80 MG In NS Inj 50 50 / 50 ML @ 600 mls/hr IV.SIG BOLUS ONE Rx#:[id number] Narrative: Gen.: No acute distress Head: Normocephalic. Atraumatic. EENT: Pupils equal round and reactive to light. Nose without drainage. Airway intact. Throat without injection. Cardiovascular: Regular rate and rhythm. No murmurs, rubs or gallops. Respiratory: Lungs clear to auscultation bilaterally. No wheezes or rhonchi. Abdomen: Soft, nontender, nondistended. No peritoneal signs. Musculoskeletal: No gross deformities. No edema. Skin: No obvious rashes or erythema. Neuro: Left-sided weakness at baseline Results - Labs CBC & Chem 7: 03/11/18 20:25 03/11/18 20:25 Labs: Laboratory Results - last 24 hr 03/11/18 03/11/18 03/11/18 20:25 20:25 20:25 WBC 16.0 H RBC 4.55 Hgb 14.8 Hct 43.0 MCV 94.5 MCH 32.4 MCHC 34.3 RDW 12.6 Plt Count 318 MPV 7.6 Neut % (Auto) 84.7 H Lymph % (Auto) 9.4 Scott % (Auto) 5.2 Eos % (Auto) 0.4 Baso % (Auto) 0.3 Neut # (Auto) 13.6 H Lymph # (Auto) 1.5 Scott # (Auto) 0.8 Eos # (Auto) 0.1 Baso # (Auto) 0.0 WBC Differential . Differential Comment Auto diff final PT 11.3 INR 1.1 APTT 24.6 Sodium 137 Potassium 3.8 Chloride 101 Carbon Dioxide 27.6 Anion Gap 8 BUN 20 H Creatinine 1.10 Estimated GFR 69 L Random Glucose 106 Calcium 9.9 Magnesium 2.1 Total Bilirubin 1.0 AST 25 ALT 38 Alkaline Phosphatase 68 Ammonia Troponin I Less than 0.02 L Total Protein 9.2 H Albumin 3.8 Lipase 102 Urine Color Urine Clarity Urine pH Ur Specific Gilbert Urine Protein Urine Glucose (UA) Urine Ketones Urine Occult Blood Urine Nitrate Urine Bilirubin Urine Urobilinogen Ur Leukocyte Esterase Urine RBC Urine WBC Ur Squamous Epith Cells Hyaline Casts Urine Mucus Micro UA Comment Ur Microscopic Review Urine Culture Comments Serum Alcohol Less than 3 Blood Type Antibody Screen 03/11/18 03/11/18 03/11/18 20:25 20:30 22:25 WBC RBC Hgb Hct MCV MCH MCHC RDW Plt Count MPV Neut % (Auto) Lymph % (Auto) Scott % (Auto) Eos % (Auto) Baso % (Auto) Neut # (Auto) Lymph # (Auto) Scott # (Auto) Eos # (Auto) Baso # (Auto) WBC Differential Differential Comment PT INR APTT Sodium Potassium Chloride Carbon Dioxide Anion Gap BUN Creatinine Estimated GFR Random Glucose Calcium Magnesium Total Bilirubin AST ALT Alkaline Phosphatase Ammonia 15 Troponin I Total Protein Albumin Lipase Urine Color Yellow Urine Clarity Hazy H Urine pH 6.0 Ur Specific Gilbert 1.015 Urine Protein 30 H Urine Glucose (UA) Negative Urine Ketones 20 Urine Occult Blood Small H Urine Nitrate Negative Urine Bilirubin Negative Urine Urobilinogen Less than 2 Ur Leukocyte Esterase Trace H Urine RBC 2 Urine WBC 75 H Ur Squamous Epith Cells <1 Hyaline Casts 1 Urine Mucus Many H Micro UA Comment Culture indicated Ur Microscopic Review Not Reportable Urine Culture Comments Culture indicated Serum Alcohol Blood Type O Positive Antibody Screen Negative - Imaging Impressions Chest X-Ray 03/11/18 20:09 CONCLUSION: Left upper lobe masses are without definite change from the prior CT. Otherwise negative one view chest x-ray. Abdomen/Pelvis CT 03/11/18 20:48 CONCLUSION: 1. Mild mural thickening of the colon, especially on the left side most characteristic of a mild colitis. 2. Mild prostatic enlargement. Right renal cysts. 3 mm nonobstructing left renal calculus. Mild fatty liver. Moderate coronary calcifications. Chest CT 03/11/18 22:18 CONCLUSION: 1. Relatively stable left apical lung mass with near complete resolution of previous cavitary lesion in left upper lobe compared with May. No new lung masses. No new effusion or adenopathy. Moderate to severe coronary calcification. Caprini VTE Risk Assessment Caprini VTE Risk Assessment: No/Low Risk (score <= 1) Caprini Risk Assessment Model: Point Value = 1 Point Value = 2 Point Value = 3 Point Value = 5 Age 41-60 Minor surgery BMI > 25 kg/m2 Swollen legs Varicose veins or History of unexplained or recurrent spontaneous Oral contraceptives or hormone replacement Sepsis (< 1 month) Serious lung disease, including pneumonia (< 1 month) Abnormal pulmonary function Acute myocardial infarction Congestive heart failure (< 1 month) History of inflammatory bowel disease Medical patient at bed rest Age 61-74 Arthroscopic surgery Major open surgery (> 45 min) Laparoscopic surgery (> 45 min) Malignancy Confined to bed (> 72 hours) Immobilizing plaster cast Central venous access Age >= 75 History of VTE Family history of VTE Factor V Leiden Prothrombin [id number] Lupus anticoagulant Anticardiolipin antibodies Elevated serum homocysteine Heparin-induced thrombocytopenia Other congenital or acquired thrombophilia Stroke (< 1 month) Elective arthroplasty Hip, pelvis, or leg fracture Acute spinal cord injury (< 1 month) Prophylaxis Regimen: Total Risk Factor Score Risk Level Prophylaxis Regimen 0-1 Low Early ambulation 2 Moderate Order ONE of the following: *Sequential Compression Device (SCD) *Heparin 5000 units SQ BID 3-4 Higher Order ONE of the following medications: *Heparin 5000 units SQ TID *Enoxaparin/Lovenox 40 mg SQ daily (WT < 150 kg, CrCl > 30 mL/min) *Enoxaparin/Lovenox 30 mg SQ daily (WT < 150 kg, CrCl > 10-29 mL/min) *Enoxaparin/Lovenox 30 mg SQ BID (WT < 150 kg, CrCl > 30 mL/min) AND/OR *Sequential Compression Device (SCD) 5 or more Highest Order ONE of the following medications: *Heparin 5000 units SQ TID (Preferred with Epidurals) *Enoxaparin/Lovenox 40 mg SQ daily (WT < 150 kg, CrCl > 30 mL/min) *Enoxaparin/Lovenox 30 mg SQ daily (WT < 150 kg, CrCl > 10-29 mL/min) *Enoxaparin/Lovenox 30 mg SQ BID (WT < 150 kg, CrCl > 30 mL/min) AND *Sequential Compression Device (SCD) Assessment and Plan - Plan Assessment/plan: 1. Colitis/bright red blood per rectum CT of the abdomen/pelvis significant for mild mural thickening of the colon most characteristic of colitis Cipro/Flagyl 2. History of CVA Left-sided weakness at baseline Holding aspirin for bright red blood per rectum 3. Hypertension Continue home amlodipine/carvedilol 4. Urinary tract infection Cipro as above UA consistent with UTI Urine culture pending 5. Lung mass Patient with stable apical lung mass with near complete resolution of previous cavitary lesion as compared to May Clear liquid diet Electrolytes: Monitor and replete as needed NS at 100 cc/hour
[2018-03-12 04:21] LABS: Hematocrit 34.5 % (39.0-51.0); Hemoglobin 11.7 gm/dL (13.0-17.0)
[2018-03-12] MEDS: Sod Chloride 0.9% Inj 1,000 ML IV.CONT SCH ×2 (08:40→16:01)
[2018-03-12] MEDS: amLODIPine 5 MG Tablet PO SCH (08:41)
[2018-03-12] MEDS: Sertraline 50 MG Tablet PO SCH (08:41)
[2018-03-12 09:37] LABS: Hematocrit 36.1 % (39.0-51.0); Hemoglobin 11.9 gm/dL (13.0-17.0)
--- NOTE | 2018-03-12 09:45 | P.CONGI ---
History of Present Illness Consult date: 03/12/18 Consult reason: GI bleed Chief complaint: GI Bleed, Colitis History of Present Illness: This is a 58-year-old male who came into the hospital for bright red rectal bleeding and nausea that he noticed approximately 24 hours ago patient states that he is also had symptoms of diarrhea for approximately 2 weeks as many as 3- 4 times a day along with decreased appetite. Patient denies any dyspepsia or dysphasia. 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 Patient is taking baby aspirin 4 times a day/325 mg total which could be aggravating any bright red rectal bleeding. CT scan did show some mild colitis on the left side with some mild mural thickening and fatty liver disease. Patient has been placed on Flagyl and Cipro. Labs show hemoglobin initially was 14.8 and is now 11.7, PT/INR 1.1, ammonia level 15, bilirubin and LFTs are normal, and lipase is normal at 102. Patient denies any history of EGD or colonoscopy and denies any family history of colon cancer. Gastroenterology was consulted for patient' s GI bleed and to assist with his plan of care. Patient denies any history of constipation and denies any acute abdominal pain for now <Demetrice Pena - Last Filed: 03/12/18 09:46> Review of Systems All other systems reviewed negative except as stated in HPI <Demetrice Pena - Last Filed: 03/12/18 09:46> PMFSH - History History Provided By: Patient - Medical History Medical History: Medical History (Last Updated 03/12/18 @ 01:40 by Ana Yates MD) Hyperlipidemia Hypertension Stroke - Surgical History Surgical History: Surgical History (Last Updated 03/12/18 @ 01:40 by Ana Yates MD) No history of previous surgery - Family History Family History: Family History (Last Updated 03/12/18 @ 01:40 by Ana Yates MD) Other Diabetes mellitus - Tobacco History Second Hand Smoke Exposure: No Smoking Status: Former smoker - Alcohol History How Often Do You Have a Drink Containing Alcohol: Never - Substance Use History Substance History: No History of Abuse - Travel History Recent Travel in the [facility] Within the Last 8 Weeks: No Recent Travel Out of the Country Within the Last 8 Weeks: No - Immunization History Tetanus Immunization: <5 Years <Demetrice Pena Leon - Last Filed: 03/12/18 09:46> - Medical History Medical History: Medical History (Last Updated 03/12/18 @ 01:40 by Ana Yates MD) Hyperlipidemia Hypertension Stroke - Surgical History Surgical History: Surgical History (Last Updated 03/12/18 @ 01:40 by Ana Yates MD) No history of previous surgery - Family History Family History: Family History (Last Updated 03/12/18 @ 01:40 by Ana Yates MD) Other Diabetes mellitus <GilmarsharonLianna nathane - Last Filed: 03/12/18 16:20> Medications and Allergies Active Medications: Active Medications Amlodipine Besylate (Norvasc) 5 mg PO DAILY [facility] Last Admin: 03/12/18 08:41 Dose: 5 mg Bisacodyl (Dulcolax Supp) 10 mg RECTAL DAILY PRN PRN Reason: SEVERE CONSITIPATION Carvedilol (Coreg) 3.125 mg PO BID [facility] Last Admin: 03/12/18 08:41 Dose: 3.125 mg Sodium Chloride (Ns Inj) 1,000 mls @ 100 mls/hr IV.CONT .Q10H [facility] Last Admin: 03/12/18 08:40 Dose: 100 mls/hr Metronidazole/Sodium Chloride (Flagyl 500 Mg Inj) 100 mls @ 100 mls/hr IV.SIG Q8H [facility] Last Admin: 03/12/18 08:40 Dose: 100 mls/hr Ciprofloxacin/Dextrose (Cipro 400 Mg/200 Ml Inj) 400 mg in 200 mls @ 200 mls/ hr IV.SIG Q12H [facility] Pantoprazole Sodium 80 mg/ (Sodium Chloride) 100 mls @ 10 mls/hr IV.CONT Q10H [facility] Melatonin (Melatonin) 5 mg PO HS [facility] Ondansetron HCl (Zofran Inj) 4 mg IV.PUSH Q6H PRN PRN Reason: NAUSEA OR VOMITING Oxybutynin Chloride (Ditropan) 5 mg PO BID [facility] Last Admin: 03/12/18 08:41 Dose: 5 mg Polyethylene Glycol/Electrolytes (Colyte Liq) 4,000 ml PO ONCE ONE Stop: 03/12/18 15:01 Sennosides (Senokot) 17.2 mg PO Q12H PRN PRN Reason: Moderate Constipation Sertraline HCl (Zoloft) 25 mg PO DAILY [facility] Last Admin: 03/12/18 08:41 Dose: 25 mg Sodium Chloride (Ns Flush) 2 ml IV.FLUSH PRN PRN PRN Reason: FLUSH AFTER USING IV ACCESS <Demetrice Pena M - Last Filed: 03/12/18 09:46> Active Medications: Active Medications Acetaminophen (Tylenol) 650 mg PO Q4H PRN PRN Reason: headache/fever/pain1-5 Amlodipine Besylate (Norvasc) 5 mg PO DAILY [facility] Last Admin: 03/12/18 08:41 Dose: 5 mg Bisacodyl (Dulcolax Supp) 10 mg RECTAL DAILY PRN PRN Reason: SEVERE CONSITIPATION Carvedilol (Coreg) 3.125 mg PO BID [facility] Last Admin: 03/12/18 08:41 Dose: 3.125 mg Sodium Chloride (Ns Inj) 1,000 mls @ 100 mls/hr IV.CONT .Q10H [facility] Last Admin: 03/12/18 16:01 Dose: Not Given Metronidazole/Sodium Chloride (Flagyl 500 Mg Inj) 100 mls @ 100 mls/hr IV.SIG Q8H [facility] Last Infusion: 03/12/18 10:05 Dose: Infused Ciprofloxacin/Dextrose (Cipro 400 Mg/200 Ml Inj) 400 mg in 200 mls @ 200 mls/ hr IV.SIG Q12H [facility] Last Infusion: 03/12/18 15:30 Dose: Infused Pantoprazole Sodium 80 mg/ (Sodium Chloride) 100 mls @ 10 mls/hr IV.CONT Q10H [facility] Last Admin: 03/12/18 11:25 Dose: 10 mls/hr Melatonin (Melatonin) 5 mg PO [facility] Ondansetron HCl (Zofran Inj) 4 mg IV.PUSH Q6H PRN PRN Reason: NAUSEA OR VOMITING Oxybutynin Chloride (Ditropan) 5 mg PO BID [facility] Last Admin: 03/12/18 08:41 Dose: 5 mg Sennosides (Senokot) 17.2 mg PO Q12H PRN PRN Reason: Moderate Constipation Sertraline HCl (Zoloft) 25 mg PO DAILY [facility] Last Admin: 03/12/18 08:41 Dose: 25 mg Sodium Chloride (Ns Flush) 2 ml IV.FLUSH PRN PRN PRN Reason: FLUSH AFTER USING IV ACCESS <Carolina Hannon - Last Filed: 03/12/18 16:20> Allergies Allergy/AdvReac Type Severity Reaction Status Date / Time lisinopril AdvReac Severe cough Verified 07/03/17 10:52 Home Medications Medication Instructions Recorded Confirmed Type amlodipine [Norvasc] 5 mg PO DAILY 03/11/18 03/11/18 History aspirin [Aspir-81] 81 mg PO DAILY 03/11/18 03/11/18 History carvedilol 3.125 mg PO BID 03/11/18 03/11/18 History melatonin 5 mg PO HS 03/11/18 03/11/18 History oxybutynin chloride 5 mg PO BID 03/11/18 03/11/18 History sertraline [Zoloft] 25 mg PO DAILY 03/11/18 03/11/18 History thiamine HCl (vitamin B1) [Vitamin 50 mg PO DAILY 03/11/18 03/11/18 History B-1] Exam Vital signs: Vital Signs 03/11/18 19:50 03/11/18 19:53 03/12/18 04:00 Temperature 98.2 F 98.3 F Pulse Rate 95 H 98 H 84 Respiratory Rate 20 20 16 Blood Pressure 132/96 H 139/95 H 122/68 Pulse Oximetry 98 98 96 03/12/18 07:53 Temperature 98.5 F Pulse Rate 86 Respiratory Rate 18 Blood Pressure 137/74 Pulse Oximetry 95 Intake & Output 03/11/18 03/12/18 03/12/18 18:59 06:59 18:59 Intake Total 350 / 350 1100 / 1100 Output Total 100 / 100 Balance 250 / 250 1100 / 1100 Weight 74.843 kg Intake: IV 350 / 350 1100 / 1100 Protonix Inj 80 MG In NS Inj 100 / 100 100 ML @ 10 mls/hr IV.CONT CONT [facility] Rx#:[id number] NS Inj 1,000 ML @ 100 mls/hr IV 1000 / 1000 .CONT .Q10H [facility] Rx#:[id number] Cipro 400 MG/200 ML Inj 400 mg 200 / 200 In 200 ml @ 200 mls/hr IV.SIG ONCE ONE Rx#:[id number] Protonix Inj 80 MG In NS Inj 50 50 / 50 ML @ 600 mls/hr IV.SIG BOLUS ONE Rx#:[id number] Flagyl 500 MG Inj 100 ML @ 100 100 / 100 mls/hr IV.SIG ONCE ONE Rx#: [id number] Output: Urine Amount (Catheter) 100 / 100 Condom 100 / 100 Other: Date of Last Bowel Movement 03/11/18 Weight On Admission 74.843 kg - Constitutional mild distress, average body habitus, somnolent - Routine HEENT Exam Head: Present: normocephalic ENT: Present: mucous membranes dry - Routine Neck Exam Present: supple - Routine Respiratory Exam Present: accessory muscle use (Even, unlabored) - Routine Cardiovascular Exam Present: S1, S2 - Routine Abdominal Exam Present: normoactive bowel sounds (taut, no obvious distention, no abdominal pain to light palpation) <Demetrice Pena - Last Filed: 03/12/18 09:46> Vital signs: Vital Signs 03/11/18 19:50 03/11/18 19:53 03/12/18 04:00 Temperature 98.2 F 98.3 F Pulse Rate 95 H 98 H 84 Respiratory Rate 20 20 16 Blood Pressure 132/96 H 139/95 H 122/68 Pulse Oximetry 98 98 96 03/12/18 07:53 03/12/18 11:47 03/12/18 15:54 Temperature 98.5 F 98.1 F 98.0 F Pulse Rate 86 76 75 Respiratory Rate 18 18 Blood Pressure 137/74 111/64 114/59 L Pulse Oximetry 95 96 97 Intake & Output 03/11/18 03/12/18 03/12/18 18:59 06:59 18:59 Intake Total 350 / 350 1400 / 1400 Output Total 100 / 100 Balance 250 / 250 1400 / 1400 Weight 74.843 kg Intake: IV 350 / 350 1400 / 1400 Protonix Inj 80 MG In NS Inj 100 / 100 100 ML @ 10 mls/hr IV.CONT CONT [facility] Rx#:[id number] NS Inj 1,000 ML @ 100 mls/hr IV 1000 / 1000 .CONT .Q10H [facility] Rx#:[id number] Cipro 400 MG/200 ML Inj 400 mg 200 / 200 200 / 200 In 200 ml @ 200 mls/hr IV.SIG Q12H [facility] Rx#:[id number] Protonix Inj 80 MG In NS Inj 50 50 / 50 ML @ 600 mls/hr IV.SIG BOLUS ONE Rx#:[id number] Flagyl 500 MG Inj 100 ML @ 100 100 / 100 100 / 100 mls/hr IV.SIG Q8H [facility] Rx#: [id number] Output: Urine Amount (Catheter) 100 / 100 Condom 100 / 100 Other: # Voids 0 Date of Last Bowel Movement 03/11/18 Weight On Admission 74.843 kg <Carolina Hannon - Last Filed: 03/12/18 16:20> Results - Labs CBC & Chem 7: 03/12/18 08:52 03/11/18 20:25 Labs: Laboratory Results - last 24 hr 03/11/18 03/11/18 03/11/18 20:25 20:25 20:25 WBC 16.0 H RBC 4.55 Hgb 14.8 Hct 43.0 MCV 94.5 MCH 32.4 MCHC 34.3 RDW 12.6 Plt Count 318 MPV 7.6 Neut % (Auto) 84.7 H Lymph % (Auto) 9.4 Jennings % (Auto) 5.2 Eos % (Auto) 0.4 Baso % (Auto) 0.3 Neut # (Auto) 13.6 H Lymph # (Auto) 1.5 Jennings # (Auto) 0.8 Eos # (Auto) 0.1 Baso # (Auto) 0.0 WBC Differential . Differential Comment Auto diff final PT 11.3 INR 1.1 APTT 24.6 Sodium 137 Potassium 3.8 Chloride 101 Carbon Dioxide 27.6 Anion Gap 8 BUN 20 H Creatinine 1.10 Estimated GFR 69 L Random Glucose 106 Calcium 9.9 Magnesium 2.1 Total Bilirubin 1.0 AST 25 ALT 38 Alkaline Phosphatase 68 Ammonia Troponin I Less than 0.02 L Total Protein 9.2 H Albumin 3.8 Lipase 102 Urine Color Urine Clarity Urine pH Ur Specific [place] Urine Protein Urine Glucose (UA) Urine Ketones Urine Occult Blood Urine Nitrate Urine Bilirubin Urine Urobilinogen Ur Leukocyte Esterase Urine RBC Urine WBC Ur Squamous Epith Cells Hyaline Casts Urine Mucus Micro UA Comment Ur Microscopic Review Urine Culture Comments Serum Alcohol Less than 3 Blood Type Antibody Screen 03/11/18 03/11/18 03/11/18 20:25 20:30 22:25 WBC RBC Hgb Hct MCV MCH MCHC RDW Plt Count MPV Neut % (Auto) Lymph % (Auto) Jennings % (Auto) Eos % (Auto) Baso % (Auto) Neut # (Auto) Lymph # (Auto) Jennings # (Auto) Eos # (Auto) Baso # (Auto) WBC Differential Differential Comment PT INR APTT Sodium Potassium Chloride Carbon Dioxide Anion Gap BUN Creatinine Estimated GFR Random Glucose Calcium Magnesium Total Bilirubin AST ALT Alkaline Phosphatase Ammonia 15 Troponin I Total Protein Albumin Lipase Urine Color Yellow Urine Clarity Hazy H Urine pH 6.0 Ur Specific [place] 1.015 Urine Protein 30 H Urine Glucose (UA) Negative Urine Ketones 20 Urine Occult Blood Small H Urine Nitrate Negative Urine Bilirubin Negative Urine Urobilinogen Less than 2 Ur Leukocyte Esterase Trace H Urine RBC 2 Urine WBC 75 H Ur Squamous Epith Cells <1 Hyaline Casts 1 Urine Mucus Many H Micro UA Comment Culture indicated Ur Microscopic Review Not Reportable Urine Culture Comments Culture indicated Serum Alcohol Blood Type O Positive Antibody Screen Negative 03/12/18 03:51 WBC RBC Hgb 11.7 L D Hct 34.5 L MCV MCH MCHC RDW Plt Count MPV Neut % (Auto) Lymph % (Auto) Jennings % (Auto) Eos % (Auto) Baso % (Auto) Neut # (Auto) Lymph # (Auto) Jennings # (Auto) Eos # (Auto) Baso # (Auto) WBC Differential Differential Comment PT INR APTT Sodium Potassium Chloride Carbon Dioxide Anion Gap BUN Creatinine Estimated GFR Random Glucose Calcium Magnesium Total Bilirubin AST ALT Alkaline Phosphatase Ammonia Troponin I Total Protein Albumin Lipase Urine Color Urine Clarity Urine pH Ur Specific [place] Urine Protein Urine Glucose (UA) Urine Ketones Urine Occult Blood Urine Nitrate Urine Bilirubin Urine Urobilinogen Ur Leukocyte Esterase Urine RBC Urine WBC Ur Squamous Epith Cells Hyaline Casts Urine Mucus Micro UA Comment Ur Microscopic Review Urine Culture Comments Serum Alcohol Blood Type Antibody Screen - Imaging Impressions Chest X-Ray 03/11/18 20:09 CONCLUSION: Left upper lobe masses are without definite change from the prior CT. Otherwise negative one view chest x-ray. Abdomen/Pelvis CT 03/11/18 20:48 CONCLUSION: 1. Mild mural thickening of the colon, especially on the left side most characteristic of a mild colitis. 2. Mild prostatic enlargement. Right renal cysts. 3 mm nonobstructing left renal calculus. Mild fatty liver. Moderate coronary calcifications. Chest CT 03/11/18 22:18 CONCLUSION: 1. Relatively stable left apical lung mass with near complete resolution of previous cavitary lesion in left upper lobe compared with May. No new lung masses. No new effusion or adenopathy. Moderate to severe coronary calcification. <Demetrice Pena - Last Filed: 03/12/18 09:46> - Labs CBC & Chem 7: 03/12/18 14:19 03/11/18 20:25 Labs: Laboratory Results - last 24 hr 03/11/18 03/11/18 03/11/18 20:25 20:25 20:25 WBC 16.0 H RBC 4.55 Hgb 14.8 Hct 43.0 MCV 94.5 MCH 32.4 MCHC 34.3 RDW 12.6 Plt Count 318 MPV 7.6 Neut % (Auto) 84.7 H Lymph % (Auto) 9.4 Jennings % (Auto) 5.2 Eos % (Auto) 0.4 Baso % (Auto) 0.3 Neut # (Auto) 13.6 H Lymph # (Auto) 1.5 Jennings # (Auto) 0.8 Eos # (Auto) 0.1 Baso # (Auto) 0.0 WBC Differential . Differential Comment Auto diff final PT 11.3 INR 1.1 APTT 24.6 Sodium 137 Potassium 3.8 Chloride 101 Carbon Dioxide 27.6 Anion Gap 8 BUN 20 H Creatinine 1.10 Estimated GFR 69 L Random Glucose 106 Calcium 9.9 Magnesium 2.1 Total Bilirubin 1.0 AST 25 ALT 38 Alkaline Phosphatase 68 Ammonia Troponin I Less than 0.02 L Total Protein 9.2 H Albumin 3.8 Lipase 102 Urine Color Urine Clarity Urine pH Ur Specific [place] Urine Protein Urine Glucose (UA) Urine Ketones Urine Occult Blood Urine Nitrate Urine Bilirubin Urine Urobilinogen Ur Leukocyte Esterase Urine RBC Urine WBC Ur Squamous Epith Cells Hyaline Casts Urine Mucus Micro UA Comment Ur Microscopic Review Urine Culture Comments Serum Alcohol Less than 3 Blood Type Antibody Screen 03/11/18 03/11/18 03/11/18 20:25 20:30 22:25 WBC RBC Hgb Hct MCV MCH MCHC RDW Plt Count MPV Neut % (Auto) Lymph % (Auto) Jennings % (Auto) Eos % (Auto) Baso % (Auto) Neut # (Auto) Lymph # (Auto) Jennings # (Auto) Eos # (Auto) Baso # (Auto) WBC Differential Differential Comment PT INR APTT Sodium Potassium Chloride Carbon Dioxide Anion Gap BUN Creatinine Estimated GFR Random Glucose Calcium Magnesium Total Bilirubin AST ALT Alkaline Phosphatase Ammonia 15 Troponin I Total Protein Albumin Lipase Urine Color Yellow Urine Clarity Hazy H Urine pH 6.0 Ur Specific [place] 1.015 Urine Protein 30 H Urine Glucose (UA) Negative Urine Ketones 20 Urine Occult Blood Small H Urine Nitrate Negative Urine Bilirubin Negative Urine Urobilinogen Less than 2 Ur Leukocyte Esterase Trace H Urine RBC 2 Urine WBC 75 H Ur Squamous Epith Cells <1 Hyaline Casts 1 Urine Mucus Many H Micro UA Comment Culture indicated Ur Microscopic Review Not Reportable Urine Culture Comments Culture indicated Serum Alcohol Blood Type O Positive Antibody Screen Negative 03/12/18 03/12/18 03/12/18 03:51 08:52 14:19 WBC RBC Hgb 11.7 L D 11.9 L 11.7 L Hct 34.5 L 36.1 L 35.4 L MCV MCH MCHC RDW Plt Count MPV Neut % (Auto) Lymph % (Auto) Jennings % (Auto) Eos % (Auto) Baso % (Auto) Neut # (Auto) Lymph # (Auto) Jennings # (Auto) Eos # (Auto) Baso # (Auto) WBC Differential Differential Comment PT INR APTT Sodium Potassium Chloride Carbon Dioxide Anion Gap BUN Creatinine Estimated GFR Random Glucose Calcium Magnesium Total Bilirubin AST ALT Alkaline Phosphatase Ammonia Troponin I Total Protein Albumin Lipase Urine Color Urine Clarity Urine pH Ur Specific [place] Urine Protein Urine Glucose (UA) Urine Ketones Urine Occult Blood Urine Nitrate Urine Bilirubin Urine Urobilinogen Ur Leukocyte Esterase Urine RBC Urine WBC Ur Squamous Epith Cells Hyaline Casts Urine Mucus Micro UA Comment Ur Microscopic Review Urine Culture Comments Serum Alcohol Blood Type Antibody Screen - Imaging Impressions Chest X-Ray 03/11/18 20:09 CONCLUSION: Left upper lobe masses are without definite change from the prior CT. Otherwise negative one view chest x-ray. Abdomen/Pelvis CT 03/11/18 20:48 CONCLUSION: 1. Mild mural thickening of the colon, especially on the left side most characteristic of a mild colitis. 2. Mild prostatic enlargement. Right renal cysts. 3 mm nonobstructing left renal calculus. Mild fatty liver. Moderate coronary calcifications. Chest CT 03/11/18 22:18 CONCLUSION: 1. Relatively stable left apical lung mass with near complete resolution of previous cavitary lesion in left upper lobe compared with May. No new lung masses. No new effusion or adenopathy. Moderate to severe coronary calcification. <Carolina Hannon - Last Filed: 03/12/18 16:20> Assessment and Plan - Plan 58-year-old male who came into the hospital for bright red rectal bleeding and nausea that he noticed approximately 24 hours ago patient states that he is also had symptoms of diarrhea for approximately 2 weeks as many as 3-4 times a day along with decreased appetite. Patient denies any dyspepsia or dysphasia. 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 Patient is taking baby aspirin 4 times a day/325 mg total which could be aggravating any bright red rectal bleeding. CT scan did show some mild colitis on the left side with some mild mural thickening and fatty liver disease. Patient has been placed on Flagyl and Cipro. Labs show hemoglobin initially was 14.8 and is now 11.7, PT/ INR 1.1, ammonia level 15, bilirubin and LFTs are normal, and lipase is normal at 102. Patient denies any history of EGD or colonoscopy and denies any family history of colon cancer. Gastroenterology was consulted for patient's GI bleed and to assist with his plan of care. Patient denies any history of constipation and denies any acute abdominal pain for now. GI bleed, hemoglobin initially was 14.8 now 11.7. Patient described bright red rectal bleeding approximately 24 hours ago, noted when wiping but no obvious dripping in the toilet. Change in hemoglobin could be related to some dehydration since patient has been on IV fluids for the past 24 hours Mild left-sided colitis with mild mural thickening noted on CT scan 03/11/2018. Patient's currently on IV Cipro and Flagyl and stool studies have been ordered to rule out C. difficile, any pathogens, WBC count, ova and parasites. Discussed colonoscopy with patient but will hold for now until stool studies are back. History of right CVA in June 2017 with extended 3-month stay in [facility]. Patient has left-sided paralysis and has minimal ambulation but when he is up has a cane for assistance. No family history of colon cancer no previous EGD colonoscopy Plan Diet clear liquids Monitor labs with special attention to hemoglobin Monitor for any further acute rectal bleeding Hold aspirin Consider colonoscopy when stool studies are back and patient is stabilized from colitis PPI drip Bowel regimen as needed Further recommendations to follow Patient was seen per myself and Dr. Hannon, note was written on her behalf <Demetrice Pena - Last Filed: 03/12/18 09:46> - Attending Attestation seen, examined agree with above egd/colon in am <Carolina Hannon - Last Filed: 03/12/18 16:20>
[2018-03-12] MEDS ORDERED: Acetaminophen 500 MG Tablet PO ONE (10:01)
--- NOTE | 2018-03-12 10:01 | P.PN ---
Subjective Interval history: Follow-up for colitis. Patient denies any current abdominal pain. He has not had a bowel movement since prior to arrival. He reports intermittent nausea, but no vomiting. Denies fevers or chills. He states he has never had a colonoscopy that he remembers. Denies any family history of colon cancer. Denies any other medical complaints at this time. Physical Exam Vital signs: Vital Signs 03/11/18 19:50 03/11/18 19:53 03/12/18 04:00 Temperature 98.2 F 98.3 F Pulse Rate 95 H 98 H 84 Respiratory Rate 20 20 16 Blood Pressure 132/96 H 139/95 H 122/68 Pulse Oximetry 98 98 96 03/12/18 07:53 Temperature 98.5 F Pulse Rate 86 Respiratory Rate 18 Blood Pressure 137/74 Pulse Oximetry 95 Intake & Output 03/11/18 03/12/18 03/12/18 18:59 06:59 18:59 Intake Total 350 / 350 1100 / 1100 Output Total 100 / 100 Balance 250 / 250 1100 / 1100 Weight 74.843 kg Intake: IV 350 / 350 1100 / 1100 Protonix Inj 80 MG In NS Inj 100 / 100 100 ML @ 10 mls/hr IV.CONT CONT [facility] Rx#:[id number] NS Inj 1,000 ML @ 100 mls/hr IV 1000 / 1000 .CONT .Q10H [facility] Rx#:[id number] Cipro 400 MG/200 ML Inj 400 mg 200 / 200 In 200 ml @ 200 mls/hr IV.SIG ONCE ONE Rx#:[id number] Protonix Inj 80 MG In NS Inj 50 50 / 50 ML @ 600 mls/hr IV.SIG BOLUS [facility] Rx#:[id number] Flagyl 500 MG Inj 100 ML @ 100 100 / 100 mls/hr IV.SIG ONCE ONE Rx#: [id number] Output: Urine Amount (Catheter) 100 / 100 Condom 100 / 100 Other: Date of Last Bowel Movement 03/11/18 Weight On Admission 74.843 kg Narrative: GENERAL: Well-nourished, well-developed pleasant middle-age male patient in [facility]. SKIN: Warm and dry. No rash. HEENT: Normocephalic. Atraumatic. Pupils equal and round. Mucous membranes pink and moist. CARDIOVASCULAR: Regular rate and rhythm. No murmur appreciated. RESPIRATORY: No accessory muscle use. Clear to auscultation. Breath sounds equal bilaterally. GASTROINTESTINAL: Abdomen soft, non-tender, nondistended. Normoactive bowel sounds x4. MUSCULOSKELETAL: No obvious deformities. Extremities without clubbing, cyanosis , or edema. NEUROLOGICAL: Awake and alert. No obvious cranial nerve deficits. Left-sided weakness at baseline. Normal speech. PSYCHIATRIC: Appropriate mood and affect; insight and judgment normal. - Urinary Catheter Management Condom Cath placed during this visit: no Results - Labs CBC & Chem 7: 03/12/18 08:52 03/11/18 20:25 Laboratory Results - last 24 hr 03/11/18 03/11/18 03/11/18 20:25 20:25 20:25 WBC 16.0 H RBC 4.55 Hgb 14.8 Hct 43.0 MCV 94.5 MCH 32.4 MCHC 34.3 RDW 12.6 Plt Count 318 MPV 7.6 Neut % (Auto) 84.7 H Lymph % (Auto) 9.4 [place] % (Auto) 5.2 Eos % (Auto) 0.4 Baso % (Auto) 0.3 Neut # (Auto) 13.6 H Lymph # (Auto) 1.5 [place] # (Auto) 0.8 Eos # (Auto) 0.1 Baso # (Auto) 0.0 WBC Differential . Differential Comment Auto diff final PT 11.3 INR 1.1 APTT 24.6 Sodium 137 Potassium 3.8 Chloride 101 Carbon Dioxide 27.6 Anion Gap 8 BUN 20 H Creatinine 1.10 Estimated GFR 69 L Random Glucose 106 Calcium 9.9 Magnesium 2.1 Total Bilirubin 1.0 AST 25 ALT 38 Alkaline Phosphatase 68 Ammonia Troponin I Less than 0.02 L Total Protein 9.2 H Albumin 3.8 Lipase 102 Urine Color Urine Clarity Urine pH Ur Specific [place] Urine Protein Urine Glucose (UA) Urine Ketones Urine Occult Blood Urine Nitrate Urine Bilirubin Urine Urobilinogen Ur Leukocyte Esterase Urine RBC Urine WBC Ur Squamous Epith Cells Hyaline Casts Urine Mucus Micro UA Comment Ur Microscopic Review Urine Culture Comments Serum Alcohol Less than 3 Blood Type Antibody Screen 03/11/18 03/11/18 03/11/18 20:25 20:30 22:25 WBC RBC Hgb Hct MCV MCH MCHC RDW Plt Count MPV Neut % (Auto) Lymph % (Auto) [place] % (Auto) Eos % (Auto) Baso % (Auto) Neut # (Auto) Lymph # (Auto) [place] # (Auto) Eos # (Auto) Baso # (Auto) WBC Differential Differential Comment PT INR APTT Sodium Potassium Chloride Carbon Dioxide Anion Gap BUN Creatinine Estimated GFR Random Glucose Calcium Magnesium Total Bilirubin AST ALT Alkaline Phosphatase Ammonia 15 Troponin I Total Protein Albumin Lipase Urine Color Yellow Urine Clarity Hazy H Urine pH 6.0 Ur Specific [place] 1.015 Urine Protein 30 H Urine Glucose (UA) Negative Urine Ketones 20 Urine Occult Blood Small H Urine Nitrate Negative Urine Bilirubin Negative Urine Urobilinogen Less than 2 Ur Leukocyte Esterase Trace H Urine RBC 2 Urine WBC 75 H Ur Squamous Epith Cells <1 Hyaline Casts 1 Urine Mucus Many H Micro UA Comment Culture indicated Ur Microscopic Review Not Reportable Urine Culture Comments Culture indicated Serum Alcohol Blood Type O Positive Antibody Screen Negative 03/12/18 03/12/18 03:51 08:52 WBC RBC Hgb 11.7 L D 11.9 L Hct 34.5 L 36.1 L MCV MCH MCHC RDW Plt Count MPV Neut % (Auto) Lymph % (Auto) [place] % (Auto) Eos % (Auto) Baso % (Auto) Neut # (Auto) Lymph # (Auto) [place] # (Auto) Eos # (Auto) Baso # (Auto) WBC Differential Differential Comment PT INR APTT Sodium Potassium Chloride Carbon Dioxide Anion Gap BUN Creatinine Estimated GFR Random Glucose Calcium Magnesium Total Bilirubin AST ALT Alkaline Phosphatase Ammonia Troponin I Total Protein Albumin Lipase Urine Color Urine Clarity Urine pH Ur Specific [place] Urine Protein Urine Glucose (UA) Urine Ketones Urine Occult Blood Urine Nitrate Urine Bilirubin Urine Urobilinogen Ur Leukocyte Esterase Urine RBC Urine WBC Ur Squamous Epith Cells Hyaline Casts Urine Mucus Micro UA Comment Ur Microscopic Review Urine Culture Comments Serum Alcohol Blood Type Antibody Screen - Imaging Impressions Chest X-Ray 03/11/18 20:09 CONCLUSION: Left upper lobe masses are without definite change from the prior CT. Otherwise negative one view chest x-ray. Abdomen/Pelvis CT 03/11/18 20:48 CONCLUSION: 1. Mild mural thickening of the colon, especially on the left side most characteristic of a mild colitis. 2. Mild prostatic enlargement. Right renal cysts. 3 mm nonobstructing left renal calculus. Mild fatty liver. Moderate coronary calcifications. Chest CT 03/11/18 22:18 CONCLUSION: 1. Relatively stable left apical lung mass with near complete resolution of previous cavitary lesion in left upper lobe compared with [place]oj[place]. No new lung masses. No new effusion or adenopathy. Moderate to severe coronary calcification. Assessment and Plan - Plan 58-year-old male with a past medical history significant for history of CVA in June of this year, hypertension and hyperlipidemia presents to the emergency department for evaluation of bright red blood per rectum. Acute colitis: CT scan showing mild mural thickening, characteristic of colitis -Started on IV Cipro/Flagyl -Check stool studies to rule out infectious etiology -Supportive treatment with IVF, antiemetics, and pain control as needed -Clear liquid diet for now -GI consulted and following, appreciate recommendations Acute GI bleeding with anemia: Patient with large amount of bright red rectal bleeding with clots x1 day. -Monitor H&H, hemoglobin dropped from 14.8 to 11.7 -Continue PPI drip -Hold patient's aspirin -GI to consider colonoscopy when colitis improves History of CVA: Chronic, left-sided weakness at baseline -Holding aspirin as above with GI bleeding -Consult PT UTI: Acute -On IV Cipro as above -Monitor urine culture, adjust antibiotics as needed Lung mass: Chronic -Patient with stable apical lung mass with near complete resolution of previous cavitary lesion as compared to May -Outpatient follow-up DVT prophylaxis: Teds/SCDs, avoid chemical prophylaxis with GI bleeding
[2018-03-12] MEDS: Pantoprazole Inj 80 MG in Sodium Chlor 0.9% Inj 100 ML IV.CONT SCH ×2 (11:25→18:41)
[2018-03-12] MEDS: Ciprofloxacin 400 MG/200 ML 400 MG/200 ML PIGGYBACK IV.SIG SCH (14:12)
[2018-03-12] MEDS ORDERED: Acetaminophen 325 MG Tablet PO PRN (14:23)
[2018-03-12 14:31] LABS: Hematocrit 35.4 % (39.0-51.0); Hemoglobin 11.7 gm/dL (13.0-17.0)
[2018-03-12] MEDS ORDERED: PEG 3350/E-Lyte Soln 4000 ML Bottle PO ONE (15:00)
[2018-03-12] MEDS ORDERED: Magnesium Citrate Liq 300 ML Bottle PO ONE (16:21)
[2018-03-12 21:48] LABS: Hematocrit 34.8 % (39.0-51.0); Hemoglobin 11.9 gm/dL (13.0-17.0)
[2018-03-12] MEDS: Melatonin 5 MG Tablet PO SCH (21:53)
[2018-03-13] MEDS: Sod Chloride 0.9% Inj 1,000 ML IV.CONT SCH ×3 (00:53→20:56)
[2018-03-13] MEDS: Ciprofloxacin 400 MG/200 ML 400 MG/200 ML PIGGYBACK IV.SIG SCH ×3 (00:53→23:49)
[2018-03-13] MEDS: Pantoprazole Inj 80 MG in Sodium Chlor 0.9% Inj 100 ML IV.CONT SCH ×3 (05:16→23:52)
[2018-03-13 08:44] LABS: Baso % (Auto) 0.3 % (0.0-2.0); Eos # (Auto) 0.1 th/mm3 (0.0-0.4); Eos % (Auto) 0.7 % (0.0-4.0); Hematocrit 34.6 % (39.0-51.0); Lymph # (Auto) 1.4 th/mm3 (1.0-4.8); Mean Corpuscular HGB Conc 34.6 % (32.0-36.0); Mean Corpuscular Hemoglobin 32.7 pg (27.0-34.0); Mean Corpuscular Volume 94.4 fL (80.0-100.0); Mean Platelet Volume 7.4 fL (7.0-11.0); Mono # (Auto) 0.6 th/mm3 (0.0-0.9); Mono % (Auto) 6.4 % (0.0-8.0); Neut % (Auto) 78.6 % (16.0-70.0); Platelet Count 241 th/mm3 (150-450); Red Blood Count 3.67 mil/mm3 (4.50-5.90); Red Cell Distribution Width 12.7 % (11.6-17.2); White Blood Count 10.1 th/mm3 (4.0-11.0)
[2018-03-13 09:05] LABS: Anion Gap 10 meq/L (5-15); Blood Urea Nitrogen 7 mg/dL (7-18); Calcium 8.3 mg/dL (8.5-10.1); Carbon Dioxide 24.5 meq/L (21.0-32.0); Chloride 104 meq/L (98-107); Glomerular Filtration Rate Greater Than 89 mL/min (>89); Glucose,Random 84 mg/dL (74-106); Potassium 3.3 meq/L (3.5-5.1); Sodium 138 meq/L (136-145)
--- NOTE | 2018-03-13 09:09 | P.PN ---
Subjective Interval history: Follow-up for colitis, GI bleeding, UTI. Patient is status post bowel prep last night, reports multiple bowel movements. He is unsure if there is any blood in his stool because he did not look at it. Denies any abdominal pain or nausea/vomiting. Going for EGD/colonoscopy today. He is hungry and wants to eat. Denies any urinary complaints. He has no other medical complaints at this time. He lives at home with his . Physical Exam Vital signs: Vital Signs 03/12/18 11:47 03/12/18 15:54 03/12/18 20:00 Temperature 98.1 F 98.0 F 98.2 F Pulse Rate 76 75 76 Respiratory Rate 18 19 Blood Pressure 111/64 114/59 L 131/81 Pulse Oximetry 96 97 96 03/12/18 20:10 03/13/18 00:00 03/13/18 04:00 Temperature 98.0 F 98.2 F Pulse Rate 71 72 Respiratory Rate 19 20 Blood Pressure 139/68 134/72 Pulse Oximetry 96 98 96 03/13/18 07:44 03/13/18 08:00 Temperature 98.7 F Pulse Rate 76 Respiratory Rate 16 Blood Pressure 143/69 H Pulse Oximetry 97 96 Intake & Output 03/12/18 03/13/18 03/13/18 18:59 06:59 18:59 Intake Total 2300 / 2300 600 / 600 Output Total 1400 / 1400 Balance 2300 / 2300 -800 / -800 Weight 69.3 kg Intake: IV 2300 / 2300 600 / 600 Protonix Inj 80 MG In NS Inj 100 / 100 100 / 100 100 ML @ 10 mls/hr IV.CONT Q10H [facility] Rx#:[id number] NS Inj 1,000 ML @ 100 mls/hr IV 1800 / 1800 200 / 200 .CONT .Q10H [facility] Rx#:[id number] Cipro 400 MG/200 ML Inj 400 mg 200 / 200 200 / 200 In 200 ml @ 200 mls/hr IV.SIG Q12H [facility] Rx#:[id number] Flagyl 500 MG Inj 100 ML @ 100 200 / 200 100 / 100 mls/hr IV.SIG Q8H [facility] Rx#: [id number] Output: Urine Amount (Catheter) 1400 / 1400 Condom 1400 / 1400 Other: # Voids 0 Date of Last Bowel Movement 03/11/18 Narrative: GENERAL: Well-nourished, well-developed pleasant middle-age male patient in [facility]. SKIN: Warm and dry. No rash. HEENT: Normocephalic. Atraumatic. Pupils equal and round. Mucous membranes pink and moist. CARDIOVASCULAR: Regular rate and rhythm. No murmur appreciated. RESPIRATORY: No accessory muscle use. Clear to auscultation. Breath sounds equal bilaterally. GASTROINTESTINAL: Abdomen soft, non-tender, nondistended. Normoactive bowel sounds x4. MUSCULOSKELETAL: No obvious deformities. Extremities without clubbing, cyanosis , or edema. NEUROLOGICAL: Awake and alert. No obvious cranial nerve deficits. Left-sided weakness at baseline. Normal speech. PSYCHIATRIC: Appropriate mood and affect; insight and judgment normal. - Urinary Catheter Management Condom Cath placed during this visit: no Results - Labs CBC & Chem 7: 03/13/18 06:25 03/13/18 06:25 Laboratory Results - last 24 hr 03/11/18 03/12/18 03/12/18 22:25 08:52 14:19 WBC RBC Hgb 11.9 L 11.7 L Hct 36.1 L 35.4 L MCV MCH MCHC RDW Plt Count MPV Neut % (Auto) Lymph % (Auto) [place] % (Auto) Eos % (Auto) Baso % (Auto) Neut # (Auto) Lymph # (Auto) [place] # (Auto) Eos # (Auto) Baso # (Auto) WBC Differential Differential Comment Sodium Potassium Chloride Carbon Dioxide Anion Gap BUN Creatinine Estimated GFR Random Glucose Calcium Urine Color Yellow Urine Clarity Hazy H Urine pH 6.0 Ur Specific [place] 1.015 Urine Protein 30 H Urine Glucose (UA) Negative Urine Ketones 20 Urine Occult Blood Small H Urine Nitrate Negative Urine Bilirubin Negative Urine Urobilinogen Less than 2 Ur Leukocyte Esterase Trace H Urine RBC 2 Urine WBC 75 H Ur Squamous Epith Cells <1 Hyaline Casts 1 Urine Mucus Many H Micro UA Comment Culture indicated Urine Culture Comments Culture indicated 03/12/18 03/13/18 03/13/18 20:50 06:25 06:25 WBC 10.1 RBC 3.67 L Hgb 11.9 L 12.0 L Hct 34.8 L 34.6 L MCV 94.4 MCH 32.7 MCHC 34.6 RDW 12.7 Plt Count 241 MPV 7.4 Neut % (Auto) 78.6 H Lymph % (Auto) 14.0 [place] % (Auto) 6.4 Eos % (Auto) 0.7 Baso % (Auto) 0.3 Neut # (Auto) 8.0 H Lymph # (Auto) 1.4 [place] # (Auto) 0.6 Eos # (Auto) 0.1 Baso # (Auto) 0.0 WBC Differential . Differential Comment Auto diff final Sodium 138 Potassium 3.3 L Chloride 104 Carbon Dioxide 24.5 Anion Gap 10 BUN 7 Creatinine 0.72 Estimated GFR Greater than 89 Random Glucose 84 Calcium 8.3 L D Urine Color Urine Clarity Urine pH Ur Specific [place] Urine Protein Urine Glucose (UA) Urine Ketones Urine Occult Blood Urine Nitrate Urine Bilirubin Urine Urobilinogen Ur Leukocyte Esterase Urine RBC Urine WBC Ur Squamous Epith Cells Hyaline Casts Urine Mucus Micro UA Comment Urine Culture Comments Microbiology 03/11/18 22:25 Clean Catch Urine Urine Culture - Preliminary gram negative rods - Imaging Chest X-Ray 03/11/18 20:09 CONCLUSION: Left upper lobe masses are without definite change from the prior CT. Otherwise negative one view chest x-ray. Abdomen/Pelvis CT 03/11/18 20:48 CONCLUSION: 1. Mild mural thickening of the colon, especially on the left side most characteristic of a mild colitis. 2. Mild prostatic enlargement. Right renal cysts. 3 mm nonobstructing left renal calculus. Mild fatty liver. Moderate coronary calcifications. Chest CT 03/11/18 22:18 CONCLUSION: 1. Relatively stable left apical lung mass with near complete resolution of previous cavitary lesion in left upper lobe compared with May. No new lung masses. No new effusion or adenopathy. Moderate to severe coronary calcification. Assessment and Plan - Plan 58-year-old male with a past medical history significant for history of CVA in June of this year, hypertension and hyperlipidemia presents to the emergency department for evaluation of bright red blood per rectum. Acute colitis: CT scan showing mild mural thickening, characteristic of colitis -Continue on on IV Cipro/Flagyl -Check stool studies to rule out infectious etiology -Supportive treatment with IVF, antiemetics, and pain control as needed -Currently n.p.o. for procedure -GI consulted and following, plans for EGD/colonoscopy today Acute GI bleeding with anemia: Patient with large amount of bright red rectal bleeding with clots x1 day. -Monitor H&H, hemoglobin dropped from 14.8 to 11.7 -Continue PPI drip -Hold patient's aspirin -GI planning EGD/colonoscopy today History of CVA: Chronic, left-sided weakness at baseline -Holding aspirin as above with GI bleeding -Consult PT UTI: Acute -On IV Cipro as above -Urine culture with Pseudomonas, sensitive to Cipro Lung mass: Chronic -Patient with stable apical lung mass with near complete resolution of previous cavitary lesion as compared to May -Outpatient follow-up DVT prophylaxis: Teds/SCDs, avoid chemical prophylaxis with GI bleeding
[2018-03-13] MEDS: Sertraline 50 MG Tablet PO SCH (09:11)
[2018-03-13] MEDS: amLODIPine 5 MG Tablet PO SCH (09:11)
[2018-03-13] MEDS ORDERED: Lidocaine PF 1% Inj 5 ML Syringe OTHER ONE (14:11)
--- NOTE | 2018-03-13 15:05 | GIPROC ---
[facility] [address] [facility]. [facility], [address] COLONOSCOPY PROCEDURE REPORT EXAM DATE: 03/13/2018 PATIENT NAME: Tashi Schmidt MR #: [id number] BIRTHDATE: 1960 ENDOSCOPIST: Fernando Cox MD ORDER #: [id number] BROOM MACHINE OPERATOR: Betty Kuhn and Yun Robertson STATUS: inpatient INDICATIONS: The patient is a 58 yr old male here for a colonoscopy due to H/O Colitis PROCEDURE PERFORMED: Colonoscopy with polypectomy MEDICATIONS: None and Per Anesthesia. PREP QUALITY: fair ESTIMATED BLOOD LOSS: None CONSENT: The patient understands the risks and benefits of the procedure and understands that these risks include, but are not limited to: sedation, allergic reaction, infection, perforation and/or bleeding. Alternative means of evaluation and treatment include, among others: physical exam, x-rays, and/or surgical intervention. The patient elects to proceed with this endoscopic procedure. medical equipment was checked for proper function. Hand hygiene and appropriate measures for infection prevention was taken. After the risks, benefits and alternatives of the procedure were thoroughly explained, Informed consent was verified, confirmed and timeout was successfully executed by the treatment team. A digital exam was performed and revealed no abnormalities of the rectum The Pentax EC-3490Li endoscope was introduced through the anus and advanced to the cecum, which was identified by both the appendix and ileocecal valve. The instrument was then slowly withdrawn as the colon was fully examined. COLON FINDINGS: A sessile polyp measuring 2 cm in size was found in the descending colon. A polypectomy was performed using snare cautery and with a cold snare. Bleeding at the site was controlled using hemoclips. Two (2) placements were made. A pedunculated polyp measuring 1.5 cm in size was found in the sigmoid colon. A polypectomy was performed using snare cautery. Moderate diverticulosis was noted in the sigmoid colon and descending colon. The colonic mucosa appeared normal in the terminal ileum and throughout the entire examined colon. Multiple biopsies were performed. Retroflexed views revealed internal hemorrhoids, Retroflexed views revealed medium internal hemorrhoids, and Retroflexed views revealed internal hemorrhoids The scope was then completely withdrawn from the patient and the procedure terminated. PROCEDURE WITHDRAWAL TIME:15minutes ADVERSE EVENTS: There were no complications. IMPRESSIONS: 1. A sessile polyp measuring 2 cm in size was found in the descending colon; polypectomy was performed using snare cautery and with a cold snare; bleeding at the site was controlled using hemoclips 2. A pedunculated polyp measuring 1.5 cm in size was found in the sigmoid colon; polypectomy was performed using snare cautery 3. Moderate diverticulosis was noted in the sigmoid colon and descending colon 4. The colonic mucosa appeared normal in the terminal ileum and throughout the entire examined colon; multiple biopsies were performed 5. Retroflexed views revealed internal hemorrhoids 6. Retroflexed views revealed medium internal hemorrhoids 7. Retroflexed views revealed internal hemorrhoids 8. Was performed 9. Revealed no abnormalities of the rectum RECOMMENDATIONS: Await biopsy results. Biopsy results will not be ready for 7-10 days. If you don't hear from us in two weeks, call our office for results. RECALL: Colonoscopy, pending biopsy results Fernando Cox MD eSigned: Fernando Cox MD 03/13/2018 3:05 PM cc: PATIENT NAME: Tashi Schmidt MR#: [id number]
--- NOTE | 2018-03-13 15:13 | GIPROC ---
[facility] [address] [facility]. [facility], [address] EGD PROCEDURE REPORT EXAM DATE: 03/13/2018 PATIENT NAME: Tashi Schmidt MR #: [id number] BIRTHDATE: 1960 ATTENDING: Fernando Cox MD ORDER #: [id number] COLD TYPE COMPOSING MACHINE OPERATOR: Betty Kuhn and Yun Robertson STATUS: inpatient INDICATIONS: The patient is a 58 yr old male here for an EGD due to heartburn and dysphagia PROCEDURE PERFORMED: EGD w/ biopsy EGD w/ balloon dilation of esophagus MEDICATIONS: None and Per Anesthesia. TOPICAL ANESTHETIC: none CONSENT: The patient understands the risks and benefits of the procedure and understands that these risks include, but are not limited to: sedation, allergic reaction, infection, perforation and/or bleeding. Alternative means of evaluation and treatment include, among others: physical exam, x-rays, and/or surgical intervention. The patient elects to proceed with this endoscopic procedure. medical equipment was checked for proper function. Hand hygiene and appropriate measures for infection prevention was taken. After the risks, benefits and alternatives of the procedure were thoroughly explained, Informed consent was verified, confirmed and timeout was successfully executed by the treatment team. The patient was anesthetized with topical anesthesia and the EC-3490Li (Pedi C) endoscope was introduced through the mouth and advanced to the second portion of the duodenum. Retroflexed views revealed no abnormalities The gastroscope was then slowly withdrawn and removed. 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 The stricture was traversable. Multiple biopsies were performed. Using a TTS-balloon the stricture was dilated up to 20mm. STOMACH: The mucosa of the stomach appeared normal. DUODENUM: The duodenal mucosa appeared normal in the entire duodenum. ADVERSE EVENTS: There were no complications. IMPRESSIONS: 1. 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 The mucosa of the stomach appeared normal 3. Normal duodenal mucosa in the entire duodenum 4. Retroflexed views revealed no abnormalities RECOMMENDATIONS: Await biopsy results. Biopsy results will not be ready for 7-10 days. If you don't hear from us in two weeks, call our office for biopsy results. PATIENT CONDITION: stable DISPOSITION: Observation REPEAT EXAM: Return as needed for EGD Fernando Cox MD eSigned: Fernando Cox MD 03/13/2018 3:12 PM cc: PATIENT NAME: Tashi Schmidt MR#: [id number]
[2018-03-13] MEDS: Melatonin 5 MG Tablet PO SCH (20:56)
[2018-03-14] MEDS: Pantoprazole Inj 80 MG in Sodium Chlor 0.9% Inj 100 ML IV.CONT SCH ×2 (01:02→12:49)
[2018-03-14] MEDS: Sod Chloride 0.9% Inj 1,000 ML IV.CONT SCH (06:24)
[2018-03-14] MEDS: Sertraline 50 MG Tablet PO SCH (08:29)
[2018-03-14] MEDS: amLODIPine 5 MG Tablet PO SCH (08:30)
--- NOTE | 2018-03-14 09:09 | P.PNGI ---
Subjective Interval history: Resting in the bed denies any nausea vomiting, increased appetite and beginning to get hungry soft diet ordered and will check for toleration Physical Exam Vital signs: Vital Signs 03/13/18 12:00 03/13/18 15:10 03/13/18 15:30 Temperature 99.1 F 98.3 F 97.7 F Pulse Rate 67 69 61 Respiratory Rate 16 15 18 Blood Pressure 141/76 H 131/78 142/61 H Pulse Oximetry 97 99 100 03/13/18 16:00 03/13/18 20:00 03/14/18 00:00 Temperature 98.2 F 98.2 F 98.1 F Pulse Rate 66 70 68 Respiratory Rate 16 19 18 Blood Pressure 120/80 134/72 155/89 H Pulse Oximetry 97 96 98 03/14/18 04:00 Temperature 98.0 F Pulse Rate 77 Respiratory Rate 18 Blood Pressure 122/87 Pulse Oximetry 96 Intake & Output 03/13/18 03/14/18 03/14/18 18:59 06:59 18:59 Intake Total 1100 / 1100 1200 / 1200 Output Total 1350 / 1350 2000 / 1999 Balance -250 / -250 -800 / -800 Weight 68.3 kg Intake: IV 700 / 700 1200 / 1200 Protonix Inj 80 MG In NS Inj 100 / 100 100 / 100 100 ML @ 10 mls/hr IV.CONT Q10H ALEXANDRA Rx#:[id number] NS Inj 1,000 ML @ 100 mls/hr IV 500 / 500 500 / 500 .CONT .Q10H ALEXANDRA Rx#:[id number] Cipro 400 MG/200 ML Inj 400 mg 400 / 400 In 200 ml @ 200 mls/hr IV.SIG Q12H ALEXANDRA Rx#:[id number] Flagyl 500 MG Inj 100 ML @ 100 100 / 100 200 / 200 mls/hr IV.SIG Q8H ALEXANDRA Rx#: [id number] Anesthesia Amount 400 / 400 Output: Urine 1700 / 1700 Urine Amount (Catheter) 1350 / 1350 300 / 300 Condom 1350 / 1350 300 / 300 Other: Date of Last Bowel Movement 03/11/18 # Bowel Movements 1 - Constitutional no acute distress, obese, disheveled (Mild anxiety) - Routine HEENT Exam Head: Present: normocephalic ENT: Present: mucous membranes moist - Routine Respiratory Exam Present: accessory muscle use (Even, unlabored) - Routine Cardiovascular Exam Present: S1, S2 - Routine Abdominal Exam Present: soft (Round, soft bowel sounds no obvious distention or abdominal pain) - Urinary Catheter Management Condom Cath placed during this visit: no Results - Labs CBC & Chem 7: 03/13/18 06:25 03/13/18 06:25 Laboratory Results - last 24 hr 03/13/18 03/13/18 09:56 12:30 POC Glucose 103 Stl C.difficile DNA Amp Negative St C. diff Tox Epid 027 Negative Microbiology 03/13/18 12:30 Stool Enteric Pathogens (PCR) - Final No enteric pathogens detected by PCR (No Salmonella sp., Shigella sp., Campylobacter sp., Yersinia enterocolitica, Vibrio sp., Norovirus, or EHEC (Shiga Toxin 1 or Shiga Toxin 2) detected. 03/11/18 22:25 Clean Catch Urine Urine Culture - Final Pseudomonas aeruginosa Assessment and Plan - Plan 58-year-old male who came into the hospital for bright red rectal bleeding and nausea that he noticed approximately 24 hours ago patient states that he is also had symptoms of diarrhea for approximately 2 weeks as many as 3-4 times a day along with decreased appetite. Patient denies any dyspepsia or dysphasia. 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 Patient is taking baby aspirin 4 times a day/325 mg total which could be aggravating any bright red rectal bleeding. CT scan did show some mild colitis on the left side with some mild mural thickening and fatty liver disease. Patient has been placed on Flagyl and Cipro. Labs show hemoglobin initially was 14.8 and is now 11.7, PT/ INR 1.1, ammonia level 15, bilirubin and LFTs are normal, and lipase is normal at 102. Patient denies any history of EGD or colonoscopy and denies any family history of colon cancer. Gastroenterology was consulted for patient's GI bleed and to assist with his plan of care. Patient denies any history of constipation and denies any acute abdominal pain for now. GI bleed, hemoglobin initially was 14.8 now 11.7. Patient described bright red rectal bleeding approximately 24 hours ago, noted when wiping but no obvious dripping in the toilet. Change in hemoglobin could be related to some dehydration since patient has been on IV fluids for the past 24 hours Mild left-sided colitis with mild mural thickening noted on CT scan 03/11/2018. Patient's currently on IV Cipro and Flagyl and stool studies have been ordered to rule out C. difficile, any pathogens, WBC count, ova and parasites. Discussed colonoscopy with patient but will hold for now until stool studies are back. History of right CVA in June 2017 with extended 3-month stay in [facility]. Patient has left-sided paralysis and has minimal ambulation but when he is up has a cane for assistance. No family history of colon cancer no previous EGD colonoscopy 03/14/2018 patient is status post EGD colonoscopy performed on 03/13/2018 results include 1. A sessile polyp measuring 2 cm in size was found in the descending colon; polypectomy was performed using snare cautery and with a cold snare; bleeding at the site was controlled using hemoclips 2. A pedunculated polyp measuring 1.5 cm in size was found in the sigmoid colon; polypectomy was performed using snare cautery 3. Moderate diverticulosis was noted in the sigmoid colon and descending colon 4. The colonic mucosa appeared normal in the terminal ileum and throughout the entire examined colon; multiple biopsies were performed 5. Retroflexed views revealed internal hemorrhoids 6. Retroflexed views revealed medium internal hemorrhoids 7. Retroflexed views revealed internal hemorrhoids 8. Was performed 9. Revealed no abnormalities of the rectum EGD showed 1. 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 The mucosa of the stomach appeared normal 3. Normal duodenal mucosa in the entire duodenum 4. Retroflexed views revealed no abnormalities Patient currently denies any abdominal pain EGD and colonoscopy explained in detail. No obvious rectal bleeding diet has been increased and patient tolerated well Okay from a GI standpoint to discharge and follow-up in the office 2-4 weeks. Explained to patient and again to reflux precautions, avoid nuts seeds and popcorn, avoid straining with defecation, okay to take his aspirin. Elevate head of bed as tolerated and monitor late night eating if patient notes any dyspepsia Supportive care. Patient was seen per myself and Dr. Cox, note was written on his behalf
[2018-03-14 09:12] VITALS: RESP 19; O2SAT 95
--- NOTE | 2018-03-14 10:57 | P.DS ---
Date of admission: 03/12/18 00:24 Primary care physician: Vick Ortega MD Attending physician on discharge: Allan White Anticipated date of discharge: 03/14/18 Brief History from admission: 58-year-old male with a past medical history significant for history of CVA in June of this year, hypertension and hyperlipidemia presents to the emergency department for evaluation of bright red blood per rectum. Earlier yesterday, the patient was found to have bright red blood with clots in his stool. Following the episode the patient was pale and weak. He endorses abdominal discomfort over the past week with associated anorexia. Denies fever/ chills. No chest pain or shortness of breath. No nausea/vomiting. Left-sided weakness at baseline. Patient update on day of discharge: Patient reports feeling well no further BM after coloscopy asking for diet to be advanced Denies signs of bleeding DS: Diagnosis - Discharge Diagnosis (1) Colitis Status: Acute DS: Medications - Discharge Medications Prescriptions: ciprofloxacin HCl [Cipro] 500 mg PO BID 5 Days #10 tab metronidazole [Flagyl] 500 mg PO TID 5 Days #15 tab pantoprazole [Protonix] 40 mg PO DAILY 30 Days #30 tab DS: Summary Hospital Course: 58-year-old male with a past medical history significant for history of CVA in June of this year, hypertension and hyperlipidemia presents to the emergency department for evaluation of bright red blood per rectum. Acute colitis: CT scan showing mild mural thickening, characteristic of colitis -Initially on IV Cipro/Flagyl -Check stool studies negative for C diff, no enteric pathogens, moderate WBC in stool -Cryptosporidium and Giardia pending, patient to follow up with PCP and GI after DC -Supportive treatment with IVF, antiemetics, and pain control as needed -diet advanced to soft diet -GI consulted and following, cleared for DC Acute GI bleeding with anemia: Patient with large amount of bright red rectal bleeding with clots x1 day. -Monitor H&H, hemoglobin dropped from 14.8 to 11.7 -> 12.0 (03/13) -initially on Protonix drip -> transition to PO PPI -Hold patient's aspirin, GI cleared to resume aspirin -EGD 03/[address] Cox 1. 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 The mucosa of the stomach appeared normal 3. Normal duodenal mucosa in the entire duodenum 4. Retroflexed views revealed no abnormalities -Colonoscopy 03/[address] Cox 1. A sessile polyp measuring 2 cm in size was found in the descending colon ; polypectomy was performed using snare cautery and with a cold snare; bleeding at the site was controlled using hemoclips 2. A pedunculated polyp measuring 1.5 cm in size was found in the sigmoid colon; polypectomy was performed using snare cautery 3. Moderate diverticulosis was noted in the sigmoid colon and descending colon 4. The colonic mucosa appeared normal in the terminal ileum and throughout the entire examined colon; multiple biopsies were performed 5. Retroflexed views revealed internal hemorrhoids 6. Retroflexed views revealed medium internal hemorrhoids 7. Retroflexed views revealed internal hemorrhoids 8. Was performed 9. Revealed no abnormalities of the rectum History of CVA: Chronic, left-sided weakness at baseline -Initially held aspirin as above with GI bleeding -> cleared per GI to resume -Consult PT, recommend HHC PT UTI: Acute -On Cipro as above -Urine culture with Pseudomonas, sensitive to Cipro Lung mass: Chronic -Patient with stable apical lung mass with near complete resolution of previous cavitary lesion as compared to May -Outpatient follow-up DVT prophylaxis: Teds/SCDs, avoid chemical prophylaxis with GI bleeding Discussed the case with patient, nurse, Demetrice CABA for GI, and supervising physician Dr. White - Time Spent with Patient Total time spent providing and/or coordinating discharge services: Greater than 30 minutes - Quality: VTE Deep Vein Thrombosis/Pulmonary Embolism Present on Admission: No Exam Vital signs: Vital Signs 03/13/18 12:00 03/13/18 15:10 03/13/18 15:30 Temperature 99.1 F 98.3 F 97.7 F Pulse Rate 67 69 61 Respiratory Rate 16 15 18 Blood Pressure 141/76 H 131/78 142/61 H Pulse Oximetry 97 99 100 03/13/18 16:00 03/13/18 20:00 03/14/18 00:00 Temperature 98.2 F 98.2 F 98.1 F Pulse Rate 66 70 68 Respiratory Rate 16 19 18 Blood Pressure 120/80 134/72 155/89 H Pulse Oximetry 97 96 98 03/14/18 04:00 03/14/18 08:00 Temperature 98.0 F 98.3 F Pulse Rate 77 74 Respiratory Rate 18 19 Blood Pressure 122/87 155/73 H Pulse Oximetry 96 95 Intake & Output 03/13/18 03/14/18 03/14/18 18:59 06:59 18:59 Intake Total 1100 / 1100 1200 / 1200 200 / 200 Output Total 1350 / 1350 2000 / 1999 Balance -250 / -250 -800 / -800 200 / 200 Weight 68.3 kg Intake: IV 700 / 700 1200 / 1200 200 / 200 Protonix Inj 80 MG In NS Inj 100 / 100 100 / 100 100 / 100 100 ML @ 10 mls/hr IV.CONT Q10H ALEXANDRA Rx#:[id number] NS Inj 1,000 ML @ 100 mls/hr IV 500 / 500 500 / 500 .CONT .Q10H ALEXANDRA Rx#:[id number] Cipro 400 MG/200 ML Inj 400 mg 400 / 400 In 200 ml @ 200 mls/hr IV.SIG Q12H ALEXANDRA Rx#:[id number] Flagyl 500 MG Inj 100 ML @ 100 100 / 100 200 / 200 100 / 100 mls/hr IV.SIG Q8H ALEXANDRA Rx#: [id number] Anesthesia Amount 400 / 400 Output: Urine 1700 / 1700 Urine Amount (Catheter) 1350 / 1350 300 / 300 Condom 1350 / 1350 300 / 300 Other: Date of Last Bowel Movement 03/11/18 03/11/18 # Bowel Movements 1 Narrative: GENERAL: Well-nourished, well-developed pleasant middle-age male patient in [facility]. SKIN: Warm and dry. No rash. CARDIOVASCULAR: Regular rate and rhythm. No murmur appreciated. RESPIRATORY: No accessory muscle use. Clear to auscultation. Breath sounds equal bilaterally. GASTROINTESTINAL: Abdomen soft, non-tender, nondistended. Normoactive bowel sounds x4. MUSCULOSKELETAL: No obvious deformities. Extremities without clubbing, cyanosis , or edema. NEUROLOGICAL: Awake and alert. Left-sided weakness at baseline. Normal speech. PSYCHIATRIC: Appropriate mood and affect; insight and judgment normal. Results Procedures completed during hospitalization: EGD/Colonscopy 03/[address] Cox Pending studies at discharge: Pending at discharge 03/13/18 Surgical [PTH] Routine Labs on day of discharge: Labs from last 24 hours 03/13/18 12:30 Stl C.difficile DNA Amp Negative St C. diff Tox Epid 027 Negative - Impressions ITS Impressions Chest X-Ray 03/11/18 20:09 CONCLUSION: Left upper lobe masses are without definite change from the prior CT. Otherwise negative one view chest x-ray. Abdomen/Pelvis CT 03/11/18 20:48 CONCLUSION: 1. Mild mural thickening of the colon, especially on the left side most characteristic of a mild colitis. 2. Mild prostatic enlargement. Right renal cysts. 3 mm nonobstructing left renal calculus. Mild fatty liver. Moderate coronary calcifications. Chest CT 03/11/18 22:18 CONCLUSION: 1. Relatively stable left apical lung mass with near complete resolution of previous cavitary lesion in left upper lobe compared with May. No new lung masses. No new effusion or adenopathy. Moderate to severe coronary calcification. Discharge Plan - Discharge Disposition Patient Disposition: W/Home Health Service - Discharge Condition Condition: Stable - Discharge Order Discharge Orders: Discharge Order (Routine); Ordered 03/14/18 Ordered By: Marva Humphrey - Discharge Details Anticipated Discharge Date: 03/14/18 - Physicians Team Primary Care Provider: Vick Ortega Attending Provider: Allan White Other Providers: Carolina Hannon MD
--- NOTE | 2018-03-14 10:59 | P.DCO ---
- Diagnosis (1) History of CVA (cerebrovascular accident) Status: Acute (2) Colitis Status: Acute - Physical Therapy Order: Evaluate and treat - Home Health Nursing Order: Signs/symptoms of disease process, Nursing assessment with vital signs - Case Management Consult Yes - Certification I have seen patient Tashi Schmidt on 03/14/18. My clinical findings support the need for the requested home health care services because: Limited mobility due to disease progression, Limited ability to care for self, High risk of falls I certify that my clinical findings support that this patient is homebound because: Unsteady gait/balance
[2018-03-14] MEDS: Ciprofloxacin 400 MG/200 ML 400 MG/200 ML PIGGYBACK IV.SIG SCH (12:39)
[2018-03-14 13:46] VITALS: BP 121/73; PULSE 75; TEMP 98
== END 2018-03-14 15:17 | disposition home health service (06) ==
LOC: NEPC 19:40 → NEDA 19:40 → OBSVTOIN 03-12 00:24 → NEPHCDU 03-12 01:38 → N04 03-13 22:29
PROVIDERS: ADMIT Internal Medicine; ATTEND Internal Medicine
PROC: COLONOS (2018-03-13 14:11)